=== PATIENT | female | born 1970 | race Caucasian/White ===

== ENCOUNTER 2021-02-13 12:30 | Emergency (ER) | payer OTHER, SELFPAY ==
[2021-02-13 13:05] VITALS: BP 142/97; PULSE 105; RESP 16; TEMP 36.7; O2SAT 99; BMI 29.9
[2021-02-13 13:51] LABS: Glucose Urine UA NEG (NEG); Leukocyte Esterase Urine NEG (NEG); Nitrite Urine NEG (NEG); Urine Blood NEG (NEG); Urine Ketones NEG (NEG); Urine Protein NEG (NEG-TRACE)
[2021-02-13 13:52] LABS: Appearance Urine CLEAR; Color Urine YELLOW
[2021-02-13 14:02] VITALS: BP 165/94; PULSE 97; RESP 17; O2SAT 98
[2021-02-13 14:16] LABS: RBC Urine 0-2 /HPF (0); Squamous Epithelial Cell Urine TRACE /LPF; WBC Urine 0-2 /HPF (0-4)
--- NOTE | 2021-02-13 14:41 | ED.FEMALEGU ---
HPI - Female Genitourinary General Chief complaint: Urogenital-Female <MISSY Ronquillo Last Filed: 02/13/21 15:50> Stated complaint: intense bladder pain <MISSY Ronquillo Last Filed: 02/13/21 15:50> Time Seen by Provider: 02/13/21 14:05 <MISSY Ronquillo Last Filed: 02/13/21 15:50> Source: patient <MISSY Ronquillo Last Filed: 02/13/21 15:50> Mode of arrival: ambulatory <MISSY Ronquillo Last Filed: 02/13/21 15:50> Limitations: no limitations <MISSY Ronquillo Last Filed: 02/13/21 15:50> History of Present Illness HPI Narrative: 50 y/o female with history of metastatic breast cancer, HTN, who presents to the ED wtih on/off dysuria and suprapubic pressure for the last 1 week. She was seen at an Urgent Care initially, had a negative UA but was started on macrobid 5 days ago when he culture came back positive. She was also prescribed pyridum but only took 1 dose because she did not like the color it made her urine. She reports the burning sensation when she urinates comes and goes, is usually worse in the mornings and improves as she hydrates throughout the day. She denies vaginal discharge or bleeding. Not sexually active. No N/V/D and abdominal pain. She is afraid this is related to her breast cancer. She is on hormonal therapy and reports vaginal dryness. <MISSY Ronquillo Last Filed: 02/13/21 15:50> MD elicited complaint: dysuria <MISSY Ronquillo Last Filed: 02/13/21 15:50> Onset (ago): week(s) (1) <MISSY Ronquillo Last Filed: 02/13/21 15:50> Location of symptoms: external genitalia and urethra <MISSY Ronquillo Last Filed: 02/13/21 15:50> Severity: moderate <MISSY Ronquillo Last Filed: 02/13/21 15:50> Female Urogenital Radiation: Non-Radiating <MISSY Ronquillo - Last Filed: 02/13/21 15:50> Severity scale (1-10): 5 <MISSY Ronquillo - Last Filed: 02/13/21 15:50> Quality of pain: burning <MISSY Ronquillo - Last Filed: 02/13/21 15:50> Consistency: intermittent <MISSY Ronquillo - Last Filed: 02/13/21 15:50> Vaginal discharge: none <MISSY Ronquillo - Last Filed: 02/13/21 15:50> Vaginal bleeding: none <MISSY Ronquillo - Last Filed: 02/13/21 15:50> Urinary symptoms: Dysuria, Urgency and Frequency <MISSY Ronquillo - Last Filed: 02/13/21 15:50> Exacerbating factors: urination <MISSY Ronquillo - Last Filed: 02/13/21 15:50> Relieving factors: other (improvement with hydration) <MISSY Ronquillo - Last Filed: 02/13/21 15:50> Associated symptoms: denies other symptoms <MISSY Ronquillo - Last Filed: 02/13/21 15:50> Treatment prior to arrival: none <MISSY Ronquillo - Last Filed: 02/13/21 15:50> Sexual activity: No <MISSY Ronquillo - Last Filed: 02/13/21 15:50> Patient : No <MISSY Ronquillo - Last Filed: 02/13/21 15:50> Related Data Allergies/Adverse reactions: Allergies Allergy/AdvReac Type Severity Reaction Status Date / Time benadryl Allergy Unknown chest pain Uncoded 09/30/12 00:00 E-mycin Allergy Unknown swelling Uncoded 09/30/12 00:00 PCN Allergy Unknown swelling Uncoded 09/30/12 00:00 <MISSY Ronquillo - Last Filed: 02/13/21 15:50> Review of Systems Review of Systems: Constitutional: No Fever, No Chills Cardiovascular: No Chest Pain, No SOB Respiratory: No Cough, No Sputum Gastrointestinal: No Nausea, No Vomiting, No Diarrhea, No abdominal Pain Genitourinary: + Dysuria, + Urinary Frequency, No Hematuria Musculoskeletal: No joint pain, No Myalgias Skin: No Skin Lesions, No rash Neuro: No Weakness, No Numbness, No Dizziness, No Headache Psych: + Anxiety/Panic, No Depression Heme/Lymph: No Bruising, No Lymphadenopathy Endocrine: No Polyuria, +Polydipsia <MISSY Ronquillo - Last Filed: 02/13/21 15:50> [facility]LY [facility] Past Medical History Attestation statement: The following information was validated with the patient. <MISSY Ronquillo - Last Filed: 02/13/21 15:50> Medical History: Medical History (Updated 02/14/21 @ 00:01 by Norberto Coffey) Metastatic breast cancer <MISSY Ronquillo - Last Filed: 02/13/21 15:50> Surgical History: Surgical History (Updated 02/13/21 @ 13:10 by Leida Medellin) H/O breast reconstruction Hx of removal of ovary <MISSY Ronquillo - Last Filed: 02/13/21 15:50> Social History Social History: Social History Alcohol intake: current Alcohol intake frequency: a few times a week Alcohol type: beer Patient Tobacco Use Status: Current everyday Tobacco user Use of substances other than those prescribed or required for medical reasons: Yes Substance Use Type: Marijuana Substance Use Frequency: Occasionally Advance Directives: No Advance Directives Information Provided: No Patient : No <MISSY Ronquillo - Last Filed: 02/13/21 15:50> Physical Exam Vital Signs: Vital Signs: Last Vital Signs Temp 98.1 F 02/13/21 13:05 Pulse 97 02/13/21 14:02 Resp 17 02/13/21 14:02 BP 165/94 H 02/13/21 14:02 Pulse Ox 98 02/13/21 14:02 Body Mass Index 29.9 Appearance: Alert. Oriented X3. No acute distress. Eyes: Pupils equal, round and reactive to light. ENT: Pharynx normal. Neck: Normal inspection. Neck supple. CVS: Normal heart rate and rhythm. Pulses normal. Respiratory: No respiratory distress. Breath sounds normal. Abdomen: Soft and nontender. +BS x4. well healed surgical scar along lower abdomen consistent with prior breast reconstruction surgery Pelvic: mild erythema of vaginal introitus at 9 o'clock, nontender, no ulcerations or lesions, vaginal mucosa is dry without bleeding or lesions. Skin: Skin warm and dry. Normal skin color. Normal skin turgor. No rashes. Extremities: No lower extremity edema. Neuro: Oriented X 3. No motor deficit. No sensory deficit. Anxious and tearful <MISSY Ronquillo - Last Filed: 02/13/21 15:50> Vital Signs: Last Vital Signs Temp 98.1 F 02/13/21 13:05 Pulse 97 02/13/21 14:02 Resp 17 02/13/21 14:02 BP 165/94 H 02/13/21 14:02 Pulse Ox 98 02/13/21 14:02 Body Mass Index 29.9 <Jonathan Barry MD - Last Filed: 03/23/21 13:21> Course Course Course Narrative: 50 y/o female presenting with dysuria and frequency. On antibiotics and pyridium already for +urine culture at an Urgent Care. Exam reveals dry mucosa with mild erythema which can be painful with urine irritating the area. Will refer to urology and have her continue treatment for UTI. She is afebrile and non-toxic with no abdominal tenderness. She is stable for discharge with outpatient followup. <MISSY Ronquillo - Last Filed: 02/13/21 15:50> I have reviewed the chart <Jonathan Barry MD - Last Filed: 03/23/21 13:21> MDM - Female Genitourinary Lab Data Labs: Lab Results 02/13/21 Range/Units 13:31 Urine Color YELLOW Urine Appearance CLEAR Urine pH 6.0 (5.0-8.0) Ur Specific [place] 1.010 (1.005-1.025) Urine Protein NEG (NEG-TRACE) MG/DL Urine Glucose (UA) NEG (NEG) MG/DL Urine Ketones NEG (NEG) MG/DL Urine Blood NEG (NEG) Urine Nitrite NEG (NEG) Ur Leukocyte Esterase NEG (NEG) Urine RBC 0-2 (0) /HPF Urine WBC 0-2 (0-4) /HPF Ur Squamous Epith Cells TRACE /LPF Urine Bacteria NONE /LPF <MISSY Ronquillo - Last Filed: 02/13/21 15:50> Lab Results 02/13/21 Range/Units 13:31 Urine Color YELLOW Urine Appearance CLEAR Urine pH 6.0 (5.0-8.0) Ur Specific [place] 1.010 (1.005-1.025) Urine Protein NEG (NEG-TRACE) MG/DL Urine Glucose (UA) NEG (NEG) MG/DL Urine Ketones NEG (NEG) MG/DL Urine Blood NEG (NEG) Urine Nitrite NEG (NEG) Ur Leukocyte Esterase NEG (NEG) Urine RBC 0-2 (0) /HPF Urine WBC 0-2 (0-4) /HPF Ur Squamous Epith Cells TRACE /LPF Urine Bacteria NONE /LPF <Jonathan Barry MD - Last Filed: 03/23/21 13:21> Discharge Plan Discharge Clinical Impression: Cystitis <MISSY Ronquillo - Last Filed: 02/13/21 15:50> Patient Disposition: Home, Self-Care <MISSY Ronquillo - Last Filed: 02/13/21 15:50> Instructions: Interstitial Cystitis (ED) <MISSY Ronquillo - Last Filed: 02/13/21 15:50> Additional Instructions: Your urine test today was normal. Continue taking your antibiotic and Pyridium to complete treatment Follow up with Urology Follow up with your cancer doctor. If you have worsening symptoms come back to the ER for further evalution. <MISSY Ronquillo - Last Filed: 02/13/21 15:50> Referrals: Marcel Ashby MD [Physician] - 2 days (urethral pain, bladder pain) <MISSY Ronquillo - Last Filed: 02/13/21 15:50> Discharge Date/Time: 02/13/21 16:06 <MISSY Ronquillo - Last Filed: 02/13/21 15:50>
--- NOTE | 2021-02-13 16:06 | PC.NURSE ---
discharge instructions given to pt who verbalized understanding and denies any questions. pt is ambulatory to exit in no distress
== END 2021-02-13 16:06 | disposition home or self-care (01) ==
PROVIDERS: Emergency Provider Emergency Medicine; PCP Internal Medicine
DX: N30.10 Interstitial cystitis (chronic) without hematuria (principal); I10 Essential (primary) hypertension
CPT/HCPCS: 81001; 99283; 99284

== ENCOUNTER 2023-01-01 08:59 | Emergency (ER) | payer OTHER, SELFPAY ==
--- NOTE | ~2023-01-01 | CT_ITS ---
EXAMINATION: CT ABDOMEN AND PELVIS WITH CONTRAST CLINICAL INFORMATION: Abdominal pain COMPARISON: None available. TECHNIQUE: Multidetector volumetric images were obtained from the superior aspect of the liver through the pubic symphysis following administration 100 mL of Omnipaque 350 intravenous contrast. Sagittal and coronal reformatted images were obtained on the technologist's workstation. Oral contrast: No This CT examination was performed using dose optimization techniques as appropriate, variously including the following: *Automated exposure control *Adjustment of mA and/or kV according to patient size (this includes techniques or standardized protocols for targeted exams where dose is matched to indication/reason for exam; i.e. extremities or head) *Use of iterative reconstruction technique DLP: 561 mGy-cm FINDINGS: LUNG BASES: Partial visualization is made of a moderate-sized hiatal hernia. Minimal right base posterior dependent atelectasis is identified. LIVER, GALLBLADDER, AND BILIARY TREE: The liver is normal in size, shape, and attenuation. No focal hepatic lesion or biliary ductal dilatation is present. The gallbladder is unremarkable with no evidence of radiopaque gallstones, gallbladder wall thickening, or obvious pericholecystic inflammatory changes. PANCREAS: Unremarkable. SPLEEN: Unremarkable. ADRENAL GLANDS: Unremarkable. KIDNEYS AND URETERS: The kidneys are normal in size, shape, and attenuation. No hydronephrosis, hydroureter, or calculi seen. No perinephric stranding. BLADDER: Unremarkable. GASTROINTESTINAL TRACT: Mild sigmoid diverticulosis is noted. The appendix is normal in appearance. No intestinal dilatation or mural thickening noted. A trace quantity of free intraperitoneal fluid is present dependently within the pelvis and is with an expected limits of normal physiologic variation. No free intraperitoneal gas identified. Normal appearance of the sigmoid mesentery and small bowel mesentery. As noted above, a moderate sized hiatal hernia is present. The duodenum is normal in appearance. ABDOMINAL WALL: No abdominal wall hernias are noted. Surgical clips are noted along the anterior abdominal wall superficial fascial margin within the left lower abdominal quadrant and atrophy of the left abdominis rectus muscle is visualized. LYMPH NODES: Normal. VASCULAR: Mild-moderate scattered calcific and noncalcific atherosclerotic plaques. PELVIC VISCERA: Uterus is diminutive in appearance in a configuration suspicious for a prior cervical sparing hysterectomy. No adnexal lesions identified. OSSEOUS STRUCTURES: Partially visualized prominent posterior broad-based disc bulge L5-S1 and partial visualization of at least moderate posterior broad-based disc bulges at L3-L4 and L4-L5. No vertebral body compression deformities. Multilevel thoracolumbar facet hypertrophic changes. CT/CT abdomen pelvis w IV con IMPRESSION: 1. No acute abnormalities identified. 2. Mild sigmoid diverticulosis. No evidence of acute diverticulitis. Normal appendix. 3. Partial visualization of a moderate-sized hiatal hernia. 4. Partially visualized prominent posterior broad-based disc bulge at L5-S1 and partial visualization of at least moderate posterior broad-based disc bulges at L3-L4 and L4-L5.
[2023-01-01 09:17] VITALS: BP 170/102; PULSE 81; RESP 19; TEMP 36.7; O2SAT 99; BMI 28.9
--- NOTE | 2023-01-01 09:36 | ED_ITS ---
HPI - General Adult General Chief complaint: Abdominal Pain <MISSY Pratt - Last Filed: 01/01/23 16:32> Stated complaint: Abd pain <MISSY Pratt - Last Filed: 01/01/23 16:32> Time Seen by Provider: 01/01/23 09:36 <MISSY Pratt - Last Filed: 01/01/23 16:32> Source: patient <MISSY Pratt Last Filed: 01/01/23 16:32> Mode of arrival: ambulatory <MISSY Pratt - Last Filed: 01/01/23 16:32> Limitations: no limitations <MISSY Pratt Last Filed: 01/01/23 16:32> History of Present Illness HPI narrative: Patient is a 52 year old assigned female at with a history of left sided breast cancer presenting to the emergency department today with central abdominal pain. Patient states that earlier today she began to have sharp central abdominal pain. Patient states that she has been having normal bowel movements and has never experienced pain like this before. Patient denies any dizziness, lightheadedness, nausea, vomiting, fever, chills, blurry vision, double vision, loss of vision, chest pain, difficulty breathing, shortness of breath, back pain, night sweats, pain with urination, increased urinary frequen cy, increased urinary urgency, blood in her urine or stool, syncope or a near syncopal episode, recent trauma or falls, bowel incontinence, bladder incontinence, bowel retention, bladder retention, or any other complaints at this time. <MISSY Pratt - Last Filed: 01/01/23 16:32> Onset (ago): hour(s) <MISSY Pratt - Last Filed: 01/01/23 16:32> Location: abdomen <MISSY Pratt - Last Filed: 01/01/23 16:32> Pain Consistency: constant <MISSY Pratt - Last Filed: 01/01/23 16:32> Relieving factors: none <MISSY Pratt - Last Filed: 01/01/23 16:32> Exacerbating factors: none <MISSY Pratt Last Filed: 01/01/23 16:32> Associated symptoms: denies other symptoms <MISSY Pratt Last Filed: 01/01/23 16:32> Treatments prior to arrival: none <MISSY Pratt Last Filed: 01/01/23 16:32> Related Data Home medications: Previous Rx's Medication Instructions Recorded docusate sodium 100 mg capsule 100 mg PO BID #20 caps 01/01/23 (Colace) polyethylene glycol 3350 17 17 g PO BID PRN constipation #238 01/01/23 gram/dose oral powder (Miralax) grams sennosides 8.6 mg tablet (senna) 8.6 mg PO BEDTIME #14 tabs 01/01/23 <MISSY Partt Last Filed: 01/01/23 16:32> Allergies/adverse reactions: Allergies Allergy/AdvReac Type Severity Reaction Status Date / Time benadryl Allergy Unknown chest pain Uncoded 09/30/12 00:00 E-mycin Allergy Unknown swelling Uncoded 09/30/12 00:00 PCN Allergy Unknown swelling Uncoded 09/30/12 00:00 <MISSY Pratt Last Filed: 01/01/23 16:32> Review of Systems Constitutional: Constitutional: Reports no additional constitutional complaints, Denies chills, Denies fever(s) and Denies night sweats <MISSY Pratt Last Filed: 01/01/23 16:32> Eyes: Eyes: Reports no additional eye complaints, Denies blurry vision, Denies change in vision, Denies diplopia, Denies eye discharge, Denies loss of vision and Denies eye pain <MISSY Pratt Last Filed: 01/01/23 16:32> ENT: Denies dizziness <MISSY Pratt Last Filed: 01/01/23 16:32> Cardiovascular: Cardiovascular: Reports no additional cardiovascular complaints, Denies chest pain, Denies lightheadedness, Denies Loss of Consciousness and Denies dyspnea <MISSY Pratt Last Filed: 01/01/23 16:32> Respiratory: Respiratory: Reports no additional respiratory complaints and Denies dyspnea <MISSY Pratt Last Filed: 01/01/23 16:32> Gastrointestinal: Gastrointestinal: Reports no additional gastrointestinal complaints, Reports abdominal pain, Denies melena, Denies hematochezia, Denies change in bowel habits and Denies change in stool character <MISSY Pratt - Last Filed: 01/01/23 16:32> Genitourinary: Genitourinary: Denies hematuria, Denies urinary frequency, Denies dysuria, Denies urinary incontinence, Denies urinary hesitancy and Denies urinary urgency <MISSY Pratt - Last Filed: 01/01/23 16:32> Musculoskeletal: Musculoskeletal: Reports no additional musculoskeletal complaints, Denies numbness and Denies tingling <MISSY Pratt - Last Filed: 01/01/23 16:32> Neurologic: Denies dizziness, Denies loss of vision, Denies numbness and Denies tingling <MISSY Pratt - Last Filed: 01/01/23 16:32> Psychiatric: Psychiatric: Reports no additional psychiatric complaints <MISSY Pratt - Last Filed: 01/01/23 16:32> Endocrine: Endocrine: Reports no additional endocrine complaints <MISSY Pratt - Last Filed: 01/01/23 16:32> Hematologic/Lymphatic: Hematologic/Lymphatic: Reports no additional hematologic/lymphatic complaints <MISSY Pratt - Last Filed: 01/01/23 16:32> Allergic/Immunologic: Allergic/Immunologic: Reports no additional allergic/immunologic complaints <MISSY Pratt - Last Filed: 01/01/23 16:32> PMFSH Past Medical History Attestation statement: The following information was validated with the patient. <MISSY Pratt - Last Filed: 01/01/23 16:32> Source: old records reviewed and nursing notes reviewed <MISSY Pratt - Last Filed: 01/01/23 16:32> Medical History: Medical History Metastatic breast cancer <MISSY Pratt - Last Filed: 01/01/23 16:32> Surgical History: Surgical History H/O breast reconstruction Hx of removal of ovary <MISSY Pratt Last Filed: 01/01/23 16:32> Social History Social History: Social History Alcohol intake: current Alcohol intake frequency: holidays/special occasions only Alcohol type: beer Patient Tobacco Use Status: Current everyday Tobacco user Smoked in Last 30 Days: Yes Use of substances other than those prescribed or required for medical reasons: No Substance Use Type: Marijuana Advance Directives: No Advance Directives Information Provided: No Patient : No <MISSY Pratt Last Filed: 01/01/23 16:32> Physical Exam ED Vital Signs: Vital Signs - 24 hr 01/01/23 12:21 01/01/23 14:00 01/01/23 16:04 Temperature 96.4 F L Pulse Rate 76 86 68 Respiratory Rate 16 20 16 Blood Pressure 128/81 160/86 H 138/78 Pulse Oximetry 98 96 97 Oxygen Delivery Method Room Air Room Air Room Air BMI result Body Mass Index 28.9 <MISSY Pratt Last Filed: 01/01/23 16:32> Vital Signs - 24 hr 01/01/23 12:21 01/01/23 14:00 01/01/23 16:04 Temperature 96.4 F L Pulse Rate 76 86 68 Respiratory Rate 16 20 16 Blood Pressure 128/81 160/86 H 138/78 Pulse Oximetry 98 96 97 Oxygen Delivery Method Room Air Room Air Room Air BMI result Body Mass Index 28.9 <MISSY Ariza - Last Filed: 01/02/23 11:27> Const General: cooperative, no acute distress, alert and awake <MISSY Pratt Last Filed: 01/01/23 16:32> Nutritional Appearance: well nourished <MISSY Pratt Last Filed: 01/01/23 16:32> Orientation/consciousness: patient oriented x3 <MISSY Pratt Last Filed: 01/01/23 16:32> Limitations: no limitations <MISSY Pratt Last Filed: 01/01/23 16:32> HENMT Head: Yes normal to inspection and Yes atraumatic <MISSY Pratt Last Filed: 01/01/23 16:32> Ears: hearing grossly normal bilaterally and external ears normal <MISSY Pratt Last Filed: 01/01/23 16:32> General nose exam: Normal external nose present, no nasal discharge noted and no epistaxis <Julia Vasquezjuliette [facility] Last Filed: 01/01/23 16:32> Face and sinus: Yes normal facial exam, No abrasion and No laceration <Julia Vasquezjuliette [facility] Last Filed: 01/01/23 16:32> Mouth: Normal oral and palatal mucosa present, no drooling and no muffled voice <Juliadutch VasquezMISSY [place] Last Filed: 01/01/23 16:32> Eyes General: appearance normal, both eyes and all related structures <Julia Vasquezjuliette [place] - Last Filed: 01/01/23 16:32> Periorbital: periorbital findings normal <Julia MISSY [place] Last Filed: 01/01/23 16:32> Eyelids: Yes eyelids normal <Julia Vasquezjuliette [facility] Last Filed: 01/01/23 16:32> Conjunctivae: conjunctivae normal <Julia MISSY [place] Last Filed: 01/01/23 16:32> Pupils: Equal, round and reactive pupils present <Juliadutch Vasquezjuliette [facility] Last F iled: 01/01/23 16:32> EOM: EOMs intact bilaterally <Julia VasquezMISSY [place] Last Filed: 01/01/23 16:32> Neck Neck: Yes normal visual inspection, Yes full ROM and Yes no lymphadenopathy <Julia Vasquezjuliette [facility] Last Filed: 01/01/23 16:32> Chest Chest palpation & inspection: normal inspection of the chest <MISSY Pratt Last Filed: 3 16:32> Resp Effort & Inspection: normal respiratory effort and able to speak in complete sentences <Madhu sarah [place], [place] - Last Filed: 01/01/23 16:32> Auscultation: clear to auscultation bilaterally <Julia MISSY [place] Last Filed: 16:32> Cardio Rate: regular rate <Julia Stanislav [facility] Last Filed: 01/01/23 16:32> Rhythm: regular rhythm <Julia Stanislav [facility] Last Filed: 01/01/23 16:32> GI Inspection: Yes normal to inspection <Julia Stanislav [place] - Last Filed: 01/01/23 16:32> Palpation (GI): Soft to palpation, not firm, nontender and no guarding <Julia Vasquezjuliette [place] - Last Filed: 01/01/23 16:32> Neuro General: patient oriented x3 and moves all extremities <Julia [place] - Last Filed: 01/01/23 16:32> Cranial nerves: Yes Equal, round and reactive pupils present <Julia Vasquezjuliette [place] - Last Filed: 01/01/23 16:32> Cognition (Neuro): normal cognition <Julia Vasquezjuliette [place] - Last Filed: 01/01/23 16:32> Motor exam (neuro): 5/5 motor strength present throughout <Julia Vasquezjuliette [place] - Last Filed: 01/01/23 16:32> Sensory Exam: Normal double simultaneous stimulation for sensation <Julia [place] - Last Filed: 01/01/23 16:32> Coordination: anxnav-ic-rhnd test normal <Juliadutch Vasquezjuliette [place] - Last Filed: 01/01/23 16:32> Extrem General: Yes normal to inspection, Yes full ROM and Yes capillary refill normal <Julia Vasquezjuliette [place] - Last Filed: 01/01/23 16:32> Psych Appearance: grossly normal <Julia Vasquezjuliette [place] - Last Filed: 01/01/23 16:32> Mental Status: mental status grossly normal <Julia Vasquezjuliette [place] - Last Filed: 01/01/23 16:32> Affect: normal affect <Julia Vasquezjuliette [facility] Last Filed: 01/01/23 16:32> Attitude: cooperative <Juliadutch Vasquezjuliette [place] - Last Filed: 01/01/23 16:32> Thought process: Normal thought process present <Julia MISSY [place] - Last Filed: 01/01/23 16:32> Thought content: Normal thought content present <Julia MISSY [place] - Last Filed: 01/01/23 16:32> Insight: Good insight present (Psych) <Juliadutch VasquezMISSY [place] - Last Filed: 01/01/23 16:32> Course Reevaluation(s) Reevaluation #1: patient felt better pain resolved she thinks shes just constipated sent home w/ stool softners. Benign CT, tollerating po. Comfortable w/ DC <MISSY Ariza - Last Filed: 01/02/23 11:27> Medications Administered Discontinued Medications Generic Name Dose Route Start Last Admin Trade Name Freq PRN Reason Stop Dose Admin Iohexol 100 ml 01/01/23 15:03 01/01/23 15:03 Iohexol 350 Mg/Ml 100 Ml Infus..Btl IV 01/01/23 15:04 85 ml ONCE ONE Administration Morphine Sulfate 4 mg 01/01/23 09:42 01/01/23 10:12 Morphine Sulfate 4 Mg/Ml Cartridge IVPUSH 01/01/23 09:43 4 mg ONCE ONE Administration Protocol Ondansetron HCl 4 mg 01/01/23 09:42 01/01/23 10:12 Ondansetron Hcl 4 Mg/2 Ml Vial IVPUSH 01/01/23 09:43 4 mg ONCE ONE Administration <MISSY Pratt - Last Filed: 01/01/23 16:32> Medications Administered Discontinued Medications Generic Name Dose Route Start Last Admin Trade Name Freq PRN Reason Stop Dose Admin Iohexol 100 ml 01/01/23 15:03 01/01/23 15:03 Iohexol 350 Mg/Ml 100 Ml Infus..Btl IV 01/01/23 15:04 85 ml ONCE ONE Administration Morphine Sulfate 4 mg 01/01/23 09:42 01/01/23 10:12 Morphine Sulfate 4 Mg/Ml Cartridge IVPUSH 01/01/23 09:43 4 mg ONCE ONE Administration Protocol Ondansetron HCl 4 mg 01/01/23 09:42 01/01/23 10:12 Ondansetron Hcl 4 Mg/2 Ml Vial IVPUSH 01/01/23 09:43 4 mg ONCE ONE Administration <MISSY Ariza - Last Filed: 01/02/23 11:27> Medical Decision Making Medical Decision Making MDM Narrative: Patient is a 52 year old assigned female at with a history of left sided breast cancer presenting to the emergency department today with abdominal pain. Patient's physical exam was unremarkable. Patient's blood work was unremarkable. Patient's urine showed no acute process. Patient's abdominal CT is pending. I explained my physical exam findings as well as all test results to the patient. I answered all questions asked by the patient. Patient received IV morphine which she stated helped her symptoms significantly. Patient disposition pending CT abdomen read. Patient signed out to Kiana CRISOSTOMO. <MISSY Pratt - Last Filed: 01/01/23 16:32> Differential Diagnosis Differential Diagnoses: The differential diagnosis associated with the presentation includes <MISSY Pratt - Last Filed: 01/01/23 16:32> abdominal pain <MISSY Pratt - Last Filed: 01/01/23 16:32> Lab Data MDM Lab Attestation statement: I reviewed the patient's lab results. <MISSY Pratt - Last Filed: 01/01/23 16:32> Result Diagrams: 01/01/23 09:58 01/01/23 09:58 <MISSY Pratt - Last Filed: 01/01/23 16:32> Labs: Lab Results 01/01/23 01/01/23 01/01/23 Range/Units 09:44 09:58 09:58 WBC 3.6 L (4.8-10.8) X10*3/uL RBC 3.50 L (4.20-5.50) X10*6/uL Hgb 12.9 (12.0-16.0) g/dl Hct 36.9 L (37.0-47.0) % MCV 105.4 H (80.0-98.0) fL MCH 36.9 H (27.0-33.0) pg MCHC 35.0 (31.0-35.0) g/dl RDW 14.4 (11.0-16.0) % Plt Count 275 (160-400) X10*3/uL MPV 8.9 L (9.4-12.3) fL Immature Gran % (Auto) 0.3 (0.0-0.4) % Neut % (Auto) 76.0 H (45-73) % Lymph % (Auto) 10.9 L (20-40) % [place] % (Auto) 10.9 (2-11) % Eos % (Auto) 0.8 (0-4) % Baso % (Auto) 1.1 (0-2) % Lymph # (Auto) 0.4 L (1.2-4.9) X10*3/uL [place] # (Auto) 0.4 (0.1-1.2) X10*3/uL Eos # (Auto) 0.0 (0.0-0.4) X10*3/uL Baso # (Auto) 0.0 (0.0-0.2) X10*3/uL Abs Immat Gran (auto) 0.01 (0.00-0.03) X10*3/uL Absolute Neuts (auto) 2.7 (2.0-8.3) x10*3/uL Absolute Nucleated RBC 0.000 (0.0-0.012) X10*3/uL Nucleated RBC % (auto) 0.0 (0.0-0.2) /100WBC Sodium 135 (135-145) mmol/L Potassium 4.8 (3.3-5.1) mmol/L Chloride 98 (96-108) mmol/L Carbon Dioxide 25 (22-29) mmol/L Anion Gap 17 (12-20) BUN 7 L (9-16) mg/dL Creatinine 0.82 (0.5-1.4) mg/dL Estim Creat Clear Calc 82.3 Estimated GFR > 60 Random Glucose 134 H (60-115) mg/dL Calcium 9.8 (8.4-10.2) mg/dL Total Bilirubin 0.5 (0.0-1.0) mg/dL Direct Bilirubin 0.1 (0.0-0.5) mg/dL AST 23 (5-31) U/L ALT 19 (0-31) U/L Alkaline Phosphatase 76 (39-117) U/L Total Protein 7.4 (6.5-8.0) g/dL Albumin 4.5 (3.5-5.0) g/dL Lipase 27 (8-78) U/L Urine Color Yellow Urine Appearance Clear Urine pH 6.0 (5.0-9.0) Ur Specific [place] 1.020 (1.005-1.025) Urine Protein Negative (Neg-Trace) mg/dL Urine Glucose (UA) Negative (Negative) mg/dL Urine Ketones Negative (Negative) mg/dL Urine Blood Negative (Negative) Urine Nitrite Negative (Negative) Ur Leukocyte Esterase Small (1+) H (Negative) Urine RBC 0-2 (0-2) /HPF Urine WBC 0-5 (0-5) /HPF Ur Squamous Epith Cells 0-2 (0-2) /HPF Urine Bacteria None Seen (None Seen) Hyaline Casts 0-2 (0-2) /LPF <MISSY Pratt - Last Filed: 01/01/23 16:32> Lab Results 01/01/23 01/01/23 01/01/23 Range/Units 09:44 09:58 09:58 WBC 3.6 L (4.8-10.8) X10*3/uL RBC 3.50 L (4.20-5.50) X10*6/uL Hgb 12.9 (12.0-16.0) g/dl Hct 36.9 L (37.0-47.0) % MCV 105.4 H (80.0-98.0) fL MCH 36.9 H (27.0-33.0) pg MCHC 35.0 (31.0-35.0) g/dl RDW 14.4 (11.0-16.0) % Plt Count 275 (160-400) X10*3/uL MPV 8.9 L (9.4-12.3) fL Immature Gran % (Auto) 0.3 (0.0-0.4) % Neut % (Auto) 76.0 H (45-73) % Lymph % (Auto) 10.9 L (20-40) % [place] % (Auto) 10.9 (2-11) % Eos % (Auto) 0.8 (0-4) % Baso % (Auto) 1.1 (0-2) % Lymph # (Auto) 0.4 L (1.2-4.9) X10*3/uL [place] # (Auto) 0.4 (0.1-1.2) X10*3/uL Eos # (Auto) 0.0 (0.0-0.4) X10*3/uL Baso # (Auto) 0.0 (0.0-0.2) X10*3/uL Abs Immat Gran (auto) 0.01 (0.00-0.03) X10*3/uL Absolute Neuts (auto) 2.7 (2.0-8.3) x10*3/uL Absolute Nucleated RBC 0.000 (0.0-0.012) X10*3/uL Nucleated RBC % (auto) 0.0 (0.0-0.2) /100WBC Sodium 135 (135-145) mmol/L Potassium 4.8 (3.3-5.1) mmol/L Chloride 98 (96-108) mmol/L Carbon Dioxide 25 (22-29) mmol/L Anion Gap 17 (12-20) BUN 7 L (9-16) mg/dL Creatinine 0.82 (0.5-1.4) mg/dL Estim Creat Clear Calc 82.3 Estimated GFR > 60 Random Glucose 134 H (60-115) mg/dL Calcium 9.8 (8.4-10.2) mg/dL Total Bilirubin 0.5 (0.0-1.0) mg/dL Direct Bilirubin 0.1 (0.0-0.5) mg/dL AST 23 (5-31) U/L ALT 19 (0-31) U/L Alkaline Phosphatase 76 (39-117) U/L Total Protein 7.4 (6.5-8.0) g/dL Albumin 4.5 (3.5-5.0) g/dL Lipase 27 (8-78) U/L Urine Color Yellow Urine Appearance Clear Urine pH 6.0 (5.0-9.0) Ur Specific [place] 1.020 (1.005-1.025) Urine Protein Negative (Neg-Trace) mg/dL Urine Glucose (UA) Negative (Negative) mg/dL Urine Ketones Negative (Negative) mg/dL Urine Blood Negative (Negative) Urine Nitrite Negative (Negative) Ur Leukocyte Esterase Small (1+) H (Negative) Urine RBC 0-2 (0-2) /HPF Urine WBC 0-5 (0-5) /HPF Ur Squamous Epith Cells 0-2 (0-2) /HPF Urine Bacteria None Seen (None Seen) Hyaline Casts 0-2 (0-2) /LPF <MISSY Ariza - Last Filed: 01/02/23 11:27> Independent Interpretation I performed an independent interpretation of an: CT Scan <MISSY Pratt - Last Filed: 01/01/23 16:32> Interpretation: My interpretation is in agreement with the radiologist's impression of this imaging study. <MISSY Pratt Filed: 01/01/23 16:32> Discharge Plan Discharge Clinical Impression: Abdominal pain <MISSY Pratt Last Filed: 01/01/23 16:32> Patient Disposition: Home, Self-Care <MISSY Pratt Last Filed: 01/01/23 16:32> Instructions: Abdominal Pain (ED) <MISSY Pratt Last Filed: 01/01/23 16:32> Additional Instructions: Take your medications as prescribed. If you were prescribed antibiotics today, it is important that you take your medication to their entirety, do not skip any doses, do not finish them early. Follow-up with your primary care provider this week. Return to the emergency department with new or worsening symptoms. Such as fevers, chills, chest pain, shortness of breath, nausea, vomiting, dizziness, headache, vision changes, lethargy In case of emergency call 911 CT/CT abdomen pelvis w IV con IMPRESSION: 1. No acute abnormalities identified. 2. Mild sigmoid diverticulosis. No evidence of acute diverticulitis. Normal appendix. 3. Partial visualization of a moderate-sized hiatal hernia. 4. Partially visualized prominent posterior broad-based disc bulge at L5-S1 and partial visualization of at least moderate posterior broad-based disc bulges at L3-L4 and L4-L5. <MISSY Pratt Filed: 01/01/23 16:32> Prescriptions: New sennosides [senna] 8.6 mg tablet 8.6 mg PO BEDTIME Qty: 14 0RF docusate sodium [Colace] 100 mg capsule 100 mg PO BID Qty: 20 0RF polyethylene glycol 3350 [Miralax] 17 gram/dose powder 17 g PO BID PRN (Reason: constipation) Qty: 238 0RF <MISSY Pratt - Last Filed: 01/01/23 16:32> Referrals: [facility] [place] [facility] [Provider Group] - 2 weeks <MISSY Pratt - Last Filed: 01/01/23 16:32> Interventions: ED Discharge Assessment Last Done: 01/01/23 17:22 <MISSY Pratt - Last Filed: 01/01/23 16:32> Discharge Date/Time: 01/01/23 17:23 <MISSY Pratt - Last Filed: 01/01/23 16:32>
[2023-01-01 09:50] LABS: Appearance Urine Clear; Color Urine Yellow; Glucose Urine UA Negative (Negative); Leukocyte Esterase Urine Small (1+) (Negative); Nitrite Urine Negative (Negative); UMIC TRIGGER UACC YES; Urine Blood Negative (Negative); Urine Ketones Negative (Negative); Urine Protein Negative (Neg-Trace)
[2023-01-01 10:02] LABS: MANUAL DIFF FLAG NO
[2023-01-01 10:04] LABS: Bacteria Urine None Seen (None Seen); Hyaline Casts Urine 0-2 /LPF (0-2); RBC Urine 0-2 /HPF (0-2); Squamous Epithelial Cell Urine 0-2 /HPF (0-2); UACC Culture Trigger YES; WBC Urine 0-5 /HPF (0-5)
[2023-01-01 10:06] LABS: Basophils Percent Auto 1.1 % (0-2); Eosinophils Percent Auto 0.8 % (0-4); Hematocrit 36.9 % (37.0-47.0); Hemoglobin 12.9 g/dl (12.0-16.0); Imm Gran Abs Auto 0.01 X10*3/uL (0.00-0.03); Imm Gran Pct Auto 0.3 % (0.0-0.4); Lymphocytes Absolute Auto 0.4 X10*3/uL (1.2-4.9); Lymphocytes Percent Auto 10.9 % (20-40); Mean Corpuscular Hemoglobin 36.9 pg (27.0-33.0); Mean Corpuscular Volume 105.4 fL (80.0-98.0); Mean Platelet Volume 8.9 fL (9.4-12.3); Monocytes Absolute Auto 0.4 X10*3/uL (0.1-1.2); Monocytes Percent Auto 10.9 % (2-11); Neutrophils Absolute Auto 2.7 x10*3/uL (2.0-8.3); Platelet Count 275 X10*3/uL (160-400); Red Cell Distribution Width 14.4 % (11.0-16.0); White Blood Count 3.6 X10*3/uL (4.8-10.8)
[2023-01-01] MEDS: Morphine Sulfate 4 MG/ML CARTRIDGE IVPUSH (10:12)
[2023-01-01] MEDS: ondansetron HCL 4 MG/2 ML VIAL IVPUSH (10:12)
[2023-01-01 10:13] VITALS: BP 192/115; PULSE 80; RESP 16; O2SAT 95
--- NOTE | 2023-01-01 10:23 | PC.NURSE ---
patient a&ox3, iv inserted, labs drawn, urine obtained, pt noted to be hypertensive, pt c/o mid to radiating left abd pain- painful upon palp, pt medicated for 9/10 pain per order, call howe within reach will continue to monitor.
--- NOTE | 2023-01-01 10:45 | PC.NURSE ---
report given to ritu who resumed care of this patient
[2023-01-01 12:21] VITALS: BP 128/81; PULSE 76; RESP 16; O2SAT 98
[2023-01-01 13:08] LABS: Alanine Aminotransferase 19 U/L (0-31); Albumin Level 4.5 g/dL (3.5-5.0); Alkaline Phosphatase 76 U/L (39-117); Anion Gap 17 (12-20); Aspartate Amino Transferase 23 U/L (5-31); Bilirubin Direct 0.1 mg/dL (0.0-0.5); Bilirubin Total 0.5 mg/dL (0.0-1.0); Blood Urea Nitrogen 7 mg/dL (9-16); Calcium 9.8 mg/dL (8.4-10.2); Carbon Dioxide 25 mmol/L (22-29); Chloride 98 mmol/L (96-108); Creatinine Clr Calc Pharmacy 82.3; Estimated Glomerular Filt Rate > 60; Glucose Random 134 mg/dL (60-115); Lipase 27 U/L (8-78); Potassium 4.8 mmol/L (3.3-5.1); Sodium 135 mmol/L (135-145); Total Protein 7.4 g/dL (6.5-8.0)
[2023-01-01 14:00] VITALS: BP 160/86; PULSE 86; RESP 20; O2SAT 96
[2023-01-01] MEDS: iohexoL 350 MG/ML 100 ML INFUS..BTL IV (15:03)
[2023-01-01 16:04] VITALS: BP 138/78; PULSE 68; RESP 16; TEMP 35.8; O2SAT 97
== END 2023-01-01 17:23 | disposition home or self-care (01) ==
PROVIDERS: Emergency Provider Student in an Organized Health Care Education/Training Program; PCP Internal Medicine
DX: K59.00 Constipation, unspecified (principal); R10.2 Pelvic and perineal pain; Z79.899 Other long term (current) drug therapy; F17.210 Nicotine dependence, cigarettes, uncomplicated; Z71.6 Tobacco abuse counseling
CPT/HCPCS: 36415; 74177; 80048; 80076; 81001; 83690; 85025; 87086; 96374; 96375; 99284; 99285; J2270; J2405; Q9967

== ENCOUNTER 2024-10-05 10:01 | Emergency (ER) | payer OTHER, SELFPAY ==
--- NOTE | ~2024-10-05 | CT_ITS ---
EXAMINATION: CT CHEST ANGIOGRAPHY WITH IV CONTRAST INDICATION: CP COMPARISON: Correlation is made with PA and lateral views of the chest performed earlier in the day. TECHNIQUE: Helical CT scan of the chest was performed following administration of intravenous contrast (65 mL Omnipaque 350). The contrast bolus was timed to optimally opacify the pulmonary arteries. Thin sections were obtained through the pulmonary arteries. Coronal and sagittal reformatted images were generated. 3D/MIP reconstructed images are also obtained and reviewed. This CT exam was performed with one or more of the following dose reduction techniques: automated exposure control, adjustment of the mA and/or kV according to patient size, use of iterative reconstruction technique. DLP: 287 mGy-cm CHEST: THYROID: The thyroid gland is unremarkable. PULMONARY ARTERIES: No intraluminal filling defects are identified within the pulmonary arteries to suggest pulmonary emboli. LUNGS: There are small groundglass opacities at both lung apices which may be inflammatory in nature. There is scarring in the left upper lobe. MEDIASTINUM: There is no mediastinal lymphadenopathy. ELIJAH: There is no hilar lymphadenopathy. CARDIOVASCULATURE: The heart is normal in size. There is no pericardial effusion. The thoracic aorta is normal in caliber. DEGREE OF CORONARY CALCIFICATION: mild PLEURA: There is mild left-sided pleural thickening. There is no pleural effusion. No pneumothorax. MAIN AIRWAYS: The mainstem bronchi and proximal branches are patent. AXILLA: There is no axillary lymphadenopathy. UPPER ABDOMEN: The visualized portions of the liver, spleen, and adrenals are unremarkable. There is a large ventral hernia. BONES AND SOFT TISSUES: There is a mixed lytic and sclerotic lesions involving the T7, T8, T9,, T10, T11 vertebral bodies consistent with metastatic disease. CT/CT angio chest PE protocol IMPRESSION: 1. No evidence of pulmonary emboli. 2. Patchy groundglass opacities at the lung apices which may be inflammatory in nature. 3. Left-sided pleural thickening and upper lobe scarring. 4. Osseous metastatic disease involving the lower thoracic spine. Electronically signed by: Pawel Gallegos MD 10/05/2024 02:40 PM [facility] [place]
--- NOTE | ~2024-10-05 | XR_ITS ---
EXAMINATION: XR CHEST 2 VIEWS HISTORY: cough/cp COMPARISON: There are no prior studies for comparison. FINDINGS: PA and lateral views of the chest are submitted. The lungs are expanded and clear. There is left-sided pleural thickening. There is no pleural effusion, pneumothorax, or pulmonary vascular congestion. The heart is normal in size. There is a small hiatal hernia. The bones are intact. There are surgical clips in the left axilla. XR/XR chest 2V IMPRESSION: Left-sided pleural thickening. Small hiatal hernia. Electronically signed by: Pawel Gallegos MD 10/05/2024 11:37 AM EST
--- NOTE | 2024-10-05 10:03 | ECG_ITS ---
Test Reason : cp Blood Pressure : */* mmHG Vent. Rate : 105 BPM Atrial Rate : 105 BPM P-R Int : 128 ms QRS Dur : 78 ms QT Int : 328 ms P-R-T Axes : 77 58 35 degrees QTcB Int : 433 ms Sinus tachycardia Otherwise normal ECG No previous ECGs available Referred By: Generic ED Physician Electronically Signed By: NAEL POP
[2024-10-05 10:30] VITALS: BP 199/100; PULSE 97; RESP 16; TEMP 36.7; O2SAT 98; BMI 28.3
[2024-10-05 11:17] LABS: MANUAL DIFF FLAG NO
[2024-10-05 11:22] LABS: Basophils Absolute Auto 0.1 X10*3/uL (0.0-0.2); Basophils Percent Auto 0.6 % (0-2); Eosinophils Percent Auto 0.1 % (0-4); Hematocrit 36.8 % (37.0-47.0); Hemoglobin 12.5 g/dl (12.0-16.0); Imm Gran Abs Auto 0.03 X10*3/uL (0.00-0.03); Imm Gran Pct Auto 0.3 % (0.0-0.4); Lymphocytes Percent Auto 9.9 % (20-40); Mean Corpuscular Hemoglobin 30.2 pg (27.0-33.0); Mean Corpuscular Volume 88.9 fL (80.0-98.0); Mean Platelet Volume 8.8 fL (9.4-12.3); Monocytes Absolute Auto 0.8 X10*3/uL (0.1-1.2); Monocytes Percent Auto 8.6 % (2-11); Neutrophils Absolute Auto 7.7 x10*3/uL (2.0-8.3); Neutrophils Percent Auto 80.5 % (45-73); Platelet Count 435 X10*3/uL (160-400); Red Blood Count 4.14 X10*6/uL (4.20-5.50); Red Cell Distribution Width 14.7 % (11.0-16.0); White Blood Count 9.6 X10*3/uL (4.8-10.8)
[2024-10-05 11:37] LABS: Alanine Aminotransferase 27 U/L (0-31); Albumin Level 4.5 g/dL (3.5-5.0); Alkaline Phosphatase 104 U/L (39-117); Anion Gap 15 (12-20); Aspartate Amino Transferase 36 U/L (5-31); Bilirubin Total 0.4 mg/dL (0.0-1.0); Blood Urea Nitrogen 5 mg/dL (9-16); Calcium 9.8 mg/dL (8.4-10.2); Carbon Dioxide 23 mmol/L (22-29); Chloride 98 mmol/L (96-108); Creatinine Clr Calc Pharmacy 95.6; Estimated Glomerular Filt Rate > 60; Glucose Random 112 mg/dL (60-115); Potassium 5.1 mmol/L (3.3-5.1); Sodium 131 mmol/L (135-145); Total Protein 8.3 g/dL (6.5-8.0)
[2024-10-05 11:47] LABS: Troponin-I High Sensitivity < 2.7 ng/L (<3.5-17.0)
--- NOTE | 2024-10-05 12:10 | ED.CHESTPAIN ---
HPI - Chest Pain General Chief Complaint: Chest Pain Stated Complaint: chest pressure Time Seen by Provider: 10/05/24 12:06 History of Present Illness ED Provider: Dr. Jacques HPI narrative: 53 y/o F patient; PMH hx breast malignancy with metastasis to bone s/p mastectomy and radiation with reconstruction followed by Oncology; presents from home with report of four days of chest pressure. She reports the pressure is throughout her entire chest but intermittent in nature. She denies associated worsening with movement or deep respirations. She endorses associated non-productive cough.. She otherwise denies: nausea/vomiting, abdominal pain, fever or chills, syncope. Related Data Previous Rx's ?Medication ?Instructions ?Recorded docusate sodium 100 mg capsule 100 mg PO BID #20 caps 01/01/23 (Colace) polyethylene glycol 3350 17 17 g PO BID PRN constipation #238 01/01/23 gram/dose oral powder (Miralax) grams sennosides 8.6 mg tablet (senna) 8.6 mg PO BEDTIME #14 tabs 01/01/23 Allergies Allergy/AdvReac Type Severity Reaction Status Date / Time benadryl Allergy Unknown chest pain Uncoded 10/05/24 10:32 E-mycin Allergy Unknown swelling Uncoded 10/05/24 10:32 PCN Allergy Unknown swelling Uncoded 10/05/24 10:32 Review of Systems Review of Systems: Yes all other systems are reviewed and are negative PMFSH Past Medical History Attestation statement: The following information was validated with the patient. Source: old records reviewed Medical History Metastatic breast cancer Surgical History Hx of removal of ovary H/O breast reconstruction Social History Social History Alcohol intake: current Alcohol intake frequency: holidays/special occasions only Alcohol type: beer Patient Tobacco Use Status: Current everyday Tobacco user Smoked in Last 30 Days: Yes Use of substances other than those prescribed or required for medical reasons: Yes Substance Use Type: Marijuana Advance Directives: No Advance Directives Information Provided: No Do you have a plan to hurt others: No Plan Patient : No Physical Exam Vital Signs: Vital Signs: Last Vital Signs Temp 98.7 F 10/05/24 12:53 Pulse 93 10/05/24 12:53 Resp 18 10/05/24 12:53 BP 159/93 H 10/05/24 12:53 Pulse Ox 98 10/05/24 12:53 O2 Del Method Room Air 10/05/24 12:53 BMI result Body Mass Index 28.3 Patient is afebrile, hemodynamically stable but markedly hypertensive. Const: General: cooperative HEENT: Head: Yes normal to inspection and Yes atraumatic Eyes: General: appearance normal, both eyes and all related structures Pupils: Equal, round and reactive pupils present EOM: EOMs intact bilaterally Neck: Neck: Yes normal visual inspection, Yes full ROM, Yes supple and No tender Chest: Chest palpation & inspection: normal inspection of the chest and normal palpation of entire chest wall Resp: Effort & Inspection: normal respiratory effort, able to speak in complete sentences, Actively coughing and no respiratory distress Auscultation: clear to auscultation bilaterally Cardio: Rate: regular rate Rhythm: regular rhythm Peripheral pulses: Peripheral pulses 2+ throughout GI: Inspection: Yes normal to inspection, No Abdominal wall edema and No distended Palpation (GI): Soft to palpation, not firm, nontender, no guarding and not rigid Auscultation: normal bowel sounds Back/Spine/Pelvis: Back: No back tenderness Neuro: Cranial nerves: Yes Equal, round and reactive pupils present Course Course Course Narrative: Patient is afebrile, hemodynamically stable, markedly hypertensive. Will obtain EKG, CXR, and laboratory studies. CXR reviewed. Left-sided pleural thickening with small hiatal hernia. Labs reviewed. No leukocytosis. Troponin negative. COVID/Flu/RSV negative. 2 hr 2nd trop negative. CTA Chest unremarkable for acute pulmonary emboli. With x2 negative troponin, unlikely ACS. Unlikely pneumonia, pneumothorax, aortic dissection, pulmonary emboli with reassuring CTA Chest. Patient has plan to follow up with oncology. Plan: Discharge to home with PCP follow up Return precautions given Medications Administered Discontinued Medications Generic Name Dose Route Start Last Admin Trade Name Freq PRN Reason Stop Dose Admin Iohexol 100 ml 10/05/24 13:22 10/05/24 13:22 Iohexol 350 Mg/Ml 100 Ml Infus..Btl IV 10/05/24 13:23 65 ml ONCE ONE Administration Medical Decision Making Lab Data 10/05/24 11:13 10/05/24 11:13 Labs: Lab Results 10/05/24 10/05/24 Range/Units 11:13 12:56 WBC 9.6 (4.8-10.8) X10*3/uL RBC 4.14 L (4.20-5.50) X10*6/uL Hgb 12.5 (12.0-16.0) g/dl Hct 36.8 L (37.0-47.0) % MCV 88.9 (80.0-98.0) fL MCH 30.2 (27.0-33.0) pg MCHC 34.0 (31.0-35.0) g/dl RDW 14.7 (11.0-16.0) % Plt Count 435 H D (160-400) X10*3/uL MPV 8.8 L (9.4-12.3) fL Immature Gran % (Auto) 0.3 (0.0-0.4) % Neut % (Auto) 80.5 H (45-73) % Lymph % (Auto) 9.9 L (20-40) % [place] % (Auto) 8.6 (2-11) % Eos % (Auto) 0.1 (0-4) % Baso % (Auto) 0.6 (0-2) % Lymph # (Auto) 1.0 L (1.2-4.9) X10*3/uL [place] # (Auto) 0.8 (0.1-1.2) X10*3/uL Eos # (Auto) 0.0 (0.0-0.4) X10*3/uL Baso # (Auto) 0.1 (0.0-0.2) X10*3/uL Abs Immat Gran (auto) 0.03 (0.00-0.03) X10*3/uL Absolute Neuts (auto) 7.7 (2.0-8.3) x10*3/uL Absolute Nucleated RBC 0.000 (0.0-0.012) X10*3/uL Nucleated RBC % (auto) 0.0 (0.0-0.2) /100WBC Sodium 131 L (135-145) mmol/L Potassium 5.1 (3.3-5.1) mmol/L Chloride 98 (96-108) mmol/L Carbon Dioxide 23 (22-29) mmol/L Anion Gap 15 (12-20) BUN 5 L (9-16) mg/dL Creatinine 0.69 (0.5-1.4) mg/dL Estim Creat Clear Calc 95.6 Estimated GFR > 60 Random Glucose 112 (60-115) mg/dL Calcium 9.8 (8.4-10.2) mg/dL Total Bilirubin 0.4 (0.0-1.0) mg/dL AST 36 H (5-31) U/L ALT 27 (0-31) U/L Alkaline Phosphatase 104 (39-117) U/L Troponin I High Sens < 2.7 < 2.7 (<3.5-17.0) ng/L Total Protein 8.3 H (6.5-8.0) g/dL Albumin 4.5 (3.5-5.0) g/dL Lipase 32 (8-78) U/L Beta HCG, Quant < 2 mIU/mL Influenza Type A (PCR) NEGATIVE (Negative) Influenza Type B (PCR) NEGATIVE (Negative) RSV RNA Qual (PCR) NEGATIVE (Negative) SARS-CoV-2 RNA (RT-PCR) NEGATIVE (Negative) Independent Interpretation I performed an independent interpretation of an: EKG Interpretation: ST 105BPM without ischemic changes, normal intervals Radiology Impression Discussion of test interpretation with radiology: I have reviewed the radiologist's reading. Radiologist Impression: Ordering Physician: Generic ED Physician Date of Service: 10/05/24 Procedure(s): XR chest 2V Accession Number(s): [id number] cc: Generic ED Physician; Loli Lees MD~ EXAMINATION: XR CHEST 2 VIEWS HISTORY: cough/cp COMPARISON: There are no prior studies for comparison. FINDINGS: PA and lateral views of the chest are submitted. The lungs are expanded and clear. There is left-sided pleural thickening. There is no pleural effusion, pneumothorax, or pulmonary vascular congestion. The heart is normal in size. There is a small hiatal hernia. The bones are intact. There are surgical clips in the left axilla. XR/XR chest 2V IMPRESSION: Left-sided pleural thickening. Small hiatal hernia. Electronically signed by: Pawel Gallegos MD 10/05/2024 11:37 AM [facility] Report Number: [id number]: Total DLP = 287.00 mGy-cm EXAMINATION: CT CHEST ANGIOGRAPHY WITH IV CONTRAST INDICATION: CP COMPARISON: Correlation is made with PA and lateral views of the chest performed earlier in the day. TECHNIQUE: Helical CT scan of the chest was performed following administration of intravenous contrast (65 mL Omnipaque 350). The contrast bolus was timed to optimally opacify the pulmonary arteries. Thin sections were obtained through the pulmonary arteries. Coronal and sagittal reformatted images were generated. 3D/MIP reconstructed images are also obtained and reviewed. This CT exam was performed with one or more of the following dose reduction techniques: automated exposure control, adjustment of the mA and/or kV according to patient size, use of iterative reconstruction technique. DLP: 287 mGy-cm CHEST: THYROID: The thyroid gland is unremarkable. PULMONARY ARTERIES: No intraluminal filling defects are identified within the pulmonary arteries to suggest pulmonary emboli. LUNGS: There are small groundglass opacities at both lung apices which may be inflammatory in nature. There is scarring in the left upper lobe. MEDIASTINUM: There is no mediastinal lymphadenopathy. ELIJAH: There is no hilar lymphadenopathy. CARDIOVASCULATURE: The heart is normal in size. There is no pericardial effusion. The thoracic aorta is normal in caliber. DEGREE OF CORONARY CALCIFICATION: mild PLEURA: There is mild left-sided pleural thickening. There is no pleural effusion. No pneumothorax. MAIN AIRWAYS: The mainstem bronchi and proximal branches are patent. AXILLA: There is no axillary lymphadenopathy. UPPER ABDOMEN: The visualized portions of the liver, spleen, and adrenals are unremarkable. There is a large ventral hernia. BONES AND SOFT TISSUES: There is a mixed lytic and sclerotic lesions involving the T7, T8, T9,, T10, T11 vertebral bodies consistent with metastatic disease. CT/CT angio chest PE protocol IMPRESSION: 1. No evidence of pulmonary emboli. 2. Patchy groundglass opacities at the lung apices which may be inflammatory in nature. 3. Left-sided pleural thickening and upper lobe scarring. 4. Osseous metastatic disease involving the lower thoracic spine. Discharge Plan Discharge Clinical Impression: Chest pain Patient Disposition: Home, Self-Care Instructions: Chest Pain (ED) Additional Instructions: As we discussed, you were seen today for chest pain/tightness. The enzymes from your heart which show damage were both negative. Your scans were reassuring without evidence of blood clots. Recommend you follow up closely with your oncologist and primary doctor to discuss your recent emergency department visit and for re-evaluation. Return to the emergency department with any concerns. Report Number: [id number]: Total DLP = 287.00 mGy-cm EXAMINATION: CT CHEST ANGIOGRAPHY WITH IV CONTRAST INDICATION: CP COMPARISON: Correlation is made with PA and lateral views of the chest performed earlier in the day. TECHNIQUE: Helical CT scan of the chest was performed following administration of intravenous contrast (65 mL Omnipaque 350). The contrast bolus was timed to optimally opacify the pulmonary arteries. Thin sections were obtained through the pulmonary arteries. Coronal and sagittal reformatted images were generated. 3D/MIP reconstructed images are also obtained and reviewed. This CT exam was performed with one or more of the following dose reduction techniques: automated exposure control, adjustment of the mA and/or kV according to patient size, use of iterative reconstruction technique. DLP: 287 mGy-cm CHEST: THYROID: The thyroid gland is unremarkable. PULMONARY ARTERIES: No intraluminal filling defects are identified within the pulmonary arteries to suggest pulmonary emboli. LUNGS: There are small groundglass opacities at both lung apices which may be inflammatory in nature. There is scarring in the left upper lobe. MEDIASTINUM: There is no mediastinal lymphadenopathy. ELIJAH: There is no hilar lymphadenopathy. CARDIOVASCULATURE: The heart is normal in size. There is no pericardial effusion. The thoracic aorta is normal in caliber. DEGREE OF CORONARY CALCIFICATION: mild PLEURA: There is mild left-sided pleural thickening. There is no pleural effusion. No pneumothorax. MAIN AIRWAYS: The mainstem bronchi and proximal branches are patent. AXILLA: There is no axillary lymphadenopathy. UPPER ABDOMEN: The visualized portions of the liver, spleen, and adrenals are unremarkable. There is a large ventral hernia. BONES AND SOFT TISSUES: There is a mixed lytic and sclerotic lesions involving the T7, T8, T9,, T10, T11 vertebral bodies consistent with metastatic disease. CT/CT angio chest PE protocol IMPRESSION: 1. No evidence of pulmonary emboli. 2. Patchy groundglass opacities at the lung apices which may be inflammatory in nature. 3. Left-sided pleural thickening and upper lobe scarring. 4. Osseous metastatic disease involving the lower thoracic spine. Prescriptions: No Action sennosides [senna] 8.6 mg tablet 8.6 mg PO BEDTIME Qty: 14 0RF docusate sodium [Colace] 100 mg capsule 100 mg PO BID Qty: 20 0RF polyethylene glycol 3350 [Miralax] 17 gram/dose powder 17 g PO BID PRN (Reason: constipation) Qty: 238 0RF Print Language: Romanian
[2024-10-05 12:32] LABS: Influenza A PCR NEGATIVE (Negative); Influenza B PCR NEGATIVE (Negative); Resp Syncy Virus RNA Qual PCR NEGATIVE (Negative); SARS COV2 PCR INHOUSE NEGATIVE (Negative)
[2024-10-05 12:38] LABS: HCG Quantitative < 2 mIU/mL; Lipase 32 U/L (8-78)
[2024-10-05 12:53] VITALS: BP 159/93; PULSE 93; RESP 18; TEMP 37.1; O2SAT 98
[2024-10-05] MEDS: iohexoL 350 MG/ML 100 ML INFUS..BTL IV (13:22)
[2024-10-05 13:24] LABS: Troponin-I High Sensitivity < 2.7 ng/L (<3.5-17.0)
[2024-10-05 15:09] VITALS: BP 159/93; PULSE 93; RESP 18; TEMP 37.1; O2SAT 98
== END 2024-10-05 15:24 | disposition home or self-care (01) ==
PROVIDERS: Emergency Provider Emergency Medicine; PCP Internal Medicine
DX: R07.9 Chest pain, unspecified (principal); R05.9 Cough, unspecified; Z03.818 Encounter for observation for suspected exposure to other biological agents ruled out; F17.200 Nicotine dependence, unspecified, uncomplicated; K44.9 Diaphragmatic hernia without obstruction or gangrene; C50.919 Malignant neoplasm of unspecified site of unspecified female breast; C79.51 Secondary malignant neoplasm of bone
CPT/HCPCS: 0241U; 36415; 71046; 71275; 80053; 83690; 84484; 84702; 85025; 93005; 99284; 99285; Q9967

== ENCOUNTER → 2024-10-05 10:03 | Outpatient (BNV) | payer OTHER, SELFPAY | PROVIDERS: Emergency Provider Emergency Medicine; PCP Internal Medicine; Visit Provider Internal Medicine | DX: R00.0 Tachycardia, unspecified (principal) | CPT/HCPCS: 93010 ==

== ENCOUNTER → 2024-10-05 10:55 | Outpatient (BNV) | payer OTHER, SELFPAY | PROVIDERS: PCP Internal Medicine; Visit Provider Radiology Diagnostic Radiology | DX: R07.9 Chest pain, unspecified (principal); R05.9 Cough, unspecified | CPT/HCPCS: 71046; 71275 ==

== ENCOUNTER 2025-01-18 09:29 | Outpatient (AMB) | payer OTHER, SELFPAY ==
--- NOTE | 2025-01-18 09:40 | A.OFFPC_ITS ---
Vital Signs 01/18/25 09:49 01/18/25 09:57 Height 5 ft 4.17 in Weight 176 lb BMI 30.0 BP 184/94 H 174/90 H Blood Pressure Location Rt brachial Rt brachial Position Sitting Sitting Respiration 12 Pulse 96 Pulse Source Pulse Oximeter Temp 98.4 F Temp Source Oral Pulse Oximetry (%) 98 Oxygen Delivery Method Room Air Intake Visit Reasons: EstablishCareNP Intake Note: New patient visit Manager Of Financial Planning Required: No Allergies benadryl Allergy (Unknown, Uncoded 01/18/25 09:40) chest pain E-mycin Allergy (Unknown, Uncoded 01/18/25 09:40) swelling PCN Allergy (Unknown, Uncoded 01/18/25 09:40) swelling Medication List - Last Reconciled 01/18/25 by Loli Lees MD amlodipine 10 mg PO DAILY atorvastatin 10 mg PO DAILY [calcium PO] cholecalciferol (vitamin D3) PO elacestrant (Orserdu) 345 mg PO DAILY lisinopril 40 mg PO DAILY omeprazole 20 mg PO DAILY Tobacco use date assessed: 01/18/25 Dental Screening Dental Screen Date: 01/18/25 Did you have a dental visit in the last 12 months?: No Did you have a dental problem in the last 6 months where you did not have access to dental care?: No Was dental information given to patient?: Patient declined HPI HPI Comments History of Present Illness Details 54 y/o F patient with a past medical his tory of hypertension, hyperlipidemia, metastatic breast cancer, presenting for follow up CV: Blood pressure has been running high. She is currently on amlodipine 5mg daily, lisinopril 20mg daily. 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 She has not seen her PCP in awhile. She will request records today Colon cancer screening is due. prefers to start with cologuard ROS CONSTITUTIONAL: Denies weight loss, fever and chills. HEENT: Denies changes in vision and hearing. RESPIRATORY: Denies SOB and cough. CV: Denies palpitations and CP GI: Denies abdominal pain, nausea, vomiting and diarrhea. : Denies dysuria and urinary frequency. MSK: Denies new myalgia and joint pain. SKIN: Denies rash and pruritus. NEUROLOGICAL: Denies headache PSYCHIATRIC: Denies recent changes in mood. PHYSICAL EXAM: GENERAL: Alert and oriented x 3. NAD EYES: EOMI. Anicteric. HENT: Moist mucous membranes. No scleral icterus. No cervical lymphadenopathy. LUNGS: Clear to auscultation bilaterally. CARDIOVASCULAR: Regular rate and rhythm. No murmur. No JVD. ABDOMEN: Soft, non-tender +bs EXTREMITIES: No edema. Non-tender. SKIN: No rashes or lesions. Warm. NEUROLOGIC: No focal neurological deficits. CN II-XII grossly intact PSYCHIATRIC: Cooperative. Appropriate mood and affect [facility] Medical History Metastatic breast cancer Surgical History (Updated 01/18/25 @ 09:56 by Liiga Huber CMA) H/O total mastectomy of left breast Hx of removal of ovary H/O breast reconstruction Family History (Updated 01/18/25 @ 09:56 by Ligia Huber CMA) Mother HTN (hypertension) High cholesterol Breast cancer Father High cholesterol Social History (Updated 01/18/25 @ 09:57 by Ligia Huber CMA) Housing: House Alcohol intake: current Alcohol intake frequency: holidays/special occasions only Alcohol type: beer Patient Tobacco Use Status: Current everyday Tobacco user e-Cigarette/Vaping Use: Never Used Second Hand Smoke Exposure: Yes Substance Use Type: Marijuana service: No Current occupational status: employed Current occupation: Finance Current occupational exposures/hazards: No Cognitive needs: No Hearing needs: No Vision needs: No Questionnaire PHQ-9 Over the last 2 weeks, how often have you been bothered by any of the following problems? 1. Little interest or pleasure in doing things: not at all 2. Feeling down, depressed, or hopeless: not at all 3. Trouble falling or staying asleep, or sleeping too much: not at all 4. Feeling tired or having little energy: not at all 5. Poor appetite or overeating: not at all 6. Feeling bad about yourself - or that you are a failure or have let yourself or your family down: not at all 7. Trouble concentrating on things, such as reading the newspaper or watching television: not at all 8. Moving or speaking so slowly that other people could have noticed. Or the opposite - being so fidgety or restless that you have been moving around a lot more than usual: not at all Depression Screening Interpretation: Negative Depression Screening Done: Yes 49367 - PHQ-9 Billing: Yes Source: Developed by Drs. Pawel Thomspon, Mehreen Shelton, Jude Aguilar and colleagues, with an educational gilson from [employer]. Thrive Questionnaire Date Thrive assessed: 01/15/25 I am a: Patient What is your living situation today?: I have a steady place to live Within the past 12 months, did the food you bought not last and you didn't have the money to get more?: Never true Within the past 12 months, did you worry whether your food would run out before you got money to buy more?: Never true Do you have trouble paying for medicines?: No Do you have trouble getting transportation to medical appointments?: No Do you have trouble paying your heating and electricity bill?: No Do you have trouble taking care of your child, family member or friend?: No Do you have trouble with day-to-day activities such as bathing, preparing meals, shopping, managing finances, etc.?: No Are you currently unemployed and looking for a job?: No Are you interested in more education?: No Please select the resources that you would like help with: None Currently or been in a relationship where the following occur: No concerns reported THRIVE Score: 0 AUDIT C Alcohol Use Questionnaire (AUDIT-C) 1. How often do you have a drink containing alcohol?: 2-4 times a month 2. How many drinks containing alcohol do you have on a typical day when you are drinking?: 3 or 4 3. How often do you have six or more drinks on one occasion?: Never Total Score: 3 NATASHA-7 AMB Questionnaire NATASHA-7 Date NATASHA - 7 assessed: 01/18/25 Feeling nervous, anxious, or on edge: 0 = Not at all Not being able to stop or control worryin = Not at all Worrying too much about different things: 0 = Not at all Trouble relaxin = Not at all Being so restless that it is hard to sit still: 0 = Not at all Becoming easily annoyed or irritable: 0 = Not at all Feeling afraid as if something awful might happen: 0 = Not at all Total NATASHA-7 score (0-4 normal; 5-9 mild; 10-14 moderate; 15-21 severe): 0 Source: Developed by Drs. Pawel Tohmpson, Mehreen Shelton, Jude Aguilar and colleagues, with an educational gilson from [employer]. NATASHA-7 Assessment Billing NATASHA-7 Assessment Tool: NATASHA-7 Assessment 71047 Physical exam (Primary Care) Vital Signs: Last Vital Signs Temp 98.4 F 01/18/25 09:49 Pulse 96 01/18/25 09:49 Resp 12 01/18/25 09:49 BP 174/90 H 01/18/25 09:57 Pulse Ox 98 01/18/25 09:49 Oxygen Delivery Method Room Air 01/18/25 09:49 BMI result Body Mass Index 30.0 Tobacco/Smoking Status: Tobacco use Status Tobacco use date assessed 01/18/25 01/18/25 09:42 Patient Tobacco Use Status Current everyday Tobacco 01/18/25 09:57 e-Cigarette/Vaping Use Never Used 01/18/25 09:57 Depression Screening Interpretation: Negative Thrive Assessment: Date of Thrive Assessment Date Thrive assessed 01/15/25 01/18/25 09:42 Currently or been in a relationship where the following occur: No concerns reported Coding Level of Care Code New Pt Level 4 (07518) Complex EM visit Add On G2211 Diagnoses Encounter to establish care Z76.89 Primary hypertension I10 Hypertension type: primary hypertension Hyperlipidemia, unspecified hyperlipidemia type E78.5 Hyperlipidemia type: unspecified Metastatic breast cancer C50.919 Additional Codes NATASHA-7 Assessment Billing - NATASHA-7 Assessment Tool: NATASHA-7 Assessment 57740 ([id number]) PHQ-9 - 13997 - PHQ-9 Billing: Yes ([id number]) Assessment & Plan Assessment & Plan (1) Encounter to establish care: Code(s): Z76.89 - Persons encountering health services in other specified circumstances Category: Medical (2) Hypertension: Code(s): I10 - Essential (primary) hypertension Category: Medical Qualifiers: Hypertension type: primary hypertension Qualified Code(s): I10 - Essential (primary) hypertension (3) Hyperlipidemia: Code(s): E78.5 - Hyperlipidemia, unspecified Category: Medical Qualifiers: Hyperlipidemia type: unspecified Qualified Code(s): E78.5 - Hyperlipidemia, unspecified (4) Metastatic breast cancer: Code(s): C50.919 - Malignant neoplasm of unspecified site of unspecified female breast Category: Medical Plan 54 year old female to establish care Past medical, surgical, social and family history reviewed. HTN-suboptimal control. increase lisinopril to 40mg. If still not controlled increase amlodipine to 10mg daily Follow up BP check one month. call sooner if needed Heme/onc-continue follow up David Orders: Orders Complete Blood Count Auto Diff Today C50.919 - Malignant neoplasm of unspecified site of unspecified female breast, E78.5 - Hyperlipidemia, unspecified, I10 - Essential (primary) hypertension, Z13.0 - Encounter for screening for diseases of the blood and blood-forming organs and certain disorders involving the immune mechanism Comprehensive Met. Panel Today C50.919 - Malignant neoplasm of unspecified site of unspecified female breast, E78.5 - Hyperlipidemia, unspecified, I10 - Essential (primary) hypertension, Z13.0 - Encounter for screening for diseases of the blood and blood-forming organs and certain disorders involving the immune mechanism Lipid Panel Today C50.919 - Malignant neoplasm of unspecified site of unsp ecified female breast, E78.5 - Hyperlipidemia, unspecified, I10 - Essential (primary) hypertension, Z13.0 - Encounter for screening for diseases of the blood and blood-forming organs and certain disorders involving the immune mechanism Hemoglobin A1c Today C50.919 - Malignant neoplasm of unspecified site of unspecified female breast, E78.5 - Hyperlipidemia, unspecified, I10 - Essential (primary) hypertension, Z13.0 - Encounter for screening for diseases of the blood and blood-forming organs and certain disorders involving the immune mechanism TSH reflex Free T4 Today C50.919 - Malignant neoplasm of unspecified site of unspecified female breast, E78.5 - Hyperlipidemia, unspecified, I10 - Essential (primary) hypertension, Z13.0 - Encounter for screening for diseases of the blood and blood-forming organs and certain disorders involving the immune mechanism Referrals Cologuard Test Z12.11 - Encounter for screening for malignant neoplasm of colon, Z12.12 - Encounter for screening for malignant neoplasm of rectum Medications: New lisinopril 40 mg PO DAILY 90 tabs 3RF lisinopril 40 mg PO DAILY 90 tabs 3RF amlodipine 10 mg PO DAILY 90 tabs 3RF
[2025-01-18 09:49] VITALS: BP 184/94; PULSE 96; RESP 12; TEMP 36.9; O2SAT 98
[2025-01-18 09:57] VITALS: BP 174/90
== END 2025-01-18 10:15 | disposition home or self-care (01) ==
LOC: HO.HMCFM 09:29
PROVIDERS: PCP Internal Medicine; Visit Provider Internal Medicine
DX: Z76.89 Persons encountering health services in other specified circumstances (principal); I10 Essential (primary) hypertension; E78.5 Hyperlipidemia, unspecified; C50.919 Malignant neoplasm of unspecified site of unspecified female breast

== ENCOUNTER → 2025-01-18 09:29 | Outpatient (BNVA) | payer OTHER, SELFPAY | PROVIDERS: PCP Internal Medicine; Visit Provider Internal Medicine | DX: Z76.89 Persons encountering health services in other specified circumstances (principal); I10 Essential (primary) hypertension; E78.5 Hyperlipidemia, unspecified; C50.919 Malignant neoplasm of unspecified site of unspecified female breast; Z79.899 Other long term (current) drug therapy; Z90.10 Acquired absence of unspecified breast and nipple; Z92.3 Personal history of irradiation | CPT/HCPCS: 96127 ==

== ENCOUNTER 2025-01-27 11:23 | Outpatient (AMB) | payer OTHER, SELFPAY ==
--- NOTE | 2025-01-27 11:28 | AM.OFFWIN_ITS ---
Intake Vital Signs 01/27/25 11:32 Weight 140 lb Pulse 131 H Pulse Source Pulse Oximeter Temp 98.2 F Temp Source Oral Pulse Oximetry (%) 97 Oxygen Delivery Method Room Air Intake Visit Reasons: EP ?sinus pressure Intake Note: Patient here for sinus pressure and headaches that started almost 2 weeks. Patient Tobacco Use Status: Current everyday Tobacco user Allergies benadryl Allergy (Unknown, Uncoded 01/27/25 11:34) chest pain E-mycin Allergy (Unknown, Uncoded 01/27/25 11:34) swelling PCN Allergy (Unknown, Uncoded 01/27/25 11:34) swelling Do you need a note to return to daycare/school/sports/work: No HPI EP ?sinus pressure HPI Details This is a 54 year old female patient who presents to the [place] clinic today with report of ongoing sinus pressure for the past 2 weeks. She went to an urgent care earlier this week and was started on Doxy 5days. She is nearly completed this course and reports no relief in symptoms. Reports constant congestion and pressure in her nose, face, and forehead. Has tried otc Coricidin and saline nasal spray without relief. Denies fever/chills or shortness of breath. COUNT INCLUDES THE [facility] Medical History Metastatic breast cancer Surgical History H/O total mastectomy of left breast Hx of removal of ovary H/O breast reconstruction Family History Mother HTN (hypertension) High cholesterol Breast cancer Father High cholesterol Social History Housing: House Alcohol intake: current Alcohol intake frequency: holidays/special occasions only Alcohol type: beer Patient Tobacco Use Status: Current everyday Tobacco user e-Cigarette/Vaping Use: Never Used Second Hand Smoke Exposure: Yes Substance Use Type: Marijuana service: No Current occupational status: employed Current occupation: Finance Current occupational exposures/hazards: No Cognitive needs: No Hearing needs: No Vision needs: No Review of Systems Const All systems reviewed & are unremarkable except as noted in HPI and below Physical Exam Vital Signs: Last Vital Signs Temp 98.2 F 01/27/25 11:32 Pulse 131 H 01/27/25 11:32 Pulse Ox 97 01/27/25 11:32 Oxygen Delivery Method Room Air 01/27/25 11:32 Const General: cooperative, healthy appearing and no acute distress Limitations: no limitations HEENT Head: Yes normal to inspection and Yes normocephalic Ears: hearing grossly normal bilaterally and TM's normal bilaterally General nose exam: Normal external nose present Face and sinus: Yes sinus tenderness (frontal) Mouth: Normal oral and palatal mucosa present Throat: Yes posterior oropharynx normal Neck Neck: Yes no lymphadenopathy Resp Effort & Inspection: normal respiratory effort Auscultation: clear to auscultation bilaterally Cardio Rate: regular rate Rhythm: regular rhythm Skin General skin exam: no rashes or lesions noted Extrem General: Yes capillary refill normal and Yes no clubbing, cyanosis or edema Psych Appearance: grossly normal Mental Status: mental status grossly normal Speech and movement: Normal speech and movement present Assessment & Plan Assessment & Plan (1) Acute sinusitis: Code(s): J01.90 - Acute sinusitis, unspecified Qualifiers: Sinusitis location: frontal Recurrence: non-recurrent Qualified Code(s): J01.10 - Acute frontal sinusitis, unspecified Plan: Multiple abx allergies. Tried Doxy without relief. Has had cephalosporins previously without any reactions. We will try cefdinir and also a short course of prednisone. We reviewed indications, use, possible side effects of medications. She can continue to utilize nasal spray as needed. Advised adequate rest, hydration, healthy food/vitamin intake. If she does not improve with treatment, she can return to the clinic for further evaluation. All questions were answered and patient verbalizes understanding and agrees to plan. Of note, patient declined having her blood pressure taken today x2. Medications: New cefdinir 300 mg PO BID 5 days 10 caps 0RF J01.10 - Acute frontal sinusitis, unspecified prednisone 40 mg (2 x 20 mg) PO DAILY 3 days 6 tabs 0RF J01.10 - Acute frontal sinusitis, unspecified Coding Level of Care Code Est Pt Level 4 (42266) Diagnoses Acute non-recurrent frontal sinusitis J01.10 Sinusitis location: frontal Recurrence: non-recurrent
[2025-01-27 11:32] VITALS: PULSE 131; TEMP 36.8; O2SAT 97
== END 2025-01-27 12:24 | disposition home or self-care (01) ==
PROVIDERS: PCP Internal Medicine; Visit Provider Nurse Practitioner Family
DX: J01.10 Acute frontal sinusitis, unspecified (principal)

== ENCOUNTER → 2025-01-27 11:23 | Outpatient (BNVA) | payer OTHER, SELFPAY | PROVIDERS: PCP Internal Medicine ==

== ENCOUNTER 2025-02-18 09:22 | Outpatient (REF) | payer OTHER, SELFPAY ==
[2025-02-18 10:06] LABS: MANUAL DIFF FLAG NO
[2025-02-18 10:12] LABS: Basophils Absolute Auto 0.1 X10*3/uL (0.0-0.2); Basophils Percent Auto 0.8 % (0-2); Eosinophils Absolute Auto 0.1 X10*3/uL (0.0-0.4); Eosinophils Percent Auto 0.8 % (0-4); Hematocrit 36.7 % (37.0-47.0); Hemoglobin 12.1 g/dl (12.0-16.0); Imm Gran Abs Auto 0.02 X10*3/uL (0.00-0.03); Imm Gran Pct Auto 0.3 % (0.0-0.4); Lymphocytes Absolute Auto 0.9 X10*3/uL (1.2-4.9); Lymphocytes Percent Auto 13.5 % (20-40); Mean Corpuscular Hemoglobin 28.8 pg (27.0-33.0); Mean Corpuscular Volume 87.4 fL (80.0-98.0); Mean Platelet Volume 8.8 fL (9.4-12.3); Monocytes Absolute Auto 0.6 X10*3/uL (0.1-1.2); Monocytes Percent Auto 8.9 % (2-11); Neutrophils Percent Auto 75.7 % (45-73); Platelet Count 458 X10*3/uL (160-400); Red Cell Distribution Width 15.8 % (11.0-16.0); White Blood Count 6.7 X10*3/uL (4.8-10.8)
[2025-02-18 10:25] LABS: Estimated Average Glucose 105 mg/dL; Hemoglobin A1c % 5.3 % (<6.0); Total Hemoglobin (HGBA1C) 3198.3516 umol/L
[2025-02-18 10:46] LABS: Alanine Aminotransferase 26 U/L (0-31); Albumin Level 4.7 g/dL (3.5-5.0); Alkaline Phosphatase 82 U/L (39-117); Anion Gap 16 (12-20); Aspartate Amino Transferase 31 U/L (5-31); Bilirubin Total 0.3 mg/dL (0.0-1.0); Blood Urea Nitrogen 6 mg/dL (9-16); Calcium 9.1 mg/dL (8.4-10.2); Carbon Dioxide 24 mmol/L (22-29); Chloride 96 mmol/L (96-108); Cholesterol 196 mg/dL (<200); Estimated Glomerular Filt Rate > 60; Glucose Random 97 mg/dL (60-115); HDL Cholesterol 92 mg/dL (>40); LDL Cholesterol Calculated 73 mg/dL (<100); Potassium 4.6 mmol/L (3.3-5.1); Sodium 131 mmol/L (135-145); Total Protein 7.5 g/dL (6.5-8.0); Triglycerides 158 mg/dL (<150)
[2025-02-18 11:03] LABS: TSH reflex Free T4 1.65 uIU/mL (0.32-4.0)
== END 2025-02-18 09:23 | disposition home or self-care (01) ==
LOC: HO.HMGCLDS 09:22
PROVIDERS: PCP Internal Medicine; Visit Provider Internal Medicine
DX: I10 Essential (primary) hypertension (principal); E78.5 Hyperlipidemia, unspecified; Z13.0 Encounter for screening for diseases of the blood and blood-forming organs and certain disorders involving the immune mechanism; C50.919 Malignant neoplasm of unspecified site of unspecified female breast; Z13.1 Encounter for screening for diabetes mellitus
CPT/HCPCS: 36415; 80053; 80061; 83036; 84443; 85025

== ENCOUNTER 2025-02-23 16:03 | Outpatient (AMB) | payer OTHER, SELFPAY ==
--- NOTE | 2025-02-23 16:08 | A.OFFPC_ITS ---
Vital Signs 02/23/25 16:13 02/23/25 16:21 Height 5 ft 4.17 in Weight 173 lb 4 oz BMI 29.6 BP 144/82 H 136/72 Blood Pressure Location Rt brachial Rt brachial Position Sitting Sitting Respiration 14 Pulse 91 Pulse Source Pulse Oximeter Pulse Oximetry (%) 98 Oxygen Delivery Method Room Air Intake Visit Reasons: BP follow up Intake Note: Blood pressure follow up [employer] Member Required: No Allergies benadryl Allergy (Unknown, Uncoded 02/23/25 16:09) chest pain E-mycin Allergy (Unknown, Uncoded 02/23/25 16:09) swelling PCN Allergy (Unknown, Uncoded 02/23/25 16:09) swelling Tobacco use date assessed: 01/18/25 Dental Screening Dental Screen Date: 01/18/25 HPI HPI Comments History of Present Illness Details 54 y/o F patient with a past medical his tory of hypertension, hyperlipidemia, metastatic breast cancer, presenting for follow up CV: Blood pressure was running high. One month ago was increase from amlodipine 5mg daily to 10mg and lisinopril from 20mg daily to 40mg daily. 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 She has not seen her PCP in [place] [facility]. Cologuard was completed about one week ago. No results as of yet ROS CONSTITUTIONAL: Denies weight loss, fever and chills. HEENT: Denies changes in vision and hearing. RESPIRATORY: Denies SOB and cough. CV: Denies palpitations and CP GI: Denies abdominal pain, nausea, vomiting and diarrhea. : Denies dysuria and urinary frequency. MSK: Denies new myalgia and joint pain. SKIN: Denies rash and pruritus. NEUROLOGICAL: Denies headache PSYCHIATRIC: Denies recent changes in mood. PHYSICAL EXAM: GENERAL: Alert and oriented x 3. NAD EYES: EOMI. Anicteric. HENT: Moist mucous membranes. No scleral icterus. No cervical lymphadenopathy. LUNGS: Clear to auscultation bilaterally. CARDIOVASCULAR: Regular rate and rhythm. No murmur. No JVD. ABDOMEN: Soft, non-tender +bs EXTREMITIES: No edema. Non-tender. SKIN: No rashes or lesions. Warm. NEUROLOGIC: No focal neurological deficits. CN II-XII grossly intact PSYCHIATRIC: Cooperative. Appropriate mood and affect [facility] Medical History Metastatic breast cancer Surgical History H/O total mastectomy of left breast Hx of removal of ovary H/O breast reconstruction Family History Mother HTN (hypertension) High cholesterol Breast cancer Father High cholesterol Social History Housing: House Alcohol intake: current Alcohol intake frequency: holidays/special occasions only Alcohol type: beer Patient Tobacco Use Status: Current everyday Tobacco user e-Cigarette/Vaping Use: Never Used Second Hand Smoke Exposure: Yes Substance Use Type: Marijuana service: No Current occupational status: employed Current occupation: Finance Current occupational exposures/hazards: No Cognitive needs: No Hearing needs: No Vision needs: No Questionnaire PHQ-9 Over the last 2 weeks, how often have you been bothered by any of the following problems? 1. Little interest or pleasure in doing things: not at all 2. Feeling down, depressed, or hopeless: not at all 3. Trouble falling or staying asleep, or sleeping too much: not at all 4. Feeling tired or having little energy: not at all 5. Poor appetite or overeating: not at all 6. Feeling bad about yourself - or that you are a failure or have let yourself or your family down: not at all 7. Trouble concentrating on things, such as reading the newspaper or watching television: not at all 8. Moving or speaking so slowly that other people could have noticed. Or the opposite - being so fidgety or restless that you have been moving around a lot more than usual: not at all 9. Thoughts that you would be better off or of hurting yourself in some way: not at all Total score: 0 Depression Screening Interpretation: Negative Depression Screening Done: Yes 07543 - PHQ-9 Billing: Yes Source: Developed by Drs. Pawel Thompson, Mehreen Shelton, Jude Aguilar and colleagues, with an educational gilson from [employer]. Thrive Questionnaire Date Thrive assessed: 01/15/25 I am a: Patient What is your living situation today?: I have a steady place to live Within the past 12 months, did the food you bought not last and you didn't have the money to get more?: Never true Within the past 12 months, did you worry whether your food would run out before you got money to buy more?: Never true Do you have trouble paying for medicines?: No Do you have trouble getting transportation to medical appointments?: No Do you have trouble paying your heating and electricity bill?: No Do you have trouble taking care of your child, family member or friend?: No Do you have trouble with day-to-day activities such as bathing, preparing meals, shopping, managing finances, etc.?: No Are you currently unemployed and looking for a job?: No Are you interested in more education?: No Please select the resources that you would like help with: None Currently or been in a relationship where the following occur: No concerns reported THRIVE Score: 0 AUDIT C Alcohol Use Questionnaire (AUDIT-C) 1. How often do you have a drink containing alcohol?: 2-4 times a month 2. How many drinks containing alcohol do you have on a typical day when you are drinking?: 3 or 4 3. How often do you have six or more drinks on one occasion?: Never Total Score: 3 NATASHA-7 AMB Questionnaire NATASHA-7 Date NATASHA - 7 assessed: 01/18/25 Source: Developed by Drs. Pawel Thompson, Mehreen Shelton, Jude Aguilar and colleagues, with an educational gilson from [employer]. Physical exam (Primary Care) Vital Signs: Last Vital Signs Pulse 91 02/23/25 16:13 Resp 14 02/23/25 16:13 BP 144/82 H 02/23/25 16:13 Pulse Ox 98 02/23/25 16:13 Oxygen Delivery Method Room Air 02/23/25 16:13 BMI result Body Mass Index 29.6 Tobacco/Smoking Status: Tobacco use Status Tobacco use date assessed 01/18/25 02/23/25 16:16 Patient Tobacco Use Status Current everyday Tobacco 02/23/25 16:16 e-Cigarette/Vaping Use Never Used 02/23/25 16:16 PHQ-9: PHQ-9 Score PHQ-9: Total score 0 02/23/25 16:16 Depression Screening Interpretation: Negative Thrive Assessment: Date of Thrive Assessment Date Thrive assessed 01/15/25 02/23/25 16:16 Currently or been in a relationship where the following occur: No concerns reported Coding Level of Care Code Est Pt Level 4 (29763) Diagnoses Primary hypertension I10 Hypertension type: primary hypertension Hyperlipidemia, unspecified hyperlipidemia type E78.5 Hyperlipidemia type: unspecified Metastatic breast cancer C50.919 Additional Codes PHQ-9 - 59205 - PHQ-9 Billing: Yes ([id number]) Assessment & Plan Assessment & Plan (1) Hypertension: Code(s): I10 - Essential (primary) hypertension Category: Medical Qualifiers: Hypertension type: primary hypertension Qualified Code(s): I10 - Essential (primary) hypertension (2) Hyperlipidemia: Code(s): E78.5 - Hyperlipidemia, unspecified Category: Medical Qualifiers: Hyperlipidemia type: unspecified Qualified Code(s): E78.5 - Hyperlipidemia, unspecified (3) Metastatic breast cancer: Code(s): C50.919 - Malignant neoplasm of unspecified site of unspecified female breast Category: Medical Plan 54 year old for follow up HTN-now well controlled on increased dosage of medication. Labs UTD HLD-improving lipid Breast cancer-continue specialist follow up. Return in six months or sooner as needed
[2025-02-23 16:13] VITALS: BP 144/82; PULSE 91; RESP 14; O2SAT 98; BMI 29.6
[2025-02-23 16:21] VITALS: BP 136/72
== END 2025-02-23 16:30 | disposition home or self-care (01) ==
LOC: HO.HMCFM 16:04
PROVIDERS: PCP Internal Medicine; Visit Provider Internal Medicine
DX: I10 Essential (primary) hypertension (principal); E78.5 Hyperlipidemia, unspecified; C50.919 Malignant neoplasm of unspecified site of unspecified female breast

== ENCOUNTER → 2025-02-23 16:03 | Outpatient (BNVA) | payer OTHER, SELFPAY | PROVIDERS: PCP Internal Medicine; Visit Provider Internal Medicine | DX: I10 Essential (primary) hypertension (principal); E78.5 Hyperlipidemia, unspecified; C50.919 Malignant neoplasm of unspecified site of unspecified female breast; Z79.899 Other long term (current) drug therapy; Z13.31 Encounter for screening for depression | CPT/HCPCS: 96127 ==

== ENCOUNTER 2025-09-06 11:35 | Emergency (ER) | payer OTHER, SELFPAY ==
--- NOTE | ~2025-09-06 | CT_ITS ---
CLINICAL HISTORY: abd pain, hx of cancer CT abdomen and pelvis with contrast Comparison: CT/SR - CT ABDOMEN PELVIS WITH IV CONTRAST - 01/01/23 14:58 EDT Findings: Small thin-walled bleb left lower lobe medial basilar segment. No change. Moderate hiatal hernia. No change. There are at least 6 small liver hypodensities which are slightly poorly bordered, and no larger 9 mm diameter (image 29:3). These are new since the prior exam. Gallbladder and solid organs otherwise unremarkable. No urolithiasis. No bowel obstruction, pneumoperitoneum, or pneumatosis. Probable uterine fibroids. Slightly larger than the prior exam. Ovaries are not clearly defined. Mild distal colonic diverticulosis without diverticulitis. Normal appendix. Urinary bladder is partially distended and wall thickening is mildly irregular. Appearance is similar to the prior exam. New axial skeletal sclerotic bone lesions, T10, L5, right sacrum, right posterior ilium, left intertrochanteric femur. No acute fractures. IMPRESSION: 1. Findings suggesting metastatic disease within the liver and axial skeletal system. 2. Probable uterine fibroids. Nonemergent ultrasound can further clarify if not previously performed. 3. Mildly irregular urinary bladder wall thickening. Similar to prior exam. This may represent nondistention. Follow up as needed. This document has been electronically signed by: Marcelo Qiu MD on 09/06/2025 21:15:34
--- NOTE | 2025-09-06 12:11 | ED_ITS ---
HPI - General Adult General Chief complaint: General Medical Stated complaint: Cancer- Bloating/ Discomfort In ABD Area Time Seen by Provider: 09/06/25 19:45 History of Present Illness ED Provider: Britney SAN narrative: The patient is a 54-year-old female with a history of metastatic breast cancer that was 1st treated in 2012. Treatment included a mastectomy, chemo, and radiation. She was apparently stable on treatment for many years until about a year ago. Some bony metastases were found about a year ago and she had her maintenance medication changed. Last month there was a new change to her medication because of some possible new metastases. Over the last week she has felt a sense of abdominal bloating and mild abdominal discomfort that has made her very worried that her cancer is progressing into comes to the emergency room because of this. She has had no fever, sweats, chills. No nausea, vomiting, diarrhea. She is currently on a medication called Trugap which she started last month. Related Data Home Medications ?Medication ?Instructions ?Recorded ?Confirmed atorvastatin 10 mg tablet 10 mg PO DAILY 01/18/25 calcium PO 01/18/25 cholecalciferol (vitamin D3) PO 01/18/25 elacestrant 345 mg tablet (Orserdu) 345 mg PO DAILY omeprazole 20 mg tablet,delayed 20 mg PO DAILY 5 release Previous Rx's ?Medication ?Instructions ?Recorded amlodipine 10 mg tablet 10 mg PO DAILY #90 tabs 01/07 11/03 lisinopril 40 mg tablet 40 mg PO DAILY #90 tabs 01/07 11/03 nitrofurantoin 100 mg PO BID #14 caps 07/08 monohydrate/macrocrystals 100 mg capsule (Macrobid) Allergies Allergy/AdvReac Type Severity Reaction Status Date / Time benadryl Allergy Unknown chest pain Uncoded 09/06/25 12:13 E-mycin Allergy Unknown swelling Uncoded 09/06/25 12:13 PCN Allergy Unknown swelling Uncoded 09/06/25 12:13 Review of Systems 2 Review of Systems: Yes all other systems are reviewed and are negative [facility] Past Medical History Medical History Metastatic breast cancer Surgical History H/O total mastectomy of left breast Hx of removal of ovary H/O breast reconstruction Family History Family History Mother HTN (hypertension) High cholesterol Breast cancer Father High cholesterol Social History Social History Housing: House Alcohol intake: current Alcohol intake frequency: holidays/special occasions only Alcohol type: beer Patient Tobacco Use Status: Current everyday Tobacco user e-Cigarette/Vaping Use: Never Used Second Hand Smoke Exposure: Yes Substance Use Type: Marijuana Advance Directives: No Advance Directives Information Provided: No Do you have a plan to hurt others: No Plan service: No Current occupational status: employed Current occupation: Finance Current occupational exposures/hazards: No Cognitive needs: No Hearing needs: No Vision needs: No Physical Exam ED Vital Signs: Vital Signs - 24 hr 09/06/25 21:59 09/06/25 22:00 Temperature 98.1 F 98.1 F Pulse Rate 80 80 Respiratory Rate 18 18 Blood Pressure 128/81 128/81 Pulse Oximetry 97 97 Oxygen Delivery Method Room Air Room Air BMI result Body Mass Index 28.2 Const Other: The patient is awake and alert, pleasant and cooperative. She looks quite anxious. She does not seem in distress. Orientation/consciousness: patient oriented x3 HENMT Other: The face is symmetrical. ?Mucous membranes moist. Eyes Other: Pupils are round equal, conjunctivae are clear, extraocular movements intact Neck Neck: Yes normal visual inspection and Yes full ROM Resp Effort & Inspection: normal respiratory effort Auscultation: clear to auscultation bilaterally Cardio Rate: regular rate Rhythm: regular rhythm Heart sounds: S1 normal heart sound present and S2 normal heart sound present GI Other: The abdomen is not grossly distended. There is some mild diffuse tenderness without focal rebound or guarding. Skin Other: The skin is dry and unremarkable Neuro General: patient oriented x3, tone normal, moves all extremities, no focal motor deficits and CN's II-XI intact bilaterally Extrem Other: No peripheral edema Course Course Course Narrative: Rapid medical examination performed in triage by Julia Colorado PA-C: Patient is a 54 year old female presenting to the emergency department with abdominal pain and bloating. Patient states that she recently started a new chemo medication for breast cancer and she has been having abdominal bloating / pain since. Detailed physical exam and review of systems are deferred to the ice house supervisor. Labs ordered. Patient placed back in the waiting room pending room availability and results. Medications Administered Discontinued Medications Generic Name Dose Route Start Last Admin Trade Name Herberthq PRN Reason Stop Dose Admin Iohexol 100 ml 09/06/25 20:00 09/06/25 20:00 Iohexol 350 Mg/Ml 100 Ml Infus..Btl IV 09/06/25 20:01 85 ml ONCE ONE Administration Medical Decision Making Medical Decision Making [facility] Narrative: The patient is a 54-year-old woman with a history of metastatic breast cancer who has recently been found to have some advancement of her disease. She has been on a new cancer drug for the last month. She has had some mild abdominal symptoms over the last week. This has made her very anxious that these symptoms might represent an advancement of her cancer despite her new medication. A CT scan of the abdomen and pelvis shows some liver lesions and some axial skeletal lesions but we have no previous imaging at this hospital to compare so I do not know if these lesions are new. There are no acute findings on the CT scan today. This was explained to the patient. She was given a copy of the radiology report of her CT scan. She should contact her regular oncology team at the [facility] to discuss next steps. Lab Data 09/06/25 13:42 09/06/25 13:42 Labs: Lab Results 09/06/25 Range/Units 13:42 WBC 6.5 (4.8-10.8) X10*3/uL RBC 4.08 L (4.20-5.50) X10*6/uL Hgb 12.6 (12.0-16.0) g/dl Hct 36.7 L (37.0-47.0) % MCV 90.0 (80.0-98.0) fL MCH 30.9 (27.0-33.0) pg MCHC 34.3 (31.0-35.0) g/dl RDW 15.1 (11.0-16.0) % Plt Count 443 H (160-400) X10*3/uL MPV 8.4 L (9.4-12.3) fL Immature Gran % (Auto) 0.6 H (0.0-0.4) % Neut % (Auto) 68.5 (45-73) % Lymph % (Auto) 19.7 L (20-40) % [place] % (Auto) 9.7 (2-11) % Eos % (Auto) 0.6 (0-4) % Baso % (Auto) 0.9 (0-2) % Lymph # (Auto) 1.3 (1.2-4.9) X10*3/uL [place] # (Auto) 0.6 (0.1-1.2) X10*3/uL Eos # (Auto) 0.0 (0.0-0.4) X10*3/uL Baso # (Auto) 0.1 (0.0-0.2) X10*3/uL Abs Immat Gran (auto) 0.04 H (0.00-0.03) X10*3/uL Absolute Neuts (auto) 4.5 (2.0-8.3) x10*3/uL Absolute Nucleated RBC 0.000 (0.0-0.012) X10*3/uL Nucleated RBC % (auto) 0.0 (0.0-0.2) /100WBC Sodium 133 L (135-145) mmol/L Potassium 5.1 (3.3-5.1) mmol/L Chloride 99 (96-108) mmol/L Carbon Dioxide 24 (22-29) mmol/L Anion Gap 15 (12-20) BUN 6 L (9-16) mg/dL Creatinine 0.81 (0.5-1.4) mg/dL Estim Creat Clear Calc 83.4 Estimated GFR > 60 Random Glucose 117 H (60-115) mg/dL Calcium 9.7 D (8.4-10.2) mg/dL Magnesium 2.1 (1.6-2.6) mg/dL Total Bilirubin 0.3 (0.0-1.0) mg/dL AST 37 H (5-31) U/L ALT 39 H (0-31) U/L Alkaline Phosphatase 85 (39-117) U/L Total Protein 7.5 (6.5-8.0) g/dL Albumin 4.6 (3.5-5.0) g/dL Discharge Plan Discharge Clinical Impression: Abdominal pain, Breast cancer Patient Disposition: Home, Self-Care Additional Instructions: Shows findings of metastatic disease in your liver and in some of your bones. I do not know if these are new findings compared to what has been discovered recently at your other facility. Please contact your oncology team tomorrow to discuss these findings. Return to the emergency room if significantly worse. Prescriptions: No Action nitrofurantoin monohyd/m-cryst [Macrobid] 100 mg capsule 100 mg PO BID Qty: 14 0RF Rx Instructions: must administer with a meal/food Orserdu 345 mg tablet 345 mg PO DAILY Rx Instructions: Swallow tablet(s) whole. Do not chew, crush, or split prior to swallowing. Do not take any tablets that are broken, cracked, or that look damaged. atorvastatin 10 mg tablet 10 mg PO DAILY omeprazole 20 mg tablet,delayed release (DR/EC) 20 mg PO DAILY calcium PO cholecalciferol (vitamin D3) PO lisinopril 40 mg tablet 40 mg PO DAILY Qty: 90 3RF amlodipine 10 mg tablet 10 mg PO DAILY Qty: 90 3RF Interventions: ED Discharge Assessment Last Done: 09/06/25 22:00 Discharge Date/Time: 09/06/25 22:00 Print Language: Liberian
[2025-09-06 12:12] VITALS: BP 182/87; PULSE 90; RESP 16; TEMP 36.4; O2SAT 99; BMI 28.2
[2025-09-06 13:46] LABS: MANUAL DIFF FLAG NO
[2025-09-06 13:47] LABS: Hematocrit 36.7 % (37.0-47.0); Hemoglobin 12.6 g/dl (12.0-16.0); Imm Gran Abs Auto 0.04 X10*3/uL (0.00-0.03); Imm Gran Pct Auto 0.6 % (0.0-0.4); Lymphocytes Absolute Auto 1.3 X10*3/uL (1.2-4.9); Mean Corpuscular HGB Conc 34.3 g/dl (31.0-35.0); Mean Corpuscular Hemoglobin 30.9 pg (27.0-33.0); Mean Corpuscular Volume 90.0 fL (80.0-98.0); NRBC Abs Auto 0.000 X10*3/uL (0.0-0.012); NRBC Pct Auto 0.0 /100WBC (0.0-0.2); Platelet Count 443 X10*3/uL (160-400); Red Blood Count 4.08 X10*6/uL (4.20-5.50); White Blood Count 6.5 X10*3/uL (4.8-10.8)
[2025-09-06 14:02] LABS: Alanine Aminotransferase 39 U/L (0-31); Albumin Level 4.6 g/dL (3.5-5.0); Alkaline Phosphatase 85 U/L (39-117); Anion Gap 15 (12-20); Aspartate Amino Transferase 37 U/L (5-31); Blood Urea Nitrogen 6 mg/dL (9-16); Calcium 9.7 mg/dL (8.4-10.2); Carbon Dioxide 24 mmol/L (22-29); Chloride 99 mmol/L (96-108); Creatinine Clr Calc Pharmacy 83.4; Estimated Glomerular Filt Rate > 60; Magnesium 2.1 mg/dL (1.6-2.6); Potassium 5.1 mmol/L (3.3-5.1); Sodium 133 mmol/L (135-145); Total Protein 7.5 g/dL (6.5-8.0)
[2025-09-06 19:32] VITALS: BP 148/84; PULSE 76; RESP 18; O2SAT 99
--- OUTSIDE RECORDS SUMMARY | 2025-09-06 19:33 | XMS_ITS | Encounter Summary ---
Author Organization Damaris Hernandez [facility] Address [address] [place] [address] Care Team Providers Care Drying Can Worker Name Role Phone Robert August Primary Care Provider [phone] Jackelyn Lake MD Unavailable [phone] Anabel Goldsmith CRUDE OIL TREATER Unavailable [phone] Shayna Lennon CRUDE OIL TREATER Unavailable [phone] Sharon Lewis CRUDE OIL TREATER Unavailable [phone] Robert August Unavailable Jacqueline Dinero CRUDE OIL TREATER Unavailable [phone] Loli Lees MD Primary Care Provider [phone] Loli Lees MD Unavailable [phone] Nishi Tomlinson CRUDE OIL TREATER Unavailable [phone] Encounter Details Date Type Department Care Team (Late st Contact Info) Description 10/23/2014 Orders Only [facility] General Surgery [facility] General Surgery [address] [address] Sravan Mcnulty MD Visit for screening mammogram; Hx of breast cancer Social History Tobacco Use Types Packs/Day Years Used Date Smoking Tobacco: Every Day Comments Unknown Sex and Gender Information Value Date Recorded Sex Assigned at Female 01/05/2020 1:28 PM EDT Legal Sex Female 11:24 AM EST Gender Identity Female 01/05/2020 1:28 PM EDT Sexual Orientation Not on file documented as of this encounter Plan of Treatment Upcoming Encounters Date Type Department Care Team (Late st Contact Info) Description 09/20/2025 10:20 AM EST Lab Department of Hematology and Oncology [facility] Hematology Oncology [address] [place] [phone] Sharon Lewis CRUDE OIL TREATER [address] [place] [address] In Person with Resource 09/20/2025 11:30 AM EST Office Visit Department of Hematology and Oncology [facility] Hematology Oncology [address] [place] [address] Jackelyn Lake MD [address] [place] [address] In Person with Physician 09/20/2025 12:30 PM EST Infusion [facility] Infusion Services [facility] Infusion Services [address] [place] [address] [address] [place] [address] Sharon Lewis CRUDE OIL TREATER [address] [place] [address] In Person with Resource documented as of this encounter Results * Mammo Screening Tomosynthesis Right (02/25/2015 10:35 AM EDT) Anatomical Region Laterality Modality Breast Right Mammography 02/25/2015 11:2 8 AM EDT Narrative 02/25/2015 11:24 AM EDT EXAM DESCRIPTION: Screening Mammogram right breast. TECHNIQUE: This exam was acquired on a Full Field Digital Mammography unit. Both full field digital mammographic and tomosynthesis images were obtained and reviewed as part of the examination. The R2 CAD mammography reader was employed for this case. COMPARISON: Prior mammograms dating back to May 01, 2011 INDICATION: Screening. FINDINGS: Breast tissue density: There are scattered areas of fibroglandular density. Right Breast Findings: Patient is status post mastopexy. No significant masses, calcifications or other abnormalities are seen. Patient is status post left mastectomy. IMPRESSION: Right breast, BI-RADS category 2: Benign, no evidence of malignancy. Normal interval follow-up is recommended in 12 months. Overall assessment: Benign. RECOMMENDATION: BIRADS CATEGORY: 2 - Benign Recommendation: Routine follow-up mammogram in 1 year Recall Interval: 12 months I have reviewed all films of this examination and edited the above dictation. us Sravan Mcnulty MD IMG MAMMOGRAPHY ORDERABLES Final Result documented in this encounter Visit Diagnoses Diagnosis Visit for screening mammogram Hx of breast cancer Personal history of malignant neoplasm of breast Visit for screening mammogram Hx of breast cancer Personal history of malignant neoplasm of breast documented in this encounter Care Teams Drying Can Worker Relationship Specialty Start Date End Date Robert August [address] [place] [address] PCP - General 07/19/14 01/06/25 Robert August [address] [place] [address] PCP - Insurance Assigned PCP 02/27/22 01/06/25 Loli Lees MD [address] [place] [address] PCP - General Internal Medicine 01/07/25 Loli Lees MD [address] [place] [address] PCP - Insurance Assigned PCP 03/15/25 Jackelyn Lake MD [address] [place] [address] Consulting Provider Hematology/Oncology 04/23/16 Anabel Goldsmith NP [address] [place] [address] Nurse Practitioner Nurse Practitioner 07/16/16 Shayna Lennon NP [address] [place] [address] Nurse Practitioner Nurse Practitioner 01/14/20 Sharon Lewis NP [address] [place] [address] Nurse Practitioner Nurse Practitioner 08/09/20 Jacqueline Dinero NP [facility] Raquel Florence [address] [address] Nurse Practitioner Nurse Practitioner 07/02/24 Nishi Tomlinson NP [address] [place] [address] Nurse Practitioner Hematology/Oncology 07/19/25 documented as of this encounter
--- OUTSIDE RECORDS SUMMARY | 2025-09-06 19:33 | XMS_ITS | Encounter Summary ---
Author Organization Damaris Hernandez [facility] Address [address] [place] [address] Care Team Providers Care Biology Intern Name Role Phone Robert August Primary Care Provider Jackelyn Lake MD Unavailable [phone] Anabel Goldsmith COSTUME SEAMSTRESS Unavailable Shayna Lennon COSTUME SEAMSTRESS Unavailable Sharon Lewis COSTUME SEAMSTRESS Unavailable [phone] Robert August Unavailable Jacqueline Dinero COSTUME SEAMSTRESS Unavailable [phone] Loli Lees MD Primary Care Provider [phone] Loli Lees MD Unavailable [phone] Nishi Tomlinson COSTUME SEAMSTRESS Unavailable [phone] Encounter Details Date Type Department Care Team (Late st Contact Info) Description 09/01/2014 Clinical Conversion Encounter [facility] division of plastic and reconstructive surgery [facility] Plastic Surgery [address] [address] Raman Montalvo MD PhD [address] [place] [address] Social History Tobacco Use Types Packs/Day Years Used Date Smoking Tobacco: Every Day Comments Unknown Sex and Gender Information Value Date Recorded Sex Assigned at Female 01/05/2020 1:28 PM EDT Legal Sex Female 11:24 AM EST Gender Identity Female 01/05/2020 1:28 PM EDT Sexual Orientation Not on file documented as of this encounter Progress Notes * Raman Montalvo MD PhD - 11/05/2014 12:41 PM EST [id number]. History of Present Illness Patient came in for her post-op. She is doing well. Current Meds Cefadroxil 500 MG Oral Capsule; TAKE 1 CAPSULE TWICE DAILY; Therapy: 25Oos1782 to (Evaluate:87Fmx2769); Last Rx:[id number] Lisinopril 20 MG Oral Tablet; TAKE 1 TABLET DAILY; Therapy: 01Oct2012 to (Evaluate:09Sep2014) Requested for: 11Jun2014; Last Rx:11Jun2014 OxyCODONE HCl 5 MG Oral Capsule; TAKE 1 CAPSULE EVERY 4 TO 6 HOURS NEEDED; Therapy: 15Lcb4318 to (Evaluate:02Kvh8040); Last Rx:[id number] Tamoxifen Citrate 20 MG Oral Tablet; Take 1 tab orally once a day; Therapy: 84Lgf3404 to (Last Rx:30Nov2013) Requested for: 30Nov2013 Vitamin D 1000 UNIT Oral Tablet; TAKE 1 TABLET DAILY; Therapy: 81Mkl1879 to (Evaluate:09Jul2013) Allergies Erythromycin Derivatives Penicillins Benadryl CAPS Vitals [facility] Vitals Data Includes: Current Encounter 01Sep2014 11:11AM Pain Score 2 Pain Site ABDOMEIN Notified of Pain Score Greater Than 3 Yes Allergy Status Reviewed Yes Safe at Home Yes Chaperoned During Appointment Yes Chaperoned By Devika Smith LPN Physical Exam All her incisions are healing well, except for the umbilicus, which seems to have at least superficial necrosis. Flap is well perfused and the early bruising is subsiding. Assessment 1. Current Smoker 305.1 2. Encounter For Breast Reconstruction Following Mastectomy V51.0 Plan I removed all her drains and gave her an binder to start wearing starting 2014. I will see her in two weeks to check on the umbo. Signatures Electronically signed by : RAMAN MONTALVO MD; Sep 01 2014 3:42PM documented in this encounter Plan of Treatment Upcoming Encounters Date Type Department Care Team (Late st Contact Info) Description 09/20/2025 10:20 AM EST Lab Department of Hematology and Oncology [facility] Hematology Oncology [address] [place] [address] Sharon Lewis, COSTUME SEAMSTRESS [address] [place] [address] In Person with Resource 09/20/2025 11:30 AM EST Office Visit Department of Hematology and Oncology [facility] Hematology Oncology [address] [place] [address] Jackelyn Lake MD [address] [place] [address] In Person with Physician 09/20/2025 12:30 PM EST Infusion [facility] [address] [place] [address] [address] [place] [address] Sharon Lewis, COSTUME SEAMSTRESS [address] [place] [address] In Person with Resource documented as of this encounter Visit Diagnoses Not on filedocumented in this encounter Care Teams Biology Intern Relationship Specialty Start Date End Date Robert August [address] [place] [address] PCP - General 07/19/14 01/06/25 Robert August [address] [place] [id number] PCP - Insurance Assigned PCP 02/27/22 01/06/25 Loli Lees MD [address] [place] [address] PCP - General Internal Medicine 01/07/25 Loli Lees MD [address] [place] [address] PCP - Insurance Assigned PCP 03/15/25 Jackelyn Lake MD [address] [place] [address] Consulting Provider Hematology/Oncology 04/23/16 Anabel Goldsmith, COSTUME SEAMSTRESS [address] [place] [address] Nurse Practitioner Nurse Practitioner 07/16/16 Shayna Lennon NP [address] [place] [address] Nurse Practitioner Nurse Practitioner 01/14/20 Sharon Lewis NP [address] [place] [address] Nurse Practitioner Nurse Practitioner 08/09/20 Jacqueline Dinero NP [address] [place] [address] Nurse Practitioner Nurse Practitioner 07/02/24 Nishi Tomlinson NP [address] [place] [address] Nurse Practitioner Hematology/Oncology 07/19/25 documented as of this encounter
--- OUTSIDE RECORDS SUMMARY | 2025-09-06 19:33 | XMS_ITS | Encounter Summary ---
Author Organization Damaris saul Address [address] [place] [address] Care Team Providers Care Contracts Manager Name Role Phone Robert August Primary Care Provider [phone] Jackelyn Lake MD Unavailable [phone] Anabel Goldsmith ADULT REMEDIAL EDUCATION INSTRUCTOR Unavailable [phone] Shayna Lennon ADULT REMEDIAL EDUCATION INSTRUCTOR Unavailable [phone] Sharon Lewis ADULT REMEDIAL EDUCATION INSTRUCTOR Unavailable [phone] Robert August Unavailable Jacqueline Dinero ADULT REMEDIAL EDUCATION INSTRUCTOR Unavailable [phone] Loli Lees MD Primary Care Provider [phone] Loli Lees MD Unavailable [phone] Nishi Tomlinson ADULT REMEDIAL EDUCATION INSTRUCTOR Unavailable [phone] Reason for Referral * ADVANCED IMAGING (Routine) - Closed Specialty Diagnoses / Procedures Referred By Contchino t Referred To Contact Diagnoses bone scan Procedures NM Bone Scan Whole Body Jackelyn Lake MD [address] [place] [address] Phone: tel: fax: Referral ID Status Reason Start Date Expiration Date Visits Re quested Visits Authorized [id number] Closed 12/15/2014 06/13/2015 1 2 Encounter Details Date Type Department Care Team (Late st Contact Info) Description 10/22/2014 Orders Only Department of Hematology and Oncology [facility] Hematology Oncology [address] [place] [address] Jackelyn Lake MD [address] [place] [address] Social History Tobacco Use Types Packs/Day Years [...] EST Lab Department of Hematology and Oncology [facility] Hematology Oncology [address] [place] [address] Sharon Lewis ADULT REMEDIAL EDUCATION INSTRUCTOR [address] [place] [address] In Person with Resource 09/20/2025 11:30 AM EST Office Visit Department of Hematology and Oncology [facility] Hematology Oncology [address] [place] [address] Jackelyn Lake MD [address] [place] [address] In Person with Physician 09/20/2025 12:30 PM EST Infusion [facility] Infusion Services [facility] Infusion Services [address] [place] [address] [address] [place] [address] Sharon Lewis NP [address] [place] [address] In Person with Resource documented as of this encounter Results * NM Bone Scan Whole Body (05/05/2015 2:24 PM EDT) Anatomical Region Laterality Modality Nuclear Medicine 05/05/2015 3:00 PM EDT Narrative 05/05/2015 2:56 PM EDT Dictated by vice president compliance, Pavel Starkey MD. EXAM DESCRIPTION: Planar whole body bone scintigraphy. TECHNIQUE: Radiopharmaceutical: 18.56 MCi of technetium 99m MDP. Delayed whole-body planar images were obtained. Study was performed on 05/05/2015 2:25 PM COMPARISON: Multiple previous bone scan, most recent dated October 22, 2014. CT abdomen pelvis, dated May 05, 2015. INDICATION: 44-year-old female with metastatic breast cancer. FINDINGS: Multiple sclerotic lesions seen previous CT examination, could be too small to characterize with planar bone scintigraphy versus treated/healed bone metastasis. Increased activity in the sacrum, seen posterior images, indeterminate, suspicious, metastatic disease, sub radiographic trauma in the differential. Likely degenerative changes in the shoulders, sternoclavicular joints, knees, low lumbar spine. Recommend followup contrast-enhanced FDG PET-CT to exclude metastatic disease. IMPRESSION: New increased activity sacrum, metastatic disease, sub radiographic trauma in the differential, recommend followup contrast-enhanced FDG PET-CT to differentiate. I have reviewed all films of this examination and edited the above dictation. Procedure Note Sae Sow MD - 05/05/2015 Dictated by vice president compliance, Pavel Starkey MD. EXAM DESCRIPTION: Planar whole body bone scintigraphy. TECHNIQUE: Radiopharmaceutical: 18.56 MCi of technetium 99m MDP. Delayed whole-bodyplanar images were obtained. Study was performed on 05/05/2015 2:25 PM COMPARISON: Multiple previous bone scan, most recent dated October 22, 2014. CT abdomen pelvis, dated May 05, 2015. INDICATION: 44-year-old female with metastatic breast cancer. FINDINGS: Multiple sclerotic lesions seen previous CT examination, could be toosmall to characterize with planar bone scintigraphy versus treated/healedbone metastasis. Increased activity in the sacrum, seen posterior images,indeterminate, suspicious, metastatic disease, sub radiographic trauma in the differential. Likelydegenerative changes in the shoulders, sternoclavicular joints, knees, lowlumbar spine. Recommend followup contrast-enhanced FDG PET-CT to excludemetastatic disease. IMPRESSION: New increased activity sacrum, metastatic disease, sub radiographic traumain the differential, recommend followup contrast-enhanced FDG PET-CT todifferentiate. I have reviewed all films of this examination and edited the abovedictation. us Jackelyn Lake MD [facility] [place] Final Result documented in this encounter Visit Diagnoses Not on filedocumented in this encounter Care Teams Contracts Manager Relationship Specialty Start Date End Date Robert August [address] [place] [address] PCP - General 07/19/14 01/06/25 Robert August [address] [place] [address] PCP - Insurance Assigned PCP 02/27/22 01/06/25 Loli Lees MD [address] [place] [address] PCP - General Internal Medicine 01/07/25 Loli Lees MD [address] [place] [address] PCP - Insurance Assigned PCP 03/15/25 Jackelyn Lake MD [address] [place] [address] Consulting Provider Hematology/Oncology 04/23/16 Anabel Goldsmith NP [address] [place] [address] Nurse Practitioner Nurse Practitioner 07/16/16 Shayna Lennon NP [address] [place] [address] Nurse Practitioner Nurse Practitioner 01/14/20 Sharon Lewis NP [address] [place] [address] Nurse Practitioner Nurse Practitioner 08/09/20 Jacqueline Dinero NP [address] [address] Nurse Practitioner Nurse Practitioner 07/02/24 Nishi Tomlinson NP [address] [place] [address] Nurse Practitioner Hematology/Oncology 07/19/25 documented as of this encounter
--- OUTSIDE RECORDS SUMMARY | 2025-09-06 19:33 | XMS_ITS | Encounter Summary ---
Author Organization [facility] Address [address] [place] [address] Care Team Providers Care Farm Management Supervisor Name Role Phone Robert August Primary Care Provider [phone] Jackelyn Fermin MD Unavailable [phone] Anabel Goldsmith CHOPPING MACHINE OPERATOR Unavailable [phone] Shayna Lennon CHOPPING MACHINE OPERATOR Unavailable Sharon Lewis CHOPPING MACHINE OPERATOR Unavailable [phone] Robert August Unavailable Jacqueline Dinero CHOPPING MACHINE OPERATOR Unavailable Loli Lees MD Primary Care Provider [phone] Loli Lees MD Unavailable [phone] Nishi Tomlinson CHOPPING MACHINE OPERATOR Unavailable [phone] Encounter Details Date Type Department Care Team (Late st Contact Info) Description 10/25/2014 Clinical Conversion Encounter Department of Hematology and Oncology [facility] Hematology Oncology [address] [address] Jackelyn Fermin MD [address] [place] [address] Social History Tobacco Use Types Packs/Day Years Used Date Smoking Tobacco: Every Day Comments Unknown Sex and Gender Information Value Date Recorded Sex Assigned at Female 01/05/2020 1:28 PM EDT Legal Sex Female 11:24 AM EST Gender Identity Female 01/05/2020 1:28 PM EDT Sexual Orientation Not on file documented as of this encounter Progress Notes * Jackelyn Fermin MD - 11/16/2014 10:35 AM EDT [id number],[place]. Chief Complaint Followup of metastatic breast cancer with mediastinal lymph node metastases . History of Present Illness ONCOLOGIC HISTORY: This is a 43-year-old premenopausal woman who noted changes in her left breast. She was scheduled for routine mammogram at [facility] on September 11, 2011. There is a diffuse abnormality in the left breast with nipple retraction. This was confirmed on additional imaging. On September 26, 2012 she underwent a left breast ultrasound-guided biopsy. This returned as moderately differentiated invasive ductal carcinoma. ER was positive at 51- 100% and progesterone receptor was also positive at 51- 100%. HER-2/genesis was not performed due to prolonged fixation. At that time on clinical breast exam she was confirmed to have a 6 cm mass on the left with a retracted nipple. PET/CT scan showed her known left breast tumor as well as some prominent axillary lymph nodes that were FDG avid. There were suspicious internal mammary and prevascular mediastinal lymph nodes with increased activity. There were indeterminate suspicious borderline enlarged precarinal nodes with increased activity. There was also a subcentimeter nodule in the left adrenal gland. There was what appeared to be a luteal cyst in the ovary and lesions in the uterus suspicious for fibroids. There was a borderline inguinal node on the left measuring 2 cm, likely reactive. She underwent bronchoscopy with biopsies. She was found to have metastatic disease to the mediastinum. A followup breast biopsy revealed that her tumor was HER-2/genesis negative. She received Lupron with tamoxifen from October through June 2013. She underwent a left modified radical mastectomy with axillary lymph node dissection along with a bilateral salpingo-oophorectomy on July 16, 2013. She was found to have a 5 x 3.3 x 2.5 cm invasive ductal carcinoma that was grade 2 with lvi. 11 of 17 lymph nodes examined contained metastatic carcinoma. There was no extranodal invasion. Tumor was present in smooth muscle of the nipple but not in the dermis or nipple epithelium. Grade 2 DCIS was also seen. The margins were clear. Pathology from the ovaries and fallopian tubes was benign. From September 28 through November 16, 2013 she received postoperative postmastectomy radiation. She received a total dose of 5040 cGy to the left chest wall including the internal mammary nodes. She received 4680cGy to the left supraclavicular area and axillary apex. CURRENT TREATMENT: Tamoxifen 20 mg daily beginning in October 2012 INTERVAL HISTORY: The patient presents today for scheduled followup visit. In August she underwent a delayed left rest TRAM flap reconstruction. She is recovering well. Since I saw the patient last she has been taking tamoxifen daily. She does not notice any side effects. She has had ongoing daily hot flashes. These waxed and waned over time. She has no new issues or concerns today. Current Meds Cefadroxil 500 MG Oral Capsule; TAKE 1 CAPSULE TWICE DAILY; Therapy: 38Ttm5068 to (Evaluate:44Zlx3709); Last Rx:[id number] Lisinopril 20 MG Oral Tablet; TAKE 1 TABLET DAILY; Therapy: 01Oct2012 to (Evaluate:00Lpt1567) Requested for: 23Sep2014; Last Rx:23Sep2014 OxyCODONE HCl 5 MG Oral Capsule; TAKE 1 CAPSULE EVERY 4 TO 6 HOURS NEEDED; Therapy: 32Jkc3794 to (Evaluate:81Tvo8258); Last Rx:[id number] Tamoxifen Citrate 20 MG Oral Tablet; Take 1 tab orally once a day; Therapy: 23Ltf3491 to (Last Rx:[id number]) Requested for: 30Nov2013 Vitamin D 1000 UNIT Oral Tablet; TAKE 1 TABLET DAILY; Therapy: 38Ryi4265 to (Evaluate:23Fhj7250) Allergies Erythromycin Derivatives Penicillins Benadryl CAPS Family History BRCA testing was negative Review of Systems She denies headaches, dizziness, focal weakness or other neurolgic complaints. She denies visual changes. No mouth sores, taste alterations or swallowing difficulty. No shortness of breath, cough or chest pain. No abdominal pain, nausea, vomiting. No diarrhea, constipation, melena or bright red blood per rectum. No lower extremity edema. No skin rash. Appetite and energy level are normal. Review of systems is otherwise negative in detail. Performance Status ECoG zero Vitals David Vitals Data Includes: Last 1 Instance [id number] 10:48AM Systolic: 152 Diastolic: 104 Heart Rate: 101 BMI Calculated: 29.66 BSA Calculated: 1.88 Height: 5 ft 5 in Weight: 178 lb Respiration: 18 O2 Saturation: 100 Temperature: 97.4 F Pain Score: 0 Allergy Status Reviewed: Yes Safe at Home: Yes Pain Site: ABDOMEIN MD Notified of Pain Score Greater Than 3: Yes Chaperoned During Appointment: Yes Chaperoned By: Devika Smith LPN Height Source: Actual Height Weight Source: Actual Weight LMP: BSO Physical Exam In general, well appearing and in no apparent distress. HEENT: Pupils equal, round, reactive to light. Extraocular movements intact. Sclerae anicteric. Mucous membranes moist, no oral lesions, no mucositis, no thrush. Lungs: Clear to auscultation and percussion bilaterally. No wheezes rales or rhonchi. Cardiovascular: Regular rate and rhythm, no murmurs, rubs or gallops. Abdomen: Soft, nontender, nondistended, positive bowel sounds in 4 quadrants. No hepatosplenomegaly, masses or ascites appreciated. Extremities: No clubbing, cyanosis, or edema. Lymph nodes: No cervical supraclavicular, infraclavicular, axillary, or inguinal lymphadenopathy bilaterally. Breasts: Left breast reconstruction with a well-healed surgical site. No evidence of infection. The right breast is without masses, nipple discharge or skin changes. Results/Data She had a normal contralateral mammogram in February Assessment 1. Breast Cancer 174.9 2. Malignant Neoplasm Metastasis To Lymph Nodes 196.9 3. Hypertension 401.9 Stage IV breast cancer that is ER/NM positive with lymph node metastases. Status post neoadjuvant endocrine therapy followed by mastectomy with axillary lymph node dissection with significant residual disease. She has now received postoperative radiation therapy. She is status post bilateral salpingo-oophorectomy and is postmenopausal. Plan 1. Lisinopril 20 MG Oral Tablet; TAKE 1 TABLET DAILY; Therapy: 01Oct2012 to (Evaluate:20Oct2015) Requested for: 71Jhc8414; Last Rx:[id number] 2. Tamoxifen Citrate 20 MG Oral Tablet; Take 1 tab orally once a day; Therapy: 30Oct2012 to (Last Rx:[id number]) Requested for: 38Hws5265; Edited We discussed her CT scan and bone scan today. There is again no evidence of active malignancy at this point. There is note of a stable sclerotic bone lesions which are unchanged. There are no lesions noted on bone scan. Prior PET CT scan did not reveal bone metastases. There is no significant risk at this time for skeletal related complications given the tiny size of the sclerotic foci. She will continue her tamoxifen. We discussed switching to an aromatase inhibitor, however we do know that tamoxifen was effective at treating her cancer prior to surgery. I would favor continuing this until the time of progression. I will see her back in approximately 6 months with a repeat CT scan and a bone scan. We did discuss transitioning to annual scans with every 6 month followup after her next visit. In the meantime she will call if any questions or concerns. Signatures Electronically signed by : JACKELYN FERMIN MD; Oct 25 2014 11:08AM documented in this encounter Plan of Treatment Upcoming Encounters Date Type Department Care Team (Late st Contact Info) Description 09/20/2025 10:20 AM EST Lab Department of Hematology and Oncology [facility] Hematology Oncology [address] [place] [address] Sharon Lewis NP [address] [place] [address] In Person with Resource 09/20/2025 11:30 AM EST Office Visit Department of Hematology and Oncology [facility] Hematology Oncology [address] [place] [address] Jackelyn Fermin MD [address] [place] [address] In Person with Physician 09/20/2025 12:30 PM EST Infusion [facility] Infusion Services [facility] Infusion Services [address] [place] [address] Sharon Lewis NP [address] [place] [address] In Person with Resource documented as of this encounter Procedures Procedure Name Priority Date/Time Associated Diagnosis Comments CREATININE WITH GFRE STAT 10/25/2014 11:27 AM EST ONCOLOGY METABOLIC PROFILE, PLASMA STAT 10/25/2014 11:27 AM EST CBC AND ABSOLUTE NEUTROPHIL COUNT(ANC) STAT 10/25/2014 11:27 AM EST CANCER ANTIGEN 15-3 Routine 10/25/2014 1 1:26 AM EST documented in this encounter Results * (ABNORMAL) CBC and Granulocyte Count (10/25/2014 11:27 AM EST) WBC 6.39 4.4 - 11.3 K/uL SUNQUEST RBC 4.19 4.10 - 5.10 M/uL SUNQUEST Hemoglobin 13.9 12.0 - 15.3 G/DL SUNQUEST Hematocrit 41.1 36.0 - 45.0 % SUNQUEST MCV 98(H) 80 - 96 FL SUNQUEST Platelet Count 360 150 - 450 K/uL SUNQUEST RDW 13.4 11.6 - 14.6 % SUNQUEST WBC 6.39 4.4 - 11.3 K/uL SUNQUEST Neutrophil 75 % SUNQUEST Absolute Neutrophil Count 4.79 1.4 - 6.6 K/uL SUNQUEST 10/25/2014 11:2 7 AM EST 10/25/2014 11:37 AM EST Jackelyn Fermin MD LAB BLOOD ORDERABLES Final Res ult SUNQUEST * Creatinine with GFRE (10/25/2014 11:27 AM EST) Creatinine 0.6 0.5 - 1.1 MG/DL SUNQUEST GFR -Amer >60 >60 ML/MIN SUNQUEST GFR Non -Amer >60 >60 ML/MIN SUNQUEST 10/25/2014 11:2 7 AM EST 10/25/2014 11:37 AM EST us Jackelyn Fermin MD LAB BLOOD ORDERABLES Final Res ult SUNQUEST * (ABNORMAL) Oncology Metabolic Profile, Plasma (10/25/2014 11:27 AM EST) Sodium 137 135 - 146 MMOL/L SUNQUEST Potassium, Plasma 4.0 3.4 - 5.2 MMOL/L SUNQUEST Chloride 103 98 - 110 MMOL/L SUNQUEST Total CO2 25 24 - 32 MMOL/L SUNQUEST Anion Gap 9 2 - 15 MMOL/L SUNQUEST BUN 9 6 - 20 MG/DL SUNQUEST Creatinine 0.7 0.5 - 1.1 MG/DL SUNQUEST Glucose, Blood 110(H) 70 - 100 MG/DL SUNQUEST Calcium 9.7 8.4 - 10.4 MG/DL SUNQUEST GFR -Amer >60 >60 ML/MIN SUNQUEST GFR Non -Amer >60 >60 ML/MIN SUNQUEST Total Protein 7.9 6.2 - 8.2 G/DL SUNQUEST Albumin, Blood 4.6 3.5 - 5.0 G/DL SUNQUEST Globulin Result 3.3 2.0 - 4.0 G/DL SUNQUEST AST (SGOT) 32 11 - 40 IU/L SUNQUEST ALT (SGPT) 34 4 - 35 IU/L SUNQUEST Alkaline Phosphatase 64 30 - 115 IU/L SUNQUEST Total Bilirubin 0.7 0.2 - 1.1 MG/DL SUNQUEST Uric Acid,Blood 5.3 2.3 - 6.5 MG/DL SUNQUEST Phosphorus 3.9 2.4 - 4.4 MG/DL SUNQUEST Magnesium, Blood 1.9 1.6 - 2.6 MG/DL SUNQUEST 10/25/2014 11:2 7 AM EST 10/25/2014 11:37 AM EST Jackelyn Fermin MD LAB BLOOD ORDERABLES Final Res ult SUNQUEST * Cancer Antigen 15-3 (10/25/2014 11:26 AM EST) CA 15-3 10 <36 U/ML SUNQUEST Comment:Method: [place] Archi tect 10/25/2014 11:2 6 AM EST 10/25/2014 11:37 AM EST Jackelyn Fermin MD LAB BLOOD ORDERABLES Final Res ult SUNQUEST documented in this encounter Visit Diagnoses Not on filedocumented in this encounter Care Teams Farm Management Supervisor Relationship Specialty Start Date End Date Robert August [address] [place] [address] PCP - General 07/19/14 01/06/25 Robert August [address] [place] [address] PCP - Insurance Assigned PCP 02/27/22 01/06/25 Loli Lees MD [address] [place] [address] PCP - General Internal Medicine 01/07/25 Loli Lees MD [address] [place] [address] PCP - Insurance Assigned PCP 03/15/25 Jackelyn Fermin MD [address] [place] [address] Consulting Provider Hematology/Oncology 04/23/16 Anabel Goldsmith NP [address] [place] [address] Nurse Practitioner Nurse Practitioner 07/16/16 Shayna Lennon NP [address] [place] [address] Nurse Practitioner Nurse Practitioner 01/14/20 Sharon Lewis, CHOPPING MACHINE OPERATOR [address] [place] [address] Nurse Practitioner Nurse Practitioner 08/09/20 Jacqueline Dinero NP [address] [address] Nurse Practitioner Nurse Practitioner 07/02/24 Nishi Tomlinson NP [address] [place] [address] Nurse Practitioner Hematology/Oncology 07/19/25 documented as of this encounter
--- OUTSIDE RECORDS SUMMARY | 2025-09-06 19:33 | XMS_ITS | Encounter Summary ---
Author Organization Damaris saul Address [address] [place] [address] Care Team Providers Care Hedis Specialist Name Role Phone Robert August Primary Care Provider [phone] Jackelyn Lake MD Unavailable [phone] Anabel Goldsmith CANE WEIGHER Unavailable [phone] Shayna Lennon CANE WEIGHER Unavailable Sharon Lewis CANE WEIGHER Unavailable [phone] Robert August Unavailable Jacqueline Dinero NP Unavailable [phone] Loli Lees MD Primary Care Provider [phone] Loli Lees MD Unavailable [phone] Nishi Tomlinson CANE WEIGHER Unavailable [phone] Encounter Details Date Type Department Care Team (Late st Contact Info) Description 05/03/[address] SCAN [facility] CT Scan [address] [address] Robert August [address] [place] [address] [address] [place] [address] Social History Tobacco Use Types Packs/Day Years Used Date Smoking Tobacco: Every Day Cigarettes 0.5 20 Alcohol Use Standard Drinks/Week Comments Yes 2 (1 standard drink = 0.6 oz pur e alcohol) Comments No Sex and Gender Information Value Date Recorded Sex Assigned at Female 01/05/2020 1:28 PM EDT Legal Sex Female 11:24 AM EST Gender Identity Female 01/05/2020 1:28 PM EDT Sexual Orientation Not on file documented as of this encounter Plan of Treatment Upcoming Encounters Date Type Department Care Team (Late st Contact Info) Description 09/20/2025 10:20 AM EST Lab Department of Hematology and Oncology [facility] Hematology Oncology [address] [place] [address] Sharon Lewis, CANE WEIGHER [address] [place] [address] In Person with Resource 09/20/2025 11:30 AM EST Office Visit Department of Hematology and Oncology [facility] Hematology Oncology [address] [place] [address] Jackelyn Lake MD [address] [place] [address] In Person with Physician 09/20/2025 12:30 PM EST Infusion [facility] Infusion Services [facility] Infusion Services [address] [place] [address] [address] [place] [address] Sharon Lewis, CANE WEIGHER [address] [place] [address] In Person with Resource documented as of this encounter Visit Diagnoses Not on filedocumented in this encounter Care Teams Hedis Specialist Relationship Specialty Start Date End Date Robert August [address] [place] [address] PCP - General 07/19/14 01/06/25 Robert August [address] [place] [address] PCP - Insurance Assigned PCP 02/27/22 01/06/25 Loli Lees MD [address] [place] [address] PCP - General Internal Medicine 01/07/25 Loli Lees MD [address] [place] [address] PCP - Insurance Assigned PCP 03/15/25 Jackelyn Lake MD [address] [place] [address] Consulting Provider Hematology/Oncology 04/23/16 Anabel Goldsmith NP [address] [place] [address] Nurse Practitioner Nurse Practitioner 07/16/16 Shayna Lennon NP [address] [place] [address] Nurse Practitioner Nurse Practitioner 01/14/20 Sharon Lewis NP [address] [place] [address] Nurse Practitioner Nurse Practitioner 08/09/20 Jacqueline Dinero NP [address] [address] Nurse Practitioner Nurse Practitioner 07/02/24 Nishi Tomlinson CANE WEIGHER [address] [place] [address] Nurse Practitioner Hematology/Oncology 07/19/25 documented as of this encounter
--- OUTSIDE RECORDS SUMMARY | 2025-09-06 19:33 | XMS_ITS | Encounter Summary ---
Author Organization [facility] Address [address] [place] [address] Care Team Providers Care Die Mechanic Name Role Phone Robert August Primary Care Provider [phone] Jackelyn Lake MD Unavailable [phone] Anabel Goldsmith VACUUM CASTER Unavailable [phone] Shayna Lennon VACUUM CASTER Unavailable Sharon Lewis VACUUM CASTER Unavailable [phone] Robert August Unavailable Jacqueline Dinero VACUUM CASTER Unavailable [phone] Loli Lees MD Primary Care Provider [phone] Loli Lees MD Unavailable [phone] Nishi Tomlinson VACUUM CASTER Unavailable [phone] Encounter Details Date Type Department Care Team (Late st Contact Info) Description 10/13/2012 Clinical Conversion Encounter [facility] General Surgery [facility] General Surgery [address] [address] Sravan Mcnulty MD Social History Tobacco Use Types Packs/Day Years Used Date Smoking Tobacco: Never Assessed Comments Unknown Sex and Gender Information Value Date Recorded Sex Assigned at Female 01/05/2020 1:28 PM EDT Legal Sex Female 11:24 AM EST Gender Identity Female 01/05/2020 1:28 PM EDT Sexual Orientation Not on file documented as of this encounter Progress Notes * Sravan Mcnulty MD - 10/25/2014 8:28 AM EST [id number] MICHELLE [facility] - [place], [place]. GENERAL SURGERY 10/13/2012 Name: HENRY MICHELLE #: [id number] : 1970 Visit ID: [id number] Second Visit ID: [id number] This is a breast cancer treatment center note for Ms. Michelle who presents today with further management discussion of her new left breast cancer. She had a 6 or 7 cm mass. Biopsy outside revealed intermediate grade ductal carcinoma, ER positive, FL positive, HER2 was not performed. She has undergone a metastatic evaluation with a PET scan, which unfortunately reveals the large mass and axillary adenopathy. PET scan has revealed as well a positive intramammary lymph node and is suspicious for a paratracheal lymph node. If this was positive, which it is indeed suspicious for, this would represent metastatic disease. She will require fine-needle aspirate of this lymph node. She also requires a core biopsy of the breast cancer for HER2 testing. All of this was discussed with her in detail. I spent 45 minutes with the patient and her family discussing this and her prognosis. Greater than 50% of this 45-minute visit was spent in counseling and coordination of care. Sravan Mcnulty MD [phone] SEK:nts J: [id number] / [id number] CC: Sravan Mcnulty MD, <Referring> Robert August MD, <Primary Care Physician> THIS DOCUMENT WAS ELECTRONICALLY AUTHENTICATED BY Sravan Mcnulty MD ON 10/15/2012 12:24:58 documented in this encounter Plan of Treatment Upcoming Encounters Date Type Department Care Team (Late st Contact Info) Description 09/20/2025 10:20 AM EST Lab Department of Hematology and Oncology [facility] Hematology Oncology [address] [place] [address] Sharon Lewis, VACUUM CASTER [address] [place] [address] In Person with Resource 09/20/2025 11:30 AM EST Office Visit Department of Hematology and Oncology [facility] [address] [address] Jackelyn Lake MD [address] [place] [address] In Person with Physician 09/20/2025 12:30 PM EST Infusion [facility]fusion Services [facility]fusion [facility] 41 [facility] [address] [place] [address] Sharon Lewis, STU [address] [place] [address] In Person with Resource documented as of this encounter Visit Diagnoses Not on filedocumented in this encounter Care Teams Die Mechanic Relationship Specialty Start Date End Date Robert August [address] [place] [address] [address] [place] [address] PCP - General 07/19/14 01/06/25 Robert August [address] [place] [address] PCP - Insurance Assigned PCP 02/27/22 01/06/25 Loli Lees MD [address] [place] [address] PCP - General Internal Medicine 01/07/25 Loli Lees MD [address] [place] [address] PCP - Insurance Assigned PCP 03/15/25 Jackelyn Lake MD [address] [place] [address] Consulting Provider Hematology/Oncology 04/23/16 Anabel Goldsmith, VACUUM CASTER [address] [place] [address] Nurse Practitioner Nurse Practitioner 07/16/16 Shayna Lennon NP [address] [place] [address] Nurse Practitioner Nurse Practitioner 01/14/20 Sharon Lewis, VACUUM CASTER [address] [place] [address] Nurse Practitioner Nurse Practitioner 08/09/20 Jacqueline Dinero NP [address] [address] Nurse Practitioner Nurse Practitioner 07/02/24 Nishi Tomlinson VACUUM CASTER [address] [place] [address] Nurse Practitioner Hematology/Oncology 07/19/25 documented as of this encounter
--- OUTSIDE RECORDS SUMMARY | 2025-09-06 19:33 | XMS_ITS | Encounter Summary ---
Author Organization Damaris saul Address [address] [place] [address] Care Team Providers Care Crossbar Frame Wirer Name Role Phone Robert August Primary Care Provider [phone] Jackelyn Lake MD Unavailable Anabel Goldsmith TUBE LANCER Unavailable [phone] Shayna Lennon TUBE LANCER Unavailable Sharon Lewis TUBE LANCER Unavailable [phone] Robert Auugst Unavailable Jacqueline Dinero TUBE LANCER Unavailable [phone] Loli Lees MD Primary Care Provider Loli Lees MD Unavailable [phone] Nishi Tomlinson TUBE LANCER Unavailable [phone] Encounter Details Date Type Department Care Team (Late st Contact Info) Description 08/19/2014 Clinical Conversion Encounter GENERAL CONVERSION Tiago Perry MD Social History Tobacco Use Types Packs/Day Years Used Date Smoking Tobacco: Never Assessed Comments Unknown Sex and Gender Information Value Date Recorded Sex Assigned at Female 01/05/2020 1:28 PM EDT Legal Sex Female 11:24 AM EST Gender Identity Female 01/05/2020 1:28 PM EDT Sexual Orientation Not on file documented as of this encounter Discharge Summaries * Tiago Perry MD - 11/05/2014 12:41 PM EST [id number] MICHELLE [place]. DISCHARGE SUMMARY Name: HENRY MICHELLE #: [id number] : 1970 Admit Date: 08/19/2014 Discharge Date: 08/23/2014 Visit ID: [id number] ATTENDING PHYSICIAN: Cary Ng MD ADMISSION DIAGNOSES: 1. Left breast cancer. 2. Absent breast. DISCHARGE DIAGNOSES: 1. Left breast cancer. 2. Absent breast. PROCEDURE: Left transverse rectus abdominis myocutaneous flap for breast reconstruction. HISTORY OF PRESENT ILLNESS: The patient is a 43-year-old female who had previously undergone a left modified radical mastectomy in July 2013 for an ER/WV positive breast tumor with metastatic to lymph nodes. She has since undergone chest radiation and neoadjuvant tamoxifen therapy. She has now completed her course of radiation. She now wishes to have delayed breast reconstruction. Due to the nature of her radiation, it was deemed best to proceed with an autologous breast reconstruction. She was extensively counseled regarding her options. She decided to go with a transverse rectus abdominis myocutaneous pedicle flap. She presents on the day of admission to undergo this procedure after having signed a consent and being advised extensively regarding the nature and outcomes of the procedure. HOSPITAL COURSE: The patient was admitted on August 19 to undergo the above listed procedure. The operation went without any complications. She recovered well in the postanesthesia unit and was then transferred to the floor. Her postoperative course was significant for the normal expected postoperative pain, which was initially managed with IV medications and then switched to oral pain meds, which she tolerated well. She did have some postoperative nausea. That was ameliorated as her bowel function returned on postoperative day 3 as well as some Zofran. The patient was ambulating and her wounds were healing well. The patient has 3 Robson-Bates drains, one in the breast and 2 in the abdomen, which on the day of discharge were putting out 80 mL, 150 and 260 respectively. She is to be discharged with [facility] for care of the Robson-Bates drains. The patient was then discharged in good condition on August 23. DISCHARGE INSTRUCTIONS: 1. The patient is to sponge bathe only. Do not get drain sites wet. 2. Keep abdominal binder on at all times. 3. Maintain a flexed position as much as possible and sleep on 2 to 3 pillows. 4. The patient is to ambulate 3 to 4 times daily. 5. The patient is to refrain from any excessive strenuous exercise for the next 2 to 4 weeks. She is restricted to lifting weights heavier than 10 to 15 pounds for the next 3 to 4 weeks. 6. The patient may change dressings to her drain sites and incisions with abdominal pads and drain sponges as needed on a daily or every other day basis. 7. The patient is to bring recording of her drain outputs to her next clinic visit. FOLLOWUP APPOINTMENT: The patient is to follow up with Dr. Ng in 1 week. We will contact her with information regarding this followup appointment. DISCHARGE MEDICATIONS: 1. Oxycodone 5 mg p.o. q.4 to 6 hours as needed for pain. 2. Duricef 500 mg p.o. twice daily for 14 days. DISCHARGE DIET: Regular. DISCHARGE ACTIVITY: As above. iTago Perry MD [phone] RAR:argenis J: [id number] / [id number] CC: Jackelyn Laek MD, <Referring> Robert August MD, <Primary Care Physician> THIS DOCUMENT WAS DICTATED AND AUTHENTICATED BY Tiago Perry MD, ON 08/30/2014 08:23:49, AND FORWARDED TO THE ATTENDING PHYSICIAN FOR FINAL AUTHENTICATION. THIS DOCUMENT WAS ELECTRONICALLY AUTHENTICATED BY Cary Ng MD, PhD, FACS ON 09/23/2014 09:54:53 HENRY MICHELLE 08/23/2014 # [id number] documented in this encounter Plan of Treatment Upcoming Encounters Date Type Department Care Team (Late st Contact Info) Description 09/20/2025 10:20 AM EST Lab Department of Hematology and Oncology [facility] [address] [place] [address] Sharon Lewis, TUBE LANCER [address] [place] [address] In Person with Resource 09/20/2025 11:30 AM EST Office Visit Department of Hematology and Oncology [facility] [address] [address] Jackelyn Lake MD 41 [place] [address] In Person with Physician 09/20/2025 12:30 PM EST Infusion [facility] Infusion Services [facility] Infusion Services 41 [facility] 3rd [place] [address] Sharon Lewis, TUBE LANCER [address] [place] [address] In Person with Resource documented as of this encounter Visit Diagnoses Not on filedocumented in this encounter Care Teams Crossbar Frame Wirer Relationship Specialty Start Date End Date Robert August [address] [place] [address] PCP - General 07/19/14 01/06/25 Robert August [address] [place] [address] PCP - Insurance Assigned PCP 02/27/22 01/06/25 Loli Lees MD [address] [place] [address] PCP - General Internal Medicine 01/07/25 Loli Lees MD [address] [place] [address] PCP - Insurance Assigned PCP 03/15/25 Jackelyn Lake MD [address] [place] [address] Consulting Provider Hematology/Oncology 04/23/16 Anabel Goldsmith TUBE LANCER [address] [place] [address] Nurse Practitioner Nurse Practitioner 07/16/16 Shayna Lennon NP [address] [place] [address] Nurse Practitioner Nurse Practitioner 01/14/20 Sharon Lewis, TUBE LANCER [address] [place] [address] Nurse Practitioner Nurse Practitioner 08/09/20 Jacqueline Dinero NP [address] [place] [address] Nurse Practitioner Nurse Practitioner 07/02/24 Nishi Tomlinson TUBE LANCER [address] [place] [address] Nurse Practitioner Hematology/Oncology 07/19/25 documented as of this encounter
--- OUTSIDE RECORDS SUMMARY | 2025-09-06 19:33 | XMS_ITS | Encounter Summary ---
Author Organization [facility] Address [address] [place] [address] Care Team Providers Care Director Of Strategic Programs Name Role Phone Robert August Primary Care Provider [phone] Jackelyn Lake MD Unavailable [phone] Anabel Goldsmith RUBBISH COLLECTION SUPERVISOR Unavailable [phone] Shayna Lennon RUBBISH COLLECTION SUPERVISOR Unavailable [phone] Sharon Lewis RUBBISH COLLECTION SUPERVISOR Unavailable [phone] Robert August Unavailable Jacqueline Dinero RUBBISH COLLECTION SUPERVISOR Unavailable [phone] Loli Lees MD Primary Care Provider [phone] Loli Lees MD Unavailable [phone] Nishi Tomlinson RUBBISH COLLECTION SUPERVISOR Unavailable [phone] Encounter Details Date Type Department Care Team (Late st Contact Info) Description 10/24/2012 Clinical Conversion Encounter [facility] General Surgery [facility] General Surgery [address] [address] Sravan Mcnulty MD Social History Tobacco Use Types Packs/Day Years Used Date Smoking Tobacco: Never Assessed Comments Unknown Sex and Gender Information Value Date Recorded Sex Assigned at Female 01/05/2020 1:28 PM EDT Legal Sex Female 11:24 AM EST Gender Identity Female 01/05/2020 1:28 PM EDT Sexual Orientation Not on file documented as of this encounter Miscellaneous Notes * Op Note - Sravan Mcnulty MD - 10/25/2014 8:28 AM EST [id number],JENNIFER [place], [place]. AMBULATORY OPERATIVE NOTE Name: HENRY MICHELLE Date: 10/24/2012 #: [id number] : 1970 Visit ID: [id number] Second Visit ID: [id number] SURGEON: Sravan cMnulty M.D. HOT STRIP MILL INSPECTOR: None. PREOPERATIVE DIAGNOSIS: Left breast cancer. POSTOPERATIVE DIAGNOSIS: Left breast cancer. PROCEDURE: Left core biopsy, left breast. ANESTHESIA: Local. INDICATIONS: Locally advanced metastatic left breast cancer. OPERATIVE FINDINGS: Three unremarkable cores clinically very hard. OPERATIVE PROCEDURE: Preoperative universal protocol, left breast prepped and draped in standard fashion. Anesthesia 1% lidocaine with epinephrine. A small incision with a 15-blade core biopsy was placed into the large tumor mass. Three cores were taken. Incision closed with a single stitch. Dressing applied. The patient is discharged. Sravan Mcnulty MD [phone] SEK:nts J: [id number] / [id number] CC: Robert August MD, <Second referring Dr Name> THIS DOCUMENT WAS ELECTRONICALLY AUTHENTICATED BY Sravan Mcnulty MD ON 11/04/2012 15:49:22 documented in this encounter Plan of Treatment Upcoming Encounters Date Type Department Care Team (Late st Contact Info) Description 09/20/2025 10:20 AM EST Lab Department of Hematology and Oncology [facility] Hematology Oncology [address] [place] [address] Sharon Lewis NP [address] [place] [address] In Person with Resource 09/20/2025 11:30 AM EST Office Visit Department of Hematology and Oncology [facility] Hematology Oncology [address] [place] [address] Jackelyn Lake MD [address] [place] [address] In Person with Physician 09/20/2025 12:30 PM EST Infusion [facility] Infusion Services [facility] Infusion Services 41 [facility] 3rd [place] [address] Sharon Lewis, RUBBISH COLLECTION SUPERVISOR [address] [place] [address] In Person with Resource documented as of this encounter Visit Diagnoses Not on filedocumented in this encounter Care Teams Director Of Strategic Programs Relationship Specialty Start Date End Date Robert August [address] [place] [address] [address] [place] [address] PCP - General 07/19/14 01/06/25 Robert August [address] [place] [address] [address] [place] [address] PCP - Insurance Assigned PCP 02/27/22 01/06/25 Loli Lees MD [address] [place] [address] PCP - General Internal Medicine 01/07/25 Loli Lees MD [address] [place] [address] PCP - Insurance Assigned PCP 03/15/25 Jackelyn Lake MD [address] [place] [address] Consulting Provider Hematology/Oncology 04/23/16 Anabel Goldsmith NP [address] [place] [address] Nurse Practitioner Nurse Practitioner 07/16/16 Shayna Lennon NP [address] [place] [address] Nurse Practitioner Nurse Practitioner 01/14/20 Sharon Lewis NP [address] [place] [address] Nurse Practitioner Nurse Practitioner 08/09/20 Jacqueline Dinero, STU [address] [place] [address] [address] [place] [address] Nurse Practitioner Nurse Practitioner 07/02/24 Nishi Tomlinson RUBBISH COLLECTION SUPERVISOR [address] [place] [address] Nurse Practitioner Hematology/Oncology 07/19/25 documented as of this encounter
--- OUTSIDE RECORDS SUMMARY | 2025-09-06 19:33 | XMS_ITS | Encounter Summary ---
Author Organization Damaris saul Address [address] [place] [address] Care Team Providers Care Education Instructor Name Role Phone Robert August Primary Care Provider Jackelyn Lake MD Unavailable [phone] Anabel Goldsmith SIGNAL PERSON Unavailable [phone] Shayna Lennon SIGNAL PERSON Unavailable [phone] Sharon Lewis SIGNAL PERSON Unavailable [phone] Robert August Unavailable Jacqueline Dinero SIGNAL PERSON Unavailable Loli Lees MD Primary Care Provider Loli Lees MD Unavailable [phone] Nishi Tomlinson SIGNAL PERSON Unavailable [phone] Encounter Details Date Type Department Care Team (Late st Contact Info) Description 10/13/2012 Clinical Conversion Encounter [facility] RADIATION ONCOLOGY [facility] Radiation Oncology [address] [address] Smita Lambert MD Social History Tobacco Use Types Packs/Day Years Used Date Smoking Tobacco: Never Assessed Comments Unknown Sex and Gender Information Value Date Recorded Sex Assigned at Female 01/05/2020 1:28 PM EDT Legal Sex Female 11:24 AM EST Gender Identity Female 01/05/2020 1:28 PM EDT Sexual Orientation Not on file documented as of this encounter Progress Notes * Smita Lambert MD - 10/25/2014 8:28 AM EST [id number],JENNIFER [facility] [place], [place]. RADIATION ONCOLOGY 10/13/2012 Name: VALENTINA MICHELLE #: [id number] : 1970 Visit ID: [id number] Second Visit ID: [id number] Ms. Valentina [facility] Dr. Shraddha Lake, Sravan Mcnulty, myself and Tamar Valentin from Operations Lead. As you know, she is a 41-year-old white perimenopausal female, 1, para 0 with clinical stage III left-sided breast cancer status post biopsy. ER/VA positive, HER-2/genesis(?). A PET CT scan question metastatic disease in the mediastinum. HISTORY OF PRESENT ILLNESS: In the middle of August, the patient noticed left nipple retraction. She was due to have her mammogram on 09/11/2012 in [facility], which was performed, and it revealed diffuse abnormality, which was new compared to the mammogram before her left nipple was retracted. She came back for additional views the next day, which confirmed diffuse abnormal density in the left breast with spiculation and ultrasound revealed an irregular parenchymal mass with acoustic shadowing. The area of involvement measured 2.3 cm in size. On 09/26/2012, the patient underwent left breast ultrasound-guided biopsy. The 2-view digital mammography revealed satisfactory positioning of the biopsy clips after procedure. The final pathology returned as moderately differentiated invasive ductal carcinoma. It was ER positive 51% to 100% and VA positive 51% to 100%. HER-2/genesis was not performed due to prolonged tissue fixation. The patient came to see Dr. Mcnulty here at [facility], and on physical examination, she has a 6 cm mass on her left breast. She was also examined by Dr. Shraddha Lake, who confirmed the finding of large breast mass and a PET CT scan was performed, which revealed multiple prominent axillary lymph nodes and subcentimeter nodular left adrenal gland and mediastinal adenopathy. Biopsy has not been performed as yet. PAST MEDICAL HISTORY: Significant for hyperlipidemia. PAST SURGICAL HISTORY: Negative. MEDICATIONS: Lisinopril. ALLERGIES: ERYTHROMYCIN, PENICILLIN AND BENADRYL. REPRODUCTIVE HISTORY: The patient is 1, para 0, 1. Onset of menarche was 11, last menstrual period September 2012. SOCIAL HISTORY: The patient is perimenopausal. control: Yes. Duration is for 10 years. No fertility or hormonal therapy. The patient has been from her for many years. She lives with her sister. She has no children. She does clerical work. She is smoking about half-a-pack a day for 22 years. Ethanol socially. The patient is German and [place]. Her mother had breast cancer at 63. PHYSICAL EXAMINATION: On recent physical examination, the patient is a very pleasant white female looking her stated age. Her skin is pale and anicteric. Her trachea is midline and thyroid gland is not palpable. She has no palpable lymphadenopathy in the neck, supraclavicular, axillary or inguinofemoral region. Lungs: Clear to auscultation and percussion. Cor: Normal, no murmurs. Abdomen: Soft. No organomegaly. No ascites. Right breast nipple is everted, and there is no mass palpable in the breast. The left breast is replaced by a large, about 6 to 8 cm mass with nipple retraction and skin thickening. ASSESSMENT AND PLAN: The patient is with a question of metastatic disease to the mediastinum. Bronchoscopy with biopsy will be arranged of the mediastinum. Also a breast biopsy to obtain the HER-2/genesis status and the patient will be treated depending on the stage of the disease. We discussed about postmastectomy radiation therapy considering the patient's large tumor size. Smita Lambert MD [phone] LG:argenis J: [id number] / [id number] CC: Sravan Mcnulty MD, <Referring> Robert August MD, <Primary Care Physician> THIS DOCUMENT WAS ELECTRONICALLY AUTHENTICATED BY Smita Lambert MD ON 10/15/2012 10:49:55 documented in this encounter Plan of Treatment Upcoming Encounters Date Type Department Care Team (Late st Contact Info) Description 09/20/2025 10:20 AM EST Lab Department of Hematology and Oncology [facility] Hematology Oncology [address] [place] [address] Sharon Lewis, SIGNAL PERSON [address] [place] [address] In Person with Resource 09/20/2025 11:30 AM EST Office Visit Department of Hematology and Oncology [facility] Hematology Oncology [address] [place] [address] Jackelyn Lake MD [address] [place] [address] In Person with Physician 09/20/2025 12:30 PM EST Infusion [facility] Infusion Services [facility] Infusion Services [address] [place] [address] Sharon Lewis, SIGNAL PERSON [address] [place] [address] In Person with Resource documented as of this encounter Visit Diagnoses Not on filedocumented in this encounter Care Teams Education Instructor Relationship Specialty Start Date End Date Robert August [address] [place] [address] [address] [place] [address] PCP - General 07/19/14 01/06/25 Robert August [address] [place] [address] PCP - Insurance Assigned PCP 02/27/22 01/06/25 Loli Lees MD [address] [place] [address] PCP - General Internal Medicine 01/07/25 Loli Lees MD [address] [place] [address] PCP - Insurance Assigned PCP 03/15/25 Jackelyn Lake MD [address] [place] [address] Consulting Provider Hematology/Oncology 04/23/16 Anabel Goldsmith, SIGNAL PERSON [address] [place] [address] Nurse Practitioner Nurse Practitioner 07/16/16 Shayna Lennon, STU [address] [place] [address] Nurse Practitioner Nurse Practitioner 01/14/20 Sharon Lewis, SIGNAL PERSON [address] [place] [address] Nurse Practitioner Nurse Practitioner 08/09/20 Jacqueline Dinero, STU [address] [address] Nurse Practitioner Nurse Practitioner 07/02/24 Nishi Tomlinson, SIGNAL PERSON [address] [place] [address] Nurse Practitioner Hematology/Oncology 07/19/25 documented as of this encounter
--- OUTSIDE RECORDS SUMMARY | 2025-09-06 19:33 | XMS_ITS ---
Author Organization [facility] Address [address] [place] [address] Care Team Providers Care Clam Dredger Name Role Phone Jackelyn Lake MD Unavailable [phone] Shayna Lennon ANTHROPOLOGIST PHYSICAL Unavailable [phone] Sharon Lewis ANTHROPOLOGIST PHYSICAL Unavailable [phone] Jacqueline Dinero ANTHROPOLOGIST PHYSICAL Unavailable [phone] Loli Lees MD Primary Care Provider [phone] Loli Lees MD Unavailable [phone] Nishi Tomlinson ANTHROPOLOGIST PHYSICAL Unavailable Oncology Solid Tumor Status:Enrolled (Active) Start date:07/15/2025 Enrollment date:07/15/2025 Current support & services provided:Clinical Management, Refill Management, Benefits and PA Management Linked medications:capivasertib (Active), fulvestrant (Active) Linked problems:Malignant neoplasm of left female breast (CMS-HCC) (Active), Metastasis to bone (CMS-HCC) (Active) Continued Care and Services Coordination
--- OUTSIDE RECORDS SUMMARY | 2025-09-06 19:33 | XMS_ITS | Encounter Summary ---
Author Organization [facility] Address [address] [place] [address] Care Team Providers Care Ase Certified Technician Name Role Phone Robert August Primary Care Provider Jackelyn Lake MD Unavailable [phone] Anabel Goldsmith CFO CONTROLLER Unavailable [phone] Shayna Lennon CFO CONTROLLER Unavailable [phone] Sharon Lewis CFO CONTROLLER Unavailable [phone] Robert August Unavailable Jacqueline Dinero CFO CONTROLLER Unavailable [phone] Loli Lees MD Primary Care Provider [phone] Loli Lees MD Unavailable [phone] Nishi Tomlinson CFO CONTROLLER Unavailable [phone] Encounter Details Date Type Department Care Team (Late st Contact Info) Description 08/19/2014 Clinical Conversion Encounter [facility] division of plastic and reconstructive surgery [facility] [address] [address] Cary Ng MD PhD [address] [place] [address] Social History Tobacco Use Types Packs/Day Years Used Date Smoking Tobacco: Never Assessed Comments Unknown Sex and Gender Information Value Date Recorded Sex Assigned at Female 01/05/2020 1:28 PM EDT Legal Sex Female 11:24 AM EST Gender Identity Female 01/05/2020 1:28 PM EDT Sexual Orientation Not on file documented as of this encounter Miscellaneous Notes * Op Note - Cary Ng MD PhD - 11/05/2014 12:41 PM EST [id number] MICHELLE [place]. OPERATIVE REPORT Name: VALENTINA MICHELLE Date: 08/19/2014 LC#: [id number] : 1970 Admit Date: 08/19/2014 Visit ID: [id number] Floor: [place] [id number] PREOPERATIVE DIAGNOSIS: Left breast cancer with radiation. POSTOPERATIVE DIAGNOSIS: Left breast cancer with radiation. PROCEDURE: 1. Surgical preparation of left breast reconstruction site, total of a 150 sq. cm. 2. Delayed left breast reconstruction with pedicled TRAM flap. 3. Prolene mesh repair of left TRAM flap harvest site. SURGEON: Cary Ng MD, PhD, FACS IT SYSTEMS ADMINISTRATOR: Chaz Foster MD and Alex Wilson MD. ANESTHESIA: General. INDICATION FOR PROCEDURE: This is a 43-year-old breast cancer patient who came to me from [facility] for a delayed breast reconstruction. She had a left total mastectomy with postoperative radiation. She is a good candidate for a TRAM flap reconstruction. She understands the risks and benefits of the procedure and consented to proceed. DESCRIPTION OF PROCEDURE: The patient was marked in the preoperative holding area before she was brought into the operating room, placed supine on the operating table with arms abducted on 2 arm boards bilaterally. After general anesthesia was induced, she was prepped and draped in a standard fashion. Her flap elevation started superiorly and it was carried down to the abdominal fascia. The abdominal skin flap was then elevated off the abdominal fascia in the cephalic direction reaching the subcostal area and xiphoid in the middle. The inferior incision was then committed to once we felt that the skin flap can reach that low. The umbilicus was isolated and the keli-flap on the left side was then elevated towards the rectus muscle border of the rectus fascia. Once that was done, the fascia was circumcised almost circumferentially only leaving 1 small strip of fascia superiorly leading up to the transposition tunnel. At the same time, surgical excision of the radiated skin and scar with capsulectomy was performed to prepare the flap recipient site. A tunnel was also then generated. The flap was then elevated after the inferior epigastric vessels were ligated individually with Hemoclips. This was done so that all the intercostals can be ligated along the way as the flap was elevated in a cephalic direction. Superiorly, the fascia was then reflected as an open book away from the rectus muscle. The flap was then transposed through the tunnel into the left chest position with zone 3 pointing in a cephalic direction. Prolene mesh repair of the abdominal fascia was done for total of 12 x 4 sq. cm. This was done with a series of interrupted and running 0 Prolene sutures. The flap was then further insetted with 0 Vicryl sutures and the skin inset was done after a drain was placed and brought out laterally through a separate stab incision and it was secured with 2-0 nylon sutures. Skin inset was accomplished with interrupted and running 3-0 Monocryl sutures. The abdominal closure over two #19 Param drains brought out through separate stab incisions in the suprapubic area was done with 0 Vicryl in the Idris layer followed by a V-Loc suture in the deep dermal layer in running fashion and a Prineo System at skin level. Umbilicus was insetted in a reverse V umbilicoplasty with an interrupted 3-0 Monocryl in the subdermal layer followed by 5-0 chromic sutures on the skin level in running fashion. The Histoacryl was applied to the rest of the incisions and the patient was then extubated from general anesthesia and brought to the recovery room in good condition. As the attending surgeon, I was present and scrubbed through the entire length of the surgical procedure. Cary Ng MD, PhD, FACS LG:argenis J: [id number] / [id number] CC: Jackelyn Lake MD, <Referring> Robert August MD, <Primary Care Physician> THIS DOCUMENT WAS ELECTRONICALLY AUTHENTICATED BY Cary Ng MD, PhD, FACS ON 08/27/2014 07:48:19 VALENTINA MICHELLE # [id number] documented in this encounter Plan of Treatment Upcoming Encounters Date Type Department Care Team (Late st Contact Info) Description 09/20/2025 10:20 AM EST Lab Department of Hematology and Oncology [facility] Hematology Oncology [address] [place] [phone] Sharon Lewis, CFO CONTROLLER [address] [place] [address] In Person with Resource 09/20/2025 11:30 AM EST Office Visit Department of Hematology and Oncology [facility] Hematology Oncology [address] [place] [phone] Jackelyn Lake MD [address] [place] [phone] In Person with Physician 09/20/2025 12:30 PM EST Infusion [facility] Infusion Services [facility]fusion [facility] [address] [place] [address] [address] [place] [address] Sharon Lewis, CFO CONTROLLER [address] [place] [address] In Person with Resource documented as of this encounter Visit Diagnoses Not on filedocumented in this encounter Care Teams Ase Certified Technician Relationship Specialty Start Date End Date Robert August [address] [place] [id number] PCP - General 07/19/14 01/06/25 Robert August [address] [place] [phone] PCP - Insurance Assigned PCP 02/27/22 01/06/25 Loli Lees MD [address] [place] [phone] PCP - General Internal Medicine 01/07/25 Loli Lees MD [address] [place] [address] PCP - Insurance Assigned PCP 03/15/25 Jackelyn Lake MD [address] [place] [address] Consulting Provider Hematology/Oncology 04/23/16 Anabel Goldsmith CFO CONTROLLER [address] [place] [phone] Nurse Practitioner Nurse Practitioner 07/16/16 Shayna Lennon NP [address] [place] [phone] Nurse Practitioner Nurse Practitioner 01/14/20 Sharon Lewis NP [address] [place] [phone] Nurse Practitioner Nurse Practitioner 08/09/20 Jacqueline Dinero NP [address] [place] [phone] Nurse Practitioner Nurse Practitioner 07/02/24 Nishi Tomlinson NP [address] [place] [phone] Nurse Practitioner Hematology/Oncology 07/19/25 documented as of this encounter
--- OUTSIDE RECORDS SUMMARY | 2025-09-06 19:33 | XMS_ITS | Encounter Summary ---
Author Organization Damaris Elvin [facility] Address [address] [place] [address] Care Team Providers Care Broke Beater Operator Name Role Phone Robert August Primary Care Provider Kae Fermin MD Unavailable [phone] Anabel Goldsmith ADMINISTRATIVE ASSOCIATE Unavailable [phone] Shayna Lennon ADMINISTRATIVE ASSOCIATE Unavailable Sharon Lewis ADMINISTRATIVE ASSOCIATE Unavailable [phone] Robert August Unavailable Jacqueline Dinero ADMINISTRATIVE ASSOCIATE Unavailable Loli Lees MD Primary Care Provider Loli Lees MD Unavailable [phone] Nishi Tomlinson ADMINISTRATIVE ASSOCIATE Unavailable [phone] Encounter Details Date Type Department Care Team (Late st Contact Info) Description 10/02/2012 Clinical Conversion Encounter Department of Hematology and Oncology [facility] Hematology Oncology [address] [id number] Kae Fermin MD [address] [place] [address] Social History Tobacco Use Types Packs/Day Years Used Date Smoking Tobacco: Never Assessed Comments Unknown Sex and Gender Information Value Date Recorded Sex Assigned at Female 01/05/2020 1:28 PM EDT Legal Sex Female 11:24 AM EST Gender Identity Female 01/05/2020 1:28 PM EDT Sexual Orientation Not on file documented as of this encounter Progress Notes * Kae Fermin MD - 10/25/2014 8:28 AM EST [id number],JENNIFER [place]. Chief Complaint Followup of a new diagnosis of left-sided breast cancer History of Present Illness ONCOLOGIC HISTORY: This is a 41-year-old premenopausal woman who noted changes in her left breast. She was scheduled for routine mammogram at [facility] on September 11, 2011. There is a [...] on the left measuring 2 cm, likely reactive INTERVAL HISTORY: Since I saw the patient last she had a bronchoscopy with biopsies. 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 She also had a breast biopsy. This was also positive for carcinoma that is ER and AZ positive. HER-2/genesis is still pending. She has some bruising at the biopsy site on her breast. Otherwise she has no new symptoms or problems. She is here today to discuss treatment options. Current Meds Lisinopril 5 MG Oral Tablet; Take 1 tablet daily; Therapy: 01Oct2012 to Vicodin 5-300 MG Oral Tablet; TAKE 1 TO 2 TABLETS EVERY 4 TO 6 HOURS NEEDED FOR PAIN; Therapy: [id number] to (Evaluate:16Oct2012); Last Rx:15Oct2012 Allergies Erythromycin Derivatives Penicillins Benadryl CAPS Review of Systems She denies headaches, dizziness, focal weakness or other neurolgic complaints. She denies visual changes. No mouth sores, taste alterations or swallowing difficulty. No shortness of breath, cough or chest pain. No abdominal pain, nausea, vomiting. No diarrhea, constipation, melena or bright red blood per rectum. No lower extremity edema or calf pain. No skin rash. Appetite and energy level are normal. Review of systems is otherwise negative in detail. Performance Status ECoG zero Vitals David Vitals Data Includes: Last 1 Instance 30Oct2012 09:17AM Systolic: 169 Diastolic: 92 Heart Rate: 91 BMI Calculated: 28.17 BSA Calculated: 1.89 Weight: 175 lb 4.8 oz Respiration: 18 O2 Saturation: 100 Temperature: 98.5 F Pain Score: 0 Allergy Status Reviewed: Yes Safe at Home: Yes Chaperoned During Appointment: Yes Height: 5 ft 6 in Physical Exam In general, well appearing and [...] infraclavicular, axillary, or inguinal lymphadenopathy bilaterally. Breasts: The left breast has bruising in the inferior half. There is a large mass measuring up to 6 cm in diameter in the midportion of the breast. Assessment 1. Malignant Neoplasm Metastasis To Lymph Nodes 196.9 Stage IV breast cancer that is ER/AZ positive with lymph node metastases. Plan 1. Tamoxifen Citrate 20 MG Oral Tablet; Take 1 tab orally once a day; Therapy: [id number] to (Last Rx:30Oct2012) Requested for: [id number]; Edited 2. Vicodin 5-300 MG Oral Tablet; TAKE 1 TO 2 TABLETS EVERY 4 TO 6 HOURS NEEDED FOR PAIN; Therapy: [id number] to [id number]; Last Rx:[id number]; Status: DISCONTINUED I explained the significance of the finding of the lymph node biopsy. We discussed that this makes her breast cancer stage IV. This does worsen her prognosis. She will require more long-term, chronic management of this breast cancer. I will review her case at our upcoming tumor conference. I am awaiting her HER-2/genesis testing. We will initiate anti-estrogen therapy today. She was given her first dose of Lupron 7.5 mg. She also will be started on tamoxifen. We will monitor her breast exam every 4 weeks. If she has a good response then we could consider a palliative mastectomy and even local regional radiation. I would reserve chemotherapy for her lack of response to anti-estrogens. The patient and her are in agreement with the plan. We discussed diet exercise and side effects and risks of treatment. All her questions were answered to her apparent satisfaction. This is a 45 minute visit and the majority of time was diverted to counseling inclination of care. Signatures Electronically signed by : KAE FERMIN MD; Oct 31 2012 3:23PM * Kae Fermin MD - 10/25/2014 8:28 AM EST [id number],JENNIFER [facility], [place]. Chief Complaint Followup of a new diagnosis of left-sided breast cancer History of Present Illness ONCOLOGIC HISTORY: This is a 41-year-old premenopausal woman who noted changes in her left breast. She was scheduled for routine mammogram at [facility] on September 11, 2011. There is a [...] on the left with a retracted nipple. INTERVAL HISTORY: Since I saw the patient last she had an attempt at breast MRI. The study was not completed due to anxiety. We received her tissue block in pathology from her breast biopsy. There was not sufficient tissue for HER-2/genesis testing. The patient was scheduled for an ultrasound-guided breast biopsy on October 10. She was unable to tolerate the procedure due to pain. She also had a PET/CT scan which showed her known left breast tumor as [...] the left measuring 2 cm, likely reactive. Current Meds Lisinopril 5 MG Oral Tablet; Take 1 tablet daily; Therapy: 01Oct2012 to Allergies Erythromycin Derivatives Penicillins Benadryl CAPS Review of Systems She denies headaches, dizziness, weakness. She denies visual changes. No mouth sores, taste alterations or swallowing difficulty. No shortness of breath, cough or chest pain. No abdominal pain, nausea, vomiting. No diarrhea, constipation, melena or bright red blood per rectum. No lower extremity edema or calf pain. No skin rash. Appetite and energy level are normal. Review of systems is otherwise negative in detail. Performance Status ECoG zero Vitals [facility] Vitals Data Includes: Last 1 Instance 13Oct2012 01:07PM BMI Calculated: 27.87 BSA Calculated: 1.89 Height: 5 ft 6 in Weight: 173 lb 6.4 oz Pain Score: 0 Allergy Status Reviewed: Yes Safe at Home: Yes Physical Exam Physical exam was deferred today. The entire 30 minute visit was devoted to counseling and coordinating care. Results/Data Selected Results 10Oct2012 01:25PM PET CT Skull Base to Mid-Thigh PET CT Tumor-Skull Thigh Scan: ATTENDING/SUPERVISING PROVIDER: SHAZIA RAMOS CONTRIBUTING PROVIDER: ISABEL HOFFMANDictated by PGY5 sr vice president Isabel Hoffman MD, MS. F-18 FDG PETCT Imaging. Indication: Left breast cancer initial staging Radiopharmaceutical: 16.4 mCi of F-18 FDG. Technique: Delayed PET and post oral and intravenous contrastCT images from skull base to mid thighs were performed. F-18FDG PETCT has limited sensitivity for low grade malignancies,treated neoplasm, small tumor deposits, mucin producingneoplasms. Findings: Lobulated, spiculated, infiltrating soft tissue massleft breast, largest focal component is approximately 3.0 x 2.0CM with increased activity, Max SUV 11.7, likely primary breastcancer. Multiple prominent left axillary, high left internalmammary, prevascular mediastinal lymph nodes with increasedactivity, likely metastasis. Indeterminate, suspicious,borderline enlarged precarinal nodes with increased activity,metastatic disease, less likely reactive changes in thedifferential. Thyroid intact. Heart size normal, no pericardialeffusion. Lungs clear, no effusions.No significant vascular calcifications. No splenomegaly. Focalsubcentimeter nodule left adrenal gland, indeterminate,consider MRI. No suspicious mesenteric, retroperitoneal, oringuinal lymph nodes. Rim-enhancing cystic lesion right ovary 2cm with increased activity compatible with luteal cyst.Multiple hypoattenuating lesions in the uterus, largest 3 cmsuspicious for fibroids. No suspicious bone lesions. Borderlineinguinal nodes, largest on the left 2.0 x 1.0 CM with mildincreased activity, probably reactive. Impression: Left breast cancer with metastasis to ipsilateralaxillary, internal mammary, prevascular nodes. Indeterminate,suspicious precarinal nodes. Left adrenal nodule,indeterminate, consider MRI. Likely fibroid uterus with lutealcyst right ovary may be further evaluated by pelvic ultrasound.Other findings see discussion above. I have reviewed all films of this examination and [facility] Res[facility] dictation This document was electronically signed by SHAZIA RAMOS MD on 10/10/2012 14:37:00 [id number] 02:43PM US Breast Guided Biopsy-Left US Breast Guided Biopsy-Lt: ATTENDING/SUPERVISING PROVIDER: DARÍO PHILLIPSCONTRIBUTING PROVIDER: DUSTIN MONTEIRO ultrasound guided core biopsy: Comparison: [facility]amm[facility], 09/12/2012 and 09/26/2012. Indication: [facility] Additional tissue sample needed forHer2/genesis and ER/AZ staining. The procedure was explained to the patient including thebenefits and alternatives. The risks, including but notlimited to infection and bleeding, were reviewed and thepatient agreed to undergo the procedure, signing the consentform. Site and side verification and marking were performed beforethe start of the procedure. The patient's left breast was positioned and ultrasound imagesof the mass in the 1:00 position were obtained. The breast wasprepped for the procedure and the area was anesthetized with alocal anesthetic. However, the patient was unable to toleratethe administration of local anesthetic. After discussion, thepatient declined to continue with the procedure and theprocedure was subsequently aborted. A total of 2 cc of 2% lidocaine with sodium bicarbonate in a10:1 ratio were used. Remainder of the vials discarded after use. IMPRESSION:Aborted ultrasound core biopsy of left breast mass secondary topatient's extreme pain. The patient declined furtherintervention. This was relayed to Dr. Sravan Mcnulty via email. This document was electronically signed by DARÍO PHILLIPS MD on 10/10/2012 15:28:00 Assessment 1. Breast Cancer 174.9 Clinical stage III left-sided breast cancer that is ER/AZ positive. Based on the PET/CT scan findings this may be stage IV disease. Plan I personally reviewed her recent radiologic imaging and I reviewed the PET/CT scan findings with the patient and her family. I also reviewed the situation with Dr. Mcnulty and the pulmonary medicine consult service. There is particular concern over the mediastinal lymph node which does appear to be very suspicious. If this is an area of involvement she would have stage IV disease. This would make curative treatment less feasible. Given the importance for staging and treatment planning, it has been recommended that she undergo an attempt at biopsy of the suspicious mediastinal lymph node. This will be done by bronchoscopy. Given that we are uncertain that we will obtain sufficient tissue for HER-2/genesis testing, it has been recommended that she undergo simultaneous repeat left breast biopsy when she is sedated for the bronchoscopy. The patient and her family were in agreement with this plan. This is tentatively scheduled to be performed later in the week. For now we will hold off on the plan for a Port-A-Cath placement and the breast MRI for now. Signatures Electronically signed by : KAE FERMIN MD; Oct 13 2012 4:41PM * Kae Fermin MD - 10/25/2014 5:30 AM EST [id number] MICHELLE [place], [place]. OUTPATIENT CONSULTATION HEMATOLOGY AND ONCOLOGY 10/02/2012 Name: VALENTINA MICHELLE #: [id number] : 1970 Visit ID: [id number] Second Visit ID: [id number] REASON FOR CONSULTATION: This is a 41-year-old woman with a new diagnosis of left-sided breast cancer. She is being seen today at the request of Dr. Sravan Mcnulty to discuss further workup and treatment. HISTORY OF PRESENT ILLNESS: The patient presented to an outside hospital for a routine mammogram. Two weeks prior to this, she had noticed nipple retraction. Her mammogram at [facility] on 09/11/2012 reviewed the diffuse abnormality, which was new since the prior exam and the left nipple was confirmed to be retracted. She returned the next day for additional views, which confirmed a diffuse abnormal density in the left breast with spiculation. Ultrasound showed an irregular parenchyma with strong posterior acoustic shadowing. The area of involvement was felt to measure 2 x 3 cm in size. On 09/26/2012, she underwent a left breast ultrasound-guided biopsy. Two-view digital mammography revealed satisfactory positioning of the biopsy clip after the procedure. The pathology returned as moderately differentiated invasive ductal carcinoma. On immunohistochemistry, ER was positive at 51 to 100% and progesterone receptor was also positive at 51 to 100%. HER-2/genesis was not performed due to issues with prolonged fixation. The patient was seen by Dr. Mcnulty today who performed a breast exam confirming a 6 cm mass on the left. The patient reports that other than the issue related to the changes in her breast, she has no new symptoms or problems. PAST MEDICAL HISTORY: Hypertension. CURRENT MEDICATIONS: Lisinopril 5 mg p.o. daily. ALLERGIES: ERYTHROMYCIN, PENICILLIN AND BENADRYL. BREAST CANCER RISK FACTORS: She is premenopausal. She is P1, G0. Menarche at age 11. She had her last menstrual period last week. FAMILY HISTORY: Mother had breast cancer at age 63 and had a lumpectomy and is doing well. No other family history of breast or ovarian cancer. SOCIAL HISTORY: She is a current smoker. She smokes half a pack to a pack per day. She occasionally drinks alcohol. She is currently from her . She has no children. She is living with her sister. REVIEW OF SYSTEMS: She denies headache, focal weakness, dizziness, or other neurologic complaints. No recent unintentional changes in weight. No shortness of breath, cough, or chest pain. No abdominal pain, nausea, vomiting, or change in bowel or bladder habits. No urinary or vaginal symptoms. No new musculoskeletal pain. She reports expected anxiety related to the recent diagnosis. Her ECOG performance status is 0. PHYSICAL EXAMINATION: General: She is well appearing and in no apparent distress. HEENT: Pupils equal, round, reactive to light. Extraocular movements intact. Sclerae anicteric. Mucous membranes moist. No oral lesions. No mucositis. No thrush. Lungs: Clear to auscultation and percussion bilaterally. No wheezes, rales, or rhonchi. Cardiovascular: Regular rate and rhythm. No murmurs, rubs or gallops. Abdomen is soft, nontender, nondistended, positive bowel sounds. No hepatosplenomegaly, masses or ascites. Extremities: No clubbing, cyanosis, or edema. Breasts: Left breast has a large mass centrally with obvious nipple retraction and thickening of the skin. There is extensive bruising from her biopsy. The right breast is without masses, nipple discharge or skin changes. Lymph Nodes: No cervical, supraclavicular, infraclavicular, or axillary adenopathy appreciated. ASSESSMENT AND PLAN: This is a 41-year-old woman with a new diagnosis of clinical stage III left-sided breast cancer. She has a large mass on biopsy; it is an infiltrating ductal carcinoma that is ER/AZ positive. We will need to have HER-2/genesis testing performed on her biopsy specimen, which is being requested. The patient will have a PET/CT scan for pretreatment staging. I also recommended an echocardiogram in anticipation of receiving cardiotoxic medications. I agree with Dr. Mcnulty's assessment that she would likely benefit from neoadjuvant chemotherapy. She will require a mastectomy following this regardless of her benefit due to the skin findings and size of the mass. She will also require postmastectomy radiation therapy. She will be seen by plastic surgery for discussion of reconstruction options and have a breast MRI to evaluate the contralateral breast to rule out any obvious synchronous malignancy. The patient will also be referred for genetic counseling and consideration of BRCA1 and 2 gene mutation testing. We did spend a considerable amount of time discussing neoadjuvant chemotherapy. We will need to have HER-2/genesis testing performed prior to making any firm recommendations regarding the regimen; however, I do expect that she will receive Adriamycin and Cytoxan followed by Taxol with or without trastuzumab. If she is HER-2/genesis positive, we could also discuss Taxotere, carboplatin and Herceptin alternatively. We will also need to review her PET/CT scan before recommending aggressive chemotherapy. We discussed that she will experience alopecia. Nausea is generally well controlled with antiemetics that will be prescribed to her. We discussed the possible schedule of administration. The patient wishes to have her care at [facility] and we will try to coordinate her upcoming appointments. We discussed the possibility of having a Port-A-Cath placed prior to chemotherapy administration. I offered her lorazepam for her anxiety, however, she declined. She will call if she reconsiders. We will see her back in 1 to 2 weeks to review the additional testing from her biopsy. In the meantime, she will have an echocardiogram and a PET/CT scan. A breast MRI will be performed. She will have referrals for genetic counseling and later a referral for plastic surgery. When she returns, she will also be seen by Radiation Oncology for discussions about postmastectomy radiation. Kae Fermin MD [phone] CZ:nts J: [id number] / [id number] CC: Sravan Mcnulty MD, <Referring> Robert August MD, <Second referring Dr Name> THIS DOCUMENT WAS ELECTRONICALLY AUTHENTICATED BY Kae Fermin MD ON 10/03/2012 13:42:49 VALENTINA MICHELLE 10/02/2012 # [id number] OUTPATIENT CONSULT [facility] * [address] [place] [phone] * [phone] Page 2 of [address] [place] [id number] OUTPATIENT CONSULT documented in this encounter Plan of Treatment Upcoming Encounters Date Type Department Care Team (Late st Contact Info) Description 09/20/2025 10:20 AM EST Lab Department of Hematology and Oncology [facility] Hematology Oncology [address] [place] [phone] Sharon Lewis, ADMINISTRATIVE ASSOCIATE [address] [place] [address] In Person with Resource 09/20/2025 11:30 AM EST Office Visit Department of Hematology and Oncology [facility] Hematology Oncology [address] [place] [address] Kae Fermin MD [address] [place] [address] In Person with Physician 09/20/2025 12:30 PM EST Infusion [facility] Infusion Services [facility] Infusion Services [address] [place] [address] Sharon Lewis, ADMINISTRATIVE ASSOCIATE [address] [place] [address] In Person with Resource documented as of this encounter Visit Diagnoses Not on filedocumented in this encounter Care Teams Broke Beater Operator Relationship Specialty Start Date End Date Robert August [address] [place] [address] [address] [place] [id number] PCP - General 07/19/14 01/06/25 Robert August [address] [place] [address] [address] [place] [id number] PCP - Insurance Assigned PCP 02/27/22 01/06/25 Loli Lees MD [address] [place] [address] PCP - General Internal Medicine 01/07/25 Loli Lees MD [address] [place] [address] PCP - Insurance Assigned PCP 03/15/25 Kae Fermin MD [address] [place] [address] Consulting Provider Hematology/Oncology 04/23/16 Anabel Goldsmith, ADMINISTRATIVE ASSOCIATE [address] [place] [address] Nurse Practitioner Nurse Practitioner 07/16/16 Shayna Lennon NP [address] [place] [address] Nurse Practitioner Nurse Practitioner 01/14/20 Sharon Lewis ADMINISTRATIVE ASSOCIATE [address] [place] [address] Nurse Practitioner Nurse Practitioner 08/09/20 Jacqueline Dinero NP [address] [address] Nurse Practitioner Nurse Practitioner 07/02/24 Nishi Tomlinson NP [address] [place] [address] Nurse Practitioner Hematology/Oncology 07/19/25 documented as of this encounter
--- OUTSIDE RECORDS SUMMARY | 2025-09-06 19:33 | XMS_ITS | Encounter Summary ---
Author Organization Dam[facility] Address [address] [place] [address] Care Team Providers Care Superintendent Production Name Role Phone Robert August Primary Care Provider Jackelyn Lake MD Unavailable [phone] Anabel Goldsmith ORACLE ADF CONSULTANT Unavailable Shayna Lennon ORACLE ADF CONSULTANT Unavailable Sharon Lewis ORACLE ADF CONSULTANT Unavailable [phone] Robert August Unavailable Jacqueline Dinero ORACLE ADF CONSULTANT Unavailable [phone] Loli Lees MD Primary Care Provider [phone] Loli Lees MD Unavailable [phone] Nishi Tomlinson ORACLE ADF CONSULTANT Unavailable [phone] Encounter Details Date Type Department Care Team (Late st Contact Info) Description 08/24/2014 Clinical Conversion Encounter [facility] division of plastic and reconstructive surgery [facility] Plastic Surgery [address] [address] Cary Ng MD PhD [address] [place] [address] Social History Tobacco Use Types Packs/Day Years Used Date Smoking Tobacco: Never Assessed Comments Unknown Sex and Gender Information Value Date Recorded Sex Assigned at Female 01/05/2020 1:28 PM EDT Legal Sex Female 11:24 AM EST Gender Identity Female 01/05/2020 1:28 PM EDT Sexual Orientation Not on file documented as of this encounter Miscellaneous Notes * Telephone Encounter - Cary Ng MD PhD - 11/05/2014 12:41 PM EST [id number] MICHELLE [place]. Message Date: 24 Aug 2014 3:19 PM EST, Recorded By: Lara Saucedo Calling For: YAS DIANE Caller: Bong Mcnulty [facility] Re: Henry stanley# [id number] Both incisions look great: no infection, no temp (98.9) All drains are draining between 10-30 cc's with the left pubic draining the most with 30cc's She is having difficulty with constipation. She is using oxycodone 2-4 times/day. Do you have any suggestions? Miralax?? Also, she would like to get her post-op appt. Thank you. Lara Ng: Or she can stop the narcotics and use Aleve instead. I spoke with Henry and relayed Dr. Ng's message. Also, booked post-op appt for 09/01 at 10am. asanborn Signatures Electronically signed by : Lara Saucedo, ; Aug 24 2014 3:21PM documented in this encounter Plan of Treatment Upcoming Encounters Date Type Department Care Team (Late st Contact Info) Description 09/20/2025 10:20 AM EST Lab Department of Hematology and Oncology [facility] Hematology Oncology [address] [place] [address] Sharon Lewis, STU [address] [place] [address] In Person with Resource 09/20/2025 11:30 AM EST Office Visit Department of Hematology and Oncology [facility] Hematology Oncology [address] [place] [address] Jackelyn Lake MD [address] [place] [address] In Person with Physician 09/20/2025 12:30 PM EST Infusion [facility] Infusion Services [facility] Infusion Services 41 [facility] 3rd [place] [address] Sharon Lewis, ORACLE ADF CONSULTANT [address] [place] [address] In Person with Resource documented as of this encounter Visit Diagnoses Not on filedocumented in this encounter Care Teams Superintendent Production Relationship Specialty Start Date End Date Robert August [address] [place] [address] [address] [place] [address] PCP - General 07/19/14 01/06/25 Robert August [address] [place] [address] [address] [place] [address] PCP - Insurance Assigned PCP 02/27/22 01/06/25 Loli Lees MD [address] [place] [address] PCP - General Internal Medicine 01/07/25 Loli Lees MD [address] [place] [address] PCP - Insurance Assigned PCP 03/15/25 Jackelyn Lake MD [address] [place] [address] Consulting Provider Hematology/Oncology 04/23/16 Anabel Goldsmith, STU [address] [place] [address] Nurse Practitioner Nurse Practitioner 07/16/16 Shayna Lennon NP [address] [place] [address] Nurse Practitioner Nurse Practitioner 01/14/20 Sharon Lewis ORACLE ADF CONSULTANT [address] [place] [address] Nurse Practitioner Nurse Practitioner 08/09/20 Jacqueline Dinero, STU [address] [place] [address] [address] [place] [address] Nurse Practitioner Nurse Practitioner 07/02/24 Nishi Tomlinson ORACLE ADF CONSULTANT [address] [place] [address] Nurse Practitioner Hematology/Oncology 07/19/25 documented as of this encounter
--- OUTSIDE RECORDS SUMMARY | 2025-09-06 19:33 | XMS_ITS | Encounter Summary ---
Author Organization Damaris saul Address [address] [place] [address] Care Team Providers Care Senior Art Director Name Role Phone Robert August Primary Care Provider [phone] Jackelyn Lake MD Unavailable [phone] Anabel Goldsmith NUCLEAR MEDICINE PET CT TECHNOLOGIST Unavailable [phone] Shayna Lennon NUCLEAR MEDICINE PET CT TECHNOLOGIST Unavailable [phone] Sharon Lewis NUCLEAR MEDICINE PET CT TECHNOLOGIST Unavailable [phone] Robert August Unavailable Jacqueline Dinero NUCLEAR MEDICINE PET CT TECHNOLOGIST Unavailable [phone] Loli Lees MD Primary Care Provider [phone] Loli Lees MD Unavailable [phone] Nishi Tomlinson NUCLEAR MEDICINE PET CT TECHNOLOGIST Unavailable [phone] Reason for Referral * ADVANCED IMAGING (Routine) - Closed Specialty Diagnoses / Procedures Referred By Contac t Referred To Contact Radiology Diagnoses Malignant neoplasm of breast (female), unspecified site Procedures CT Abdomen And Pelvis W Contrast Jackelyn Lake MD [address] [place] [address] Phone: tel: fax: Referral ID Status Reason Start Date Expiration Date Visits Re quested Visits Authorized [id number] Closed 04/27/2015 06/26/2015 1 1 Encounter Details Date Type Department Care Team (Late st Contact Info) Description 10/22/2014 Orders Only Department of Hematology and Oncology [facility] Hematology Oncology [address] [place] [address] Jackelyn Lake MD [address] [place] [address] Social History Tobacco Use Types Packs/Day Years [...] EST Lab Department of Hematology and Oncology [facility] Hematology Oncology [address] [place] [address] Sharon Lewis NP [address] [place] [address] In Person with Resource 09/20/2025 11:30 AM EST Office Visit Department of Hematology and Oncology [facility] Hematology Oncology [address] [place] [address] Jackelyn Lake MD [address] [place] [address] In Person with Physician 09/20/2025 12:30 PM EST Infusion [facility] Infusion Services [facility] Infusion Services [address] [place] [address] 3[address] [place] [address] Sharon Lewis NP [address] [place] [address] In Person with Resource documented as of this encounter Results * CT Abdomen And Pelvis W Contrast (05/05/2015 12:25 PM EDT) Anatomical Region Laterality Modality Abdomen, Pelvis Computed Tomogra phy 05/05/2015 1:23 PM EDT Narrative 05/05/2015 1:19 PM EDT EXAM DESCRIPTION: CT thorax with enhancement CT abdomen pelvis with enhancement. TECHNIQUE: Noninonic contrast was injected intravenously and axial CT images from the thoracic inlet through diaphragm were obtained. Multiplanar reformats were performed at the console and made available for review.; Oral and intravenous contrast administered. Nonionic contrast was injected intravenously, and axial helical CT images were obtained from above the diaphragm through the pelvis. Multiplanar reformats were performed at the console and made available for review.100 cc of intravenous contrast Omnipaque 300were administered. Examination was performed on 05/05/2015 12:25 PM; 05/05/2015 12:26 PM. COMPARISON: CT Chest W Contrast dated 2014-10-22 10:32:01 INDICATION: Metastatic breast cancer. Follow-up. FINDINGS: Visualized part of thyroid normal. Normal caliber thoracic aorta. The heart is normal in size. Tiny stable pretracheal lymph nodes are present. Metallic clips left axilla. Postoperative changes of the left breast. Stable scarring left apex. Probable post radiation changes anterior aspect of the left upper lobe. No appreciable change. Few scattered cysts are present previously seen micro nodule in left lower lobe is not evident. Normal liver, gallbladder, spleen, adrenal glands and pancreas. Kidneys are normal. Normal caliber abdominal aorta with calcification in its wall. Slight degenerative change of lumbar vertebral bodies. Small hiatal hernia. No normal small intestine. Colon is normal. Edematous changes seen in the anterior abdominal wall on prior study have cleared. Stable sclerotic change in the right iliac wing in the body of L5. Normal uterus and urinary bladder. IMPRESSION: 1. No evidence for recurrent or metastatic disease to chest, abdomen or pelvis. 2. Postoperative changes of the left breast. 3. Stable sclerotic changes of bone as described. Procedure Note Viraj [place] MD - 05/05/2015 EXAM DESCRIPTION: CT thorax with enhancement CT abdomen pelvis with enhancement. TECHNIQUE: Noninonic contrast was injected intravenously and axial CT images from thethoracic inlet through diaphragm were obtained. Multiplanar reformats wereperformed at the console and made available for review.; Oral andintravenous contrast administered. Nonionic contrast was injected intravenously, and axial helical CT imageswere obtained from above the diaphragm through the pelvis. Multiplanarreformats were performed at the console and made available forreview.100 cc of intravenous contrast Omnipaque 300were administered. Examinationwas performed on 05/05/2015 12:25 PM; 05/05/2015 12:26 PM. COMPARISON: CT Chest W Contrast dated 2014-10-22 10:32:01 INDICATION: Metastatic breast cancer. Follow-up. FINDINGS: Visualized part of thyroid normal. Normal caliber thoracic aorta. Theheart is normal in size. Tiny stable pretracheal lymph nodes are present.Metallic clips left axilla. Postoperative changes of the left breast. Stable scarring left apex.Probable post radiation changes anterior aspect of the left upper lobe. Noappreciable change. Few scattered cysts are present previously seen micronodule in left lower lobe is not evident. Normal liver, gallbladder, spleen, adrenal glands and pancreas. Kidneysare normal. Normal caliber abdominal aorta with calcification in its wall. Slightdegenerative change of lumbar vertebral bodies. Small hiatal hernia. No normal small intestine. Colon is normal. Edematous changes seen in the anterior abdominal wall on prior study havecleared. Stable sclerotic change in the right iliac wing in the body of L5. Normaluterus and urinary bladder. IMPRESSION: 1. No evidence for recurrent or metastatic disease to chest, abdomen orpelvis. 2. Postoperative changes of the left breast. 3. Stable sclerotic changes of bone as described. Jackelyn Lake MD IMG CT ORDERABLES Final Result documented in this encounter Visit Diagnoses Not on filedocumented in this encounter Care Teams Senior Art Director Relationship Specialty Start Date End Date Robert August [address] [place] [address] PCP - General 07/19/14 01/06/25 Robert August [address] [place] [address] PCP - Insurance Assigned PCP 02/27/22 01/06/25 Loli Lees MD [address] [place] [address] PCP - General Internal Medicine 01/07/25 Loli Lees MD [address] [place] [address] PCP - Insurance Assigned PCP 03/15/25 Jackelyn Lake MD [address] [place] [address] Consulting Provider Hematology/Oncology 04/23/16 Anabel Goldsmith NP [address] [place] [address] Nurse Practitioner Nurse Practitioner 07/16/16 Shayna Lennon NP [address] [place] [address] Nurse Practitioner Nurse Practitioner 01/14/20 Sharon Lewis NP [address] [place] [address] Nurse Practitioner Nurse Practitioner 08/09/20 Jacqueline Dinero NP [address] Raquel [place] [address] [address] Nurse Practitioner Nurse Practitioner 07/02/24 Nishi Tomlinson NP [address] [place] [address] Nurse Practitioner Hematology/Oncology 07/19/25 documented as of this encounter
--- OUTSIDE RECORDS SUMMARY | 2025-09-06 19:33 | XMS_ITS | Encounter Summary ---
Author Organization Damaris Hernandez [facility] Address [address] [place] [address] Care Team Providers Care Aircraft Riveter Name Role Phone Robert August Primary Care Provider [phone] Jackelyn Lake MD Unavailable [phone] Anabel Goldsmith HIGH SCHOOL MUSIC DIRECTOR Unavailable [phone] Shayna Lennon HIGH SCHOOL MUSIC DIRECTOR Unavailable [phone] Sharon Lewis HIGH SCHOOL MUSIC DIRECTOR Unavailable [phone] Robert August Unavailable Jacqueline Dinero HIGH SCHOOL MUSIC DIRECTOR Unavailable [phone] Loli Lees MD Primary Care Provider [phone] Loli Lees MD Unavailable [phone] Nishi Tomlinson HIGH SCHOOL MUSIC DIRECTOR Unavailable [phone] Encounter Details Date Type Department Care Team (Late st Contact Info) Description 09/20/2014 Clinical Conversion Encounter [facility] division of plastic and reconstructive surgery [facility] Plastic Surgery [address] [address] Raman Montalvo MD PhD [address] [place] [address] Social History Tobacco Use Types Packs/Day Years Used Date Smoking Tobacco: Every Day Comments Unknown Sex and Gender Information Value Date Recorded Sex Assigned at Female 01/05/2020 1:28 PM EDT Legal Sex Female 11:24 AM EST Gender Identity Female 01/05/2020 1:28 PM EDT Sexual Orientation Not on file documented as of this encounter Progress Notes * Raman Montalvo MD PhD - 11/05/2014 5:27 PM EST [id number],[place]ENN[place]ER [place], [place]. History of Present Illness Patient came in for another postop. She is doing well. Current Meds Cefadroxil 500 MG Oral Capsule; TAKE 1 CAPSULE TWICE DAILY; Therapy: 23Bds4357 to (Evaluate:38Iox3977); Last Rx:[id number] Lisinopril 20 MG Oral Tablet; TAKE 1 TABLET DAILY; Therapy: 01Oct2012 to (Evaluate:09Sep2014) Requested for: 11Jun2014; Last Rx:11Jun2014 OxyCODONE HCl 5 MG Oral Capsule; TAKE 1 CAPSULE EVERY 4 TO 6 HOURS NEEDED; Therapy: 18Rwt7954 to (Evaluate:07Uyk7408); Last Rx:[id number] Tamoxifen Citrate 20 MG Oral Tablet; Take 1 tab orally once a day; Therapy: 80Mbp2895 to (Last Rx:30Nov2013) Requested for: 30Nov2013 Vitamin D 1000 UNIT Oral Tablet; TAKE 1 TABLET DAILY; Therapy: 87Ecq4213 to (Evaluate:01Eks3327) Allergies Erythromycin Derivatives Penicillins Benadryl CAPS Vitals [facility] Vitals Data Includes: Current Encounter 20Sep2014 01:43PM Pain Score 0 Allergy Status Reviewed Yes Safe at Home Yes Physical Exam Most of her incisions are healing well. I removed her umbo scab and it is viable with some minor edge breakdown. Her flap is entirely viable and soft except for the most superiomedial aspect. Assessment 1. Encounter For Breast Reconstruction Following Mastectomy V51.0 2. Breast Cancer 174.9 Plan I asked her to continue with the [facility] and we talked about her next phase of surgery since she [place]. We will schedule her surgery for the spring. Signatures Electronically signed by : RAMAN MONTALVO MD; Sep 20 2014 3:54PM documented in this encounter Plan of Treatment Upcoming Encounters Date Type Department Care Team (Late st Contact Info) Description 09/20/2025 10:20 AM EST Lab Department of Hematology and Oncology [facility] Hematology Oncology [address] [place] [address] Sharon Lewis, HIGH SCHOOL MUSIC DIRECTOR [address] [place] [address] In Person with Resource 09/20/2025 11:30 AM EST Office Visit Department of Hematology and Oncology [facility] Hematology Oncology [address] [place] [address] Jackelyn Lake MD [address] [place] [address] In Person with Physician 09/20/2025 12:30 PM EST Infusion [facility] Infusion Services [facility] Infusion Services [address] [place] [address] [address] [place] [address] Shraon Lewis, HIGH SCHOOL MUSIC DIRECTOR [address] [place] [address] In Person with Resource documented as of this encounter Visit Diagnoses Not on filedocumented in this encounter Care Teams Aircraft Riveter Relationship Specialty Start Date End Date Robert August [address] [place] [address] [address] [place] [address] PCP - General 07/19/14 01/06/25 Robert August [address] [place] [address] [address] [place] [address] PCP - Insurance Assigned PCP 02/27/22 01/06/25 Loli Lees MD [address] [place] [address] PCP - General Internal Medicine 01/07/25 Loli Lees MD [address] [place] [address] PCP - Insurance Assigned PCP 03/15/25 Jackelyn Lake MD [address] [place] [address] Consulting Provider Hematology/Oncology 04/23/16 Anabel Goldsmith, HIGH SCHOOL MUSIC DIRECTOR [address] [place] [address] Nurse Practitioner Nurse Practitioner 07/16/16 Shayna Lennon, STU [address] [place] [address] Nurse Practitioner Nurse Practitioner 01/14/20 Sharon Lewis HIGH SCHOOL MUSIC DIRECTOR [address] [place] [address] Nurse Practitioner Nurse Practitioner 08/09/20 Jacqueline Dinero NP [address] [address] Nurse Practitioner Nurse Practitioner 07/02/24 Nishi Tomlinson HIGH SCHOOL MUSIC DIRECTOR [address] [place] [address] Nurse Practitioner Hematology/Oncology 07/19/25 documented as of this encounter
--- OUTSIDE RECORDS SUMMARY | 2025-09-06 19:34 | XMS_ITS | Encounter Summary ---
Author Organization [facility] Address [address] [place] [address] Care Team Providers Care Corporate Development Associate Name Role Phone Robert August Primary Care Provider Jackelyn Fermin MD Unavailable [phone] Anabel Goldsmith COMMUNITY SUPPORT SPECIALIST Unavailable [phone] Shayna Lennon COMMUNITY SUPPORT SPECIALIST Unavailable [phone] Sharon Lewis COMMUNITY SUPPORT SPECIALIST Unavailable [phone] Robert August Unavailable Jacqueline Dinero COMMUNITY SUPPORT SPECIALIST Unavailable [phone] Loli Lees MD Primary Care Provider Loli Lees MD Unavailable [phone] Nishi Tomlinson COMMUNITY SUPPORT SPECIALIST Unavailable Encounter Details Date Type Department Care Team (Late st Contact Info) Description 11/09/2013 Clinical Conversion Encounter Department of Hematology and Oncology [facility] Hematology Oncology [address] [id number] Jackelyn Fermin MD [address] [place] [address] Social History Tobacco Use Types Packs/Day Years Used Date Smoking Tobacco: Never Assessed Comments Unknown Sex and Gender Information Value Date Recorded Sex Assigned at Female 01/05/2020 1:28 PM EDT Legal Sex Female 11:24 AM EST Gender Identity Female 01/05/2020 1:28 PM EDT Sexual Orientation Not on file documented as of this encounter Miscellaneous Notes * Telephone Encounter - Jackelyn Fermin MD - 11/03/2014 10:16 PM EST [id number] MICHELLE [facility] [place], [place]. Recorded as Task Date: 11/09/2013 10:16 AM, Created By: Gabriela Rose Task Name: Staff Initiated Assigned To: Gabriela Rose Regarding Patient: HENRY MICHELLE, Status: Active Comment: Gabriela Rose - 09 Nov 2013 10:16 AM TASK CREATED Caller: Self; Patient is scheduled to see you November 13 but her radiation treatment won't be complete until 11/23. Do you want to keept the November 13 appointment or reschedule after 11/23. If you want to reschedule, she needs to come on a Saturday - can you work her in on 11/27? JACKELYN FERMIN - 09 Nov 2013 11:41 AM TASK REPLIED TO: Previously Assigned To JACKELYN FERMIN 11/27 at 2:30 Gabriela Rose - 09 Nov 2013 12:13 PM TASK EDITED Patient scheduled on 11/27 at 2:30 PM and notified by phone. Electronically signed by:Gabriela Rose Nov 09 2013 12:13PM EST Administrative documented in this encounter Plan of Treatment Upcoming Encounters Date Type Department Care Team (Late st Contact Info) Description 09/20/2025 10:20 AM EST Lab Department of Hematology and Oncology [facility] Hematology Oncology [address] [place] [address] Sharon Lewis, COMMUNITY SUPPORT SPECIALIST [address] [place] [address] In Person with Resource 09/20/2025 11:30 AM EST Office Visit Department of Hematology and Oncology [facility] Hematology Oncology [address] [place] [address] [place] [address] Jackelyn Fermin MD [address] [place] [address] In Person with Physician 09/20/2025 12:30 PM EST Infusion [facility] Infusion Services [facility] Infusion Services 41 [facility] 3rd [place] [address] Sharon Lewis, COMMUNITY SUPPORT SPECIALIST [address] [place] [address] In Person with Resource documented as of this encounter Visit Diagnoses Not on filedocumented in this encounter Care Teams Corporate Development Associate Relationship Specialty Start Date End Date Robert August [address] [place] [address] [address] [place] [address] PCP - General 07/19/14 01/06/25 Robert August [address] [place] [address] [address] [place] [address] PCP - Insurance Assigned PCP 02/27/22 01/06/25 Loli Lees MD [address] [place] [address] PCP - General Internal Medicine 01/07/25 Loli Lees MD [address] [place] [address] PCP - Insurance Assigned PCP 03/15/25 Jackelyn Fermin MD [address] [place] [address] Consulting Provider Hematology/Oncology 04/23/16 Anabel Goldsmith, COMMUNITY SUPPORT SPECIALIST [address] [place] [address] Nurse Practitioner Nurse Practitioner 07/16/16 Shayna Lennon NP [address] [place] [address] Nurse Practitioner Nurse Practitioner 01/14/20 Sharon Lewis COMMUNITY SUPPORT SPECIALIST [address] [place] [address] Nurse Practitioner Nurse Practitioner 08/09/20 Jacqueline Dinero NP 330 [facility] [address] [place] [address] Nurse Practitioner Nurse Practitioner 07/02/24 Nishi Tomlinson COMMUNITY SUPPORT SPECIALIST [address] [place] [address] Nurse Practitioner Hematology/Oncology 07/19/25 documented as of this encounter
--- OUTSIDE RECORDS SUMMARY | 2025-09-06 19:34 | XMS_ITS | Encounter Summary ---
Author Organization [facility] Address [address] [place] [address] Care Team Providers Care Care Transitions Manager Name Role Phone Robert August Primary Care Provider [phone] Jackelyn Lake MD Unavailable [phone] Anabel Goldsmith RAMP SUPERVISOR Unavailable [phone] Shayna Lennon RAMP SUPERVISOR Unavailable [phone] Sharon Lewis RAMP SUPERVISOR Unavailable [phone] Robert August Unavailable Jacqueline Dinero RAMP SUPERVISOR Unavailable [phone] Loli Lees MD Primary Care Provider [phone] Loli Lees MD Unavailable [phone] Nishi Tomlinson RAMP SUPERVISOR Unavailable [phone] Encounter Details Date Type Department Care Team (Late st Contact Info) Description 02/27/2013 Clinical Conversion Encounter [facility] General Surgery [facility] General Surgery [address] [address] Sravan Mcnulty MD Social History Tobacco Use [...] Notes * Sravan Mcnulty MD - 10/25/2014 9:34 PM EST [id number] MICHELLE [facility] [place]. This is a 42-year-old woman seen today getting her metastatic breast cancer. She presented 3 months ago and was found to have a large mass in the left breast with axillary lymph node involvement. Also on PET scan found to have an, and biopsy-proven involvement of the mediastinal lymph node. She's been on tamoxifen since that time. She's had an excellent response to tamoxifen. Followup PET scan shows that lymph node has completely cleared. As tolerated tamoxifen well with some modest hot flushes. I discussed her today but Dr Lake who feels that she should undergo mastectomy for the primary cancer Physical examination today still shows a large residual mass in the total left breast. There is no palpable adenopathy. Review of her PET scan shows diminution in both size and intensity of the lymph nodes in the left axilla. However, does not show disappearance of disease in the axilla. Based on this I am recommending a left modified radical mastectomy. I had a 45 minute conversation with her and her regarding this. The risks of surgery including numbness and lymphedema were discussed. She would like to defer surgery to after the summer. This seems entirely logical to me. She is also undergoing genetic counseling and testing and will based on this make a decision about the contralateral side. I will see her back in May. Electronically signed by : SRAVAN MCNULTY MD; Feb 27 2013 3:48PM documented in this encounter Plan of Treatment Upcoming Encounters Date Type Department Care Team (Late st Contact Info) Description 09/20/2025 10:20 AM EST Lab Department of Hematology and Oncology [facility] Hematology Oncology [address] [place] [address] Sharon Lewis, STU [address] [place] [address] In Person with Resource 09/20/2025 11:30 AM EST Office Visit Department of Hematology and Oncology [facility] Hematology Oncology [address] [facility] [address] [place] [address] Jackelyn Lake MD [address] [place] [address] In Person with Physician 09/20/2025 12:30 PM EST Infusion [facility] Infusion Services [facility] Infusion Services 41 [facility] 3rd [place] [address] Sharon Lewis, STU [address] [place] [address] In Person with Resource documented as of this encounter Visit Diagnoses Not on filedocumented in this encounter Care Teams Care Transitions Manager Relationship Specialty Start Date End Date Robert August [address] [place] [address] PCP - General 07/19/14 01/06/25 Robert August [address] [place] [address] [address] [place] [address] PCP - Insurance Assigned PCP 02/27/22 01/06/25 Loli Lees MD [address] [place] [address] PCP - General Internal Medicine 01/07/25 Loli Lees MD [address] [place] [address] PCP - Insurance Assigned PCP 03/15/25 Jackelyn Lake MD [address] [place] [address] Consulting Provider Hematology/Oncology 04/23/16 Anabel Goldsmith, STU [address] [place] [address] Nurse Practitioner Nurse Practitioner 07/16/16 Shayna Lennon NP [address] [place] [address] Nurse Practitioner Nurse Practitioner 01/14/20 Sharon Lewis RAMP SUPERVISOR [address] [place] [address] Nurse Practitioner Nurse Practitioner 08/09/20 Jacqueline Dinero NP 330 [facility] 7 [place] [address] Nurse Practitioner Nurse Practitioner 07/02/24 Nishi Tomlinson NP [address] [place] [address] Nurse Practitioner Hematology/Oncology 07/19/25 documented as of this encounter
--- OUTSIDE RECORDS SUMMARY | 2025-09-06 19:34 | XMS_ITS | Encounter Summary ---
Author Organization [facility] Address [address] [place] [address] Care Team Providers Care Chairman & Co Founder Name Role Phone Robert August Primary Care Provider Jackelyn Lake MD Unavailable [phone] Anabel Goldsmith ADMINISTRATIVE OFFICE MANAGER Unavailable [phone] Shayna Lennon ADMINISTRATIVE OFFICE MANAGER Unavailable Sharon Lewis ADMINISTRATIVE OFFICE MANAGER Unavailable [phone] Robert August Unavailable Jacqueline Dinero NP Unavailable [phone] Loli Lees MD Primary Care Provider Loli Lees MD Unavailable [phone] Nishi Tomlinson ADMINISTRATIVE OFFICE MANAGER Unavailable [phone] Encounter Details Date Type Department Care Team (Late st Contact Info) Description 07/29/2014 Clinical Conversion Encounter [facility] Gynecology Outpatient Clinic [address] 3rd [place] [address] Brenda Quiles, STU [address] [facility] [address] [place] [address] Social History Tobacco Use Types Packs/Day Years Used Date Smoking Tobacco: Never Assessed Comments Unknown Sex and Gender Information Value Date Recorded Sex Assigned at Female 01/05/2020 1:28 PM EDT Legal Sex Female 11:24 AM EST Gender Identity Female 01/05/2020 1:28 PM EDT Sexual Orientation Not on file documented as of this encounter Miscellaneous Notes * Letter - Brenda Quiles NP - 11/05/2014 9:07 AM EST [id number] MICHELLE [place], [place]. July 29, 2014 HENRY MICHELLE [address] [place] [id number] #[id number] : [id number] VISIT ID : [id number] Dear Ms. Michelle, This letter is in regards to your recent visit with Dr. Eyal Arboleda at which time a pap smear was obtained. I am pleased to report the results are negative. If you have any questions or concerns, please feel free to contact me. Sincerely, Brenda Quiles NP Department of Gynecology [phone] DMM:brenden J: 0 CC: THIS DOCUMENT WAS ELECTRONICALLY AUTHENTICATED BY Brenda Quiles NP ON 07/30/2014 08:49:03 HENRY MICHELLE # [id number] documented in this encounter Plan of Treatment Upcoming Encounters Date Type Department Care Team (Late st Contact Info) Description 09/20/2025 10:20 AM EST Lab Department of Hematology and Oncology [facility] Hematology Oncology [address] [place] [address] Sharon Lewis NP [address] [place] [address] In Person with Resource 09/20/2025 11:30 AM EST Office Visit Department of Hematology and Oncology [facility] Hematology Oncology [address] [place] [address] Jackelyn Lake MD [address] [place] [address] In Person with Physician 09/20/2025 12:30 PM EST Infusion [facility] Infusion Services [facility] Infusion Services 41 [facility] 3rd [place] [address] Sharon Lewis, ADMINISTRATIVE OFFICE MANAGER [address] [place] [address] In Person with Resource documented as of this encounter Visit Diagnoses Not on filedocumented in this encounter Care Teams Chairman & Co Founder Relationship Specialty Start Date End Date Robert August [address] [address] [place] [address] PCP - General 07/19/14 01/06/25 Robert August [address] [facility] [place] [address] PCP - Insurance Assigned PCP 02/27/22 01/06/25 Loli Lees MD [address] [place] [address] PCP - General Internal Medicine 01/07/25 Loli Lees MD [address] [place] [address] PCP - Insurance Assigned PCP 03/15/25 Jackelyn Lake MD [address] [place] [address] Consulting Provider Hematology/Oncology 04/23/16 Anabel Goldsmith NP [address] [place] [address] Nurse Practitioner Nurse Practitioner 07/16/16 Shayna Lennon NP [address] [place] [address] Nurse Practitioner Nurse Practitioner 01/14/20 Sharon Lewis NP [address] [place] [address] Nurse Practitioner Nurse Practitioner 08/09/20 Jacqueline Dinero NP [address] [place], [place] [address]hern[address] [address] [address] Nurse Practitioner Nurse Practitioner 07/02/24 Nishi Tomlinson NP [address] [place] [address] Nurse Practitioner Hematology/Oncology 07/19/25 documented as of this encounter
--- OUTSIDE RECORDS SUMMARY | 2025-09-06 19:34 | XMS_ITS | Encounter Summary ---
Author Organization [facility] Address [address] [place] [address] Care Team Providers Care Pershing Missile Crewmember Name Role Phone Robert August Primary Care Provider [phone] Jackelyn Lake MD Unavailable [phone] Anabel Goldsmith DESK EDITOR Unavailable [phone] Shayna Lennon DESK EDITOR Unavailable Sharon Lewis DESK EDITOR Unavailable [phone] Robert August Unavailable Jacqueline Dinero DESK EDITOR Unavailable Loli Lees MD Primary Care Provider Loli Lees MD Unavailable [phone] Nishi Tomlinson DESK EDITOR Unavailable [phone] Encounter Details Date Type Department Care Team (Late st Contact Info) Description 08/17/2013 Clinical Conversion Encounter [facility] Radiation Oncology [address] [address] Smita Lambert MD Social History [...] Progress Notes * Smita Lambert MD - 10/27/2014 9:42 AM EST [id number] MICHELLE [facility] [place], [place]. RADIATION ONCOLOGY 08/17/2013 Name: VALENTINA MICHELLE #: [id number] : 1970 Visit ID: [id number] Second Visit ID: [id number] I was asked to see this patient by Dr. Sravan Mcnulty in consideration of further management of the patient's locally advanced metastatic left breast cancer. PATIENT PROFILE: This is a 42 years old white perimenopausal female, 1, para 0 with locally advanced left breast cancer and metastatic disease to the mediastinal lymph nodes, status post left breast core biopsy on 10/24/2012, status post bronchoscopy and biopsy of the mediastinum on 10/21/2012 with positive lymph nodes seen 4R, consistent with metastatic poorly differentiated carcinoma, status post chemotherapy, status post modified radical mastectomy on 07/16/2013. HISTORY OF PRESENT ILLNESS: The patient originally noticed changes in her left breast in September 2011. She underwent a routine mammogram at [facility] on 09/11/2011, and it revealed diffuse abnormality in her left breast with no nipple retraction. She came back for additional views, which confirmed diffuse abnormal density in the left breast with spiculation and ultrasound revealed an irregular parenchymal mass with acoustic shadowing. The area of involvement measured 2.3 cm in size. On 09/26/2012, the patient underwent left breast ultrasound-guided biopsy; 2-view digital mammography revealed satisfactory positioning of the biopsy clips of the procedure. The final pathology returned as moderately differentiated invasive ductal carcinoma. It was ER positive 51% to 100% and CA positive 51% to 100%. HER-2/genesis was not performed due to prolonged tissue fixation. The patient came to see Dr. Mcnulty at [facility], and on physical examination, Dr. Mcnulty described 6 cm mass in the patient's left breast. The patient underwent PET CT scan, which revealed multiple prominent axillary lymph nodes and subcentimeter nodule in the left adrenal gland and mediastinal adenopathy. The patient underwent bronchoscopy with biopsy of level 4R lymph nodes, which was positive for malignant cells consistent with poorly differentiated carcinoma. The patient also underwent biopsy of level 7 during the bronchoscopy, and it showed no malignant cells, reactive and degenerated bronchial cells, scant lymphocytes and blasts present. The bronchoscopy and biopsy was performed on 10/21/2012. On 10/24/2012, the patient underwent biopsy of her breast, which confirmed the presence of invasive ductal carcinoma, grade 2/3. It was ER positive 100%, CA positive 100%, and HER-2/genesis was not amplified. Her PET CT scan revealed a left breast tumor, as well as prominent axillary lymph nodes, which were FDG avid. There were also suspicious internal mammary and perivascular mediastinal lymph nodes with increased activity. There were also undetermined suspicious borderline and large precarinal nodes with increased activity. There was also a subcentimeter nodule in the left adrenal gland. There was also a luteal cyst in the ovary and lesion in the uterus suspicious for fibroids, so bronchoscopy and biopsy was obtained of the mediastinal lymph nodes and 4R lymph nodes became positive for metastatic breast cancer. Her breast biopsy revealed that her tumor was HER-2/genesis negative. The patient then was evaluated by Dr. Jackelyn Lake, and she was treated with Lupron every 4 weeks and tamoxifen 20 mg daily. It was a feeling that the patient will be responding to endocrine therapy and she then underwent PET CT scan on 05/09/2013, which revealed interval marked improvement of abnormal uptake since the original exam from 10/10/2012, which revealed a left breast cancer with metastasis to the ipsilateral axilla, internal mammary nodes, prevascular nodes, indeterminate suspicious precarinal nodes, left adrenal nodule, some fibroid uterus with luteal cyst right ovary. The patient continues her hormonal therapy and her last PET CT scan was performed on 06/30/2013 and compared to the PET scan from 02/06/2013, there was no significant change. There was stable mild uptake in the left breast and left axilla and there was no evidence of new metastatic disease and on 07/16/2013, the patient underwent left modified radical mastectomy and bilateral salpingo-oophorectomy by Dr. Sravan Mcnulty. The oophorectomy was done by Dr. Arboleda. The final pathology of the patient's mastectomy revealed invasive ductal carcinoma, grade 2-3. The tumor size measured 5 x 3.5 x 2.5 cm. Direct extension into the dermis was not seen, dermal satellite not seen. Axillary dissection, number involved nodes 11, examined lymph nodes 17. Extranodal invasion was not present. Lymphatic small vessel invasion was present. The tumor was present in smooth muscle, but not dermis or nipple epithelium. 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 Lobular carcinoma in situ was not present. Distance of ductal carcinoma in situ from the margin at least 5 mm the remaining margin, distance of invasive carcinoma from the margin at least 5 mm the remaining margin, left axillary contents metastatic carcinoma present in the 11 lymph nodes out of 17, no extranodal extension, right and left fallopian tubes and bilateral ovaries with follicular cyst. MEDICATIONS: The patient's current medications are lisinopril, oxycodone, tamoxifen, vitamin D, clindamycin. The patient drains have been removed on 08/12/2013, because there was still a rather substantial drainage. However, the patient was evaluated today by Dr. Mcnulty who felt that patient has developed infection. The area has been marked out and the antibiotic has been changed from Levaquin to clindamycin and Dr. Mcnulty will see the patient back in 2 weeks for further surveillance. The patient was seen today by me for consideration of post-mastectomy radiation therapy. ALLERGIES: ERYTHROMYCIN, PENICILLIN AND BENADRYL. REVIEW OF SYSTEMS: The patient denies headaches, no dizziness, no focal weakness, no neurological symptoms, no visual changes, no mouth sores, taste distillation or swallowing difficulties. No shortness of breath, cough or chest pain. No abdominal pain, nausea or vomiting, no diarrhea, constipation, melena or bright red blood per rectum. No lower extremity edema, no skin rash, and review of the remaining systems is negative. RECENT PHYSICAL EXAMINATION: The patient is a very pleasant white female looking her stated age. HEENT: Her pupils are equal, round and reactive to light and accommodation. Her extraocular muscles are intact. Her sclerae is anicteric. The mucous membranes are moist. She has no mucositis. No thrush or oral lesions. Her lungs are clear to auscultation and percussion. Cor: Normal, no murmurs. Abdomen: Soft, no organomegaly, no ascites. She has no palpable lymphadenopathy in the neck, supraclavicular, axillary or inguinal-femoral region. Her lungs are clear to auscultation and percussion. This patient has erythema at the mastectomy site. The area has been marked by Dr. Mcnulty. Dr. Mcnulty has changed antibiotic to clindamycin. RECOMMENDATIONS: The patient needs radiation therapy to the chest wall and regional lymph nodes. We will try to contour PET-positive regional lymph nodes in the mediastinum. She has positive 4R mediastinal lymph nodes after bronchoscopy and biopsy, that all has been explained to the patient, but she needs to recover from the following infection first. She lives close to [facility]. Her mother was treated by Dr. Fernandez, and the patient wants to be referred to [facility] for consideration of postoperative radiation therapy. I discussed with doctor Jim. One houre was spend with patient and more than half in counseling. Smita Lambert MD [phone] LG:BREA J: [id number] / [id number] CC: MD Emmanuel Anna MD Stephen E Karp, MD, <Referring> Robert August MD, <Primary Care Physician> THIS DOCUMENT WAS ELECTRONICALLY AUTHENTICATED BY Smita Lambert MD ON 08/20/2013 08:43:46 documented in this encounter Plan of Treatment Upcoming Encounters Date Type Department Care Team (Late st Contact Info) Description 09/20/2025 10:20 AM EST Lab Department of Hematology and Oncology [facility] Hematology Oncology [address] [place] [address] Sharon Lewis, DESK EDITOR [address] [place] [address] In Person with Resource 09/20/2025 11:30 AM EST Office Visit Department of Hematology and Oncology [facility] Hematology Oncology [address] [place] [address] Jackelyn Lake MD [address] [place] [address] In Person with Physician 09/20/2025 12:30 PM EST Infusion [facility] Infusion Services [facility] Infusion Services 41 [facility] 3rd [place] [address] Sharon Lewis, DESK EDITOR [address] [place] [address] In Person with Resource documented as of this encounter Visit Diagnoses Not on filedocumented in this encounter Care Teams Pershing Missile Crewmember Relationship Specialty Start Date End Date Robert August [address] [facility] [address] [place] [address] PCP - General 07/19/14 01/06/25 Robert August [address] [address] PCP - Insurance Assigned PCP 02/27/22 01/06/25 Loli Lees MD [address] [place] [address] PCP - General Internal Medicine 01/07/25 Loli Lees MD [address] [place] [address] PCP - Insurance Assigned PCP 03/15/25 Jackelyn Lake MD [address] [place] [address] Consulting Provider Hematology/Oncology 04/23/16 Anabel Goldsmith NP [address] [place] [address] Nurse Practitioner Nurse Practitioner 07/16/16 Shayna Lennon NP [address] [place] [address] Nurse Practitioner Nurse Practitioner 01/14/20 Sharon Lewis, DESK EDITOR [address] [place] [address] Nurse Practitioner Nurse Practitioner 08/09/20 Jacqueline Dinero NP 330 [facility] 7 [place] [address] Nurse Practitioner Nurse Practitioner 07/02/24 Nishi Tomlinson NP [address] [place] [address] Nurse Practitioner Hematology/Oncology 07/19/25 documented as of this encounter
--- OUTSIDE RECORDS SUMMARY | 2025-09-06 19:34 | XMS_ITS | Encounter Summary ---
Author Organization [facility] Address [address] [place] [address] Care Team Providers Care Senior Quality Analyst Name Role Phone Robert August Primary Care Provider [phone] Jackelyn Fermin MD Unavailable [phone] Anabel Goldsmith CAVALRY OFFICER Unavailable [phone] Shayna Lennon CAVALRY OFFICER Unavailable Sharon Lewis CAVALRY OFFICER Unavailable [phone] Robert August Unavailable Jacqueline Dinero CAVALRY OFFICER Unavailable Loli Lees MD Primary Care Provider Loli Lees MD Unavailable [phone] Nishi Tomlinson CAVALRY OFFICER Unavailable Encounter Details Date Type Department Care Team (Late st Contact Info) Description 01/22/2013 Clinical Conversion Encounter Department of Hematology and Oncology [facility] Hematology Oncology [address] [id number] Jackelyn Fermin MD [address] [place] [phone] Social History Tobacco Use Types Packs/Day Years Used Date Smoking Tobacco: Never Assessed Comments Unknown Sex and Gender Information Value Date Recorded Sex Assigned at Female 01/05/2020 1:28 PM EDT Legal Sex Female 11:24 AM EST Gender Identity Female 01/05/2020 1:28 PM EDT Sexual Orientation Not on file documented as of this encounter Miscellaneous Notes * Telephone Encounter - Jackelyn Fermin MD - 10/25/2014 6:27 PM EST [id number],JENNIFER WOODMAN, [place]. Message Recorded as Task Date: 01/22/2013 10:42 AM, Created By: Edmund Moss Task Name: Patient-Call Back Assigned To: JACKELYN FERMIN Regarding Patient: HENRY MICHELLE, Status: Active Comment: Edmund Moss - 22 Jan 2013 10:42 AM TASK CREATED Caller: Self; I called patient, and seitched time of appts on 01/28. . She also said she couldn't make the appt for her PET scan on 01/26. I connected her to reschedle PET and asked her to call me with new date and time. Her PET scan is now scheduled for 02/06. She said she plans on keeping the appt with you on 01/28, and will figure out a wwat to get PET result, either with visit, or a call. You don't need to call her, this is just an FYI, that the PET scan will not be done before your visit, and patient is aware as well. Signatures Electronically signed by : JACKELYN FERMIN MD; Jan 22 2013 1:29PM documented in this encounter Plan of Treatment Upcoming Encounters Date Type Department Care Team (Late st Contact Info) Description 09/20/2025 10:20 AM EST Lab Department of Hematology and Oncology [facility] Hematology Oncology [address] [place] [phone] Sharon Lewis, CAVALRY OFFICER [address] [place] [phone] In Person with Resource 09/20/2025 11:30 AM EST Office Visit Department of Hematology and Oncology [facility] Hematology Oncology [address] [facility] [address] [place] [address] Jackelyn Fermin MD [address] [place] [address] In Person with Physician 09/20/2025 12:30 PM EST Infusion [facility] Infusion Services [facility] Infusion Services [address] [facility] 3rd [place] [address] Sharon Lewis, CAVALRY OFFICER [address] [place] [address] In Person with Resource documented as of this encounter Visit Diagnoses Not on filedocumented in this encounter Care Teams Senior Quality Analyst Relationship Specialty Start Date End Date Robert August [address] [place] [address] [address] [place] [id number] PCP - General 07/19/14 01/06/25 Robert August [address] [place] [address] [address] [place] [id number] PCP - Insurance Assigned PCP 02/27/22 01/06/25 Loli Lees MD [address] [place] [address] PCP - General Internal Medicine 01/07/25 Loli Lees MD [address] [place] [address] PCP - Insurance Assigned PCP 03/15/25 Jackelyn Fermin MD [address] [place] [address] Consulting Provider Hematology/Oncology 04/23/16 Anabel Goldsmith NP [address] [place] [phone] Nurse Practitioner Nurse Practitioner 07/16/16 Shayna Lennon NP [address] [place] [address] Nurse Practitioner Nurse Practitioner 01/14/20 Sharon Lewis NP [address] [place] [address] Nurse Practitioner Nurse Practitioner 08/09/20 Jacqueline Dinero NP [address] [facility] [address] [place] [address] Nurse Practitioner Nurse Practitioner 07/02/24 Nishi Tomlinson NP [address] [place] [address] Nurse Practitioner Hematology/Oncology 07/19/25 documented as of this encounter
--- OUTSIDE RECORDS SUMMARY | 2025-09-06 19:34 | XMS_ITS | Encounter Summary ---
Author Organization [facility] Address [address] [place] [address] Care Team Providers Care Panel Coverer Name Role Phone Robert August Primary Care Provider [phone] Jackelyn Lake MD Unavailable [phone] Anabel Goldsmith FELT MACHINE MECHANIC Unavailable [phone] Shayna Lennon FELT MACHINE MECHANIC Unavailable [phone] Sharon Lewis FELT MACHINE MECHANIC Unavailable [phone] Robert August Unavailable Jacqueline Dinero FELT MACHINE MECHANIC Unavailable [phone] Loli Lees MD Primary Care Provider [phone] Loli Lees MD Unavailable [phone] Nishi Tomlinson FELT MACHINE MECHANIC Unavailable [phone] Encounter Details Date Type Department Care Team (Late st Contact Info) Description 04/27/2013 Clinical Conversion Encounter [facility] General Surgery [facility] General Surgery [address] [address] Kylie Altamirano CGC Social History Tobacco Use Types Packs/Day Years Used Date Smoking Tobacco: Never Assessed Comments Unknown Sex and Gender Information Value Date Recorded Sex Assigned at Female 01/05/2020 1:28 PM EDT Legal Sex Female 11:24 AM EST Gender Identity Female 01/05/2020 1:28 PM EDT Sexual Orientation Not on file documented as of this encounter Miscellaneous Notes * Letter - Kylie Altamirano, [facility] [place] 10/26/2014 1:31 PM EST [id number],JENNIFER [place], [place]. Dear Ms. Michelle, This letter is to summarize our telephone conversation on May 15, 2013. The purpose of the conversation was to discuss your BRCA1 and BRCA2 test results. We had provided you with information on testing for alterations in the BRCA1 and BRCA2 genes at your first visit on April 27, 2013, and we arranged for a blood draw after you decided to pursue testing. The results of the Integrated BRAC Analysis and BRACAnalysis Rearrangement Test (THUAN) revealed that you do not have an alteration in the BRCA1 or BRCA2 genes. The analysis was performed at a commercial laboratory called [facility]. A copy of the test report has been enclosed for your records. There are several possible explanations for a negative test result: 1. You and your family have a mutation in the BRCA1 or BRCA2 gene, but the current testing technology is not sensitive enough to detect it. 2. There is a BRCA mutation in your family, but you did not inherit it. 3. There may be a different gene alteration in you and your family. This test only looked at the BRCA1 and BRCA2 genes. Researchers are still looking for other genes linked to breast and ovarian cancer. 4. The cancer in you and your family may not be due to an inherited factor. The cancer may have been caused by other risk factors. Based on your personal history of breast cancer and the absence of a family history for early onset breast and ovarian cancer, options 4 seems to be the most likely explanation, although we cannot conclusively say this. In the future, we may be able to offer you additional testing. If the sensitivity of the BRCA test increases, you may want to consider undergoing additional genetic testing. We once again discussed the availability of another genetic test which screened for 14 additional hereditary breast cancer genes called BreastNext. You were not interested in pursuing this additional testing at the time of our conversation. If your decision changes in the future, please do not hesitate to contact us. During our discussions, we talked about the likelihood that your history of breast cancer could be due to a BRCA1 or BRCA2 alteration. Whenever there is a personal or family history of breast cancer or ovarian cancer, it is important to consider whether there could be an inherited factor (gene) responsible for the cancer in the family. Members of a family can develop cancer due to chance events, shared environmental exposures, or similar lifestyles. Hereditary factors (altered genes) account for only a small number of cancer cases. It is important to realize that the test did not determine the underlying cause of cancer in you and your family. Although this result does not completely rule out the possibility of inherited cancer susceptibility, it does significantly reduce the likelihood of an altered breast/ovarian cancer susceptibility gene. You should continue to be monitored carefully because of your history of cancer. We suggest that you discuss the specifics of this screening with your physicians. Breast cancer treatment should continue as recommended by your breast surgeon, Dr. Sravan Ahn, and your oncologist, Dr. Jackelyn Lake. Gynecological screening should continue as recommended by your ground nuclear weapons assembly officer, Dr. Roebrto Montemayor. Colorectal cancer screening should begin at the age of 50 with a colonoscopy every 5-10 years. Please note that the results of any future genetic testing that is performed may alter these recommendations. The information we discussed and reviewed in this letter is what is known of this date. With the rapid pace of medical research, new discoveries may modify our assessment and approach to you and your family in the future. Therefore, we encourage you to re-contact us periodically for information on advances in the field. You may also contact us with additional questions or updates regarding your family history. Again, it was a pleasure meeting you. I hope that our meeting and this letter are helpful to you. If you have any questions or concerns, please do not hesitate to contact me at [phone]. Sincerely, Kylie Altamirano MS, [facility] [place] Certified Genetic Counselor [phone] Enclosures: Test Result, Updated Family History Electronically signed by : KYLIE ALTAMIRANO CGC; May 15 2013 11:43AM Electronically signed by : SRAVAN AHN MD; May 18 2013 3:34PM Electronically signed by Kylie Altamirano [facility] at 11/10/2014 4:45 PM EST * Letter - Kylie Altamirano CGC - 10/26/2014 10:05 AM EST [id number] MICHELLE [place], [place]. Dear Ms. Michelle, It was a pleasure meeting with you and your sister, Jacqueline, at [facility] April 27, 2013. The reason for your consultation was your personal and family history of breast cancer. This letter is intended to summarize the information we discussed during your visit. Personal and Family History We began by reviewing your personal history and you indicated that you are 42 years old and of [place] descent on your father's side of the family, and [place]har[place] descent on your mother's side. 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 You have been receiving tamoxifen therapy as well as Lupron since October of 2012 and surgery is planned for the Fall. A left mastectomy has been recommended as well as radiation therapy. Your uterus and both ovaries are intact. You denied fertility medication and hormone replacement use. You used oral contraceptive pills in the past for approximately 10 years. You do not have any children. Your last pelvic exam and Pap smear were performed in March by our ground nuclear weapons assembly officer, Dr. Roberto Montemayor. A baseline transvaginal ultrasound was also recommended at this time. You shared that you are proceeding with risk reducing bilateral salpingo-oophorectomy based on your diagnosis of breast cancer. You shared that you do have a history of uterine fibroids. You have never had a colonoscopy for any reason. Your a smoker but stated you have cutdown and are hoping to quit soon. We reviewed your family history and you indicated that you have two full sisters, ages 33 and 42 (Jacqueline and Anabel), and they are both cancer free. Both of these sisters have a uterus and ovaries intact. Jacqueline has not started annual mammograms but Anabel has. Jacqueline has a 2-year-old son who is healthy. Anabel does not have any children. You also have 2 paternal half siblings, a 20-year-old sister (Cata) as well as a 24-year-old brother (Sam) and they are both cancer free. Neither Cata or Sam have children. Your 66-year-old mother was diagnosed with postmenopausal breast cancer at 64 and had a lumpectomy followed by radiation therapy and tamoxifen therapy. She is a nonsmoker. Her uterus and both ovaries are intact. She is a 72-year-old brother, Naun, the information about him was unknown to you. He has children but once again information was unknown. Your maternal grandparents in their 90s, and they were cancer free. Your grandmother had her uterus and both ovaries intact. Your 72-year-old father reportedly had a basal cell carcinoma removed from his scalp. He is a former smoker. He has 6 sisters, and one at 65 due to heart disease. She was cancer free. His remaining 5 sisters are living and cancer free at 58, 62, 65, 67, and 71. Two of these paternal aunts (the 62 and [id number]) had hysterectomies with surgical removal of both ovaries due to uterine fibroids in their late 50s. There is no known history of cancer in your paternal first cousins who range in age from 20s to 50s. Your paternal grandmother at 73, and she was cancer free. Her uterus and both ovaries were intact. Your paternal grandfather at 63 due to lung cancer. He was a smoker. You indicated that there is no other family history of cancer. It is important to realize that our recommendations are based on your recollection of your family history. Please contact us if your family history of cancer changes, if you gather additional information, or if this information is recorded incorrectly as this may alter our impression or recommendations for your family. Background Information As you may know, cancer is relatively common; 1 in 3 Americans (30%) will develop cancer at some point during their lifetime. Women have a 1 in 9 (11%) chance of developing breast cancer and a 1 in 57 (1 to 2%) chance of developing ovarian cancer over the course of a lifetime. Only about 5-10% of cancer cases are caused by a hereditary predisposition that is passed on within a family. The majority of cancer is due to other factors, such as chance events, the aging process, or environmental exposures. To briefly review, genes are units of inheritance that code for traits and conditions, such as eye color or hair texture. Genes are located on structures called chromosomes. Individuals typically have 46 chromosomes that come in 23 pairs. One copy of each chromosome pair (and therefore each gene) comes from our mother and the other from our father. Similarly, we pass on one copy of each chromosome pair to our children. Genes make proteins that are necessary for the proper growth and development of the body. Each gene is made up of an informational code called DNA. If you think of a gene as a very large book, DNA is the alphabet that makes up the words and sentences in the book. When a gene is altered, it simply means there is a typographical error (typo) in the book. This alteration (or mutation ) makes the gene unable to function properly. Alterations can be as large as an entire chapter missing from the book, or as small as a single letter change within a word. Genetics of Cancer Alterations in certain genes (called cancer predisposition genes) may increase an individual's chance to develop specific types of cancer. BRCA1 and BRCA2 are two cancer predisposition genes that are associated with the majority of cases of inherited breast and ovarian cancer. BRCA1 and BRCA2 code for a protein that helps prevent cells from growing into tumors. There are other genes (some known, others unknown) that can predispose an individual to breast and ovarian cancer. People who inherit an alteration in one of these genes are born with only one working copy of that gene in each of the cells of their body. Usually, one copy is sufficient to prevent tumor formation. However, environmental factors and random copying errors continually cause small changes in our genes. If the single working copy of BRCA1 or BRCA2 in a particular cell also gets altered so that it no longer functions, that cell is vulnerable to starting the process toward cancer. Cancer Susceptibility Alterations in the BRCA1 gene are associated with a 50-80% chance of developing breast cancer and a 20-40% chance of developing ovarian cancer over the course of a woman's lifetime. Alterations in the BRCA2 gene are associated with a 40-70% chance of developing breast cancer and a 10-20% chance of developing ovarian cancer over the course of a woman's lifetime. There is an increased chance of developing a second breast or ovarian cancer in an individual with a BRCA1 or BRCA2 alteration. Men with a BRCA1/2 gene alteration have an up to 6% lifetime chance to develop breast cancer and an up to 20% lifetime chance to develop prostate cancer. There is also a slight increased risk for melanoma, esophageal, stomach, and pancreatic cancers in both men and women. While the chances for developing cancer may be greatly increased when compared to an individual in the general population, it is important to realize that there are some individuals with a BRCA1 or BRCA2 alteration who never go on to develop cancer. If an individual is found to have an alteration in the BRCA1 or BRCA2 gene, there is a 1 in 2 (or 50%) chance that each child would inherit the altered gene. Both men and women can have alterations in these genes and have a chance to pass on the alteration to a child. Risk Assessment Signs of an inherited susceptibility to cancer include: - Multiple family members affected with the same cancer (such as breast cancer) or related cancers (such as breast and ovarian) - Earlier than average ages of diagnosis - Multiple primary cancers in the same individual (such as cancer in both breasts) - Cancer occurring in multiple generations Based on your personal history of early onset breast cancer as well as your family history, including your mother with breast cancer, it is possible that the cancer in you and your family is due to an inherited cancer predisposition gene. Using current statistical models, we can estimate the chance for you to have an alteration in the BRCA1 or BRCA2 genes is slightly higher than the average woman. Genetic testing is recommended for you at this time. We also spent time discussing the availability of another genetic test which screens for 14 additional hereditary breast cancer genes (MINA, BARD1, BRIP1, CDH1, CHEK2, MRE11A, MUTYH, NBN, PALB2, PTEN, RAD50, RAD51C, STK11, and TP53) called BreastNext Gene Analysis. This test is offered by [facility] in [place] with a test cost of approximately $4,120. Results are typically available in 3-4 months. The genes included on BreastNext may be associated with several different types of cancer (i.e. breast, ovarian, uterine, colorectal, gastric) and are also associated with different levels of cancer risk. Cancer screening and risk management recommendations will depend on the gene(s) in which a mutation is found. Cancer risks and medical management recommendations may not be well-defined for some of the genes on this panel. In addition, identification of a mutation does not imply that cancer screening and risk management options are available or will be covered by health insurance. If mutations are identified in more than one gene on this panel, there may not be sufficient information available to determine your exact cancer risk. However, identification of a mutation(s) may also help to explain your personal and family history of breast cancer and guide future cancer surveillance for you and your family. In addition to increasing cancer risk, some genes on BreastNext (i.e. MINA, PALB2) have also been implicated in other genetic conditions which are inherited in a recessive manner. This means that if an individual is identified to carry a mutation in one of these genes and their partner also carries a mutation in the same gene, there is a 25% chance that each of their children is affected by one of these recessive conditions. The overall risk of having a child affected with one of these conditions is low. However, further genetic counseling would be recommended in these instances. You are provided with additional information regarding BreastNext at the time of your appointment. [facility] can perform a pre-verification of your insurance benefits prior to ordering the test to help determine whether or not your insurance company will provide coverage for this testing. We discussed that if your BRCA1/2 testing is normal, then BreastNext will be available to you if desired. Genetic Testing We discussed the possibility of testing you for alterations in the BRCA1 and BRCA2 genes that are commonly associated with hereditary breast and ovarian cancer. Genetic testing involves taking a blood sample and checking the DNA pattern of a gene for an alteration. The testing is done by [facility] and involves a laboratory-testing fee of approximately $4040. Insurance may cover the cost of this testing. Results of genetic testing are most informative if an individual who has been diagnosed with cancer is tested first. There are three possible test results: 1. An alteration is found. This is a positive test result and confirms that your personal and family history of breast cancer is due, in part, to inherited cancer susceptibility. This confers an increased chance of developing cancer during your lifetime. There is a 1 in 2 (50%) chance that each of your siblings also inherited the altered gene. 2. No alteration is found in you and an altered gene has NOT previously been found in another family member. This is a negative test result, but the result has provided little new information about your cancer risk. You may still have an inherited cancer susceptibility because of another alteration that was not detected in the BRCA1 or BRCA2 genes, or in another gene that was not analyzed in this test. It is possible that you do not have an inherited susceptibility at all. It is not possible to distinguish between these possibilities at this time. 3. An alteration was found, but the meaning is unknown (called a variant of uncertain significance ). An alteration was found in BRCA1/2, but it is unknown if the alteration causes the gene to stop functioning properly (also called a mutation ) or if it is just a normal variant (also called a polymorphism ) that is not associated with an increased risk of cancer. The lab will continue to evaluate the alteration to try to clarify this result. The pros, cons, and limitations of genetic testing were discussed at length, including potential implications of test results on clinical management. We discussed the possible psychological implications of genetic testing, issues of family dynamics, and concerns regarding confidentiality and insurance coverage. Recommendations At the time of your appointment, you elected to proceed with genetic testing and had a blood sample drawn. We also submitted the paperwork to determine insurance coverage for this genetic testing. If the genetic testing is not covered in full and the cost to you is more than $375, then you will be contacted by [facility] and given the option to pay out of pocket for the test or to cancel it. Once the test results are available, usually in about 3 weeks, we will schedule another appointment to disclose the results. A results appointment will be scheduled regardless of whether or not the results are positive, negative, or inconclusive. In the absence of genetic testing, it is important that you are screened appropriately for cancer. You should continue surveillance for breast, gynecological, and colorectal cancer as recommended by your physicians. Breast cancer treatment should continue as recommended by your breast surgeon, Dr. Sravan Ahn, and your oncologist, Dr. Jackelyn Lake. As stated above, your expecting to proceed with left mastectomy in the Fall. You do plan to use your BRCA1/2 genetic test results to help determine whether or not risk reducing right mastectomy is also warranted. Gynecological screening should continue as recommended by your ground nuclear weapons assembly officer, Dr. Montemayor. You shared that you are planning to proceed with risk reducing bilateral salpingo-oophorectomy based on your breast cancer history and the possibility of prolonged Lupron use. Colorectal cancer screening should begin at the age of 50 with a colonoscopy every 5-10 years. Please note that the results of any genetic testing that is performed may alter these recommendations. The information we discussed and reviewed in this letter is what is known of this date. With the rapid pace of medical research, new discoveries may modify our assessment and approach to you and your family in the future. Therefore, we encourage you to re-contact us periodically for information on advances in the field. You may also contact us with additional questions or updates regarding your family history. Again, it was a pleasure meeting you. I hope that our meeting and this letter are helpful to you. If you have any questions or concerns, please do not hesitate to contact me at [phone]. Sincerely, Kylie Altamirano, MS, [facility] Certified Genetic Counselor [phone] Enclosure: Family History Electronically signed by : KYLIE ALTAMIRANO CGC; Apr 27 2013 2:57PM Electronically signed by : SRAVAN AHN MD; Apr 29 2013 1:53PM Electronically signed by Kylie Altamirano [facility] at 11/09/2014 8:50 PM EST documented in this encounter Plan of Treatment Upcoming Encounters Date Type Department Care Team (Late st Contact Info) Description 09/20/2025 10:20 AM EST Lab Department of Hematology and Oncology [facility] Hematology Oncology [address] [place] [id number] Sharon Lewis NP [address] [place] [address] In Person with Resource 09/20/2025 11:30 AM EST Office Visit Department of Hematology and Oncology [facility] Hematology Oncology [address] [place] [address] Jackelyn Lake MD [address] [place] [address] In Person with Physician 09/20/2025 12:30 PM EST Infusion [facility] Infusion Services [facility] Infusion Services [address] [place] [address] Sharon Lewis NP [address] [place] [address] In Person with Resource documented as of this encounter Visit Diagnoses Not on filedocumented in this encounter Care Teams Panel Coverer Relationship Specialty Start Date End Date Robert August [address] [place] [id number] PCP - General 07/19/14 01/06/25 Robert August [address] [place] [address] PCP - Insurance Assigned PCP 02/27/22 01/06/25 Loli Lees MD [address] [place] [address] PCP - General Internal Medicine 01/07/25 Loli Lees MD [address] [place] [address] PCP - Insurance Assigned PCP 03/15/25 Jackelyn Lake MD [address] [place] [address] Consulting Provider Hematology/Oncology 04/23/16 Anabel Goldsmith, FELT MACHINE MECHANIC [address] [place] [phone] Nurse Practitioner Nurse Practitioner 07/16/16 Shayna Lennon NP [address] [place] [address] Nurse Practitioner Nurse Practitioner 01/14/20 Sharon Lewis, FELT MACHINE MECHANIC [address] [place] [address] Nurse Practitioner Nurse Practitioner 08/09/20 [facility] [address] [facility] [address] [address] Nurse Practitioner Nurse Practitioner 07/02/24 Nishi Tomlinson FELT MACHINE MECHANIC [address] [place] [address] Nurse Practitioner Hematology/Oncology 07/19/25 documented as of this encounter
--- OUTSIDE RECORDS SUMMARY | 2025-09-06 19:34 | XMS_ITS | Encounter Summary ---
Author Organization Damaris Elvin David [facility] Address [address] [place] [address] Care Team Providers Care Billet Worker Name Role Phone Robert August Primary Care Provider Jackelyn Fermin MD Unavailable [phone] Anabel Goldsmith CREATIVE PROJECT MANAGER Unavailable [phone] Shayna Lennon CREATIVE PROJECT MANAGER Unavailable [phone] Sharon Lewis CREATIVE PROJECT MANAGER Unavailable [phone] Robert August Unavailable Jacqueline Dinero CREATIVE PROJECT MANAGER Unavailable [phone] Loli Lees MD Primary Care Provider Loli Lees MD Unavailable [phone] Nishi Tomlinson CREATIVE PROJECT MANAGER Unavailable Encounter Details Date Type Department Care Team (Late st Contact Info) Description 11/07/2012 Clinical Conversion Encounter Department of Hematology and Oncology [facility] Hematology Oncology [address] [id number] Jackelyn Fermin MD [address] [place] [address] Social History Tobacco Use Types Packs/Day Years [...] Encounter - Jackelyn Fermin MD - 10/25/2014 11:24 AM EST [id number] MICHELLE [place]. Message Recorded as Task Date: 10/30/2012 10:18 AM, Created By: JACKELYN FERMIN Task Name: Provider Initiated Assigned To: JACKELYN FERMIN Regarding Patient: HENRY MICHELLE, Status: In Progress Comment: JACKELYN FERMIN - 30 Oct 2012 10:18 AM TASK CREATED check Her-2 JACKELYN FERMIN - 31 Oct 2012 11:59 AM TASK EDITED JACKELYN FERMIN - 07 Nov 2012 3:07 PM TASK IN PROGRESS JACKELYN FERMIN - 07 Nov 2012 3:21 PM TASK EDITED I contacted the patient with the results of her vitamin D level which was low. I recommended a course of high-dose, weekly vitamin D. I also explained to her that her HER-2/genesis testing is being repeated. They have had difficulty with adequacy of the specimen. Apparently she has a very difficult tumor to biopsy with a needle. It is also quite painful for her. I am afraid that the current specimen will also be determined to be inadequate. This was reviewed at this morning's tumor conference. Dr. Mcnulty is aware and is likely going to schedule the patient for an excisional biopsy in the OR. The patient expressed understanding of the situation. In the meantime she'll continue with tamoxifen and Lupron. She will call with any questions or concerns. Signatures Electronically signed by : JACKELYN FERMIN MD; Nov 07 2012 3:22PM documented in this encounter Plan of Treatment Upcoming Encounters Date Type Department Care Team (Late st Contact Info) Description 09/20/2025 10:20 AM EST Lab Department of Hematology and Oncology [facility] Hematology Oncology [address] [place] [address] Sharon Lewis, CREATIVE PROJECT MANAGER [address] [place] [address] In Person with Resource 09/20/2025 11:30 AM EST Office Visit Department of Hematology and Oncology [facility] On[facility] [address] [address] Jackelyn Fermin MD [address] [place] [address] In Person with Physician 09/20/2025 12:30 PM EST Infusion [facility] Infusion Services [facility] Infusion Services 41 [facility] 3rd [place] [address] Sharon Lewis, CREATIVE PROJECT MANAGER [address] [place] [address] In Person with Resource documented as of this encounter Visit Diagnoses Not on filedocumented in this encounter Care Teams Billet Worker Relationship Specialty Start Date End Date Robert August [address] [place] [address] PCP - General 07/19/14 01/06/25 Robert August [address] [place] [address] PCP - Insurance Assigned PCP 02/27/22 01/06/25 Loli Lees MD [address] [place] [address] PCP - General Internal Medicine 01/07/25 Loli Lees MD [address] [place] [address] PCP - Insurance Assigned PCP 03/15/25 Jackelyn Fermin MD [address] [place] [address] Consulting Provider Hematology/Oncology 04/23/16 Anabel Goldsmith CREATIVE PROJECT MANAGER [address] [place] [address] Nurse Practitioner Nurse Practitioner 07/16/16 Shayna Lennon NP [address] [place] [address] Nurse Practitioner Nurse Practitioner 01/14/20 Sharon Lewis NP [address] [place] [address] Nurse Practitioner Nurse Practitioner 08/09/20 Jacqueline Dinero NP [address] [place] [address] [address] Nurse Practitioner Nurse Practitioner 07/02/24 Nishi Tomlinson NP [address] [place] [address] Nurse Practitioner Hematology/Oncology 07/19/25 documented as of this encounter
--- OUTSIDE RECORDS SUMMARY | 2025-09-06 19:34 | XMS_ITS | Encounter Summary ---
Author Organization Damaris saul Address [address] [place] [address] Care Team Providers Care Hangersmith Name Role Phone Robert August Primary Care Provider [phone] Jackelyn Lake MD Unavailable [phone] Anabel Goldsmith ADVERTISING COPY WRITER Unavailable [phone] Shayna Lennon ADVERTISING COPY WRITER Unavailable [phone] Sharon Lewis ADVERTISING COPY WRITER Unavailable [phone] Robert August Unavailable Jacqueline Dinero ADVERTISING COPY WRITER Unavailable [phone] Loli Lees MD Primary Care Provider [phone] Loli Lees MD Unavailable [phone] Nishi Tomlinson ADVERTISING COPY WRITER Unavailable [phone] Encounter Details Date Type Department Care Team (Late st Contact Info) Description 05/22/2013 Clinical Conversion Encounter GENERAL CONVERSION [place] Nelson, RN [address] [place] [address] [id number] Social History Tobacco Use Types Packs/Day Years Used Date Smoking Tobacco: Never Assessed Comments Unknown Sex and Gender Information Value Date Recorded Sex Assigned at Female 01/05/2020 1:28 PM EDT Legal Sex Female 11:24 AM EST Gender Identity Female 01/05/2020 1:28 PM EDT Sexual Orientation Not on file documented as of this encounter Progress Notes * [place] Nelson RN - 10/26/2014 1:31 PM EST [id number] MICHELLE [place], [place]. HEMATOLOGY and ONCOLOGY HENRY MICHELLE 05/22/2013 # [id number] : 1970 Second Visit ID: [id number] Visit ID: [id number] Subcutaneous/ Intramuscular Injection Type of Injection: Lupron 7.5 mg. (x ) Intramuscular ( ) Subcutaneous Injection site ( ) Left arm ( ) Right arm ( ) Bilateral arms ( x) Right hip ( ) Left hip ( ) Right Deltoid ( ) Left Deltoid ( ) Right thigh ( ) Left thigh ( ) LUQ of abdomen ( ) LLQ of abdomen ( ) RUQ of abdomen ( ) RLQ of abdomen (x ) comments:Pt. assessed by Dr. Lake today and orders to proceed with above injection. Labs reviewed at time of ADVERTISING COPY WRITER appt. Pt tolerated injection well, site benign. Pt ambulatory upon d/c, unaccompanied. RV 1 month. [place] Nelson RN, ASN [phone] ALH: J: [id number] CC: THIS DOCUMENT WAS ELECTRONICALLY AUTHENTICATED BY [place] Nelson RN, ASN ON 05/22/2013 15:46:33 documented in this encounter Plan of Treatment Upcoming Encounters Date Type Department Care Team (Late st Contact Info) Description 09/20/2025 10:20 AM EST Lab Department of Hematology and Oncology [facility] Hematology Oncology [address] [place] [address] Sharon Lewis, ADVERTISING COPY WRITER [address] [place] [address] In Person with Resource 09/20/2025 11:30 AM EST Office Visit Department of Hematology and Oncology [facility] Hematology Oncology [address] [place] [address] Jackelyn Lake MD [address] [place] [address] In Person with Physician 09/20/2025 12:30 PM EST Infusion [facility] Infusion Services [facility] Infusion Services 41 [facility] 3rd [place] [address] Sharon Lewis, STU [address] [place] [address] In Person with Resource documented as of this encounter Visit Diagnoses Not on filedocumented in this encounter Care Teams Hangersmith Relationship Specialty Start Date End Date Robert August [address] [place] [address] PCP - General 07/19/14 01/06/25 Robert August [address] [place] [address] [address] [place] [address] PCP - Insurance Assigned PCP 02/27/22 01/06/25 Loli Lees MD [address] [place] [address] PCP - General Internal Medicine 01/07/25 Loli Lees MD [address] [place] [address] PCP - Insurance Assigned PCP 03/15/25 Jackelyn Lake MD [address] [place] [address] Consulting Provider Hematology/Oncology 04/23/16 Anabel Goldsmith NP [address] [place] [address] Nurse Practitioner Nurse Practitioner 07/16/16 Shayna Lennon NP [address] [place] [address] Nurse Practitioner Nurse Practitioner 01/14/20 Sharon Lewis NP [address] [place] [address] Nurse Practitioner Nurse Practitioner 08/09/20 Jacqueline Dinero NP [address] [place] [address] 7 [place] [address] Nurse Practitioner Nurse Practitioner 07/02/24 Nishi Tomlinson NP [address] [place] [address] Nurse Practitioner Hematology/Oncology 07/19/25 documented as of this encounter
--- OUTSIDE RECORDS SUMMARY | 2025-09-06 19:34 | XMS_ITS | Encounter Summary ---
Author Organization Damaris Elvin David [facility] Address [address] [place] [address] Care Team Providers Care Paint Mixer Hand Name Role Phone Robert August Primary Care Provider [phone] Jackelyn Lake MD Unavailable [phone] Anabel Goldsmith MANAGER ADOBE Unavailable [phone] Shayna Lennon MANAGER ADOBE Unavailable Sharon Lewis MANAGER ADOBE Unavailable [phone] Robert August Unavailable Jacqueline Dinero MANAGER ADOBE Unavailable [phone] Loli Lees MD Primary Care Provider [phone] Loli Lees MD Unavailable [phone] Nishi Tomlinson MANAGER ADOBE Unavailable [phone] Encounter Details Date Type Department Care Team (Late st Contact Info) Description 09/03/2013 Clinical Conversion Encounter [facility] General Surgery [facility] General Surgery [address] [address] Sravan Mcnulty MD Social History Tobacco Use Types Packs/Day Years Used Date Smoking Tobacco: Never Assessed Comments Unknown Sex and Gender Information Value Date Recorded Sex Assigned at Female 01/05/2020 1:28 PM EDT Legal Sex Female 11:24 AM EST Gender Identity Female 01/05/2020 1:28 PM EDT Sexual Orientation Not on file documented as of this encounter Progress Notes * Sravan Mcnulty MD - 10/27/2014 9:42 AM EST [id number],[facility] [place], [place]. Her incision is now healed. There is no evidence of residual seroma or infection. She may now commence radiation therapy. I will see her in January Assessment 1. Breast Cancer 174.9 Signatures Electronically signed by : SRAVAN MCNULTY MD; Sep 03 2013 11:24AM documented in this encounter Plan of Treatment Upcoming Encounters Date Type Department Care Team (Late st Contact Info) Description 09/20/2025 10:20 AM EST Lab Department of Hematology and Oncology [facility] Hematology Oncology [address] [place] [address] Sharon Lewis NP [address] [place] [address] In Person with Resource 09/20/2025 11:30 AM EST Office Visit Department of Hematology and Oncology [facility] Hematology Oncology [address] [place] [address] Jackelyn Lake MD [address] [place] [address] In Person with Physician 09/20/2025 12:30 PM EST Infusion [facility] Infusion Services [facility] Infusion Services [address] [place] [address] 3[address] [place] [address] Sharon [place] NP [address] [place] [address] In Person with Resource documented as of this encounter Visit Diagnoses Not on filedocumented in this encounter Care Teams Paint Mixer Hand Relationship Specialty Start Date End Date Robert August [address] [place] [address] PCP - General 07/19/14 01/06/25 Robert August [address] [place] [address] PCP - Insurance Assigned PCP 02/27/22 01/06/25 Loli Lees MD [address] [place] [address] PCP - General Internal Medicine 01/07/25 Loli Lees MD [address] [place] [address] PCP - Insurance Assigned PCP 03/15/25 Jackelyn Lake MD [address] [place] [address] Consulting Provider Hematology/Oncology 04/23/16 Anabel Goldsmith, MANAGER ADOBE [address] [place] [address] Nurse Practitioner Nurse Practitioner 07/16/16 Shayna Lennon NP [address] [place] [address] Nurse Practitioner Nurse Practitioner 01/14/20 Sharon Lewis MANAGER ADOBE [address] [place] [address] Nurse Practitioner Nurse Practitioner 08/09/20 Jacqueline Dinero NP [address] [place] [address] Nurse Practitioner Nurse Practitioner 07/02/24 Nishi Tomlinson MANAGER ADOBE [address] [place] [address] Nurse Practitioner Hematology/Oncology 07/19/25 documented as of this encounter
--- OUTSIDE RECORDS SUMMARY | 2025-09-06 19:34 | XMS_ITS | Encounter Summary ---
Author Organization Damaris Elvin David [facility] Address [address] [place] [address] Care Team Providers Care Service Line Bus Cleaner Name Role Phone Robert August Primary Care Provider [phone] Jackelyn Lake MD Unavailable [phone] Anabel Goldsmith RN GYN Unavailable [phone] Shayna Lennon RN GYN Unavailable [phone] Sharon Lewis RN GYN Unavailable [phone] Robert August Unavailable Jacqueline Dinero RN GYN Unavailable [phone] Loli Lees MD Primary Care Provider [phone] Loli Lees MD Unavailable [phone] Nishi Tomlinson RN GYN Unavailable [phone] Encounter Details Date Type Department Care Team (Late st Contact Info) Description 01/28/2014 Clinical Conversion Encounter [facility] General Surgery [facility] General Surgery [address] [address] Sravan Mcnulty MD Social History Tobacco Use Types Packs/Day Years Used Date Smoking Tobacco: Never Assessed Comments Unknown Sex and Gender Information Value Date Recorded Sex Assigned at Female 01/05/2020 1:28 PM EDT Legal Sex Female 11:24 AM EST Gender Identity Female 01/05/2020 1:28 PM EDT Sexual Orientation Not on file documented as of this encounter Progress Notes * Sravan Mcnulty MD - 11/04/2014 9:25 AM EST [id number] MICHELLE REVISED [facility] [place]. History of Present Illness ONCOLOGIC HISTORY: This is a 42-year-old premenopausal woman who on September 26, 2012 underwent a left breast ultrasound-guided biopsy. This [...] the left supraclavicular area and axillary apex. She returns today in followup now 6 months postop. She is no chest wall complaints and denies any evidence of chest wall recurrence. 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 Tobacco Use 305.1 Visit For: Postsurgical Exam V67.00 Vitamin D Deficiency 268.9 Past Medical History History of Imaging Studies Nonspecific Abnormal Findings Lung Field 793.19 Surgical History Bx Breast Percutan Needle Core Use Imag Guide (Stereotactic) BX BREAST; PERQ W/O GUID -SEP PROC - 30583 CYTOPATHOLOGY,IMMED, TO DETERM ADEQ 4 DX,EA SEP ADDL EVAL EPISODE,SAME SITE - 21022 Flexible Bronchography With Endobrachial Ultrasound Rigid Bronchoscopy With Transbronch Needle Aspiration Biopsy History of Salpingo-oophorectomy Current Meds Lisinopril 20 MG Oral Tablet; TAKE 1 TABLET DAILY; Therapy: 01Oct2012 to (Evaluate:28Feb2014) Requested for: 30Nov2013; Last Rx:30Nov2013 Tamoxifen Citrate 20 MG Oral Tablet; Take 1 tab orally once a day; Therapy: [id number] to (Last Rx:30Nov2013) Requested for: 30Nov2013 Vitamin D 1000 UNIT Oral Tablet; TAKE 1 TABLET DAILY; Therapy: 31Dec2012 to (Evaluate:09Jul2013) Allergies Erythromycin Derivatives Penicillins Benadryl CAPS Review of Systems Gen.: No fevers, chills, No weight loss. No nausea or vomiting. TRANSITION COACH: No headache, weakness, numbness or vertigo. Respiratory: No shortness of breath, no wheezing, no cough Cardiac: No chest pain, palpitations, no orthopnea Heme: no night sweats no c/o lymphadenopathy GI: No abdominal pain no GI bleeding. : No polyuria no frequency no dysuria MSK: No bony pain. Skin: No rashes, focal lesions, no hair loss. ENT: no recent change in hearing, tinnitus Vitals [facility] Vitals Data Includes: Current Encounter 28Jan2014 11:12AM Pain Score 0 Allergy Status Reviewed Yes Safe at Home Yes Chaperoned During Appointment Yes Chaperoned By [place] Mason Physical Exam Physical examination reveals a pleasant female in no acute distress. Alert, oriented x3,. There is no scleral icterus. The trachea is midline. There is no thyromegaly. The lungs are clear to IPP A. The heart sounds are normal. Bowel sounds are normal. There is no hepatosplenomegaly, inguinal adenopathy, or other abdominal pathology noted. There is no cervical, supraclavicular, nor axillary adenopathy noted. The right breast is normal and no masses are palpable. Breast is surgically absent and shows evidence of radiation change but there is no evidence of recurrence. Results/Data All Results Data Includes: Last 6 Weeks 20Jan2014 02:49PM CT Thorax with Contrast CT Thorax with Cont: ATTENDING/SUPERVISING PROVIDER: CHE COVINGTON DESCRIPTION:CT chest, abdomen, pelvis with enhancement TECHNIQUE:Initial non contrast images obtained through the abdomen. 100 cc of Omnipaque 300 intravenous contrast were administered. Initial arterial phase images obtained through the abdomen with venous phase images obtained from the thoracic inlet through the pelvis and delayed phase images through the upper abdomen. Examination was performed on 01/20/2014 2:49 PM. COMPARISON:PET-CT June 30, 2013. PET-CT October 10, 2012. INDICATION:Metastatic breast cancer. FINDINGS:THORAX: Ill-defined ground-glass opacity axillary segment left upper lobe new suspect evolving post radiation change. Lungs otherwise clear. Interval postsurgical change left breast and axilla. New no mediastinal, hilar, or axillary adenopathy. No pleural or pericardial effusion. ABDOMEN: Liver, gallbladder, spleen, adrenals, pancreas, kidneys unremarkable. Normal caliber abdominal aorta with no para-aortic adenopathy and mild calcific atherosclerotic change. Stomach, duodenum, small bowel, appendix normal. Moderate colonic stool. 3 no obstruction or pneumoperitoneum. No ascites. No suspicious mesenteric adenopathy or nodularity. PELVIS: Stable concentric bladder wall thickening nonspecific via volume. Anteverted uterus. Heterogeneous nodule in the ventral fundus suspect fibroid measuring 1.7 cm. No adnexal mass. No pelvic adenopathy. OSSEOUS: Multiple sclerotic lesions pelvis, ribs, right shoulder and vertebral bodies largest measuring 8 mm L5 vertebral body new from PET-CT October 10, 2012 concerning for sclerotic metastatic disease not significantly changed in size from PET-CT of June 30, 2013. IMPRESSION:1. Multiple chronic osseous lesions concerning for skeletal metastatic disease stable from June 30, 2013. 2. Presumed postradiation evolving consolidation and ground-glass opacity axillary segment left upper lobe. Suggest followup CT thorax in 3 months re-evaluate. 3. Postsurgical/radiation changes left breast and axilla. 4. Fibroid uterus. 5. Unchanged nonspecific concentric bladder wall thickening. This document was electronically signed by CHE COVINGTON MD on 01/20/2014 15:12:00 I concurred with her with the interpretation of her CTs which shows that she has had all along small bony metastatic disease. This was not previously appreciated. His unchanged since her original evaluation to Assessment 1. Breast Cancer 174.9 I discussed the implications of this with the patient. We also discussed her planned reconstruction. I discussed with her in detail the option of deep flap vs. TRAM flap and the risk and benefits of these 2 strategies. I think she will ultimately choose TRAM flap. I will see her in 6 months Signatures Electronically signed by : SRAVAN MCNULTY MD; Jan 28 2014 1:48PM Electronically signed by : SRAVAN MCNULTY MD; Jan 28 2014 1:49PM documented in this encounter Plan of Treatment Upcoming Encounters Date Type Department Care Team (Late st Contact Info) Description 09/20/2025 10:20 AM EST Lab Department of Hematology and Oncology [facility] Hematology Oncology [address] [place] [address] Sharon Lewis NP [address] [place] [address] In Person with Resource 09/20/2025 11:30 AM EST Office Visit Department of Hematology and Oncology [facility] Hematology Oncology [address] [place] [address] Jackelyn Lake MD [address] [place] [address] In Person with Physician 09/20/2025 12:30 PM EST Infusion [facility] [address] [place] [address] [address] [place] [address] Sharon Lewis NP [address] [place] [address] In Person with Resource documented as of this encounter Visit Diagnoses Not on filedocumented in this encounter Care Teams Service Line Bus Cleaner Relationship Specialty Start Date End Date Robert August [address] [facility] [address] [place] [address] PCP - General 07/19/14 01/06/25 Robert August [address] [facility] [address] [place] [address] PCP - Insurance Assigned PCP 02/27/22 01/06/25 Loli Lees MD [address] [place] [address] PCP - General Internal Medicine 01/07/25 Loli Lees MD [address] [place] [address] PCP - Insurance Assigned PCP 03/15/25 Jackelyn Lake MD [address] [place] [address] Consulting Provider Hematology/Oncology 04/23/16 Anabel Goldsmith NP [address] [place] [address] Nurse Practitioner Nurse Practitioner 07/16/16 Shayna Lennon NP [address] [place] [address] Nurse Practitioner Nurse Practitioner 01/14/20 Sharon Lewis, STU [address] [place] [address] Nurse Practitioner Nurse Practitioner 08/09/20 Jacqueline Dinero, STU [address] [place] [address] Nurse Practitioner Nurse Practitioner 07/02/24 Nishi Tomlinson NP [address] [place] [address] Nurse Practitioner Hematology/Oncology 07/19/25 documented as of this encounter
--- OUTSIDE RECORDS SUMMARY | 2025-09-06 19:34 | XMS_ITS | Encounter Summary ---
Author Organization Dam[facility] Address [address] [place] [address] Care Team Providers Care Tube Builder Airplane Name Role Phone Robert August Primary Care Provider Kae Fermin MD Unavailable [phone] Anabel Goldsmith DIRECTOR CARDIAC Unavailable [phone] Shayna Lennon DIRECTOR CARDIAC Unavailable Sharon Lewis DIRECTOR CARDIAC Unavailable [phone] Robert August Unavailable Jacqueline Dinero DIRECTOR CARDIAC Unavailable Loli Lees MD Primary Care Provider Loli Lees MD Unavailable [phone] Nishi Tomlinson DIRECTOR CARDIAC Unavailable [phone] Encounter Details Date Type Department Care Team (Late st Contact Info) Description 11/27/2013 Clinical Conversion Encounter Department of Hematology and Oncology [facility] Oncology [address] [address] Kae Fermin MD [address] [place] [address] Social History Tobacco Use Types Packs/Day Years Used Date Smoking Tobacco: Never Assessed Comments Unknown Sex and Gender Information Value Date Recorded Sex Assigned at Female 01/05/2020 1:28 PM EDT Legal Sex Female 11:24 AM EST Gender Identity Female 01/05/2020 1:28 PM EDT Sexual Orientation Not on file documented as of this encounter Progress Notes * Kae Fermin MD - 11/03/2014 10:16 PM EST [id number],[place]ENNIFER [place], [place]. Chief Complaint Followup of metastatic breast cancer with mediastinal lymph node metastases and in situ breast mass. History of Present Illness ONCOLOGIC HISTORY: This is a 42-year-old premenopausal woman who noted changes in her left breast. She was scheduled for routine mammogram at [facility] on September 11, 2011. There is a [...] with tamoxifen from October through June 2013. CURRENT TREATMENT: Tamoxifen 20 mg daily INTERVAL HISTORY: Since I saw the patient last she underwent a left modified radical mastectomy with [...] left supraclavicular area and axillary apex. She reports a treatment was held for a week due to significant skin toxicity. She currently has no skin breakdown. She has residual hyperpigmentation along the chest. She has been taking tamoxifen daily. She does not notice any side effects. She has had ongoing daily hot flashes. She has no new issues or concerns today. Current Meds Lisinopril 20 MG Oral Tablet; TAKE 1 TABLET DAILY; Therapy: 01Oct2012 to (Evaluate:06Oct2013) Requested for: 08Jul2013; Last Rx:08Jul2013 Tamoxifen Citrate 20 MG Oral Tablet; Take 1 tab orally once a day; Therapy: 75Rtw2102 to (Last Rx:[id number]) Requested for: 30Jul2013 Vitamin D 1000 UNIT Oral Tablet; TAKE 1 TABLET DAILY; Therapy: 31Dec2012 to (Evaluate:09Jul2013) Allergies Erythromycin Derivatives Penicillins Benadryl CAPS Family [...] David Vitals Data Includes: Last 1 Instance 27Nov2013 02:47PM Systolic: 141 Diastolic: 87 Heart Rate: 96 BMI Calculated: 28.99 BSA Calculated: 1.86 Weight: 174 lb Respiration: 16 O2 Saturation: 100 Temperature: 98.2 F Pain Score: 0 Allergy Status Reviewed: Yes Safe at Home: Yes Chaperoned During Appointment: Yes Chaperoned By: Abigail Fernandes Pain Site: lt br pain Height: 5 ft 5 in LMP: BSO MD Notified of Pain Score Greater Than 3: No Height Source: Actual Height Weight Source: Actual Weight Physical Exam In general, well appearing and [...] axillary, or inguinal lymphadenopathy bilaterally. Breasts: Left chest wall has a well-healed surgical site with diffuse hyperpigmentation and erythema from prior radiation.. Results/Data Selected Results 16Jul2013 12:00AM ASSISTANT LOAN PROCESSOR Uterus and Ovaries for Cancer ASSISTANT LOAN PROCESSOR Uterus and Ovaries for Cancer: Case #: [id number] of SpecimenA. LT BREAST SHORT STITCH=SUPERIOR LONG STITCH=LATERAL-B. LEFT AXILLARY CONTENTS-C. RIGHT LEFT FALLOPIAN TUBE OVARY-FINAL DIAGNOSIS:A. LT BREAST SHORT STITCH=SUPERIOR LONG STITCH=LATERAL-INVASIVE DUCTAL CARCINOMA.HISTOLOGIC GRADE (YOSVANY SCORE SYSTEM): GRADE 2/3 (grade 1: 3-5 points; grade 2: 6-7 points; grade 3: 8-9points) TUBULE FORMATION (score 1: > 75%; score 3: < 10%): SCORE =3 NUCLEAR PLEOMORPHISM: SCORE = 2 MITOTIC RATE (score 1:<=3; score 3: >=8 /mm2): SCORE = 1TUMOR SITE: LEFT BREAST.TUMOR FOCALITY: FOCAL.SIZE OF TUMOR (LARGEST FOCUS, IF MULTIFOCAL): 5 X 3.3 X 2.5 CM.DIRECT EXTENSION INTO DERMIS: NOT SEEN.DERMAL SATELLITE: NOT SEEN.SKELETAL MUSCLE: N/A.AXILLARY DISSECTION: PRESENT (PART B).LYMPH NODE(S) INCLUDED IN ALL PARTS: NUMBER INVOLVED : 11 NUMBER EXAMINED: 17EXTRANODAL INVASION: NOT PRESENT.TNM STAGE: ypT2, ypN3a, pM1*.*Based on [id number] FNA of 4R lymph node.LYMPHATIC (SMALL VESSEL) INVASION: PRESENT.NIPPLE: TUMOR PRESENT IN SMOOTH MUSCLE BUT NOT IN DERMIS ORNIPPLE EPITHELIUM.ER/WY/HER2-GENESIS: SEE [id number].SIZE OF THE SPECIMEN: 18 X 16 X 5.3 CM.TYPE OF PROCEDURE: MASTECTOMY.DUCTAL CARCINOMA IN SITU: PRESENT, NUCLEAR GRADE 2/3,CRIBRIFORM PATTERN(S).LOBULAR CARCINOMA IN SITU: NOT PRESENT.DISTANCE OF DUCTAL CARCINOMA IN SITU FROM MARGINS: AT LEAST 5 MM: THE REMAINING MARGINS.DISTANCE OF INVASIVE CARCINOMA FROM MARGINS: AT LEAST 5 MM: THE REMAINING MARGINS.B. LEFT AXILLARY CONTENTS-METASTATIC CARCINOMA PRESENT IN ELEVEN LYMPH NODES (07/26).NO EXTRANODAL EXTENSION SEEN.C. RIGHT LEFT FALLOPIAN TUBE OVARY-BILATERAL OVARIES WITH FOLLICULAR CYSTS.BILATERAL FALLOPIAN TUBES.(ejb)CommentBy report, the patient is being treated with Tamoxifen andLupron with a reduction of the tumor size from 6 to 5 cm. Ontherapy, the tumor shows marked fibrosis but still showsextensive carcinoma growth.Debo BARRON M.D.(Case signed 07 21 2013)Case Clinical InformationBREAST CANCERGross DescriptionA. Received in formalin labeled with the patient's name and left breast consisting of a mastectomy specimen weighing 640grams and has been oriented by the surgeon as twoshort=superior; two long=lateral. The specimen measures 18 x 16x 5.3 cm thick. The attached skin ellipse measures 15.0 cm inlength by 4.9 cm in width with a thickness of 0.2 cm. The nipplehas a maximal external diameter of 1.6 cm. No inversion ordischarge is identified. The remainder of the skin surface isunremarkable. The anterior margin is inked blue. The deep marginis inked black. The specimen is serially sectioned and deep tothe nipple a 5 x 3.3 x 2.5 cm somewhat stellate firm area isidentified. This measures to the deep margin 2.4 cm. The massmeasures to the anterior margin of the specimen 2.1 cm. Theremainder of the quadrants are largely fatty and grosslyunremarkable. [employer] Telephone Clerk sections submitted as follows:A1=nipple full thickness cross section; A2-A4=representativesections of deep margin to the mass; A5-E05=bkbe thickness crosssections of the body of the mass with A10 containing slightlyhemorrhagic tissue which may represent possible previous biopsysite; F97-U41=vjpdokoa margin to the mass; M71=xubge-eclkhmgjchole; F72=avmzi-avcru quadrant; B18=ywyvg-pzwib quadrant;N00=paueq-tuzjv quadrant.B. Received in formalin labeled with the patient's name and left axillary contents consisting of an irregular fragment oftan-yellow adipose tissue measuring 10 x 8.5 cm by 2.8 cmmaximal thickness. Fourteen lymph node-like structures aredissected from the fatty aggregate consistent with lymphoidtissue. These nodules range in size from 2.5 cm down to 0.9 cm.All nodes submitted as follows: B1=one lymph node bisected;B2=one lymph node bisected; B3=one lymph node bisected; B4=onelymph node bisected; B5=three lymph nodes; B6-B8=two lymphnodes; B9=one lymph node trisected.C. Received in formalin labeled with the patient's name and right and left fallopian tubes and ovaries consisting of twoundesignated ovaries with attached fallopian tubes. Ovarynumber one weighs 9 grams and is focally cystic. Ovary numberone measures 2.9 x 2 x 1.5 cm. Fallopian tube number onemeasures 3.0 cm, has a fimbriated edge with a escobedo glisteningserosa. The cut surface of ovary number one has a focallyhemorrhagic appearance. Telegraph Office Telephone Clerk sections of ovary numberone submitted in C1-C2 with C2 containing tube and fimbria.Ovary number two weighs 8 gram and measures 2.5 x 2 x 1.0 cm andis somewhat disrupted. Fallopian tube number two measures 2.5 cmin length with a fimbriated edge and an unremarkable serosa. Thecut surface of ovary number two has a escobedo glistening somewhatvariegated appearance. Telegraph Office Telephone Clerk sections of ovary numbertwo submitted in C3. Fallopian tube number two and fimbrianumber two submitted in C4.//INGRIS Elena/#/[id number]. AA OUTINE H&E X1 BLOCK.1H&E X1A. AA ROUTINE H&E X1 BLOCK.2H&E X1A. AA OUTINE H&E X1 BLOCK.3H&E X1A. AA ROUTINE H&E X1 BLOCK.4H&E X1A. AA OUTINE H&E X1 BLOCK.5H&E X1A. AA ROUTINE H&E X1 BLOCK.6H&E X1A. AA OUTINE H&E X1 BLOCK.7H&E X1A. AA ROUTINE H&E X1 BLOCK.8H&E X1A. AA OUTINE H&E X1 BLOCK.9H&E X1A. AA ROUTINE H&E X1 BLOCK.10H&E X1A. AA OUTINE H&E X1 BLOCK.11H&E X1A. AA ROUTINE H&E X1 BLOCK.12H&E X1A. AA OUTINE H&E X1 BLOCK.13H&E X1A. AA ROUTINE H&E X1 BLOCK.14H&E X1A. AA OUTINE H&E X1 BLOCK.15H&E X1A. AA ROUTINE H&E X1 BLOCK.16H&E X1A. AA OUTINE H&E X1 BLOCK.17H&E X1B. AA ROUTINE H&E X1 BLOCK.1H&E X1B. AA OUTINE H&E X1 BLOCK.2H&E X1B. AA ROUTINE H&E X1 BLOCK.3H&E X1B. AA OUTINE H&E X1 BLOCK.4H&E X1B. AA ROUTINE H&E X1 BLOCK.5H&E X1B. AA OUTINE H&E X1 BLOCK.6H&E X1B. AA ROUTINE H&E X1 BLOCK.7H&E X1B. AA OUTINE H&E X1 BLOCK.8H&E X1B. AA ROUTINE H&E X1 BLOCK.9H&E X1C. AA OUTINE H&E X1 BLOCK.1H&E X1C. AA ROUTINE H&E X1 BLOCK.2H&E X1C. AA OUTINE H&E X1 BLOCK.3H&E X1C. AA ROUTINE H&E X1 BLOCK.4H&E X1 Assessment 1. Breast Cancer 174.9 2. Malignant Neoplasm Metastasis To Lymph Nodes 196.9 Stage IV breast cancer that is ER/WY positive with lymph node metastases. Status post neoadjuvant endocrine therapy followed by mastectomy with axillary lymph node dissection with significant residual disease. She has now received postoperative radiation therapy. She is status post bilateral salpingo-oophorectomy and is postmenopausal. Plan She will continue her tamoxifen. We discussed repeating a PET/CT scan sometime in the next few months. I also recommended a baseline bone density test. At the time of her next visit we will discuss switching her to an aromatase inhibitor. These agents typically have superior efficacy. I will see her back in approximately 2 months with a PET/CT and a bone density test. In the meantime she will call if any questions or concerns. Signatures Electronically signed by : KAE FERMIN MD; Nov 27 2013 3:25PM documented in this encounter Miscellaneous Notes * Telephone Encounter - Kae Fermin MD - 11/04/2014 5:47 AM EST [id number] MICHELLE [facility] [place]. Message Recorded as Task Date: 12/18/2013 03:59 PM, Created By: KAE FERMIN Task Name: Appt Request-Call Back Assigned To: KAE FERMIN Regarding Patient: VALENTINA MICHELLE, Status: Active Comment: KAE FERMIN - 18 Dec 2013 3:59 PM TASK CREATED Her PET CT was denied by insurance. [facility]. Can you schedule it in January on the same day that the PET was done and call her with the appt info? Thanks Sonia Walter - 22 Dec 2013 10:07 AM TASK EDITED Pt booked and notified with date and time of Ct scan also mailed appt. Signatures Electronically signed by : KAE FERMIN MD; Dec 22 2013 11:48AM documented in this encounter Plan of Treatment Upcoming Encounters Date Type Department Care Team (Late st Contact Info) Description 09/20/2025 10:20 AM EST Lab Department of Hematology and Oncology [facility] Hematology Oncology [address] [address] Sharon Lewis, DIRECTOR CARDIAC [address] [place] [address] In Person with Resource 09/20/2025 11:30 AM EST Office Visit Department of Hematology and Oncology [facility] [address] [address] Kae Fermin MD [address] [place] [address] In Person with Physician 09/20/2025 12:30 PM EST Infusion [facility] Infusion Services [facility]fusion Services 41 [facility] 3rd [place] [address] Sharon Lewis, STU [address] [place] [address] In Person with Resource documented as of this encounter Visit Diagnoses Not on filedocumented in this encounter Care Teams Tube Builder Airplane Relationship Specialty Start Date End Date Robert August [address] [place] [address] PCP - General 07/19/14 01/06/25 Robert August [address] [place] [address] PCP - Insurance Assigned PCP 02/27/22 01/06/25 Loli Lees MD [address] [place] [address] PCP - General Internal Medicine 01/07/25 Loli Lees MD [address] [place] [address] PCP - Insurance Assigned PCP 03/15/25 Kae Fermin MD [address] [place] [address] Consulting Provider Hematology/Oncology 04/23/16 Anabel Goldsmith, DIRECTOR CARDIAC [address] [place] [address] Nurse Practitioner Nurse Practitioner 07/16/16 Shayna Lennon NP [address] [place] [address] Nurse Practitioner Nurse Practitioner 01/14/20 Sharon Lewis NP [address] [place] [address] Nurse Practitioner Nurse Practitioner 08/09/20 Jacqueline Dinero NP [address] [place] [address] Nurse Practitioner Nurse Practitioner 07/02/24 Nishi Tomlinson NP [address] [place] [address] Nurse Practitioner Hematology/Oncology 07/19/25 documented as of this encounter
--- OUTSIDE RECORDS SUMMARY | 2025-09-06 19:34 | XMS_ITS | Encounter Summary ---
Author Organization Damaris [facility] Address [address] [place] [address] Care Team Providers Care Chief Communications Officer Name Role Phone Robert August Primary Care Provider Jackelyn Lake MD Unavailable [phone] Anabel Goldsmith MANAGER MARITIME Unavailable Shayna Lennon MANAGER MARITIME Unavailable Sharon Lewis MANAGER MARITIME Unavailable [phone] Robert August Unavailable Jacqueline Dinero MANAGER MARITIME Unavailable [phone] Loli Lees MD Primary Care Provider [phone] Loli Lees MD Unavailable [phone] Nishi Tomlinson MANAGER MARITIME Unavailable [phone] Encounter Details Date Type Department Care Team (Late st Contact Info) Description 05/24/2014 Clinical Conversion Encounter [facility] division of plastic and reconstructive surgery [facility] Plastic Surgery [address] [address] Raman Montalvo MD PhD [address] [place] [address] Social History Tobacco Use Types Packs/Day Years Used Date Smoking Tobacco: Never Assessed Comments Unknown Sex and Gender Information Value Date Recorded Sex Assigned at Female 01/05/2020 1:28 PM EDT Legal Sex Female 11:24 AM EST Gender Identity Female 01/05/2020 1:28 PM EDT Sexual Orientation Not on file documented as of this encounter Progress Notes * Raman Montalvo MD PhD - 11/04/2014 11:36 PM EST [id number],JENNIFER [place], [place]. History of Present Illness Patient came in today for another follow up for her breast reconstruction. She has decided to go with TRAM flap. Current Meds Lisinopril 20 MG Oral Tablet; TAKE 1 TABLET DAILY; Therapy: 01Oct2012 to (Evaluate:48Gko5628) Requested for: 22Ija9878; Last Rx:[id number] Tamoxifen Citrate 20 MG Oral Tablet; Take 1 tab orally once a day; Therapy: 92Iau6087 to (Last Rx:30Nov2013) Requested for: 30Nov2013 Vitamin D 1000 UNIT Oral Tablet; TAKE 1 TABLET DAILY; Therapy: 43Usb2857 to (Evaluate:28Ued2644) Allergies Erythromycin Derivatives Penicillins Benadryl CAPS Vitals [facility] Vitals Data Includes: Current Encounter 76Lxa3561 02:35PM Pain Score 0 Allergy Status Reviewed Yes Safe at Home Yes Physical Exam Unchanged. Assessment 1. Breast Cancer 174.9 2. Encounter For Breast Reconstruction Following Mastectomy V51.0 Plan We spent about 20 minutes discussing the the procedure including postoperative care and recovery. I answered all her questions and we will schedule this for the fall. Signatures Electronically signed by : RAMAN MONTALVO MD; May 25 2014 7:45AM documented in this encounter Plan of Treatment Upcoming Encounters Date Type Department Care Team (Late st Contact Info) Description 09/20/2025 10:20 AM EST Lab Department of Hematology and Oncology [facility] Hematology Oncology [address] [place] [address] Sharon Lewis, MANAGER MARITIME [address] [place] [address] In Person with Resource 09/20/2025 11:30 AM EST Office Visit Department of Hematology and Oncology [facility] 41 [facility] [address] [place] [address] Jackelyn Lake MD [address] [place] [address] In Person with Physician 09/20/2025 12:30 PM EST Infusion [facility] Infusion Services [facility] Infusion Services 41 [facility] 3rd [place] [address] Sharon Lewis, MANAGER MARITIME [address] [place] [address] In Person with Resource documented as of this encounter Visit Diagnoses Not on filedocumented in this encounter Care Teams Chief Communications Officer Relationship Specialty Start Date End Date Robert August [address] [place] [address] PCP - General 07/19/14 01/06/[address] [place] [address] PCP - Insurance Assigned PCP 02/27/22 01/06/25 Loli Lees MD [address] [place] [address] PCP - General Internal Medicine 01/07/25 Loli Lees MD [address] [place] [address] PCP - Insurance Assigned PCP 03/15/25 Jackelyn Lake MD [address] [place] [address] Consulting Provider Hematology/Oncology 04/23/16 Anabel Goldsmith, MANAGER MARITIME [address] [place] [address] Nurse Practitioner Nurse Practitioner 07/16/16 Shayna Lennon NP [address] [place] [address] Nurse Practitioner Nurse Practitioner 01/14/20 Sharon Lewis MANAGER MARITIME [address] [place] [address] Nurse Practitioner Nurse Practitioner 08/09/20 Jacqueline Dinero NP [address] [facility] [address] [place] [address] Nurse Practitioner Nurse Practitioner 07/02/24 Nishi Tomlinson NP [address] [place] [address] Nurse Practitioner Hematology/Oncology 07/19/25 documented as of this encounter
--- OUTSIDE RECORDS SUMMARY | 2025-09-06 19:34 | XMS_ITS | Encounter Summary ---
Author Organization Damaris [facility]vin [facility] Address [address] [place] [address] Care Team Providers Care Wheel Worker Name Role Phone Robert August Primary Care Provider [phone] Jackelyn Lake MD Unavailable [phone] Anabel Goldsmith COSMETIC SALES CONSULTANT Unavailable [phone] Shayna Lennon COSMETIC SALES CONSULTANT Unavailable Sharon Lewis COSMETIC SALES CONSULTANT Unavailable [phone] Robert August Unavailable Jacqueline Dinero COSMETIC SALES CONSULTANT Unavailable [phone] Loli Lees MD Primary Care Provider [phone] Loli Lees MD Unavailable [phone] Nishi Tomlinson COSMETIC SALES CONSULTANT Unavailable [phone] Encounter Details Date Type Department Care Team (Late st Contact Info) Description 07/30/2014 Clinical Conversion Encounter [facility] General Surgery [facility] General Surgery [address] [address] Sravan Mcnulty MD Social History Tobacco Use Types Packs/Day Years Used Date Smoking Tobacco: Never Assessed Comments Unknown Sex and Gender Information Value Date Recorded Sex Assigned at Female 01/05/2020 1:28 PM EDT Legal Sex Female 11:24 AM EST Gender Identity Female 01/05/2020 1:28 PM EDT Sexual Orientation Not on file documented as of this encounter Progress Notes * Sravan Mcnulty MD - 11/05/2014 9:07 AM EST [id number] MICHELLE [facility]. History of Present Illness ONCOLOGIC HISTORY: This is a 43-year-old premenopausal woman who on September 26, 2012 [...] apex. She returns today in followup now 12 months postop. She is no chest wall complaints and denies any evidence of chest wall recurrence. She states she had a normal right mammogram in [place] in February. She is scheduled for a left TRAM flap reconstruction in 2 weeks 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 Routine Gynecological Exam V72.31 Tobacco Use 305.1 Visit For: Postsurgical Exam V67.00 Vitamin D Deficiency 268.9 Allergies Erythromycin Derivatives Penicillins Benadryl CAPS Family History Maternal history of Breast Cancer V16.3 Social History Current Every Day Smoker 305.1 Current Smoker 305.1 Tobacco Use 305.1 Review of Systems Gen.: No fevers, chills, No weight loss. No nausea or vomiting. RADIOLOGIST CHIEF OF BREAST IMAGING: No headache, weakness, numbness or vertigo. Respiratory: No shortness of breath, no wheezing, no cough Cardiac: No chest pain, palpitations, no orthopnea Heme: no night sweats no c/o lymphadenopathy GI: No abdominal pain no GI bleeding. : No polyuria no frequency no dysuria MSK: No bony pain. Skin: No rashes, focal lesions, no hair loss. ENT: no recent change in hearing, tinnitus Vitals [facility] Vitals Data Includes: Current Encounter 30Jul2014 01:03PM Pain Score 0 Allergy Status Reviewed Yes Safe at Home Yes Chaperoned During Appointment Yes Chaperoned By Abena Leal and Patients Physical Exam Physical examination reveals a pleasant [...] but there is no evidence of recurrence. Assessment 1. Breast Cancer 174.9 No evidence of recurrence. She will followup with me in February with her annual right mammogram Signatures Electronically signed by : SRAVAN MCNULTY MD; Jul 30 2014 1:18PM documented in this encounter Plan of Treatment Upcoming Encounters Date Type Department Care Team (Late st Contact Info) Description 09/20/2025 10:20 AM EST Lab Department of Hematology and Oncology [facility] Hematology Oncology [address] [place] [address] Sharon Lewis, COSMETIC SALES CONSULTANT [address] [place] [address] In Person with Resource 09/20/2025 11:30 AM EST Office Visit Department of Hematology and Oncology [facility] Hematology Oncology [address] [place] [address] Jackelyn Lake MD [address] [place] [address] In Person with Physician 09/20/2025 12:30 PM EST Infusion [facility] Infusion Services [facility] Infusion Services [address] [place] [address] [address] [place] [address] Sharon Lewis, COSMETIC SALES CONSULTANT [address] [place] [address] In Person with Resource documented as of this encounter Visit Diagnoses Not on filedocumented in this encounter Care Teams Wheel Worker Relationship Specialty Start Date End Date Robert August [address] [place] [address] PCP - General 07/19/14 01/06/25 Robert August [address] [place] [address] PCP - Insurance Assigned PCP 02/27/22 01/06/25 Loli Lees MD [address] [place] [address] PCP - General Internal Medicine 01/07/25 Loli Lees MD [address] [place] [address] PCP - Insurance Assigned PCP 03/15/25 Jackelyn Lake MD [address] [place] [address] Consulting Provider Hematology/Oncology 04/23/16 Anabel Goldsmith, COSMETIC SALES CONSULTANT [address] [place] [address] Nurse Practitioner Nurse Practitioner 07/16/16 Shayna Lennon NP [address] [place] [address] Nurse Practitioner Nurse Practitioner 01/14/20 Sharon Lewis NP [address] [place] [address] Nurse Practitioner Nurse Practitioner 08/09/20 Jacqueline Dinero NP [address] [address] Nurse Practitioner Nurse Practitioner 07/02/24 Nishi Tomlinson NP [address] [place] [address] Nurse Practitioner Hematology/Oncology 07/19/25 documented as of this encounter
--- OUTSIDE RECORDS SUMMARY | 2025-09-06 19:34 | XMS_ITS | Encounter Summary ---
Author Organization Damaris [facility] Address [address] [place] [address] Care Team Providers Care Poke In Name Role Phone Robert August Primary Care Provider [phone] Jackelyn Lake MD Unavailable [phone] Anabel Goldsmith INTEGRITY SPECIALIST Unavailable [phone] Shayna Lennon INTEGRITY SPECIALIST Unavailable Sharon Lewis INTEGRITY SPECIALIST Unavailable [phone] Robert August Unavailable Jacqueline Dinero INTEGRITY SPECIALIST Unavailable [phone] Loli Lees MD Primary Care Provider [phone] Loli Lees MD Unavailable [phone] Nishi Tomlinson INTEGRITY SPECIALIST Unavailable [phone] Encounter Details Date Type Department Care Team (Late st Contact Info) Description 08/24/2013 Clinical Conversion Encounter [facility] General Surgery [facility] General Surgery [address] [address] Sravan Mcnulty MD Social History Tobacco Use [...] Mcnulty MD - 10/27/2014 9:42 AM EST [id number],JENNIFER [place], [place]. Henry returns today in continued management of her left mastectomy wound. Since our last visit and change of her antibiotics the erythema of her skin flap is both much smaller and less red. She appears to be responding to antibiotics. She has noticed a small drop of drainage her wound. She has in the incision a small area that is weeping. I explored this with a Q-tip and drained about 100 mL of yellowish fluid. A dressing was applied. She appears to be responding to antibiotic therapy and drainage. I will see her back in 10 days Electronically signed by : SRAVAN MCNULTY MD; Aug 24 2013 1:25PM documented in this encounter Plan of Treatment Upcoming Encounters Date Type Department Care Team (Late st Contact Info) Description 09/20/2025 10:20 AM EST Lab Department of Hematology and Oncology [facility] Hematology Oncology [address] [place] [address] Sharon Lewis NP [address] [place] [address] In Person with Resource 09/20/2025 11:30 AM EST Office Visit Department of Hematology and Oncology [facility] Hematology Oncology [address] [place] [address] Jackelyn Lake MD [address] [place] [address] In Person with Physician 09/20/2025 12:30 PM EST Infusion [facility] Infusion Services [facility] Infusion Services [address] [place] [address] [address] [place] [address] Sharon Lewis NP [address] [place] [address] In Person with Resource documented as of this encounter Visit Diagnoses Not on filedocumented in this encounter Care Teams Poke In Relationship Specialty Start Date End Date Robert August [address] [place] [address] PCP - General 07/19/14 01/06/25 Robert August [address] [place] [address] PCP - Insurance Assigned PCP 02/27/22 01/06/25 Loli Lees MD [address] [place] [address] PCP - General Internal Medicine 01/07/25 Loli Lees MD [address] [place] [address] PCP - Insurance Assigned PCP 03/15/25 Jackelyn Lake MD [address] [place] [address] Consulting Provider Hematology/Oncology 04/23/16 Anabel Goldsmith NP [address] [place] [address] Nurse Practitioner Nurse Practitioner 07/16/16 Shayna Lennon NP [address] [place] [address] Nurse Practitioner Nurse Practitioner 01/14/20 Sharon Lewis, STU [address] [place] [address] Nurse Practitioner Nurse Practitioner 08/09/20 Jacqueline Dinero NP [address] [place] [address] Nurse Practitioner Nurse Practitioner 07/02/24 Nishi Tomlinson NP [address] [place] [address] [place] [address] Nurse Practitioner Hematology/Oncology 07/19/25 documented as of this encounter
--- OUTSIDE RECORDS SUMMARY | 2025-09-06 19:34 | XMS_ITS | Encounter Summary ---
Author Organization Damaris saul Address [address] [place] [address] Care Team Providers Care Silver Steward Name Role Phone Robert August Primary Care Provider [phone] Jackelyn Lake MD Unavailable [phone] Anabel Goldsmith MANAGER COMMUNITY OUTREACH Unavailable [phone] Shayna Lennon MANAGER COMMUNITY OUTREACH Unavailable Sharon Lewis MANAGER COMMUNITY OUTREACH Unavailable [phone] Robert August Unavailable Jacqueline Dinero MANAGER COMMUNITY OUTREACH Unavailable [phone] Loli Lees MD Primary Care Provider [phone] Loli Lees MD Unavailable [phone] Nishi Tomlinson MANAGER COMMUNITY OUTREACH Unavailable [phone] Encounter Details Date Type Department Care Team (Late st Contact Info) Description 07/08/2013 Clinical Conversion Encounter [facility] Gyne[facility] Outpatient Clinic [address] [place] [address] Eyal Arboleda MD Social History Tobacco Use Types Packs/Day Years Used Date Smoking Tobacco: Never Assessed Comments Unknown Sex and Gender Information Value Date Recorded Sex Assigned at Female 01/05/2020 1:28 PM EDT Legal Sex Female 11:24 AM EST Gender Identity Female 01/05/2020 1:28 PM EDT Sexual Orientation Not on file documented as of this encounter Progress Notes * Eyal Arboleda MD - 10/26/2014 6:16 PM EST [id number],HENRY [facility] [place], [place]. GYNECOLOGY 07/08/2013 Name: HENRY MICHELLE #: [id number] : 1970 Visit ID: [id number] Second Visit ID: [id number] HISTORY OF PRESENT ILLNESS: The patient is a 42-year-old para 0 female who presents as a consult from Dr. Montemayor for consideration of laparoscopic bilateral salpingo-oophorectomy for risk reduction for breast CA. 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 The patient's tumor is estrogen sensitive. She is on Lupron. Option was given for bilateral salpingo-oophorectomy and the patient wants to proceed in that direction and stop her Lupron also to reduce any risk of ovarian neoplasia from forming. The patient is also scheduled with Dr. Mcnulty to have a left mastectomy at the same time as laparoscopic BSO. The patient has no complaints. No abdominal or pelvic pain, no vaginitis and no abnormal bleeding. Does have significant urogenital atrophy, also hot flashes, night sweats with the Lupron. No problems urinating or moving the bowels. No fevers or chills. PAST OBSTETRICAL HISTORY: No deliveries. PAST GYNECOLOGICAL HISTORY: Normal Paps, as above regarding breast disease. PAST MEDICAL HISTORY: Primary doctor, Dr. August. The patient with metastatic left intraductal breast CA, hypertension and vitamin D deficiency. MEDICATIONS: Currently, on lisinopril 20 mg a day, Lupron Depot 3.75 mg intramuscularly q.30 days, tamoxifen citrate 20 mg once a day and vitamin D 1000 units a day. ALLERGIES: PENICILLIN, SHE GETS SWELLING; ERYTHROMYCIN - SWELLING AND ALSO REPORTS SOMETHING WITH BENADRYL BUT IS UNASSIGNED. PAST SURGICAL HISTORY: The breast biopsies, had bronchoscopies. PSYCHOSOCIAL HISTORY: Current everyday smoker, encouraged to stop. Denies alcohol abuse. FAMILY HISTORY: Maternal history of breast CA. No HYDRO EXCAVATION OPERATOR or colonic issues to report. REVIEW OF SYSTEMS: All that is pertinent in history of present illness. Negative constitutional, HEENT, neck, endocrine, cardiac, pulmonary, hepatic, renal, hematologic and GI. Remainder of systems not pertinent or negative. PHYSICAL EXAMINATION: Well-developed female in no apparent distress. Height 5 feet 5 inches, weight 170 and blood pressure 142/80. Mood appropriate. Skin: No rash. Musculoskeletal: Intact. Lymphatics: No lymphedema or enlarged lymph nodes. Neck: Supple. No masses, nodes or increased thyroid. Normal respiratory efforts and rhythm observed. Abdomen: Soft and nontender. No masses, no groin nodes, no CVA tenderness. No enlarged liver or spleen. Lower extremities: Nontender, no edema. Vulva: Normal. Vagina: Atrophic. Cervix: Long and closed. Uterus: Small and atrophic. Adnexa: Nonpalpable. No perianal lesions or masses noted. ASSESSMENT AND PLAN: The patient is 42 years of age, para 0, unfortunately with metastatic left breast carcinoma, is on Lupron Depot treatment, wants to proceed with laparoscopic BSO. Discontinue the Lupron and also reduce any risk with the ovary from developing a neoplastic process. We went over the benefits and risks of the procedure including, but not limited to bleeding, transfusion, infection, injuries to surrounding organs such as bowel, bladder, ureter, blood vessel, muscles, nerves and urethra requiring surgical intervention via laparotomy. The patient understood, accepted those risks and wanted to proceed. We will set her up accordingly. Eyal Arboleda MD [phone] RB:argenis J: [id number] / [id number] CC: MD Jackelyn Huerta MD Mohamed A. Hamid, MD, <Referring> Robert August MD, <Primary Care Physician> THIS DOCUMENT WAS ELECTRONICALLY AUTHENTICATED BY Eyal Arboleda MD ON 07/23/2013 06:32:18 documented in this encounter Plan of Treatment Upcoming Encounters Date Type Department Care Team (Late st Contact Info) Description 09/20/2025 10:20 AM EST Lab Department of Hematology and Oncology [facility] Hematology Oncology [address] [place] [address] Sharon Lewis MANAGER COMMUNITY OUTREACH [address] [place] [address] In Person with Resource 09/20/2025 11:30 AM EST Office Visit Department of Hematology and Oncology [facility] [address] [address] Jackelyn Lake MD [address] [place] [address] In Person with Physician 09/20/2025 12:30 PM EST Infusion [facility]fusion [facility] 41 [facility] [address] [place] [address] Sharon Lewis NP [address] [place] [address] In Person with Resource documented as of this encounter Visit Diagnoses Not on filedocumented in this encounter Care Teams Silver Steward Relationship Specialty Start Date End Date Robert August [address] [place] [address] PCP - General 07/19/14 01/06/25 Robert August [address] [place] [address] [address] [place] [address] PCP - Insurance Assigned PCP 02/27/22 01/06/25 Loli Lees MD [address] [place] [address] PCP - General Internal Medicine 01/07/25 Loli Lees MD [address] [place] [address] PCP - Insurance Assigned PCP 03/15/25 Jackelyn Lake MD [address] [place] [address] Consulting Provider Hematology/Oncology 04/23/16 Anabel Goldsmith MANAGER COMMUNITY OUTREACH [address] [place] [address] Nurse Practitioner Nurse Practitioner 07/16/16 Shayna Lennon NP [address] [place] [address] Nurse Practitioner Nurse Practitioner 01/14/20 Sharon Lewis NP [address] [place] [address] Nurse Practitioner Nurse Practitioner 08/09/20 Jacqueline Dinero NP [address] [address] Nurse Practitioner Nurse Practitioner 07/02/24 Nishi Tomlinson MANAGER COMMUNITY OUTREACH [address] [place] [address] Nurse Practitioner Hematology/Oncology 07/19/25 documented as of this encounter
--- OUTSIDE RECORDS SUMMARY | 2025-09-06 19:34 | XMS_ITS | Encounter Summary ---
Author Organization Damaris saul Address [address] [place] [address] Care Team Providers Care Plate Maker Name Role Phone Robert August Primary Care Provider [phone] Jackelyn Lake MD Unavailable [phone] Anabel Goldsmith CLOUD SERVICES ARCHITECT Unavailable [phone] Shayna Lennon CLOUD SERVICES ARCHITECT Unavailable Sharon Lewis CLOUD SERVICES ARCHITECT Unavailable [phone] Robert August Unavailable Jacqueline Dinero CLOUD SERVICES ARCHITECT Unavailable [phone] Loli Lees MD Primary Care Provider Loli Lees MD Unavailable [phone] Nishi Tomlinson CLOUD SERVICES ARCHITECT Unavailable [phone] Encounter Details Date Type Department Care Team (Late st Contact Info) Description 07/30/2013 Clinical Conversion Encounter [facility] Gynecology Outpatient Clinic [address] [place] [address] Ron Mason PA Social History Tobacco Use Types Packs/Day Years Used Date Smoking Tobacco: Never Assessed Comments Unknown Sex and Gender Information Value Date Recorded Sex Assigned at Female 01/05/2020 1:28 PM EDT Legal Sex Female 11:24 AM EST Gender Identity Female 01/05/2020 1:28 PM EDT Sexual Orientation Not on file documented as of this encounter Progress Notes * MISSY Chinchilla - 10/26/2014 9:28 PM EST [id number],JENNIFER [employer], [place]. Reason For Visit This is a 42-year-old female patient of Dr. Artur Arboleda'rabia presenting today for postoperative check from bilateral salpingo-oophorectomy performed on July 16, 2013. Indication was risk reduction surgery due to left breast cancer sensitive to estrogen. Pathology of ovaries and fallopian tubes were benign. The patient denies any fever, nausea, vomiting, abdominal pain. Past Medical History . The patient's last Pap smear was June 19, 2013 which was negative for malignancy, as well as HPV typing negative for high risk. Current Meds Lisinopril 20 MG Oral Tablet; TAKE 1 TABLET DAILY; Therapy: 01Oct2012 to (Evaluate:06Oct2013) Requested for: 08Jul2013; Last Rx:08Jul2013 Vitamin D 1000 UNIT Oral Tablet; TAKE 1 TABLET DAILY; Therapy: 31Dec2012 to (Evaluate:09Jul2013) Allergies Erythromycin Derivatives Penicillins Benadryl CAPS Physical Exam Abdomen reveals well-healed laparoscopic incisions. No masses noted. Plan 1. Colace 100 MG Oral Capsule; TAKE 1 CAPSULE TWICE DAILY; Therapy: 16Jul2013-; Last Rx:16Jul2013; Status: TEMPORARY DEFERRAL 2. OxyCODONE HCl 5 MG Oral Tablet; TAKE 1 TO 2 TABLETS EVERY 4 HOURS NEEDED FOR PAIN; Therapy: 16Jul2013-; Last Rx:16Jul2013; Status: TEMPORARY DEFERRAL 3. Tamoxifen Citrate 10 MG Oral Tablet; Status: DISCONTINUED 4. Tamoxifen Citrate 20 MG Oral Tablet; Take 1 tab orally once a day; Therapy: 52Hky8232 to (Last Rx:[id number]) Requested for: 30Jul2013; Edited I have reassured the patient regarding her exam today, and the results of her HRIS DEVELOPER pathology. I discussed eating an annual HRIS DEVELOPER exam due to her cervix and uterus in place. She will need a Pap smear every 3 years, per guidelines. Signatures Electronically signed by : MISSY STERN; Jul 30 2013 11:58AM documented in this encounter Plan of Treatment Upcoming Encounters Date Type Department Care Team (Late st Contact Info) Description 09/20/2025 10:20 AM EST Lab Department of Hematology and Oncology [facility] Hematology Oncology [address] [place] [address] Sharon Lewis, CLOUD SERVICES ARCHITECT [address] [place] [address] In Person with Resource 09/20/2025 11:30 AM EST Office Visit Department of Hematology and Oncology [facility] Hematology Oncology [address] [place] [address] Jackelyn Lake MD [address] [place] [address] In Person with Physician 09/20/2025 12:30 PM EST Infusion [facility] Infusion Services [facility] Infusion Services [address] [place] [address] [address] [place] [address] Sharon Lewis, CLOUD SERVICES ARCHITECT [address] [place] [address] In Person with Resource documented as of this encounter Visit Diagnoses Not on filedocumented in this encounter Care Teams Plate Maker Relationship Specialty Start Date End Date Robert August [address] [place] [address] PCP - General 07/19/14 01/06/25 Robert August [address] [place] [address] PCP - Insurance Assigned PCP 02/27/22 01/06/25 Loli Lees MD [address] [place] [address] PCP - General Internal Medicine 01/07/25 Loli Lees MD [address] [place] [address] PCP - Insurance Assigned PCP 03/15/25 Jackelyn Lake MD [address] [place] [address] Consulting Provider Hematology/Oncology 04/23/16 Anabel Goldsmith, CLOUD SERVICES ARCHITECT [address] [place] [address] Nurse Practitioner Nurse Practitioner 07/16/16 Shayna Lennon NP [address] [place] [address] Nurse Practitioner Nurse Practitioner 01/14/20 Sharon Lewis NP [address] [place] [address] Nurse Practitioner Nurse Practitioner 08/09/20 Jacqueline Dinero, STU [address] [facility] [address] [address] Nurse Practitioner Nurse Practitioner 07/02/24 Nishi Tomlinson NP [address] [place] [address] Nurse Practitioner Hematology/Oncology 07/19/25 documented as of this encounter
--- OUTSIDE RECORDS SUMMARY | 2025-09-06 19:34 | XMS_ITS | Encounter Summary ---
Author Organization Damaris saul Address [address] [place] [address] Care Team Providers Care Molding And Trim Installer Name Role Phone Robert August Primary Care Provider Jackelyn Lake MD Unavailable [phone] Anabel Goldsmith HTML WEB DEVELOPER Unavailable [phone] Shayna Lennon HTML WEB DEVELOPER Unavailable [phone] Sharon Lewis HTML WEB DEVELOPER Unavailable [phone] Robert August Unavailable Jacqueline Dinero HTML WEB DEVELOPER Unavailable [phone] Loli Lees MD Primary Care Provider Loli Lees MD Unavailable [phone] Nishi Tomlinson HTML WEB DEVELOPER Unavailable [phone] Encounter Details Date Type Department Care Team (Late st Contact Info) Description 12/31/2012 Clinical Conversion Encounter GENERAL CONVERSION Josee Schaffer RN Social History Tobacco Use Types Packs/Day Years Used Date Smoking Tobacco: Never Assessed Comments Unknown Sex and Gender Information Value Date Recorded Sex Assigned at Female 01/05/2020 1:28 PM EDT Legal Sex Female 11:24 AM EST Gender Identity Female 01/05/2020 1:28 PM EDT Sexual Orientation Not on file documented as of this encounter Progress Notes * Josee Schaffer RN - 10/25/2014 6:27 PM EST [id number],[place], [place]. HEMATOLOGY and ONCOLOGY HENRY MICHELLE 01/28/2013 LC# [id number] : 1970 Second Visit ID: [id number] Visit ID: [id number] Subcutaneous/ Intramuscular Injection Type of Injection- Lupron 7.5 mg every 4 weeks and tamoxifen 20 mg daily (x ) Intramuscular- Lupron ( ) Subcutaneous Injection site ( ) Left arm ( ) Right arm ( ) Bilateral arms (x ) Right hip- pt request ( ) Left hip ( ) Right Deltoid ( ) Left Deltoid ( ) Right thigh ( ) Left thigh Medication dispensed from [facility] YES ( x ) NO ( ) Medication was brought from home YES ( ) NO (x ) (x ) Comments: Patient presents to infusion room after appointment with Dr. Lake for injection. Reports feeling well. Occasional hot flashes. Tolerated injection well. RV in 4 weeks with . Ambulatory upon d/c. Aware to call with any questions or concerns in the interim. Josee Schaffer RN [phone] SET: J: [id number] CC: THIS DOCUMENT WAS ELECTRONICALLY AUTHENTICATED BY Josee Schaffer RN ON 01/28/2013 14:04:06 * Josee Schaffer RN - 10/25/2014 3:17 PM EST [id number] MICHELLE [place], [place]. HEMATOLOGY and ONCOLOGY HENRY MICHELLE Jose A 12/31/2012 LC# [id number] : 1970 Second Visit ID: [id number] Visit ID: [id number] Subcutaneous/ Intramuscular Injection Type of Injection- Lupron 7.5 mg every 4 weeks and tamoxifen 20 mg daily (x ) Intramuscular ( ) Subcutaneous Injection site ( ) Left arm ( ) Right arm ( ) Bilateral arms ( ) Right hip (x ) Left hip- pt request ( ) Right Deltoid ( ) Left Deltoid ( ) Right thigh ( ) Left thigh Medication dispensed from [facility] YES ( x ) NO ( ) Medication was brought from home YES ( ) NO (x ) if yes see the following below (x ) Comments: Patient presents to infusion room after appointment with Dr. Lake for injection. Reports feeling well. Occasional hot flashes. Tolerated injection well. RV in 4 weeks with MD and PET/CT scan to assess treatment response. Ambulatory upon d/c. Aware to call with any questions or concerns in the interim. Josee Schaffer RN [phone] SET: J: [id number] CC: THIS DOCUMENT WAS ELECTRONICALLY AUTHENTICATED BY Josee Schaffer RN ON 12/31/2012 16:13:01 documented in this encounter Plan of Treatment Upcoming Encounters Date Type Department Care Team (Late st Contact Info) Description 09/20/2025 10:20 AM EST Lab Department of Hematology and Oncology [facility] Hematology Oncology [address] [place] [address] Sharon Lewis NP [address] [place] [address] In Person with Resource 09/20/2025 11:30 AM EST Office Visit Department of Hematology and Oncology [facility] Hematology Oncology [address] [place] [address] Jackelyn Lake MD [address] [place] [address] In Person with Physician 09/20/2025 12:30 PM EST Infusion [facility] Infusion Services [facility] Infusion Services [address] [place] [address] [address] [place] [address] Sharon Lewis NP [address] [place] [address] In Person with Resource documented as of this encounter Visit Diagnoses Not on filedocumented in this encounter Care Teams Molding And Trim Installer Relationship Specialty Start Date End Date Robert August [address] [address] PCP - General 07/19/14 01/06/25 Robert August 10 [facility] [address] [place] [address] PCP - Insurance Assigned PCP 02/27/22 01/06/25 Loli Lees MD [address] [place] [address] PCP - General Internal Medicine 01/07/25 Loli Lees MD [address] [place] [address] PCP - Insurance Assigned PCP 03/15/25 Jackelyn Lake MD [address] [place] [address] Consulting Provider Hematology/Oncology 04/23/16 Anabel Goldsmith HTML WEB DEVELOPER [address] [place] [address] Nurse Practitioner Nurse Practitioner 07/16/16 Shayna Lennon NP [address] [place] [address] Nurse Practitioner Nurse Practitioner 01/14/20 Sharon Lewis HTML WEB DEVELOPER [address] [place] [address] Nurse Practitioner Nurse Practitioner 08/09/20 Jacqueline Dinero, STU [address] [facility] [address] [place] [address] Nurse Practitioner Nurse Practitioner 07/02/24 Nihsi Tomlinson NP [address] [place] [address] Nurse Practitioner Hematology/Oncology 07/19/25 documented as of this encounter
--- OUTSIDE RECORDS SUMMARY | 2025-09-06 19:34 | XMS_ITS | Encounter Summary ---
Author Organization [facility] Address [address] [place] [address] Care Team Providers Care Horticultural Specialty Grower Inside Name Role Phone Robert August Primary Care Provider Jackelyn Fermin MD Unavailable [phone] Anabel Goldsmith DUCT INSTALLER Unavailable Shayna Lennon DUCT INSTALLER Unavailable Sharon Lewis DUCT INSTALLER Unavailable [phone] Robert August Unavailable Jacqueline Dinero DUCT INSTALLER Unavailable Loli Lees MD Primary Care Provider Loli Lees MD Unavailable [phone] Nishi Tomlinson DUCT INSTALLER Unavailable Encounter Details Date Type Department Care Team (Late st Contact Info) Description 04/14/2014 Clinical Conversion Encounter Department of Hematology and Oncology [facility] Hematology Oncology [address] [address] Jackelyn Fermin MD [address] [place] [address] Social History Tobacco Use Types Packs/Day Years Used Date Smoking Tobacco: Never Assessed Comments Unknown Sex and Gender Information Value Date Recorded Sex Assigned at Female 01/05/2020 1:28 PM EDT Legal Sex Female 11:24 AM EST Gender Identity Female 01/05/2020 1:28 PM EDT Sexual Orientation Not on file documented as of this encounter Miscellaneous Notes * Telephone Encounter - Jackelyn Fermin MD - 11/04/2014 8:41 PM EST [id number],JENNIFER REVISED [facility] - [place], [place]. Recorded as Task Date: 04/13/2014 03:13 PM, Created By: JACKELYN FERMIN Task Name: Appt Request-Call Back Assigned To: Edmund Moss Regarding Patient: HENRY MICHELLE, Status: Active Comment: JACKELYN FERMIN - 13 Apr 2014 3:13 PM TASK CREATED Her upcoming CT scan was denied by insurance. They won't cover the part of the scan WITHOUT contrast so I had to rewrite the order so it read CT scan WITH IV contrast (rather than with an dwithout). I put a new order in aria. Can you send it to radiology to cancel out the old order? thanks Edmund Moss - 14 Apr 2014 9:58 AM TASK EDITED Called to CT scan. [facility] Electronically signed by:Edmund Moss Apr 14 2014 9:58AM EST documented in this encounter Plan of Treatment Upcoming Encounters Date Type Department Care Team (Late st Contact Info) Description 09/20/2025 10:20 AM EST Lab Department of Hematology and Oncology [facility] Hematology Oncology [address] [place] [address] Sharon Lewis NP [address] [place] [address] In Person with Resource 09/20/2025 11:30 AM EST Office Visit Department of Hematology and Oncology [facility] Hematology Oncology [address] [place] [address] Jackelyn Fermin MD [address] [place] [address] In Person with Physician 09/20/2025 12:30 PM EST Infusion [facility] Infusion Services [facility] Infusion Services 41 [facility] 3rd [place] [address] Sharon Lewis, DUCT INSTALLER [address] [place] [address] In Person with Resource documented as of this encounter Visit Diagnoses Not on filedocumented in this encounter Care Teams Horticultural Specialty Grower Inside Relationship Specialty Start Date End Date Robert August [address] [place] [address] PCP - General 07/19/14 01/06/25 Robert August [address] [place] [address] [address] [place] [address] PCP - Insurance Assigned PCP 02/27/22 01/06/25 Loli Lees MD [address] [place] [address] PCP - General Internal Medicine 01/07/25 Loli Lees MD [address] [place] [address] PCP - Insurance Assigned PCP 03/15/25 Jackelyn Fermin MD [address] [place] [address] Consulting Provider Hematology/Oncology 04/23/16 Anabel Goldsmith NP [address] [place] [address] Nurse Practitioner Nurse Practitioner 07/16/16 Shayna Lennon NP [address] [place] [address] Nurse Practitioner Nurse Practitioner 01/14/20 Sharon Lewis NP [address] [place] [address] Nurse Practitioner Nurse Practitioner 08/09/20 Jacqueline Dinero NP [address] [address] Nurse Practitioner Nurse Practitioner 07/02/24 Nishi Tomlinson NP [address] [place] [address] Nurse Practitioner Hematology/Oncology 07/19/25 documented as of this encounter
--- OUTSIDE RECORDS SUMMARY | 2025-09-06 19:34 | XMS_ITS | Encounter Summary ---
Author Organization [facility] Address [address] [place] [address] Care Team Providers Care Control Officer Manager Name Role Phone Robert August Primary Care Provider [phone] Jackelyn Lake MD Unavailable [phone] Anabel Goldsmith REWORK MACHINE OPERATOR Unavailable [phone] Shayna Lennon REWORK MACHINE OPERATOR Unavailable [phone] Sharon Lewis REWORK MACHINE OPERATOR Unavailable [phone] Robert August Unavailable Jacqueline Dinero REWORK MACHINE OPERATOR Unavailable [phone] Loli Lees MD Primary Care Provider Loli Lees MD Unavailable [phone] Nishi Tomlinson REWORK MACHINE OPERATOR Unavailable [phone] Encounter Details Date Type Department Care Team (Late st Contact Info) Description 07/16/2013 Clinical Conversion Encounter [place] [facility] Gynecology Outpatient Clinic [address] [place] [address] Eyal Arboleda MD Social History Tobacco Use Types Packs/Day Years Used Date Smoking Tobacco: Never Assessed Comments Unknown Sex and Gender Information Value Date Recorded Sex Assigned at Female 01/05/2020 1:28 PM EDT Legal Sex Female 11:24 AM EST Gender Identity Female 01/05/2020 1:28 PM EDT Sexual Orientation Not on file documented as of this encounter Miscellaneous Notes * Op Note - Eyal Arboleda MD - 10/26/2014 9:28 PM EST [id number] MICHELLE [place]. OPERATIVE REPORT Name: HENRY MICHELLE Date: 07/16/2013 LC#: [id number] : 1970 Admit Date: 07/16/2013 Visit ID: [id number] Floor: [id number] / [id number] PREOPERATIVE DIAGNOSIS: Left breast cancer sensitive to estrogen, risk reduction bilateral salpingo-oophorectomy. POSTOPERATIVE DIAGNOSIS: Left breast cancer sensitive to estrogen, risk reduction bilateral salpingo-oophorectomy. PROCEDURE: Laparoscopic bilateral salpingo-oophorectomy. SURGEON: Eyal Arboleda M.D. MANAGER DISCOVERY: Dr. Siddiqi. ANESTHESIA: General. ESTIMATED BLOOD LOSS: Negligible. SPECIMENS: Bilateral ovaries and tubes. FINDINGS: Exam under anesthesia revealed normal external female genitalia. Vagina normal. Cervix long, closed. Uterus normal size. Adnexa: Right and left ovaries and tubes unremarkable. Gallbladder unremarkable as was the liver edge. Remainder of bowel was unremarkable as well. There were some adhesions in the right lower quadrant secondary to prior procedure. We did discuss potential risks of procedure including but not limited to bleeding, transfusion, infection, injury to intraabdominal organs requiring further surgery via laparotomy. The patient understood and accepted these risks. Also, of note at termination of procedure, there was no evidence of any harm or injury to any vital structure. After Dr. Mcnulty had completed his left modified radical mastectomy, we proceeded with our surgery. We placed the patient in dorsal lithotomy position, prepped and draped in sterile fashion. We placed the Solorzano to drain the bladder. We placed a tenaculum on the anterior lip of cervix and we placed a uterine manipulator that was attached to the tenaculum. We injected 1/8% Marcaine with 1:400,000 of epinephrine in the umbilical skin. We made a radial incision in the umbilical skin with a #15 blade. While tenting the anterior abdominal wall, we entered the abdominal cavity with the trocar under direct visualization with the scope. We then removed the center obturator and filled the abdomen with CO2 gas at a maximal pressure of 12 mmHg. At this point, we placed the patient in Trendelenburg. We injected Marcaine in the right and left lower quadrant skin, fascia and peritoneum. We nicked the skin with a scalpel and introduced a 5-mm trocar in the right lower quadrant, 10 mm in left lower quadrant. We visualized the peritoneal cavity as stated above. The left ovary and tube were grasped with Raptors and placed under medial tension. We were able to identify the ureter, which was out of harm's way. Using the 5-mm blunt tip LigaSure sealing device, we sealed the right IP ligaments 2 cm lateral to the ovary and tube. Upon sealing, we did incise the IP, we then sealed the mesenteric attachment of the ovary and tube on the right side, sealed and cut using the LigaSure #5. Upon reaching the junction of the uterus, we sealed the proximal end of the tube and incised it. We then placed the tube and ovary in the cul-de-sac. We did the same on the left side. Upon removal of the left side, we noted excellent hemostasis at operative sites. We placed a 10 mm pouch through the left lower trocar. We placed both the ovaries and tubes into the pouch. We removed the pouch with the ovaries and tubes. We again reinserted the trocar and placed probe. Again, excellent hemostasis under pneumoperitoneum. At this point, we removed the trocars, allowed the pneumoperitoneum to be re-released. The left lower quadrant was closed with interrupted 0 Vicryl suture. This was the fascia. We used 4-0 Monocryl to close the skin incisions. Steri-Strips applied. The manipulator and tenaculum was removed from the cervix and uterus. Solorzano removed. Excellent hemostasis noted. The patient awakened in the OR, brought to recovery in excellent condition. Sponge and instrument counts correct x2. Eyal Arboleda MD [phone] RB:BREA J: [id number] / [id number] CC: Robert August MD, <Primary Care Physician> THIS DOCUMENT WAS ELECTRONICALLY AUTHENTICATED BY Eyal Arboleda MD ON 07/26/2013 08:38:08 HENRY MICHELLE # [id number] documented in this encounter Plan of Treatment Upcoming Encounters Date Type Department Care Team (Late st Contact Info) Description 09/20/2025 10:20 AM EST Lab Department of Hematology and Oncology [facility] Hematology Oncology [address] [place] [address] Sharon Lewis, REWORK MACHINE OPERATOR [address] [place] [address] In Person with Resource 09/20/2025 11:30 AM EST Office Visit Department of Hematology and Oncology [facility] Hematology Oncology [address] [place] [address] Jackelyn Lake MD [address] [place] [address] In Person with Physician 09/20/2025 12:30 PM EST Infusion [facility] Infusion Services [facility] Infusion Services [address] [place] [address] 3[address] [place] [address] Sharon Lewis, REWORK MACHINE OPERATOR [address] [place] [address] In Person with Resource documented as of this encounter Visit Diagnoses Not on filedocumented in this encounter Care Teams Control Officer Manager Relationship Specialty Start Date End Date Robert August [address] [place] [address] PCP - General 07/19/14 01/06/25 Robert August [address] [place] [address] PCP - Insurance Assigned PCP 02/27/22 01/06/25 Loli Lees MD [address] [place] [address] PCP - General Internal Medicine 01/07/25 Loli Lees MD [address] [place] [address] PCP - Insurance Assigned PCP 03/15/25 Jackelyn Lake MD [address] [place] [address] Consulting Provider Hematology/Oncology 04/23/16 Anabel Goldsmith, REWORK MACHINE OPERATOR [address] [place] [address] Nurse Practitioner Nurse Practitioner 07/16/16 Shayna Lennon NP [address] [place] [address] Nurse Practitioner Nurse Practitioner 01/14/20 Sharon Lewis NP [address] [place] [address] Nurse Practitioner Nurse Practitioner 08/09/20 Jacqueline Dinero NP [address] [place] [address] Nurse Practitioner Nurse Practitioner 07/02/24 Nishi Tomlinson NP [address] [place] [address] Nurse Practitioner Hematology/Oncology 07/19/25 documented as of this encounter
--- OUTSIDE RECORDS SUMMARY | 2025-09-06 19:34 | XMS_ITS | Encounter Summary ---
Author Organization [facility] Address [address] [place] [address] Care Team Providers Care Manager Electrical Name Role Phone Robert August Primary Care Provider Jackelyn Lake MD Unavailable [phone] Anabel Goldsmith SECURITY GUARD SUPERVISOR Unavailable [phone] Shayna Lennon SECURITY GUARD SUPERVISOR Unavailable Sharon Lewis SECURITY GUARD SUPERVISOR Unavailable [phone] Robert August Unavailable Jacqueline Dinero SECURITY GUARD SUPERVISOR Unavailable [phone] Loli Lees MD Primary Care Provider [phone] Loli Lees MD Unavailable [phone] Nishi Tomlinson SECURITY GUARD SUPERVISOR Unavailable [phone] Encounter Details Date Type Department Care Team (Late st Contact Info) Description 02/27/2013 Clinical Conversion Encounter GENERAL CONVERSION Josee Schaffer [...] Progress Notes * Josee Schaffer RN - 10/26/2014 6:39 AM EST [id number]. HEMATOLOGY and ONCOLOGY VALENTINA MICHELLE Jose A 03/27/2013 # [id number] : 1970 Second Visit ID: [id number] Visit ID: [id number] Subcutaneous/ Intramuscular Injection Type of Injection- Lupron [...] ( ) Left thigh Medication dispensed from [facility] YES ( x ) NO ( ) Medication was brought from home YES ( ) NO (x ) (x ) Comments: Patient presents to infusion room after appointment with Dr. Lake for injection. Reports feeling well. Tolerated injection well and band aid applied to benign site. Plan is for left-sided mastectomy and radiation soon. Patient also met with Dr. Montemayor in [facility] today and plan is to have an ultrasound and then evaluate plan for possible surgery. Patient requesting this be done in the fall if this is the case. RV in [address] Lake. Ambulatory upon d/c, unaccompanied. Aware to call in the interim with any questions or concerns. Josee Schaffer RN [phone] SET: J: [id number] CC: THIS DOCUMENT WAS ELECTRONICALLY AUTHENTICATED BY Josee Schaffer RN ON 03/27/2013 13:01:23 * Josee Schaffer RN - 10/25/2014 9:34 PM EST [id number] MICHELLE [place]. HEMATOLOGY and ONCOLOGY DAVIDJACQUESVALENTINA JIMENEZ Jose A 02/27/2013 # [id number] : 1970 Second Visit ID: [id number] Visit ID: [id number] Subcutaneous/ Intramuscular Injection Type of Injection- Lupron [...] ( ) Left thigh Medication dispensed from [facility] YES ( x ) NO ( ) Medication was brought from home YES ( ) NO (x ) (x ) Comments: Patient presents to infusion room after appointment with Dr. Lake for injection. Reports feeling well. Tolerated injection well. Per pt, good results via PET scan, and possible surgery in near future. RV in 4 weeks with . Ambulatory upon d/c. Aware to call with any questions or concerns in the interim. Josee Schaffer RN [phone] SET: J: [id number] CC: THIS DOCUMENT WAS ELECTRONICALLY AUTHENTICATED BY Josee Schaffer RN ON 02/27/2013 13:56:25 documented in this encounter Plan of Treatment Upcoming Encounters Date Type Department Care Team (Late st Contact Info) Description 09/20/2025 10:20 AM EST Lab Department of Hematology and Oncology [facility] Hematology Oncology [address] [place] [address] Sharon Lewis NP [address] [place] [address] In Person with Resource 09/20/2025 11:30 AM EST Office Visit Department of Hematology and Oncology [facility] Hematology Oncology [address] [place] [address] Jackelyn Lake MD [address] [place] [address] In Person with Physician 09/20/2025 12:30 PM EST Infusion [facility] Infusion Services [facility] Infusion Services [address] 3rd [place] [address] Sharon Lewis, SECURITY GUARD SUPERVISOR [address] [place] [address] In Person with Resource documented as of this encounter Procedures Procedure Name Priority Date/Time Associated Diagnosis Comments CBC AND ABSOLUTE NEUTROPHIL COUNT(ANC) STAT 02/27/2013 11:34 AM EDT documented in this encounter Results * (ABNORMAL) CBC and Granulocyte Count (02/27/2013 11:34 AM EDT) WBC 6.51 4.4 - 11.3 K/uL [facility] RBC 4.11(L) 4.10 - 5.10 M/uL [facility] Hemoglobin 13.9 12.0 - 15.3 G/DL [facility] Hematocrit 41.0 36.0 - 45.0 % [facility] MCV 100(H) 80 - 96 FL [facility] Platelet Count 314 150 - 450 K/uL [facility] RDW 12.5 11.6 - 14.6 % [facility] WBC 6.51 4.4 - 11.3 K/uL [facility] Neutrophil 66 % [facility] Absolute Neutrophil Count 4.30 1.4 - 6.6 K/uL [facility] 02/27/2013 11:3 4 AM EDT 02/27/2013 11:45 AM EDT us Jackelyn Lake MD LAB BLOOD ORDERABLES Final Res ult [facility] documented in this encounter Visit Diagnoses Not on filedocumented in this encounter Care Teams Manager Electrical Relationship Specialty Start Date End Date Robert August [address] [place] [address] PCP - General 07/19/14 01/06/25 Robert August [address] [place] [address] PCP - Insurance Assigned PCP 02/27/22 01/06/25 Loli Lees MD [address] [place] [address] PCP - General Internal Medicine 01/07/25 Loli Lees MD [address] [place] [address] PCP - Insurance Assigned PCP 03/15/25 Jackelyn Lake MD [address] [place] [address] Consulting Provider Hematology/Oncology 04/23/16 Anabel Goldsmith SECURITY GUARD SUPERVISOR [address] [place] [address] Nurse Practitioner Nurse Practitioner 07/16/16 Shayna Lennon NP [address] [place] [address] Nurse Practitioner Nurse Practitioner 01/14/20 Sharon Lewis NP [address] [place] [address] Nurse Practitioner Nurse Practitioner 08/09/20 Jacqueline Dinero, STU [address] [place] [address] Nurse Practitioner Nurse Practitioner 07/02/24 Nishi Tolminson SECURITY GUARD SUPERVISOR [address] [place] [address] Nurse Practitioner Hematology/Oncology 07/19/25 documented as of this encounter
--- OUTSIDE RECORDS SUMMARY | 2025-09-06 19:34 | XMS_ITS | Encounter Summary ---
Author Organization [facility] Address [address] [place] [address] Care Team Providers Care Senior Stereo Compiler Team Lead Name Role Phone Robert August Primary Care Provider [phone] Jackelyn Lake MD Unavailable [phone] Anabel Goldsmith FOOD PRODUCTS SALES REPRESENTATIVE Unavailable [phone] Shayna Lennon FOOD PRODUCTS SALES REPRESENTATIVE Unavailable Sharon Lewis FOOD PRODUCTS SALES REPRESENTATIVE Unavailable [phone] Robert August Unavailable Jacqueline Dinero NP Unavailable [phone] Loli Lees MD Primary Care Provider Loli Lees MD Unavailable [phone] Nishi Tomlinson FOOD PRODUCTS SALES REPRESENTATIVE Unavailable [phone] Encounter Details Date Type Department Care Team (Late st Contact Info) Description 07/20/2014 Clinical Conversion Encounter [facility] [facility] Gynecology Outpatient Clinic [address] 3rd [place] [address] Brenda Quiles, STU [facility] [address] [place] [address] Social History Tobacco Use Types Packs/Day Years [...] Quiles NP - 11/05/2014 9:07 AM EST [id number] MICHELLE [place], [place]. July 20, 2014 VALENTINA MICHELLE [address] [place] [id number] #[id number] : 1970 VISIT ID : [id number] Dear Parmjitcaro: This letter is in regard to your recent visit with Dr. Eyal Arboleda, at which time an HPV screening test was obtained. I am pleased to report the result is negative. Please do not hesitate to contact our office should you have any further questions. Sincerely, Brenda Quiles NP Department of Gynecology [phone] DMM:channing J: 0 CC: THIS DOCUMENT WAS ELECTRONICALLY AUTHENTICATED BY Brenda Quiles NP ON 07/21/2014 19:32:31 VALENTINA MICHELLE # [id number] documented in this encounter Plan of Treatment Upcoming Encounters Date Type Department Care Team (Late st Contact Info) Description 09/20/2025 10:20 AM EST Lab Department of Hematology and Oncology [facility] Hematology Oncology [address] [place] [address] Sharon Lewis NP [address] [place] [address] In Person with Resource 09/20/2025 11:30 AM EST Office Visit Department of Hematology and Oncology [facility] Hematology Oncology [address] [place] [address] Jackelyn Lake MD [address] [place] [address] In Person with Physician 09/20/2025 12:30 PM EST Infusion [facility] Infusion Services [facility] Infusion Services [address] [facility] 3rd [place] [address] Sharon Lewis, FOOD PRODUCTS SALES REPRESENTATIVE [address] [place] [address] In Person with Resource documented as of this encounter Visit Diagnoses Not on filedocumented in this encounter Care Teams Senior Stereo Compiler Team Lead Relationship Specialty Start Date End Date Robert August [address] [place] [address] PCP - General 07/19/14 01/06/25 Robert August [address] [place] [address] PCP - Insurance Assigned PCP 02/27/22 01/06/25 Loli Lees MD [address] [place] [address] PCP - General Internal Medicine 01/07/25 Loli Lees MD [address] [place] [address] PCP - Insurance Assigned PCP 03/15/25 Jackelyn Lake MD [address] [place] [address] Consulting Provider Hematology/Oncology 04/23/16 Anabel Goldsmith NP [address] [place] [address] Nurse Practitioner Nurse Practitioner 07/16/16 Shayna Lennon NP [address] [place] [address] Nurse Practitioner Nurse Practitioner 01/14/20 Sharon Lewis FOOD PRODUCTS SALES REPRESENTATIVE [address] [place] [address] Nurse Practitioner Nurse Practitioner 08/09/20 Jacqueline Dinero NP [address] [place] [address] Nurse Practitioner Nurse Practitioner 07/02/24 Nishi Tomlinson NP [address] [place] [address] Nurse Practitioner Hematology/Oncology 07/19/25 documented as of this encounter
--- OUTSIDE RECORDS SUMMARY | 2025-09-06 19:34 | XMS_ITS | Encounter Summary ---
Author Organization [facility] Address [address] [place] [address] Care Team Providers Care Funeral Greeter Name Role Phone Robert August Primary Care Provider Kae Fermin MD Unavailable [phone] Anabel Goldsmith BILINGUAL TRAINER Unavailable [phone] Shayna Lennon BILINGUAL TRAINER Unavailable [phone] Sharon Lewis BILINGUAL TRAINER Unavailable [phone] Robert August Unavailable Jacqueline Dinero BILINGUAL TRAINER Unavailable [phone] Loli Lees MD Primary Care Provider [phone] Loli Lees MD Unavailable [phone] Nishi Tomlinson BILINGUAL TRAINER Unavailable [phone] Encounter Details Date Type Department Care Team (Late st Contact Info) Description 12/01/2012 Clinical Conversion Encounter Department of Hematology and Oncology [facility] Hematology Oncology [address] [id number] Kae Fermin MD [address] [place] [address] Social History Tobacco Use Types Packs/Day Years Used Date Smoking Tobacco: Never Assessed Comments Unknown Sex and Gender Information Value Date Recorded Sex Assigned at Female 01/05/2020 1:28 PM EDT Legal Sex Female 11:24 AM EST Gender Identity Female 01/05/2020 1:28 PM EDT Sexual Orientation Not on file documented as of this encounter Progress Notes * Kae Fermin MD - 10/25/2014 11:24 AM EST [id number],[place]ENNIFER [place]. Chief Complaint Followup of a new diagnosis of left-sided breast cancer History of Present Illness ONCOLOGIC HISTORY: This is a 41-year-old premenopausal woman who noted changes in her left breast. She was scheduled for routine mammogram at [facility] on September 11, 2011. There is a [...] revealed that her tumor was HER-2/genesis negative. Current treatment: Lupron 7.5 mg every 4 weeks and tamoxifen 20 mg daily INTERVAL HISTORY: Since I saw the patient last she has been taking tamoxifen daily. She did not notice any side effects. She had one night of calf cramping. No hot flashes. Her last menstrual period was November 16. She is not having any significant pain in her left breast since her recent biopsy. Otherwise she has no new issues or concerns today. Current Meds Lisinopril 5 MG Oral Tablet; Take 1 tablet daily; Therapy: 01Oct2012 to Tamoxifen Citrate 20 MG Oral Tablet; Take 1 tab orally once a day; Therapy: 30Oct2012 to (Last Rx:30Oct2012) Requested for: 30Oct2012 TraMADol HCl 50 MG Oral Tablet; TAKE 1 TABLET 4 TIMES DAILY NEEDED FOR PAIN; Therapy: 13Nov2012 to (Evaluate:20Nov2012); Last Rx:13Nov2012 Vitamin D (Ergocalciferol) 83355 UNIT Oral Capsule; TAKE 1 CAPSULE WEEKLY; Therapy: 07Nov2012 to (Last Rx:07Nov2012) Requested for: 07Nov2012 Allergies Erythromycin Derivatives Penicillins Benadryl CAPS Review [...] in detail. Performance Status ECoG zero Vitals [facility] Vitals Data Includes: Last 1 Instance 01Dec2012 02:16PM Systolic: 161 Diastolic: 99 Heart Rate: 93 BMI Calculated: 27.32 BSA Calculated: 1.87 Weight: 170 lb Respiration: 16 O2 Saturation: 99 Temperature: 98.5 F Pain Score: 0 Allergy Status Reviewed: Yes Safe at Home: Yes Height Source: Actual Height Weight Source: Actual Weight Chaperoned During Appointment: Yes Height: 5 ft [...] diameter in the midportion of the breast. Steri-Strips are in place from her recent surgery. Results/Data All Results Data Includes: Last 6 Weeks 13Nov2012 12:00AM Frozen Section First Frozen Section First: Case #: [id number] of SpecimenA. LEFT BREAST BIOPSY NFS-B. LEFT BREAST BIOPSY FS-FINAL DIAGNOSIS:A. 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 LEFT BREAST BIOPSY FS-SEE PART A FOR DIAGNOSIS[facility])SignatureK. ROMI PEREZ M.D.(Case signed 11 14 2012)Signed OthersFrozen SectionA. LEFT BREAST BIOPSY: TWO SMALL FRAGMENTS OF SOFT TISSUE.SAMPLES FROM BOTH TISSUES TAKEN FOR FS.FS LEFT BREAST BIOPSY: INVASIVE DUCTAL CA.FS performed by Dr. Deisy Maynard. ROMI PEREZ M.D.(Frozen Section Signed 11 14 2012)Case Clinical InformationBREAST CANCERGross DescriptionA. Received in formalin labeled with the patient's name and left breast biopsy NFS consists of several fragments oftan-pink, rubbery, fatty tissue with the fragments ranging insize from 1.5 down to 1 cm, with some of the fragments havingbeen previously inked. The excess fat is trimmed from thefragments, and just firm, fibrous tissue is submitted in A1-A3.B. Received in formalin labeled with the patient's name and left breast biopsy FS consists of two frozen section tissueremnants of escobedo-pink, fatty tissue measuring from 1.5 down to0.8 cm. The specimen is entirely submitted in B1. This casewas reviewed with Dr. Perez.//INGRIS Kelly/#/[id number] SupplementalA. FLUORESCENCE in situ HYBRIDIZATION (FISH) FOR HER-2GENE AMPLIFICATION HAS BEEN PERFORMED USING TWO PROBES (HER-2,CEP-17). THE RESULTS ARE FOLLOWS:HER-2 GENE AMPLIFICATION: NOT AMPLIFIED.SCORE (HER-2 TO CEP-17 RATIO): 0.97AVERAGE OF HER-2 COPIES PER TARGET: 2.90AVERAGE OF CEP-17 COPIES PER TARGET: 2.97This test was performed using the [employer]Crow[employer]) HER-2 DNA probe kit using a modified protocoldeveloped and validated by the [facility].Appropriate positive internal controls were examined along theside of the tumor. The control tissue was judged to betechnically acceptable. This test has not been cleared or approved by the U.S. Foodand Drug Administration (FDA). The FDA has determined that suchclearance or approval is not necessary. This test is used forclinical purposes. It should not be regarded as investigationalor for research. This laboratory is certified under theClinical Laboratory Improvement Amendments of 1988 (CLIA-88) asqualified to perform high complexity clinical laboratorytesting.JOSE FRANCISCO GALLAGHER M.D.(Supplemental Report Signed 11 19 2012)ProcedureA. A SMALL X3 BLOCK.1H&E X3A. A SMALL X3 BLOCK.2H&E 3 HER2-FISHA. A SMALL X3 BLOCK.3H&E X3B. AA ROUTINE H&E X1 BLOCKH&E X1 Assessment 1. Breast Cancer 174.9 2. Malignant Neoplasm Metastasis To Lymph Nodes 196.9 Stage IV breast cancer that is ER/[place] positive with lymph node metastases. Plan Her breast exam is largely unchanged, however she recently had an excisional biopsy. Some of the changes are postoperative. She will continue her current treatment. She will receive Lupron today. I will see her back in 4 weeks. At that point we will reexamine her breast and talk about a restaging scan at some point. She was given information to schedule an appointment for genetic counseling and consideration of testing. Signatures Electronically signed by : KAE FERMIN MD; Dec 01 2012 2:38PM documented in this encounter Plan of Treatment Upcoming Encounters Date Type Department Care Team (Late st Contact Info) Description 09/20/2025 10:20 AM EST Lab Department of Hematology [facility] [address] [place] [address] Sharon Lewis, BILINGUAL TRAINER [address] [place] [address] In Person with Resource 09/20/2025 11:30 AM EST Office Visit Department of Hematology and Oncology [facility] 41 [facility] [address] [place] [address] Kae Fermin MD [address] [place] [address] In Person with Physician 09/20/2025 12:30 PM EST Infusion [facility] Infusion Services [facility] Infusion Services 41 [facility] 3rd [place] [address] Sharon Lewis NP [address] [place] [address] In Person with Resource documented as of this encounter Procedures Procedure Name Priority Date/Time Associated Diagnosis Comments ONCOLOGY METABOLIC PROFILE, PLASMA STAT 12/01/2012 2:11 PM EDT CBC AND ABSOLUTE NEUTROPHIL COUNT(ANC) STAT 12/01/2012 2:11 PM EDT documented in this encounter Results * (ABNORMAL) CBC and Granulocyte Count (12/01/2012 2:11 PM EDT) WBC 6.83 4.4 - 11.3 K/uL [facility] RBC 4.04(L) 4.10 - 5.10 M/uL [facility] Hemoglobin 13.7 12.0 - 15.3 G/DL [facility] Hematocrit 41.2 36.0 - 45.0 % [facility] MCV 102(H) 80 - 96 FL [facility] Platelet Count 320 150 - 450 K/uL [facility] RDW 12.2 11.6 - 14.6 % [facility] WBC 6.83 4.4 - 11.3 K/uL [facility] Neutrophil 66 % [facility] Absolute Neutrophil Count 4.51 1.4 - 6.6 K/uL [facility] 12/01/2012 2:11 PM EDT 12/01/2012 2:21 PM EDT us Kae Fermin MD LAB BLOOD ORDERABLES Final Res ult [facility] * (ABNORMAL) Oncology Metabolic Profile, Plasma (12/01/2012 2:11 PM EDT) Sodium 139 135 - 146 MMOL/L [facility] Potassium, Plasma 3.9 3.4 - 5.2 MMOL/L [facility] Chloride 104 98 - 110 MMOL/L [facility] Total CO2 24 24 - 32 MMOL/L [facility] Anion Gap 12 2 - 15 MMOL/L [facility] BUN 9 6 - 20 MG/DL [facility] Creatinine 0.7 0.5 - 1.1 MG/DL [facility] Glucose, Blood 98 70 - 100 MG/DL [facility] Calcium 9.6 8.4 - 10.4 MG/DL [facility] GFR -Amer >60 >60 ML/MIN [facility] GFR Non -Amer >60 >60 ML/MIN [facility] Total Protein 7.5 6.2 - 8.2 G/DL [facility] Albumin, Blood 4.4 3.5 - 5.0 G/DL [facility] Globulin Result 3.1 2.0 - 4.0 G/DL [facility] AST (SGOT) 24 11 - 40 IU/L [facility] ALT (SGPT) 24 4 - 35 IU/L [facility] Alkaline Phosphatase 64 30 - 115 IU/L [facility] Total Bilirubin 1.2(H) 0.2 - 1.1 MG/DL [facility] Uric Acid,Blood 5.4 2.3 - 6.5 MG/DL [facility] Phosphorus 3.4 2.4 - 4.4 MG/DL [facility] Magnesium, Blood 2.0 1.6 - 2.6 MG/DL [facility] 12/01/2012 2:11 PM EDT 12/01/2012 2:21 PM EDT Kae Fermin MD LAB BLOOD ORDERABLES Final Res ult [facility] documented in this encounter Visit Diagnoses Not on filedocumented in this encounter Care Teams Funeral Greeter Relationship Specialty Start Date End Date Robert August [address] [place] [address] DR[address] [place] [address] PCP - General 07/19/14 01/06/25 Robert August [address] [place] [address] PCP - Insurance Assigned PCP 02/27/22 01/06/25 Loli Lees MD [address] [place] [address] PCP - General Internal Medicine 01/07/25 Loli Lees MD [address] [place] [address] PCP - Insurance Assigned PCP 03/15/25 Kae Fermin MD [address] [place] [address] Consulting Provider Hematology/Oncology 04/23/16 Anabel Goldsmith NP [address] [place] [address] Nurse Practitioner Nurse Practitioner 07/16/16 Shayna Lennon NP [address] [place] [address] Nurse Practitioner Nurse Practitioner 01/14/20 Sharon Lewis, BILINGUAL TRAINER [address] [place] [address] Nurse Practitioner Nurse Practitioner 08/09/20 Jacqueline Dinero NP [address] [place] [address] Nurse Practitioner Nurse Practitioner 07/02/24 Nishi Tomlinson BILINGUAL TRAINER [address] [place] [address] [place] [address] Nurse Practitioner Hematology/Oncology 07/19/25 documented as of this encounter
--- OUTSIDE RECORDS SUMMARY | 2025-09-06 19:34 | XMS_ITS | Encounter Summary ---
Author Organization [facility] Address [address] [place] [address] Care Team Providers Care De Alcoholizer Name Role Phone Robert August Primary Care Provider Jackelyn Lake MD Unavailable [phone] Anabel Goldsmith PRODUCTION LABORER Unavailable [phone] Shayna Lennon PRODUCTION LABORER Unavailable [phone] Sharon Lewis PRODUCTION LABORER Unavailable [phone] Robert August Unavailable Jacqueline Dinero PRODUCTION LABORER Unavailable [phone] Loli Lees MD Primary Care Provider [phone] Loli Lees MD Unavailable [phone] Nishi Tomlinson PRODUCTION LABORER Unavailable [phone] Encounter Details Date Type Department Care Team (Late st Contact Info) Description 06/19/2013 Clinical Conversion Encounter Department of Hematology and Oncology [facility] Hematology Oncology [address] [address] Conrad Harris NP Social History Tobacco Use Types Packs/Day Years Used Date Smoking Tobacco: Never Assessed Comments Unknown Sex and Gender Information Value Date Recorded Sex Assigned at Female 01/05/2020 1:28 PM EDT Legal Sex Female 11:24 AM EST Gender Identity Female 01/05/2020 1:28 PM EDT Sexual Orientation Not on file documented as of this encounter Progress Notes * Conrad Harris, STU - 10/26/2014 6:16 PM EST [id number] MICHELLE REVISED [facility] [place], [place]. Chief Complaint Followup of a metastatic breast cancer with mediastinal lymph node metastases and in situ breast mass. History of Present Illness ONCOLOGIC HISTORY: This is a 42-year-old premenopausal woman who noted changes in her left breast. She was scheduled for routine mammogram at [facility] on September 11, 2011. There is [...] revealed that her tumor was HER-2/genesis negative. CURRENT TREATMENT: Lupron 7.5 mg every 4 weeks and tamoxifen 20 mg daily. INTERVAL HISTORY: Patient returns to clinic one month from her last visit. In the interim, her overall health is largely unchanged. She denies any new breast changes. No new areas of pain or discomfort. She is scheduled for a PET/CT scan later this month prior to her followup with Dr. Mcnulty in anticipation of mastectomy. She is struggling a little bit emotionally with this upcoming surgery but appropriate and is not interfering with her function. No new complaints. Tolerating tamoxifen with very few side effects. She has chronic pain in her left knee but this is not new. Current Meds Blood Pressure Monitor KIT; USE DIRECTED; Therapy: 27Feb2013 to (Last Rx:27Feb2013) Lisinopril 20 MG Oral Tablet; TAKE 1 TABLET DAILY; Therapy: 01Oct2012 to (Evaluate:25Jun2013) Requested for: [id number]; Last Rx:[id number] Lupron Depot 3.75 MG Intramuscular Kit; Therapy: (Recorded:[id number]) to Multi-Day Vitamins TABS; Therapy: (Recorded:19Jun2013) to Tamoxifen Citrate 20 MG Oral Tablet; Take 1 tab orally once a day; Therapy: 30Oct2012 to (Last Rx:30Oct2012) Requested for: [id number] Allergies Erythromycin Derivatives Penicillins Benadryl CAPS Review of Systems As above. Patient specifically denies any fevers, chills, sore throat, shortness of breath or cough, chest pain, abdominal pain, nausea, vomiting, constipation, diarrhea, dysuria or urinary frequency, new areas of pain or discomfort. Performance Status ECoG zero Vitals [facility] Vitals Data Includes: Last 1 Instance 19Jun2013 10:14AM Systolic: 140 Diastolic: 80 BMI Calculated: 28.82 BSA Calculated: 1.86 Height: 5 ft 5 in Weight: 173 lb LMP: unk Pain Site: 0 MD Notified of Pain Score Greater Than 3: No Allergy Status Reviewed: No Safe at Home: Yes Chaperoned During Appointment: Yes Pain Score: 0 Heart Rate: 96 Respiration: 18 O2 Saturation: 98 Temperature: 98.6 F Chaperoned By: sister Height Source: Actual Height Weight Source: Actual Weight Physical Exam In general, this is an alert, interactive, middle-aged female in no acute distress. HEENT: Sclerae are anicteric. Oral mucosa is pink and moist without visible lesions. Neck is supple without adenopathy or thyromegaly. No masses to palpation. Cardiac: Normal S1, S2 regular rate and rhythm without gallops, rubs, or murmurs. Respiratory: Breathing is unlabored at rest. Lung sounds are clear to auscultation bilaterally. Abdomen: Nondistended. Positive bowel sounds x4. Soft and nontender to palpation. Lower extremities: Warm and dry. No peripheral edema, cyanosis, or tenderness. Neuro: Cranial nerves II through XII are grossly intact. No gait disturbance or cognitive deficit noted on gross exam. Skin: No rashes or open wounds. Breast exam deferred. Patient is scheduled for a PET/CT scan in 2 weeks. Results/Data Selected Results 19Jun2013 11:04AM Oncology Metabolic Profile, Plasma Total Bilirubin: 0.7 MG/DL Reference Range 0.2-1.1 Total Protein: 7.5 G/DL Reference Range 6.2-8.2 Glucose, Plasma: 108 MG/DL Abnormal High Reference Range 70-100 Albumin: 4.3 G/DL Reference Range 3.5-5.0 Alk Phosphatase: 49 IU/L Reference Range 30-115 Creatinine, Blood: 0.7 MG/DL Reference Range 0.5-1.1 Anion Gap: 10 MMOL/L Reference Range 2-15 BUN: 9 MG/DL Reference Range 6-20 Calcium: 9.7 MG/DL Reference Range 8.4-10.4 Chloride: 102 MMOL/L Reference Range 98-110 Total CO2: 25 MMOL/L Reference Range 24-32 Sodium: 137 MMOL/L Reference Range 135-146 Potassium, Plasma: 4.3 MMOL/L Reference Range 3.4-5.2 Globulin: 3.2 G/DL Reference Range 2.0-4.0 AST (SGOT): 34 IU/L Reference Range 11-40 Magnesium: 1.8 MG/DL Reference Range 1.6-2.6 Phosphorus: 3.9 MG/DL Reference Range 2.4-4.4 Uric Acid: 5.2 MG/DL Reference Range 2.3-6.5 GFR -Amer: >60 ML/MIN Reference Range >60 GFR Non -Nigerian: >60 ML/MIN Reference Range >60 ALT (SGPT): 38 IU/L Abnormal High Reference Range 4-35 CBC and Granulocyte Count Hematocrit: 41.4 % Reference Range 37.0-47.0 Hemoglobin: 14.0 G/DL Reference Range 12.0-16.[address] (GRCT): 3.57 K/uL Reference Range 1.4-6.6 WBC: 5.49 K/uL Reference Range 4.4-11.3 RBC: 4.08 M/uL Abnormal Low Reference Range 4.20-5.50 RDW: 12.5 % Reference Range 11.5-13.4 MCV: 102 FL Abnormal High Reference Range 80-96 Platelet Count: 303 K/uL Reference Range 150-450 Polys And Bands: 65 % WBC for Granulocytes: 5.49 K/uL Reference Range 4.4-11.3 Assessment 1. Breast Cancer 174.9 2. Malignant Neoplasm Metastasis To Lymph Nodes 196.9 Stage IV breast cancer that is ER/NM positive with lymph node metastases presently on Lupron and tamoxifen with good tolerance. Scheduled for mastectomy next month. Plan Continue tamoxifen. Lupron today at current dose. Orders were placed in the electronic medical record. Return visit in one month for routine reevaluation and her next Lupron. The patient and her spouse are advised to contact this office with any additional questions, concerns, new or worsening symptoms in the interim. Signatures Electronically signed by : CONRAD HARRIS N.P.; Jun 19 2013 1:25PM Electronically signed by : CONRAD HARRIS N.P.; Jun 19 2013 1:35PM documented in this encounter Plan of Treatment Upcoming Encounters Date Type Department Care Team (Late st Contact Info) Description 09/20/2025 10:20 AM EST Lab Department of Hematology and Oncology [facility] Hematology Oncology [address] [place] [address] Sharon Lewis NP [address] [place] [address] In Person with Resource 09/20/2025 11:30 AM EST Office Visit Department of Hematology and Oncology [facility] Hematology Oncology [address] [place] [address] Jackelyn Lake MD [address] [place] [address] In Person with Physician 09/20/2025 12:30 PM EST Infusion [facility] Infusion Services [facility] Infusion Services [address] [place] [address] [address] [place] [address] Sharon Lewis NP [address] [place] [address] In Person with Resource documented as of this encounter Visit Diagnoses Not on filedocumented in this encounter Care Teams De Alcoholizer Relationship Specialty Start Date End Date Robert August [address] [place] [address] PCP - General 07/19/14 01/06/25 Robert August [address] [place] [address] PCP - Insurance Assigned PCP 02/27/22 01/06/25 Loli Lees MD [address] [place] [address] PCP - General Internal Medicine 01/07/25 Loli Lees MD [address] [place] [address] PCP - Insurance Assigned PCP 03/15/25 Jackelyn Lake MD [address] [place] [address] Consulting Provider Hematology/Oncology 04/23/16 Anabel Goldsmith NP [address] [place] [address] Nurse Practitioner Nurse Practitioner 07/16/16 Shayna Lennon NP [address] [place] [address] Nurse Practitioner Nurse Practitioner 01/14/20 Sharon Lewis, STU [address] [place] [address] Nurse Practitioner Nurse Practitioner 08/09/20 Jacqueline Dinero NP [address] [place] [address] Nurse Practitioner Nurse Practitioner 07/02/24 Nishi Tomlinson NP [address] [place] [address] [place] [address] Nurse Practitioner Hematology/Oncology 07/19/25 documented as of this encounter
--- OUTSIDE RECORDS SUMMARY | 2025-09-06 19:34 | XMS_ITS | Encounter Summary ---
Author Organization [facility] Address [address] [place] [address] Care Team Providers Care [employer] Industrial Arts Teacher Name Role Phone Robert August Primary Care Provider [phone] Jackelyn Lake MD Unavailable [phone] Anabel Goldsmith TELESALES REPRESENTATIVE Unavailable [phone] Shayna Lennon TELESALES REPRESENTATIVE Unavailable [phone] Sharon Lewis TELESALES REPRESENTATIVE Unavailable [phone] Robert August Unavailable Jacqueline Dinero TELESALES REPRESENTATIVE Unavailable [phone] Loli Lees MD Primary Care Provider [phone] Loli Lees MD Unavailable [phone] Nishi Tomlinson TELESALES REPRESENTATIVE Unavailable [phone] Reason for Referral * ADVANCED IMAGING (Routine) - Closed Specialty Diagnoses / Procedures Referred By Contac t Referred To Contact Radiology Diagnoses Malignant neoplasm of breast (female), unspecified site Procedures CT Chest W Contrast Jackelyn Lake MD [address] [place] [address] Phone: tel: fax: Referral ID Status Reason Start Date Expiration Date Visits Re quested Visits Authorized [id number] Closed 04/27/2015 06/26/2015 1 1 Encounter Details Date Type Department Care Team (Late st Contact Info) Description 10/22/2014 Orders Only Department of Hematology and Oncology [facility] Hematology Oncology [address] [place] [address] Jackelyn Lake MD [address] [place] [address] Social History Tobacco Use Types Packs/Day Years [...] EST Lab Department of Hematology and Oncology [facility] Hematology Oncology [address] [place] [address] Sharon Lewis TELESALES REPRESENTATIVE [address] [place] [address] In Person with Resource 09/20/2025 11:30 AM EST Office Visit Department of Hematology and Oncology [facility] Hematology Oncology [address] [place] [address] Jackelyn Lake MD [address] [place] [address] In Person with Physician 09/20/2025 12:30 PM EST Infusion [facility] Infusion Services [facility] Infusion Services [address] [place] [address] [address] [place] [address] Sharon Lewis NP [address] [place] [address] In Person with Resource documented as of this encounter Results * CT Chest W Contrast (05/05/2015 12:23 PM EDT) Anatomical Region Laterality Modality Chest Computed Tomogra phy 05/05/2015 1:23 PM EDT [...] on filedocumented in this encounter Care Teams [employer] Industrial Arts Teacher Relationship Specialty Start Date End Date Robert August [address] [place] [address] PCP - General 07/19/14 01/06/25 Robert August [address] [place] [address] PCP - Insurance Assigned PCP 02/27/22 01/06/25 Loli Lees MD [address] [place] [address] PCP - General Internal Medicine 01/07/25 Loli Lees MD [address] [place] [address] PCP - Insurance Assigned PCP 03/15/25 Jackelyn Lake MD [address] [place] [address] Consulting Provider Hematology/Oncology 04/23/16 Anabel Goldsmith NP [address] [place] [address] Nurse Practitioner Nurse Practitioner 07/16/16 Shayna Lennon NP [address] [place] [address] Nurse Practitioner Nurse Practitioner 01/14/20 Sharon Lewis NP [address] [place] [address] Nurse Practitioner Nurse Practitioner 08/09/20 Jacqueline Dinero NP [address] [address] Nurse Practitioner Nurse Practitioner 07/02/24 Nishi Tomlinson NP [address] [place] [address] Nurse Practitioner Hematology/Oncology 07/19/25 documented as of this encounter
--- OUTSIDE RECORDS SUMMARY | 2025-09-06 19:34 | XMS_ITS | Encounter Summary ---
Author Organization Damaris saul Address [address] [place] [address] Care Team Providers Care Hydroelectric Production Technician Name Role Phone Robert August Primary Care Provider Jackelyn Lake MD Unavailable [phone] Anabel Goldsmith SUPERVISOR [employer] Unavailable [phone] Shayna Lennon [employer]PER[employer] Unavailable [phone] Sharon Lewis SUPERVISOR [employer] Unavailable [phone] Robert August Unavailable Jacqueline Dinero SUPER[employer] Unavailable [phone] Loli Lees MD Primary Care Provider Loli Lees MD Unavailable [phone] Nishi Tomlinson SUPERVISOR [employer] Unavailable [phone] Encounter Details Date Type Department Care Team (Late st Contact Info) Description 06/19/2013 Clinical Conversion Encounter GENERAL CONVERSION Angelia Husain, RN [address] [place] [address] Social History Tobacco Use Types Packs/Day Years Used Date Smoking Tobacco: Never Assessed Comments Unknown Sex and Gender Information Value Date Recorded Sex Assigned at Female 01/05/2020 1:28 PM EDT Legal Sex Female 11:24 AM EST Gender Identity Female 01/05/2020 1:28 PM EDT Sexual Orientation Not on file documented as of this encounter Progress Notes * Angelia Husain RN - 10/26/2014 6:16 PM EST [id number] MCIHELLE [place], [place]. HEMATOLOGY and ONCOLOGY HENRY MICHELLE 06/19/2013 # [id number] : 1970 Second Visit ID: [id number] Visit ID: [id number] Subcutaneous/ Intramuscular Injection Type of Injection: Lupron 7.5mg (monthly) (x) Intramuscular ( ) Subcutaneous Injection site ( ) Left arm ( ) Right arm ( ) Bilateral arms (x) Right hip ( ) Left hip ( ) Right Deltoid ( ) Left Deltoid ( ) Right thigh ( ) Left thigh ( ) LUQ of abdomen ( ) LLQ of abdomen ( ) RUQ of abdomen ( ) RLQ of abdomen (x) comments: Pt presented to infusion room ambulatory in stable condition for treatment as noted above after meeting with Lorena Harris NP. Site benign - injection administered as ordered. Bandaid applied to site after injection. Pt discharged home ambulatory in stable condition. Per pt, she will be having a mastectomy and her ovaries removed next month. Pt knows to call with any questions or concerns. Angelia Husain RN [phone] CK: J: [id number] CC: THIS DOCUMENT WAS ELECTRONICALLY AUTHENTICATED BY Angelia Husain RN ON 06/19/2013 12:15:44 documented in this encounter Plan of Treatment Upcoming Encounters Date Type Department Care Team (Late st Contact Info) Description 09/20/2025 10:20 AM EST Lab Department of Hematology and Oncology [facility] Hematology Oncology [address] [place] [address] Sharon Lewis NP [address] [place] [address] In Person with Resource 09/20/2025 11:30 AM EST Office Visit Department of Hematology and Oncology [facility] Hematology Oncology [address] [place] [address] Jackelyn Lake MD [address] [place] [address] In Person with Physician 09/20/2025 12:30 PM EST Infusion [facility] Infusion Services [facility] Infusion Services [address] 3rd [place] [address] Sharon Lewis, STU [address] [place] [address] In Person with Resource documented as of this encounter Procedures Procedure Name Priority Date/Time Associated Diagnosis Comments CBC AND ABSOLUTE NEUTROPHIL COUNT(ANC) STAT 06/19/2013 11:04 AM EDT documented in this encounter Results * (ABNORMAL) CBC and Granulocyte Count (06/19/2013 11:04 AM EDT) WBC 5.49 4.4 - 11.3 K/uL [facility] RBC 4.08(L) 4.10 - 5.10 M/uL [facility] Hemoglobin 14.0 12.0 - 15.3 G/DL [facility] Hematocrit 41.4 36.0 - 45.0 % [facility] MCV 102(H) 80 - 96 FL [facility] Platelet Count 303 150 - 450 K/uL [facility] RDW 12.5 11.6 - 14.6 % [facility] WBC 5.49 4.4 - 11.3 K/uL [facility] Neutrophil 65 % [facility] Absolute Neutrophil Count 3.57 1.4 - 6.6 K/uL [facility] 06/19/2013 11:0 4 AM EDT 06/19/2013 11:06 AM EDT Jackelyn Lake MD LAB BLOOD ORDERABLES Final Res ult [facility] documented in this encounter Visit Diagnoses Not on filedocumented in this encounter Care Teams Hydroelectric Production Technician Relationship Specialty Start Date End Date Robert August [address] [place] [address] PCP - General 07/19/14 01/06/25 Robert August [address] [place] [address] PCP - Insurance Assigned PCP 02/27/22 01/06/25 Loli Lees MD [address] [place] [address] PCP - General Internal Medicine 01/07/25 Loli Lees MD [address] [place] [address] PCP - Insurance Assigned PCP 03/15/25 Jackelyn Lake MD [address] [place] [address] Consulting Provider Hematology/Oncology 04/23/16 Anabel Goldsmith [employer] [address] [place] [address] Nurse Practitioner Nurse Practitioner 07/16/16 Shayna Lennon NP [address] [place] [address] Nurse Practitioner Nurse Practitioner 01/14/20 Sharon Lewis, [employer] [address] [place] [address] Nurse Practitioner Nurse Practitioner 08/09/20 Jacqueline Dinero, STU [address] [place] [address] Nurse Practitioner Nurse Practitioner 07/02/24 Nishi Tomlinson [employer] [address] [place] [address] Nurse Practitioner Hematology/Oncology 07/19/25 documented as of this encounter
--- OUTSIDE RECORDS SUMMARY | 2025-09-06 19:34 | XMS_ITS | Encounter Summary ---
Author Organization Damaris Elvin David [facility] Address [address] [place] [address] Care Team Providers Care Recruit Instructor Name Role Phone Robert August Primary Care Provider [phone] Jackelyn Lake MD Unavailable [phone] Anabel Goldsmith MACHINE LEARNING INTERN Unavailable [phone] Shayna Lennon MACHINE LEARNING INTERN Unavailable Sharon Lewis MACHINE LEARNING INTERN Unavailable [phone] Robert August Unavailable Jacqueline Dinero MACHINE LEARNING INTERN Unavailable [phone] Loli Lees MD Primary Care Provider [phone] Loli Lees MD Unavailable [phone] Nishi Tomlinson MACHINE LEARNING INTERN Unavailable [phone] Encounter Details Date Type Department Care Team (Late st Contact Info) Description 11/10/2012 Clinical Conversion Encounter [facility] General Surgery [facility] General Surgery [address] [address] Sravan Mcnulty MD Social History Tobacco Use [...] Notes * Sravan Mcnulty MD - 10/25/2014 11:24 AM EST [id number],JENNIFER [facility] [place]. History of Present Illness This is a 41-year-old woman who is seen today continued management of her new diagnosis of left breast cancer. Since our last visit she is been found to have a documented metastasis to paratracheal lymph nodes. Despite several attempts at biopsy we have not been able to get a satisfactory specimen for HER-2/genesis as necessary for final recommendations regarding therapy. She has no new complaints Past Medical History Hyperlipidemia Current Meds Lisinopril 5 MG Oral Tablet; Take 1 tablet daily; Therapy: 01Oct2012 to Tamoxifen Citrate 20 MG Oral Tablet; Take 1 tab orally once a day; Therapy: 30Oct2012 to (Last Rx:30Oct2012) Requested for: 30Oct2012 Vitamin D (Ergocalciferol) 48301 UNIT Oral Capsule; TAKE 1 CAPSULE WEEKLY; Therapy: 07Nov2012 to (Last Rx:07Nov2012) Requested for: 07Nov2012 Allergies Erythromycin Derivatives Penicillins Benadryl CAPS Reproductive History Menarche at 11 zero. Last menses last week Family History Her mother had breast cancer at 63. There is no other family history of breast or ovarian cancer Social History Current Every Day Smoker 305.1 Current Smoker 305.1 Tobacco Use 305.1 Review of Systems Gen.: No fevers, chills, night sweats. No weight loss. No nausea or vomiting. Skin: No rashes, focal lesions, no hair loss. Head: No headache, trauma, change in hearing, no tinnitus or vertigo. Respiratory: No shortness of breath, no wheezing, no orthopnea, no cough Cardiac: No chest pain, palpitations, no PND, no orthopnea GI: No abdominal pain no GI bleeding. : No polyuria no frequency no dysuria MSK: No bony pain. Physical Exam Physical examination reveals a pleasant [...] nor axillary adenopathy noted. The right breast normal and no masses are palpable. The left breast there is approximately a 6 cm mass. There is obvious nipple retraction. There is some thickening of the skin. Assessment 1. Breast Cancer 174.9 Diagnosis left breast cancer, metastatic. We have scheduled her for this for a left breast incisional biopsy of this cancer for HER-2 testing. Risks and benefits of surgery were discussed with her for 30 minutes. Left breast biopsy scheduled for Signatures Electronically signed by : SRAVAN MCNULTY MD; Nov 10 2012 2:36PM documented in this encounter Plan of Treatment Upcoming Encounters Date Type Department Care Team (Late st Contact Info) Description 09/20/2025 10:20 AM EST Lab Department of Hematology and Oncology [facility] Hematology Oncology [address] [place] [address] Sharon Lewis NP [address] [place] [address] In Person with Resource 09/20/2025 11:30 AM EST Office Visit Department of Hematology and Oncology [facility] Hematology Oncology [address] [place] [address] Jackelyn Lake MD [address] [place] [address] In Person with Physician 09/20/2025 12:30 PM EST Infusion [facility] Infusion Services [facility] Infusion Services [address] [place] [address] [address] [place] [address] Sharon Lewis NP [address] [place] [address] In Person with Resource documented as of this encounter Visit Diagnoses Not on filedocumented in this encounter Care Teams Recruit Instructor Relationship Specialty Start Date End Date Robert August [address] [place] [address] [address] [place] [address] PCP - General 07/19/14 01/06/25 Robert August [address] [place] [address] PCP - Insurance Assigned PCP 02/27/22 01/06/25 Loli Lees MD [address] [place] [address] PCP - General Internal Medicine 01/07/25 Loli Lees MD [address] [place] [address] PCP - Insurance Assigned PCP 03/15/25 Jackelyn Lake MD [address] [place] [address] Consulting Provider Hematology/Oncology 04/23/16 Anabel Goldsmith NP [address] [place] [address] Nurse Practitioner Nurse Practitioner 07/16/16 Shayna Lennon NP [address] [place] [address] Nurse Practitioner Nurse Practitioner 01/14/20 Sharon Lewis, MACHINE LEARNING INTERN [address] [place] [address] Nurse Practitioner Nurse Practitioner 08/09/20 Jacqueline Dinero NP [address] [place] [address] Nurse Practitioner Nurse Practitioner 07/02/24 Nishi Tomlinson MACHINE LEARNING INTERN [address] [place] [address] [place] [address] Nurse Practitioner Hematology/Oncology 07/19/25 documented as of this encounter
--- OUTSIDE RECORDS SUMMARY | 2025-09-06 19:34 | XMS_ITS | Encounter Summary ---
Author Organization Damaris Elvin David [facility] Address [address] [place] [address] Care Team Providers Care Property Assessment Monitor Name Role Phone Robert August Primary Care Provider Jackelyn Fermin MD Unavailable [phone] Anabel Goldsmith MULTIPLE CUT OFF SAW OPERATOR Unavailable [phone] Shayna Lennon MULTIPLE CUT OFF SAW OPERATOR Unavailable [phone] Sharon Lewis MULTIPLE CUT OFF SAW OPERATOR Unavailable [phone] Robert August Unavailable Jacqueline Dinero MULTIPLE CUT OFF SAW OPERATOR Unavailable [phone] Loli Lees MD Primary Care Provider [phone] Loli Lees MD Unavailable [phone] Nishi Tomlinson MULTIPLE CUT OFF SAW OPERATOR Unavailable Encounter Details Date Type Department Care Team (Late st Contact Info) Description 12/31/2012 Clinical Conversion Encounter Department of Hematology and Oncology [facility] Hematology Oncology [address] [id number] Jackelyn Fermin MD [address] [place] [address] Social History Tobacco Use Types Packs/Day Years Used Date Smoking Tobacco: Never Assessed Comments Unknown Sex and Gender Information Value Date Recorded Sex Assigned at Female 01/05/2020 1:28 PM EDT Legal Sex Female 11:24 AM EST Gender Identity Female 01/05/2020 1:28 PM EDT Sexual Orientation Not on file documented as of this encounter Progress Notes * Jackelyn Fermin MD - 10/25/2014 3:17 PM EST [id number],JENNIFER [place]. Chief Complaint Followup of a metastatic breast cancer with mediastinal lymph node metastases and in situ breast mass. History of Present Illness ONCOLOGIC HISTORY: This is a 42-year-old premenopausal woman who noted changes in her left breast. She was scheduled for routine mammogram at [facility] on September 11, 2011. There is a [...] daily. She did not notice any side effects other than occasional calf cramping. She has had a few hot flashes. Her last menstrual period was November 16. She is not having any significant pain in her left breast. She has had occasional, mild left hip pain. It does not radiate. Otherwise she has no new issues or [...] to (Evaluate:20Nov2012); Last Rx:13Nov2012 Vitamin D (Ergocalciferol) 00166 UNIT Oral Capsule; TAKE 1 CAPSULE WEEKLY; Therapy: 07Nov2012 to (Last Rx:07Nov2012) Requested for: 07Nov2012 Vitamin D 1000 UNIT Oral Tablet; TAKE 1 TABLET DAILY; Therapy: 31Dec2012 to (Evaluate:01Jan2013) Allergies Erythromycin Derivatives Penicillins Benadryl CAPS Review [...] in detail. Performance Status ECoG zero Vitals [facility] Vitals Data Includes: Last 1 Instance 31Dec2012 10:12AM Systolic: 145 Diastolic: 98 Heart Rate: 84 BMI Calculated: 27.92 BSA Calculated: 1.89 Weight: 173 lb 11.2 oz Respiration: 16 O2 Saturation: 97 Temperature: 97.2 F Pain Score: 0 Allergy Status Reviewed: [...] infraclavicular, axillary, or inguinal lymphadenopathy bilaterally. Breasts: There is a large mass measuring up to 6 cm in diameter in the midportion of the breast. Assessment 1. Breast Cancer 174.9 2. Malignant Neoplasm Metastasis To Lymph Nodes 196.9 Stage IV breast cancer that is ER/NY positive with lymph node metastases. Plan 1. TraMADol HCl 50 MG Oral Tablet; TAKE 1 TABLET 4 TIMES DAILY NEEDED FOR PAIN; Therapy: 13Nov2012 to 31Dec2012; Last Rx:13Nov2012; Status: DISCONTINUED 2. Vitamin D (Ergocalciferol) 44627 UNIT Oral Capsule; TAKE 1 CAPSULE WEEKLY; Therapy: 07Nov2012 to 31Dec2012; Last Rx:07Nov2012; Status: DISCONTINUED Her breast exam is largely unchanged. She will continue her current treatment. She will receive Lupron today. I will see her back in 4 weeks. We will repeat her PET/CT scan on the day of that visit to assess response to treatment. She was given information to schedule an appointment for genetic counseling and consideration of testing. Signatures Electronically signed by : JACKELYN FERMIN MD; Dec 31 2012 10:45AM documented in this encounter Plan of Treatment Upcoming Encounters Date Type Department Care Team (Late st Contact Info) Description 09/20/2025 10:20 AM EST Lab Department of Hematology and Oncology [facility] Hematology Oncology [address] [place] [address] Sharon Lewis NP [address] [place] [address] In Person with Resource 09/20/2025 11:30 AM EST Office Visit Department of Hematology and Oncology [facility] Hematology Oncology [address] [place] [address] Jackelyn Fermin MD [address] [place] [address] In Person with Physician 09/20/2025 12:30 PM EST Infusion [facility] Infusion Services [facility] Infusion Services [address] [facility] 3rd [place] [address] Sharon Lewis, MULTIPLE CUT OFF SAW OPERATOR [address] [place] [address] In Person with Resource documented as of this encounter Visit Diagnoses Not on filedocumented in this encounter Care Teams Property Assessment Monitor Relationship Specialty Start Date End Date Robert August [address] [place] [address] PCP - General 07/19/14 01/06/25 Robert August [address] [place] [address] PCP - Insurance Assigned PCP 02/27/22 01/06/25 Loli Lees MD [address] [place] [address] PCP - General Internal Medicine 01/07/25 Loli Lees MD [address] [place] [address] PCP - Insurance Assigned PCP 03/15/25 Jackelyn Fermin MD [address] [place] [address] Consulting Provider Hematology/Oncology 04/23/16 Anabel Goldsmith NP [address] [place] [address] Nurse Practitioner Nurse Practitioner 07/16/16 Shayna Lennon NP [address] [place] [address] Nurse Practitioner Nurse Practitioner 01/14/20 Sharon Lewis NP [address] [place] [address] Nurse Practitioner Nurse Practitioner 08/09/20 Jacqueline Dinero NP [address] [address] Nurse Practitioner Nurse Practitioner 07/02/24 Nishi Tomlinson NP [address] [place] [address] Nurse Practitioner Hematology/Oncology 07/19/25 documented as of this encounter
--- OUTSIDE RECORDS SUMMARY | 2025-09-06 19:34 | XMS_ITS | Encounter Summary ---
Author Organization Damaris Elvin David [facility] Address [address] [place] [address] Care Team Providers Care Insurance Collector Name Role Phone Robert August Primary Care Provider [phone] Jackelyn Lake MD Unavailable [phone] Anabel Goldsmith DIRECTOR DIGITAL SALES Unavailable [phone] Shayna Lennon DIRECTOR DIGITAL SALES Unavailable Sharon Lewis DIRECTOR DIGITAL SALES Unavailable [phone] Robert August Unavailable Jacqueline Dinero DIRECTOR DIGITAL SALES Unavailable [phone] Loli Lees MD Primary Care Provider [phone] Loli Lees MD Unavailable [phone] Nishi Tomlinson DIRECTOR DIGITAL SALES Unavailable [phone] Encounter Details Date Type Department Care Team (Late st Contact Info) Description 11/13/2012 Clinical Conversion Encounter [facility] General Surgery [facility] General Surgery [address] [address] Sravan Mcnulty MD Social History Tobacco Use [...] Note - Sravan Mcnulty MD - 10/25/2014 11:24 AM EST [id number],JENNIFER [place], [place]. AMBULATORY OPERATIVE NOTE Name: VALENTINA MIHCELLE Date: 11/13/2012 #: [id number] : 1970 Visit ID: [id number] Second Visit ID: SURGEON: Sravan Mcnulty MD OPERATIONS CONTROLLER: George Jackman MD PREOPERATIVE DIAGNOSIS: Left breast cancer. POSTOPERATIVE DIAGNOSIS: Left breast cancer. PROCEDURE: Left breast incisional biopsy. ANESTHESIA: General. INDICATIONS: A 41-year-old woman who presented with a large cancer in the left breast and found to have actually hilar lymph nodes involved. Diagnosis had been proven, but ____ insufficient tissue was available for HER-2 testing despite 3 core needle biopsies. OPERATIVE FINDINGS: Frozen section revealed breast cancer. OPERATIVE PROCEDURE: Preop marking the site and side of surgery, preoperative injection of a single dose of intravenous antibiotic, the patient was brought to the operating room. General anesthesia was induced. Left breast prepped and draped in standard fashion. An incision was made at 3 o'clock in the left breast; and then using the knife, we took out a large wedge of tissue. Frozen section revealed metastatic cancer. Hemostasis with the cautery, wound irrigated, closed in 2 layers, dressing applied, anesthesia terminated, and the patient transferred to recovery room in good condition. Sravan Mcnulty MD [phone] SEK:argenis J: [id number] / [id number] CC: GUSTAVO REA, <Referring> Robert August MD, <Primary Care Physician> THIS DOCUMENT WAS ELECTRONICALLY AUTHENTICATED BY Sravan Mcnulty MD ON 11/21/2012 14:26:47 documented in this encounter Plan of Treatment Upcoming Encounters Date Type Department Care Team (Late st Contact Info) Description 09/20/2025 10:20 AM EST Lab Department of Hematology and Oncology [facility] Hematology Oncology [address] [address] Sharon Lewis, STU [address] [place] [address] In Person with Resource 09/20/2025 11:30 AM EST Office Visit Department of Hematology and Oncology [facility] Hematology Oncology [address] [place] [address] Jackelyn Lake MD [address] [place] [address] In Person with Physician 09/20/2025 12:30 PM EST Infusion [facility] Infusion Services [facility] [address] [place] [address] [address] [place] [address] Sharon Lewis NP [address] [place] [address] In Person with Resource documented as of this encounter Visit Diagnoses Not on filedocumented in this encounter Care Teams Insurance Collector Relationship Specialty Start Date End Date Robert August [address] [place] [address] PCP - General 07/19/14 01/06/25 Robert August [address] [place] [address] PCP - Insurance Assigned PCP 02/27/22 01/06/25 Loli Lees MD [address] [place] [address] PCP - General Internal Medicine 01/07/25 Loli Lees MD [address] [place] [address] PCP - Insurance Assigned PCP 03/15/25 Jackelyn Lake MD [address] [place] [address] Consulting Provider Hematology/Oncology 04/23/16 Anabel Goldsmith DIRECTOR DIGITAL SALES [address] [place] [address] Nurse Practitioner Nurse Practitioner 07/16/16 Shayna Lennon, STU [address] [place] [address] Nurse Practitioner Nurse Practitioner 01/14/20 Sharon Lewis NP [address] [place] [address] Nurse Practitioner Nurse Practitioner 08/09/20 Jacqueline Dinero NP [address] [place] [address] Nurse Practitioner Nurse Practitioner 07/02/24 Nishi Tomlinson NP [address] [place] [address] Nurse Practitioner Hematology/Oncology 07/19/25 documented as of this encounter
--- OUTSIDE RECORDS SUMMARY | 2025-09-06 19:34 | XMS_ITS | Encounter Summary ---
Author Organization [facility] Address [address] [place] [address] Care Team Providers Care Plating Operator Name Role Phone Robert August Primary Care Provider [phone] Jackelyn Lake MD Unavailable [phone] Anabel Goldsmith FAMILY LAW MEDIATOR Unavailable [phone] Shayna Lennon FAMILY LAW MEDIATOR Unavailable Sharon Lewis FAMILY LAW MEDIATOR Unavailable [phone] Robert August Unavailable Jacqueline Dinero FAMILY LAW MEDIATOR Unavailable [phone] Loli Lees MD Primary Care Provider [phone] Loli Lees MD Unavailable [phone] Nishi Tomlinson FAMILY LAW MEDIATOR Unavailable [phone] Encounter Details Date Type Department Care Team (Late st Contact Info) Description 05/22/2013 Clinical Conversion Encounter [facility] General Surgery [facility] General Surgery [address] [address] Sravan Mcnulty MD Social History Tobacco Use Types Packs/Day Years Used Date Smoking Tobacco: Never Assessed Comments Unknown Sex and Gender Information Value Date Recorded Sex Assigned at Female 01/05/2020 1:28 PM EDT Legal Sex Female 11:24 AM EST Gender Identity Female 01/05/2020 1:28 PM EDT Sexual Orientation Not on file documented as of this encounter Progress Notes * Sravan Mcnulty MD - 10/26/2014 1:31 PM EST [id number] [facility] [place] [place]. History of Present Illness This is a 42-year-old woman who is seen today continuing care management of her metastatic left breast cancer. Allergies Erythromycin Derivatives Penicillins Benadryl CAPS Vitals David Vitals Data Includes: Current Encounter 12Sta2937 12:59PM Pain Score 0 Allergy Status Reviewed Yes Safe at Home Yes Assessment 1. Breast Cancer 174.9 Note Body This is a 42-year-old woman seen today getting her metastatic breast cancer. She presented in September and was found to have a large mass in the left breast with axillary lymph node involvement. Also on PET scan found to have an, and biopsy-proven involvement of the mediastinal lymph node. She's been on tamoxifen since that time. She's had an excellent response to tamoxifen. PET scan shows t stable disease. As tolerated tamoxifen well with some modest hot flushes. I discussed her today but Dr Lake who feels that she should undergo mastectomy for the primary cancer Physical examination today still shows a large residual mass in the total left breast. There is no palpable adenopathy. Since our last visit she has decided with Dr Lake also to proceed with oopherectomy for hormonal control. She is consider having this simultaneously done as her modified radical mastectomy with a laparoscopically by Dr. Montemayor. I think this is a reasonable approach. She would like to delay his surgery until July after a [place] [employer] concert she is looking forward to seeing. We discussed plans to repeat a PET scan in the next month to rule out new progression of disease. I will see her back on June 19. I spent 40 minutes in conversation regarding these issues with her and her . Signatures Electronically signed by : SRAVAN MCNULTY MD; May 22 2013 1:34PM documented in this encounter Plan of Treatment Upcoming Encounters Date Type Department Care Team (Late st Contact Info) Description 09/20/2025 10:20 AM EST Lab Department of Hematology and Oncology [facility] Hematology Oncology [address] [place] [address] Sharon Lewis FAMILY LAW MEDIATOR [address] [place] [address] In Person with Resource 09/20/2025 11:30 AM EST Office Visit Department of Hematology and Oncology [facility] Hematology Oncology 41 [facility] [address] [place] [address] Jackelyn Lake MD [address] [place], [place] [id number] In Person with Physician 09/20/2025 12:30 PM EST Infusion [facility] [address] [place] [address] [address] [place] [address] Sharon Lewis NP [address] [place] [address] In Person with Resource documented as of this encounter Procedures Procedure Name Priority Date/Time Associated Diagnosis Comments CBC AND ABSOLUTE NEUTROPHIL COUNT(ANC) STAT 05/22/2013 12:34 PM EDT documented in this encounter Results * (ABNORMAL) CBC and Granulocyte Count (05/22/2013 12:34 PM EDT) WBC 5.97 4.4 - 11.3 K/uL SUNQUEST RBC 4.07(L) 4.10 - 5.10 M/uL SUNQUEST Hemoglobin 14.0 12.0 - 15.3 G/DL SUNQUEST Hematocrit 40.9 36.0 - 45.0 % SUNQUEST MCV 101(H) 80 - 96 FL SUNQUEST Platelet Count 310 150 - 450 K/uL SUNQUEST RDW 12.6 11.6 - 14.6 % SUNQUEST WBC 5.97 4.4 - 11.3 K/uL SUNQUEST Neutrophil 61 % SUNQUEST Absolute Neutrophil Count 3.64 1.4 - 6.6 K/uL SUNQUEST 05/22/2013 12:3 4 PM EDT 05/22/2013 12:36 PM EDT us Jackelyn Lake MD LAB BLOOD ORDERABLES Final Res ult SUNQUEST documented in this encounter Visit Diagnoses Not on filedocumented in this encounter Care Teams Plating Operator Relationship Specialty Start Date End Date Robert August [address] [place] [address] PCP - General 07/19/14 01/06/25 Robert August [address] [place] [address] PCP - Insurance Assigned PCP 02/27/22 01/06/25 Loli Lees MD [address] [place] [address] PCP - General Internal Medicine 01/07/25 Loli Lees MD [address] [place] [address] PCP - Insurance Assigned PCP 03/15/25 Jackelyn Lake MD [address] [place] [address] Consulting Provider Hematology/Oncology 04/23/16 Anabel Goldsmith, FAMILY LAW MEDIATOR [address] [place] [address] Nurse Practitioner Nurse Practitioner 07/16/16 Shayna Lennon NP [address] [place] [address] Nurse Practitioner Nurse Practitioner 01/14/20 Sharon Lewis NP [address] [place] [address] Nurse Practitioner Nurse Practitioner 08/09/20 Jacqueline Dinero NP [address] [facility] [employer] [address] [place] [address] Nurse Practitioner Nurse Practitioner 07/02/24 Nishi Tomlinson NP [address] [place] [address] Nurse Practitioner Hematology/Oncology 07/19/25 documented as of this encounter
--- OUTSIDE RECORDS SUMMARY | 2025-09-06 19:34 | XMS_ITS | Encounter Summary ---
Author Organization Damaris [facility] Address [address] [place] [address] Care Team Providers Care Middle School Counselor Name Role Phone Robert August Primary Care Provider Jackelyn Lake MD Unavailable [phone] Anabel Goldsmith TOOL SALVAGE WORKER Unavailable Shayna Lennon TOOL SALVAGE WORKER Unavailable Sharon Lewis TOOL SALVAGE WORKER Unavailable [phone] Robert August Unavailable Jacqueline Dinero TOOL SALVAGE WORKER Unavailable [phone] Loli Lees MD Primary Care Provider [phone] Loli Lees MD Unavailable [phone] Nishi Tomlinson TOOL SALVAGE WORKER Unavailable [phone] Encounter Details Date Type Department Care Team (Late st Contact Info) Description 01/20/2014 Clinical Conversion Encounter [facility] division of plastic and reconstructive surgery [facility] Plastic Surgery [address] [address] Raman Montalvo MD PhD [address] [place] [address] Social History Tobacco Use Types Packs/Day Years Used Date Smoking Tobacco: Never Assessed Comments Unknown Sex and Gender Information Value Date Recorded Sex Assigned at Female 01/05/2020 1:28 PM EDT Legal Sex Female 11:24 AM EST Gender Identity Female 01/05/2020 1:28 PM EDT Sexual Orientation Not on file documented as of this encounter Progress Notes * Raman Montalvo MD PhD - 11/04/2014 9:25 AM EST [id number],[facility] [place] [place]. Reason For Visit Breast reconstruction. History of Present Illness This is a 43 year-old breast cancer patient who is referred to me by Dr. Lake and [place] for delayed breast reconstruction. She had invasive breast cancer on the left for which she underwent total mastectomy and PMRT that finished in November of 2013. She would like to have reconstruction. Past Medical History History of Imaging Studies Nonspecific Abnormal Findings Lung Field 793.19 Surgical History Bx Breast Percutan Needle Core Use Imag Guide (Stereotactic) BX BREAST; PERQ W/O GUID -SEP PROC - 57284 CYTOPATHOLOGY,IMMED, TO DETERM ADEQ 4 DX,EA SEP ADDL EVAL EPISODE,SAME SITE - 35193 Flexible Bronchography With Endobrachial Ultrasound Rigid Bronchoscopy With Transbronch Needle Aspiration Biopsy History of Salpingo-oophorectomy Family History Maternal history of Breast Cancer V16.3 Social History Current Every Day Smoker 305.1 Current Smoker 305.1 Tobacco Use 305.1 Current Meds Lisinopril 20 MG Oral Tablet; TAKE 1 TABLET DAILY; Therapy: 01Oct2012 to (Evaluate:28Feb2014) Requested for: 30Nov2013; Last Rx:30Nov2013 Tamoxifen Citrate 20 MG Oral Tablet; Take 1 tab orally once a day; Therapy: 68Kol3273 to (Last Rx:30Nov2013) Requested for: 30Nov2013 Vitamin D 1000 UNIT Oral Tablet; TAKE 1 TABLET DAILY; Therapy: 31Dec2012 to (Evaluate:09Jul2013) Allergies Erythromycin Derivatives Penicillins Benadryl CAPS Review of Systems see intake form for details. Vitals David Vitals Data Includes: Current Encounter 20Jan2014 09:18AM BMI Calculated 29.32 BSA Calculated 1.87 Height 5 ft 5 in Weight 176 lb Height Source Stated Height Weight Source Actual Weight Pain Score 0 Allergy Status Reviewed Yes Safe at Home Yes Chaperoned During Appointment No Physical Exam Constitutional General appearance: Normal. Head and Face Head and face: Normal. Eyes Pupils and irises: Normal. Ears, Nose, Mouth, and Throat Hearing: Normal. Neck Neck: Normal. Pulmonary Respiratory effort: Normal. Chest Breasts: Abnormal. Absent left breast with notable radiation skin changes and tethered mastectomy skin flaps. Right breast normal appearing with good volume and moderate class 2 ptosis. No nipple discharges. Abdomen Abdomen: Normal. Moderate amount of periumbilical tissue bulk, with no hernia or significant scars. Musculoskeletal Stability: Normal. Skin Skin and subcutaneous tissue: Normal. Neurologic Coordination: Normal. Psychiatric Mood and affect: Normal. Assessment 1. Current Every Day Smoker 305.1 2. Breast Cancer 174.9 3. Encounter For Breast Reconstruction Following Mastectomy V51.0 Plan This is a patient with PMRT that resulted in very tight left breast skin, who presents for delayed left reconstruction. She no longer has prosthetic options; however, she could have latissimus flap over implant, which given the lack of skin, would give her a fairly small breast. Alternatively, the better option is with either FRANTZ or TRAM flaps. She doesn't have as much volume with a exact keli-flap as required in a TRAM. FRANTZ may capture some more tissue but also carried a risk of its own. The issues with TRAM have been discussed with the patient as well. The two types of flaps are contrasted and compared. Patient would need some time to make a decision. Since we have to wait out the radiation recovery time, we have some time flexibility. She will get back to my office soon. Signatures Electronically signed by : RAMAN MONTALVO MD; Jan 20 2014 3:22PM documented in this encounter Plan of Treatment Upcoming Encounters Date Type Department Care Team (Late st Contact Info) Description 09/20/2025 10:20 AM EST Lab Department of Hematology and Oncology [facility] Hematology Oncology [address] [place] [address] Sharon Lewis, STU [address] [place] [address] In Person with Resource 09/20/2025 11:30 AM EST Office Visit Department of Hematology and Oncology [facility] Hematology Oncology [address] [place] [address] Jackelyn Lake MD [address] [place] [address] In Person with Physician 09/20/2025 12:30 PM EST Infusion [facility] 41 [facility] 3rd [place] [address] Sharon Lewis, STU [address] [place] [address] In Person with Resource documented as of this encounter Procedures Procedure Name Priority Date/Time Associated Diagnosis Comments CBC AND ABSOLUTE NEUTROPHIL COUNT(ANC) STAT 01/20/2014 11:29 AM EDT documented in this encounter Results * (ABNORMAL) CBC and Granulocyte Count (01/20/2014 11:29 AM EDT) WBC 6.23 4.4 - 11.3 K/uL SUNQUEST RBC 3.64(L) 4.10 - 5.10 M/uL SUNQUEST Hemoglobin 12.6 12.0 - 15.3 G/DL SUNQUEST Hematocrit 36.5(L) 36.0 - 45.0 % SUNQUEST MCV 101(H) 80 - 96 FL SUNQUEST Platelet Count 330 150 - 450 K/uL SUNQUEST RDW 12.7 11.6 - 14.6 % SUNQUEST WBC 6.23 4.4 - 11.3 K/uL SUNQUEST Neutrophil 78 % SUNQUEST Absolute Neutrophil Count 4.86 1.4 - 6.6 K/uL SUNQUEST 01/20/2014 11:2 9 AM EDT 01/20/2014 11:47 AM EDT Jackelyn Lake MD LAB BLOOD ORDERABLES Final Res ult SUNQUEST documented in this encounter Visit Diagnoses Not on filedocumented in this encounter Care Teams Middle [employer] Counselor Relationship Specialty Start Date End Date Robert August [address] [place] [address] [address] [place] [address] PCP - General 07/19/14 01/06/25 Robert August [address] [place] [address] PCP - Insurance Assigned PCP 02/27/22 01/06/25 Loli Lees MD [address] [place] [address] PCP - General Internal Medicine 01/07/25 Loli Lees MD [address] [place] [address] PCP - Insurance Assigned PCP 03/15/25 Jackelyn Lake MD [address] [place] [address] Consulting Provider Hematology/Oncology 04/23/16 Anabel Goldsmith NP [address] [place] [address] Nurse Practitioner Nurse Practitioner 07/16/16 Shayna Lennon NP [address] [place] [address] Nurse Practitioner Nurse Practitioner 01/14/20 Sharon Lewis, TOOL SALVAGE WORKER [address] [place] [address] Nurse Practitioner Nurse Practitioner 08/09/20 Jacqueline Dinero NP [address] [place] [address] Nurse Practitioner Nurse Practitioner 07/02/24 Nishi Tomlinson TOOL SALVAGE WORKER [address] [place], [place] [address] [address] Nurse Practitioner Hematology/Oncology 07/19/25 documented as of this encounter
--- OUTSIDE RECORDS SUMMARY | 2025-09-06 19:34 | XMS_ITS | Encounter Summary ---
Author Organization Damaris [facility]vin [facility] Address [address] [place] [address] Care Team Providers Care Tobacco Sample Puller Name Role Phone Robert August Primary Care Provider [phone] Jackelyn Lake MD Unavailable [phone] Anabel Goldsmith BREAD DUMPER Unavailable [phone] Shayna Lennon BREAD DUMPER Unavailable Sharon Lewis BREAD DUMPER Unavailable [phone] Robert August Unavailable Jacqueline Dinero BREAD DUMPER Unavailable [phone] Loli Lees MD Primary Care Provider [phone] Loli Lees MD Unavailable [phone] Nishi Tomlinson BREAD DUMPER Unavailable [phone] Encounter Details Date Type Department Care Team (Late st Contact Info) Description 08/17/2013 Clinical Conversion Encounter [facility] General Surgery [facility] General Surgery [address] [address] Sravan Mcnulty MD Social History Tobacco Use [...] Mcnulty MD - 10/27/2014 9:42 AM EST [id number],[place]. She returns postop for continued management of stopped infection. Seen her last Saturday and we did pull her drains. She says since that time she feeling better. She's had no fever. Physical examination today shows continuing erythema but no worse than before. I marked out the limit of it with any pain. There is a small amount of ballotable fluid. I have changed her antibiotic from of Levaquin to clindamycin today. I will see her back in the week. Patient instructed to call and come in and should she developing increasing pain or fever or worsening of the erythema. She was also instructed to use watch out for diarrhea secondary to clindamycin Assessment 1. Breast Cancer 174.9 2. Current Smoker 305.1 Signatures Electronically signed by : SRAVAN MCNULTY MD; Aug 17 2013 12:03PM documented in this encounter Plan of Treatment Upcoming Encounters Date Type Department Care Team (Late st Contact Info) Description 09/20/2025 10:20 AM EST Lab Department of Hematology and Oncology [facility] Hematology Oncology [address] [place] [address] Sharon Lewis BREAD DUMPER [address] [place] [address] In Person with Resource 09/20/2025 11:30 AM EST Office Visit Department of Hematology and Oncology [facility] Hematology Oncology [address] [place] [address] Jackelyn Lake MD [address] [place] [address] In Person with Physician 09/20/2025 12:30 PM EST Infusion [facility] Infusion Services [facility] [address] [place] [address] [address] [place] [address] Sharon Lewis, BREAD DUMPER [address] [place] [address] In Person with Resource documented as of this encounter Visit Diagnoses Not on filedocumented in this encounter Care Teams Tobacco Sample Puller Relationship Specialty Start Date End Date ReillykbRobert [address] [place] [address] PCP - General 07/19/14 01/06/[address] [place] [address] PCP - Insurance Assigned PCP 02/27/22 01/06/25 Loli Lees MD [address] [place] [address] PCP - General Internal Medicine 01/07/25 Loli Lees MD [address] [place] [address] PCP - Insurance Assigned PCP 03/15/25 Jackelyn Lake MD [address] [place] [address] Consulting Provider Hematology/Oncology 04/23/16 Anabel Goldsmith NP [address] [place] [address] Nurse Practitioner Nurse Practitioner 07/16/16 Shayna Lennon NP [address] [place] [address] Nurse Practitioner Nurse Practitioner 01/14/20 Sharon Lewis, BREAD DUMPER [address] [place] [address] Nurse Practitioner Nurse Practitioner 08/09/20 Jacqueline Dinero NP [address] [place] [address] Nurse Practitioner Nurse Practitioner 07/02/24 Nishi Tomlinson NP [address] [place] [address] Nurse Practitioner Hematology/Oncology 07/19/25 documented as of this encounter
--- OUTSIDE RECORDS SUMMARY | 2025-09-06 19:34 | XMS_ITS | Encounter Summary ---
Author Organization [facility] Address [address] [place] [address] Care Team Providers Care Retort Forker Name Role Phone Robert August Primary Care Provider Jackelyn Fermin MD Unavailable [phone] Anabel Goldsmith WINDOWS SERVER ADMINISTRATOR Unavailable [phone] Shayna Lennon WINDOWS SERVER ADMINISTRATOR Unavailable Sharon Lewis WINDOWS SERVER ADMINISTRATOR Unavailable [phone] Robert August Unavailable Jacqueline Dinero WINDOWS SERVER ADMINISTRATOR Unavailable Loli Lees MD Primary Care Provider Loli Lees MD Unavailable [phone] Nishi Tomlinson WINDOWS SERVER ADMINISTRATOR Unavailable Encounter Details Date Type Department Care Team (Late st Contact Info) Description 03/27/2013 Clinical Conversion Encounter Department of Hematology and Oncology [facility] Hematology Oncology [address] [id number] Jackelyn Fermin MD [address] [place] [address] Social History Tobacco Use Types Packs/Day Years Used Date Smoking Tobacco: Never Assessed Comments Unknown Sex and Gender Information Value Date Recorded Sex Assigned at Female 01/05/2020 1:28 PM EDT Legal Sex Female 11:24 AM EST Gender Identity Female 01/05/2020 1:28 PM EDT Sexual Orientation Not on file documented as of this encounter Progress Notes * Jackelyn Fermin MD - 10/26/2014 6:39 AM EST [id number],[place]ENNIFER [place]. Chief Complaint Followup of a metastatic breast cancer with mediastinal lymph node metastases and in situ breast mass. History of Present Illness ONCOLOGIC HISTORY: This is a 42-year-old premenopausal woman who noted changes in her left breast. She was scheduled for routine mammogram at [facility] on September 11, 2011. There is [...] has had ongoing daily hot flashes. She is not having any significant pain in her left breast. Otherwise she has no new issues or concerns today. Current VitaPortal Blood Pressure Monitor KIT; USE DIRECTED; Therapy: 27Feb2013 to (Last Rx:27Feb2013) Lisinopril 10 MG Oral Tablet; TAKE 1 TABLET DAILY; Therapy: 01Oct2012 to (Last Rx:28Jan2013) Requested for: 28Jan2013 Lupron Depot 3.75 MG Intramuscular Kit; Therapy: (Recorded:27Mar2013) to Tamoxifen Citrate 20 MG Oral Tablet; Take 1 tab orally once a day; Therapy: 30Oct2012 to (Last Rx:30Oct2012) Requested for: 30Oct2012 Vitamin D 1000 UNIT Oral Tablet; TAKE 1 TABLET DAILY; Therapy: 31Dec2012 to (Evaluate:[id number]) Allergies Erythromycin Derivatives Penicillins Benadryl CAPS Review [...] in detail. Performance Status ECoG zero Vitals [facility] Vitals Data Includes: Last 1 Instance 27Mar2013 10:05AM Systolic: 144 Diastolic: 96 Heart Rate: 94 BMI Calculated: 27.66 BSA Calculated: 1.88 Weight: 172 lb 1.6 oz Respiration: 16 O2 Saturation: 98 Temperature: 99.2 F Pain Score: 0 Allergy Status Reviewed: Yes Safe at Home: Yes Height: 5 ft 6 in Height Source: Actual Height Weight Source: Actual Weight Chaperoned During Appointment: Yes Chaperoned By: JOY WISE Physical Exam In general, well appearing and [...] is a large mass measuring up to 5 cm in diameter in the midportion of the breast. The mass appears to be softer and has less distinct borders.There is nipple retraction on that side. Results/Data Selected Results [id number] 09:57AM Oncology Metabolic Profile, Plasma Anion Gap: 11 MMOL/L Reference Range 2-15 Total CO2: 26 MMOL/L Reference Range 24-32 Calcium: 10.1 MG/DL Reference Range 8.4-10.4 Chloride: 100 MMOL/L Reference Range 98-110 Alk Phosphatase: 51 IU/L Reference Range 30-115 BUN: 9 MG/DL Reference Range 6-20 GFR Non -[place]orese: >60 ML/MIN Reference Range >60 Uric Acid: 5.5 MG/DL Reference Range 2.3-6.5 Creatinine, Blood: 0.7 MG/DL Reference Range 0.5-1.1 GFR -Amer: >60 ML/MIN Reference Range >60 Magnesium: 1.9 MG/DL Reference Range 1.6-2.6 Phosphorus: 3.7 MG/DL Reference Range 2.4-4.4 Total Bilirubin: 0.7 MG/DL Reference Range 0.2-1.1 Total Protein: 8.1 G/DL Reference Range 6.2-8.2 AST (SGOT): 32 IU/L Reference Range 11-40 ALT (SGPT): 32 IU/L Reference Range 4-35 Globulin: 3.3 G/DL Reference Range 2.0-4.0 Sodium: 137 MMOL/L Reference Range 135-146 Potassium, Plasma: 4.5 MMOL/L Reference Range 3.4-5.2 Albumin: 4.8 G/DL Reference Range 3.5-5.0 Glucose, Plasma: 125 MG/DL Abnormal High Reference Range 70-100 CBC and Granulocyte Count WBC: 4.81 K/uL Reference Range 4.4-11.3 Polys And Bands: 63 % Absolute Gran Ct (GRCT): 3.03 K/uL Reference Range 1.4-6.6 RBC: 4.24 M/uL Reference Range 4.20-5.50 MCV: 100 FL Abnormal High Reference Range 80-96 RDW: 12.7 % Reference Range 11.5-13.4 WBC for Granulocytes: 4.81 K/uL Reference Range 4.4-11.3 Hemoglobin: 14.4 G/DL Reference Range 12.0-16.0 Hematocrit: 42.6 % Reference Range 37.0-47.0 Platelet Count: 284 K/uL Reference Range 150-450 Assessment 1. Breast Cancer 174.9 2. Hypertension 401.9 3. Malignant Neoplasm Metastasis To Lymph Nodes 196.9 4. Vitamin D Deficiency 268.9 Stage IV breast cancer that is ER/IA positive with lymph node metastases. She has been responding to endocrine therapy. Her last PET scan showed a response to treatment. Plan 1. Lisinopril 20 MG Oral Tablet; TAKE 1 TABLET DAILY; Therapy: 01Oct2012 to (Evaluate:25Jun2013) Requested for: [id number]; Last Rx:[id number] She will continue her current treatment. She will receive Lupron today. She is planning to undergo a left-sided mastectomy. This will be followed by radiation. I have also recommended that she consider ovarian ablation and she met with Dr. Montemayor today to discuss this. She should have been done in ovarian ablation given her metastatic disease. He is scheduling her for a pelvic ultrasound to evaluate the uterus and is discussing the possibility of a hysterectomy. She has an upcoming appointment for genetic counseling and will have testing for BRCA1 and 2 gene mutations. This will determine the need for a contralateral mastectomy. We discussed the possibility of needing with a plastic surgeon prior to surgery. She wishes to defer reconstruction at this time. Terms of her hypertension we will increase the lisinopril to 20 mg daily. I gave her a prescription for a blood pressure cuff and asked that she monitor this regularly at home and bring in a readings. She has a history of vitamin D deficiency. Repeat vitamin D level is pending today. She will continue daily vitamin D supplementation. I will see her back in 4 weeks. Signatures Electronically signed by : JACKELYN FERMIN MD; Mar 27 2013 11:30AM documented in this encounter Plan of Treatment Upcoming Encounters Date Type Department Care Team (Late st Contact Info) Description 09/20/2025 10:20 AM EST Lab Department of Hematology and Oncology [facility] Hematology Oncology [address] [place] [address] Sharon Lewis NP [address] [place] [address] In Person with Resource 09/20/2025 11:30 AM EST Office Visit Department of Hematology and Oncology [facility] [address] [place] [address] Jackelyn Fermin MD [address] [place] [address] In Person with Physician 09/20/2025 12:30 PM EST Infusion [facility] [address] [facility] 3rd [place] [address] Sharon Lewis NP [address] [place] [address] In Person with Resource documented as of this encounter Procedures Procedure Name Priority Date/Time Associated Diagnosis Comments CBC AND ABSOLUTE NEUTROPHIL COUNT(ANC) STAT 03/27/2013 9:57 AM EDT documented in this encounter Results * (ABNORMAL) CBC and Granulocyte Count (03/27/2013 9:57 AM EDT) WBC 4.81 4.4 - 11.3 K/uL SUNQUEST RBC 4.24 4.10 - 5.10 M/uL SUNQUEST Hemoglobin 14.4 12.0 - 15.3 G/DL SUNQUEST Hematocrit 42.6 36.0 - 45.0 % SUNQUEST MCV 100(H) 80 - 96 FL SUNQUEST Platelet Count 284 150 - 450 K/uL SUNQUEST RDW 12.7 11.6 - 14.6 % SUNQUEST WBC 4.81 4.4 - 11.3 K/uL SUNQUEST Neutrophil 63 % SUNQUEST Absolute Neutrophil Count 3.03 1.4 - 6.6 K/uL SUNQUEST 03/27/2013 9:57 AM EDT 03/27/2013 10:10 AM EDT Jackelyn Fermin MD LAB BLOOD ORDERABLES Final Res ult SUNQUEST documented in this encounter Visit Diagnoses Not on filedocumented in this encounter Care Teams Retort Forker Relationship Specialty Start Date End Date Robert August [address] [place] [id number] PCP - General 07/19/14 01/06/25 Robert August [address] [place] [id number] PCP - Insurance Assigned PCP 02/27/22 01/06/25 Loli Lees MD [address] [place] [address] PCP - General Internal Medicine 01/07/25 Loli Lees MD [address] [place] [address] PCP - Insurance Assigned PCP 03/15/25 Jackelyn Fermin MD [address] [place] [address] Consulting Provider Hematology/Oncology 04/23/16 Anabel Goldsmith NP [address] [place] [address] Nurse Practitioner Nurse Practitioner 07/16/16 Shayna Lennon NP [address] [place] [address] Nurse Practitioner Nurse Practitioner 01/14/20 Sharon Lewis NP [address] [place] [address] Nurse Practitioner Nurse Practitioner 08/09/20 Jacqueline Dinero, WINDOWS SERVER ADMINISTRATOR [address] [facility] [address] [place] [address] Nurse Practitioner Nurse Practitioner 07/02/24 Nishi Tomlinson WINDOWS SERVER ADMINISTRATOR [address] [place] [address] Nurse Practitioner Hematology/Oncology 07/19/25 documented as of this encounter
--- OUTSIDE RECORDS SUMMARY | 2025-09-06 19:34 | XMS_ITS | Encounter Summary ---
Author Organization [facility] Address [address] [place] [address] Care Team Providers Care Staff Therapist Name Role Phone Robert August Primary Care Provider [phone] Jackelyn Lake MD Unavailable [phone] Anabel Goldsmith CERTIFIED CODER Unavailable [phone] Shayna Lennon CERTIFIED CODER Unavailable Sharon Lewis CERTIFIED CODER Unavailable [phone] Robert August Unavailable Jacqueline Dinero CERTIFIED CODER Unavailable [phone] Loli Lees MD Primary Care Provider Loli Lees MD Unavailable [phone] Nishi Tomlinson CERTIFIED CODER Unavailable [phone] Encounter Details Date Type Department Care Team (Late st Contact Info) Description 12/01/2012 Clinical Conversion Encounter GENERAL CONVERSION Shilo Ramos, RN [address] [place] [id number] Social History Tobacco Use Types Packs/Day Years Used Date Smoking Tobacco: Never Assessed Comments Unknown Sex and Gender Information Value Date Recorded Sex Assigned at Female 01/05/2020 1:28 PM EDT Legal Sex Female 11:24 AM EST Gender Identity Female 01/05/2020 1:28 PM EDT Sexual Orientation Not on file documented as of this encounter Progress Notes * Shilo Ramos RN - 10/25/2014 11:24 AM EST [id number],JENNIFER [place], [place]. HEMATOLOGY and ONCOLOGY [facility] 12/01/2012 # [id number] : 1970 Second Visit ID: [id number] Visit ID: [id number] Subcutaneous/ Intramuscular Injection Type of Injection: Lupron 7.5mg (x ) Intramuscular ( ) Subcutaneous Injection site ( ) Left arm ( ) Right arm ( ) Bilateral arms (x ) Right buttock ( ) Left hip ( ) Right Deltoid ( ) Left Deltoid ( ) Right thigh ( ) Left thigh ( ) LUQ of abdomen ( ) LLQ of abdomen ( ) RUQ of abdomen ( ) RLQ of abdomen Medication dispensed from [facility] YES (x ) NO ( ) Medication was brought from home YES ( ) NO (x ) if yes see the following below [facility] visually inspected medication YES ( ) Visual inspection done by Nurse YES ( ) NO ( ) Care of the drug reviewed with Pt. YES ( ) NO ( ) Was medication refrigerated at home Pt States YES ( ) NO ( ) Medication arrived at [facility] chilled/on ice YES ( ) NO ( ) (x) Comments: Newly diagnosed left breast cancer (ER/SD positive; HER-2 negative), has started on Lupron monthly \T\ Tamoxifen daily since a month ago. Seen by Dr Lake, and proceeded to repeat injection. Tolerated well. Bilirubin 1.2 today, Dr Lake made aware, and no further order received at this time. Pending for genetic counseling prior to her next visit. RV in 1 month for MD appointment and Lupron. Ambulatory, accompanied by family. Discharged to home. Shilo Ramos RN [phone] TS: J: [id number] CC: THIS DOCUMENT WAS ELECTRONICALLY AUTHENTICATED BY Shilo Ramos RN ON 12/01/2012 15:04:27 documented in this encounter Plan of Treatment Upcoming Encounters Date Type Department Care Team (Late st Contact Info) Description 09/20/2025 10:20 AM EST Lab Department of Hematology and Oncology [facility] Hematology Oncology [address] [place] [address] Sharon Lewis, CERTIFIED CODER [address] [place] [address] In Person with Resource 09/20/2025 11:30 AM EST Office Visit Department of Hematology and Oncology [facility] Hematology Oncology [address] [place] [address] Jackelyn Lake MD [address] [place] [address] In Person with Physician 09/20/2025 12:30 PM EST [facility]fusion [facility] [address] [place] [address] [address] [place] [address] Sharon Lewis, CERTIFIED CODER [address] [place] [address] In Person with Resource documented as of this encounter Visit Diagnoses Not on filedocumented in this encounter Care Teams Staff Therapist Relationship Specialty Start Date End Date Robert August [address] [place] [id number] PCP - General 07/19/14 01/06/25 Robert August [address] [place] [address] PCP - Insurance Assigned PCP 02/27/22 01/06/25 Loli Lees MD [address] [place] [address] PCP - General Internal Medicine 01/07/25 Loli Lees MD [address] [place] [address] PCP - Insurance Assigned PCP 03/15/25 Jackelyn Lake MD [address] [place] [address] Consulting Provider Hematology/Oncology 04/23/16 Anabel Goldsmith, CERTIFIED CODER [address] [place] [address] Nurse Practitioner Nurse Practitioner 07/16/16 Shayna Lennon NP [address] [place] [address] Nurse Practitioner Nurse Practitioner 01/14/20 Sharon Lewis CERTIFIED CODER [address] [place] [address] Nurse Practitioner Nurse Practitioner 08/09/20 Jacqueline Dinero NP [facility] [address] [address] Nurse Practitioner Nurse Practitioner 07/02/24 Nishi Tomlinson CERTIFIED CODER [address] [place] [address] Nurse Practitioner Hematology/Oncology 07/19/25 documented as of this encounter
--- OUTSIDE RECORDS SUMMARY | 2025-09-06 19:35 | XMS_ITS | Encounter Summary ---
Author Organization [facility] Address [address] [place] [address] Care Team Providers Care Audio Tape Librarian Name Role Phone Robert August Primary Care Provider Jackelyn Lake MD Unavailable [phone] Anabel Goldsmith MENTAL HEALTH SPECIALIST Unavailable [phone] Shayna Lennon MENTAL HEALTH SPECIALIST Unavailable Sharon Lewis MENTAL HEALTH SPECIALIST Unavailable [phone] Robert August Unavailable Jacqueline Dinero NP Unavailable [phone] Loli Lees MD Primary Care Provider Loli Lees MD Unavailable [phone] Nishi Tomlinson MENTAL HEALTH SPECIALIST Unavailable [phone] Encounter Details Date Type Department Care Team (Late st Contact Info) Description 08/21/[address] SCAN [facility] PET CT [address] [address] Robert August [address] [place] [address] [address] [place] [address] Social History Tobacco Use Types Packs/Day Years [...] EST Lab Department of Hematology and Oncology [facility] Hematology Oncology [address] [place] [address] Sharon Lewis, MENTAL HEALTH SPECIALIST [address] [place] [address] In Person with Resource 09/20/2025 11:30 AM EST Office Visit Department of Hematology and Oncology [facility] Hematology Oncology [address] [place] [address] Jackelyn Lake MD [address] [place] [address] In Person with Physician 09/20/2025 12:30 PM EST Infusion [facility] Infusion Services [facility] [address] [place] [address] [address] [place] [address] Sharon Lewis, MENTAL HEALTH SPECIALIST [address] [place] [address] In Person with Resource documented as of this encounter Visit Diagnoses Not on filedocumented in this encounter Care Teams Audio Tape Librarian Relationship Specialty Start Date End Date Robert August [address] [place] [address] PCP - General 07/19/14 01/06/25 Robert August [address] [place] [address] PCP - Insurance Assigned PCP 02/27/22 01/06/25 Loli Lees MD [address] [place] [address] PCP - General Internal Medicine 01/07/25 Loli Lees MD [address] [place] [address] PCP - Insurance Assigned PCP 03/15/25 Jackelyn Lake MD [address] [place] [address] Consulting Provider Hematology/Oncology 04/23/16 Anabel Goldsmith NP [address] [place] [address] Nurse Practitioner Nurse Practitioner 07/16/16 Shayna Lennon NP [address] [place] [address] Nurse Practitioner Nurse Practitioner 01/14/20 Sharon Lewis NP [address] [place] [address] Nurse Practitioner Nurse Practitioner 08/09/20 Jacqueline Dinero NP [address] [address] Nurse Practitioner Nurse Practitioner 07/02/24 Nishi Tomlinson MENTAL HEALTH SPECIALIST [address] [place] [address] Nurse Practitioner Hematology/Oncology 07/19/25 documented as of this encounter
--- OUTSIDE RECORDS SUMMARY | 2025-09-06 19:35 | XMS_ITS | Encounter Summary ---
Author Organization [facility] Address [address] [place] [address] Care Team Providers Care Dietitian Chief Name Role Phone Robert August Primary Care Provider Kae Fermin MD Unavailable [phone] Anabel Goldsmith LIGHT BULB ASSEMBLER Unavailable Shayna Lennon LIGHT BULB ASSEMBLER Unavailable [phone] Sharon Lewis LIGHT BULB ASSEMBLER Unavailable [phone] Robert August Unavailable Jacqueline Dinero LIGHT BULB ASSEMBLER Unavailable [phone] Loli Lees MD Primary Care Provider Loli Lees MD Unavailable [phone] Nishi Tomlinson LIGHT BULB ASSEMBLER Unavailable [phone] Encounter Details Date Type Department Care Team (Late st Contact Info) Description 02/27/2013 Clinical Conversion Encounter Department of Hematology and Oncology [facility] Hematology Oncology [address] [address] Kae Fermin MD [address] [place] [phone] Social History Tobacco Use Types Packs/Day Years Used Date Smoking Tobacco: Never Assessed Comments Unknown Sex and Gender Information Value Date Recorded Sex Assigned at Female 01/05/2020 1:28 PM EDT Legal Sex Female 11:24 AM EST Gender Identity Female 01/05/2020 1:28 PM EDT Sexual Orientation Not on file documented as of this encounter Progress Notes * Kae Fermin MD - 10/25/2014 9:34 PM EST [id number],JENNIFER [place], [place]. Chief Complaint Followup of a metastatic breast cancer with mediastinal lymph node metastases and in situ breast mass. History of Present Illness ONCOLOGIC HISTORY: This is a 42-year-old premenopausal woman who noted changes in her left breast. She was scheduled for routine mammogram at [facility] on September 11, 2011. There is [...] did not notice any side effects. She has had hot flashes. Her last menstrual period was November 16. She is not having any significant pain in her left breast. Otherwise she has no new issues or concerns today. Current Meds Lisinopril 10 MG Oral Tablet; TAKE 1 TABLET DAILY; Therapy: 01Oct2012 to (Last Rx:28Jan2013) Requested for: 28Jan2013 Tamoxifen Citrate 20 MG Oral Tablet; Take 1 tab orally once a day; Therapy: 30Oct2012 to (Last Rx:30Oct2012) Requested for: 30Oct2012 Vitamin D 1000 UNIT Oral Tablet; TAKE 1 TABLET DAILY; Therapy: 31Dec2012 to (Evaluate:[id number]) Allergies Erythromycin Derivatives Penicillins Benadryl CAPS Review [...] in detail. Performance Status ECoG zero Vitals [facility] Vitals Data Includes: Last 1 Instance 27Feb2013 11:38AM Systolic: 142 Diastolic: 93 Heart Rate: 87 BMI Calculated: 27.92 BSA Calculated: 1.89 Height: 5 ft 6 in Weight: 173 lb 11.2 oz Respiration: 16 O2 Saturation: 99 Temperature: 98 F Pain Score: 0 Allergy Status Reviewed: Yes Safe at Home: Yes Height Source: Actual Height Weight Source: Actual Weight Chaperoned During Appointment: Yes Physical Exam In general, well appearing and [...] is nipple retraction on that side. Results/Data All Results Data Includes: Last 6 Weeks 06Feb2013 11:57AM PET CT Skull Base to Mid-Thigh PET CT Tumor-Skull Thigh Scan: ATTENDING/SUPERVISING PROVIDER: ARNIE JIMENEZ FDG PET/CT Body Scan History:Metastatic breast cancer. Restaging Procedures: PET/CT (from the base of the skull to the midthigh) was performed on 64 slices GE PET/CT scanner (DVCT). 60minutes after intravenous injection of 16.3 mCi of F-18 FDG,CT with IV and oral contrast was performed without breathholding to optimize anatomic fusion with PET. 2 D PET scan wasthen followed with 5 minutes for each bed position. The datawas reviewed and interpreted on FittingRoom workstation. Comparison: Prior scan 10/10/2012 Findings:Compared to prior scan, there is interval markedly reduced insize of left breast mass. Maximum SUV has decreased from 11.3to 2.4.There is also significant decreased in size andintensity of uptake in multiple left axillary lymph nodes.Complete resolution of multiple mediastinal lymph nodes. Thereis no significant focal new uptake seen. Right breast and rightaxilla are unremarkable. No suspicious pulmonary nodules seen. No abnormal uptake in liver or spleen. Stable left adrenalnodule, likely benign. No significant retroperitoneal or pelvicadenopathy seen. Uptake in head and neck region is unremarkable. No focal boneuptake seen. Impression: Interval markedly improvement of abnormal uptake since lastexamination. Good response to therapy. Coding: PS This document was electronically signed by ARNIE . MD TONY on 02/06/2013 14:22:00 28Jan2013 10:33AM CA 27.29 Ca 27.29: 14.6 U/ML Assessment 1. 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 Hypertension 401.9 3. Vitamin D Deficiency 268.9 Stage IV breast cancer that is ER/VT positive with lymph node metastases. Breast Cancer 174.9 Plan 1. Blood Pressure Monitor KIT; USE DIRECTED; Therapy: 27Feb2013 to (Last Rx:27Feb2013) She will continue her current treatment. She will receive Lupron today. She will meet with Dr. Mcnulty today to discuss scheduling a mastectomy. She has questions about reconstruction. She will likely be referred for a plastic surgery evaluation. I did recommend that she go ahead with genetic counseling and consider her BRCA gene mutation testing before planning any surgery. I also recommend that she be seen in gynecology to discuss bilateral oophorectomy. This would be to replace the Lupron injections. This would be more effective ovarian suppression and also more convenient for her going forward after surgery. She also understands that postmastectomy radiation therapy will be recommended. She should also have radiation to the mediastinal lymph node that was FDG avid and biopsy-proven metastatic disease. Terms of her hypertension she will continue on lisinopril 10 mg daily. I gave her a prescription for a blood pressure cuff and asked that she monitor this regularly at home and bring in a readings. She has a history of vitamin D deficiency. I will recheck her vitamin D level at her next visit. She will continue daily vitamin D supplementation. I will see her back in 4 weeks. Signatures Electronically signed by : KAE FERMIN MD; Feb 27 2013 3:55PM documented in this encounter Plan of Treatment Upcoming Encounters Date Type Department Care Team (Late st Contact Info) Description 09/20/2025 10:20 AM EST Lab Department of Hematology and Oncology [facility] Hematology Oncology [address] [place] [phone] Sharon Lewis NP [address] [place] [address] In Person with Resource 09/20/2025 11:30 AM EST Office Visit Department of Hematology and Oncology [facility] Hematology Oncology [address] [place] [address] Kae Fermin MD [address] [place] [phone] In Person with Physician 09/20/2025 12:30 PM EST Infusion [facility] [address] [place] [address] [address] [place] [address] Sharon Lewis NP [address] [place] [address] In Person with Resource documented as of this encounter Visit Diagnoses Not on filedocumented in this encounter Care Teams Dietitian Chief Relationship Specialty Start Date End Date Robert August [address] [place] [phone] PCP - General 07/19/14 01/06/25 Robert August [address] [place] [phone] PCP - Insurance Assigned PCP 02/27/22 01/06/25 Loli Lees MD [address] [place] [address] PCP - General Internal Medicine 01/07/25 Loli Lees MD [address] [place] [address] PCP - Insurance Assigned PCP 03/15/25 Kae Fermin MD [address] [place] [address] Consulting Provider Hematology/Oncology 04/23/16 Anabel Goldsmith NP [address] [place] [address] Nurse Practitioner Nurse Practitioner 07/16/16 Shayna Lennon NP [address] [place] [address] Nurse Practitioner Nurse Practitioner 01/14/20 Sharon Lewis, STU [address] [place] [address] Nurse Practitioner Nurse Practitioner 08/09/20 Jacqueline Dinero NP [address] [place] [phone] Nurse Practitioner Nurse Practitioner 07/02/24 Nishi Tomlinson NP [address] [place] [address] [place] [address] Nurse Practitioner Hematology/Oncology 07/19/25 documented as of this encounter
--- OUTSIDE RECORDS SUMMARY | 2025-09-06 19:35 | XMS_ITS | Encounter Summary ---
Author Organization Damaris saul Address [address] [place] [address] Care Team Providers Care Cranberry Bog Supervisor Name Role Phone Robert August Primary Care Provider Jackelyn Lake MD Unavailable [phone] Anabel Goldsmith EXECUTIVE STEWARD Unavailable [phone] Shayna Lennon EXECUTIVE STEWARD Unavailable [phone] Sharon Lewis EXECUTIVE STEWARD Unavailable [phone] Robert August Unavailable Jacqueline Dinero NP Unavailable [phone] Loli Lees MD Primary Care Provider [phone] Loli Lees MD Unavailable [phone] Nishi Tomlinson EXECUTIVE STEWARD Unavailable [phone] Encounter Details Date Type Department Care Team (Late st Contact Info) Description 04/24/[address] SCAN [facility] CT Scan [address] [address] Robert August [address] [place] [address] [address] [place] [address] Social History Tobacco Use Types Packs/Day Years [...] EST Lab Department of Hematology and Oncology [facility] Hematology Oncology [address] [place] [address] Sharon Lewis, EXECUTIVE STEWARD [address] [place] [address] In Person with Resource 09/20/2025 11:30 AM EST Office Visit Department of Hematology and Oncology [facility] Hematology Oncology [address] [place] [address] Jackelyn Lake MD [address] [place] [address] In Person with Physician 09/20/2025 12:30 PM EST Infusion [facility]fusion [facility] [address] [place] [address] [address] [place] [address] Sharon Lewis, EXECUTIVE STEWARD [address] [place] [address] In Person with Resource documented as of this encounter Visit Diagnoses Not on filedocumented in this encounter Care Teams Cranberry Bog Supervisor Relationship Specialty Start Date End Date Robert August [address] [place] [id number] PCP - General 07/19/14 01/06/25 Robert August [address] [place] [id number] PCP - Insurance Assigned PCP 02/27/22 01/06/25 Loli Lees MD [address] [place] [address] PCP - General Internal Medicine 01/07/25 Loli Lees MD [address] [place] [address] PCP - Insurance Assigned PCP 03/15/25 Jackelyn Lake MD [address] [place] [address] Consulting Provider Hematology/Oncology 04/23/16 Anabel Goldsmith NP [address] [place] [address] Nurse Practitioner Nurse Practitioner 07/16/16 Shayna Lennon NP [address] [place] [address] Nurse Practitioner Nurse Practitioner 01/14/20 Sharon Lewis NP [address] [place] [address] Nurse Practitioner Nurse Practitioner 08/09/20 Jacqueline Dinero NP [address] [address] Nurse Practitioner Nurse Practitioner 07/02/24 Nishi Tomlinson EXECUTIVE STEWARD [address] [place] [address] Nurse Practitioner Hematology/Oncology 07/19/25 documented as of this encounter
--- OUTSIDE RECORDS SUMMARY | 2025-09-06 19:35 | XMS_ITS | Clinical Summary ---
Author Organization [facility] Address [address] [place] [id number] Care Team Providers Care Laborer [employer] Name Role Phone Jackelyn Lake MD Unavailable [phone] Shayna Lennon DIKE SUPERVISOR Unavailable Sharon Lewis DIKE SUPERVISOR Unavailable [phone] Jacqueline Dinero DIKE SUPERVISOR Unavailable Loli Lees MD Primary Care Provider [phone] Loli Lees MD Unavailable Nishi Tomlinson DIKE SUPERVISOR Unavailable Allergies Active Allergy Reactions Criticality Noted Date Comments Macrolide Antibiotics Swelling 10/01/2012 Other Other (See Comments) Low 10/02/2012 Benadryl. Hives Penicillins Swelling 10/01/2012 Medications CHOLECALCIFEROL 1,000 unit tablet TAKE 1 TABLET DAILY. 07/08/20 13 Active calcium carbonate-vitam in D3 500 mg-5 mcg (200 unit) per tablet Take 1 tablet by mouth in the morning. 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 04/05/20 Active Additional Information Patient taking differently:10 mg Oral Daily,Morning, Reported on 07/15/2025 lisinopriL (ZESTRIL) 20 MG tablet Take 2 tablets (40 mg total) by mouth daily. 04/05/20 Active Additional Information Patient taking differently:40 mg Oral Daily,Morning, Reported on 07/15/2025 nitrofurantoin (MACROBID) 100 MG capsule Take 1 capsule (100 mg total) by mouth in the morning and 1 capsule (100 mg total) before bedtime. 07/08/20 Active cetirizine (ZyrTEC) 10 MG tabletIndicatio ns:Metastasis to bone (CMS-HCC) Take 1 tablet (10 mg total) by mouth in the morning. To prevent rash / skin reaction. 30 tablet 11 07/12/20 026 Active prochlorperazin e (COMPAZINE) 10 MG tabletIndicatio ns:Metastasis to bone (CMS-HCC) Take 1 tablet (10 mg total) by mouth every 6 hours as needed (nausea / vomiting). 30 tablet 3 07/12/20 25 Active ondansetron (ZOFRAN) 8 MG tabletIndicatio ns:Metastasis to bone (CMS-HCC) Take 1 tablet (8 mg total) by mouth every 8 hours as needed for nausea. 30 tablet 3 07/12/20 25 Active loperamide (Anti-DiarrheaL , loperamide,) 2 mg capsuleIndicati ons:Metastasis to bone (CMS-HCC) Take 2 capsules (4 mg) by mouth at the onset of diarrhea, then 1 capsule (2 mg) by mouth with every subsequent episode of diarrhea for a maximum of 16 mg/day. 30 capsule 07/12/20 25 Active capivasertib (Truqap) 200 mg tabletIndicatio ns:Metastasis to bone (CMS-HCC) Take 2 tablets by mouth twice daily for 4 days on followed by 3 days rest each week. Take with or without food, approximately every 12 hours on scheduled days. Swallow whole; do not chew, crush, or split tablets. Do not administer tablets that are broken, cracked, or otherwise not intact. 64 tablet 11 5 2:13 PM EST 07/12/20 25 Active fulvestrant (FASLODEX) 250 mg/5 mL Syrg Administer 2 Syringes (500mg) intramuscularly every 2 weeks for the first 3 doses and then every 4 weeks 30 mL 11 5 7:41 AM EST 07/12/20 25 Active Active Problems Problem Noted Date Diagnosed Date Metastasis to bone 05/20/2024 Colon cancer screening 03/05/2023 Overview (03/05/2023): Added automatically from request for surgery [id number] 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 Overview (11/08/2014): Malignant Neoplasm Metastasis To Lymph Nodes Hypertension 10/25/2014 Overview (11/08/2014): Hypertension Malignant neoplasm of left female breast 015 Cancer Staging:Pathologic stage from 09/11/2012:Stage IV(M1) - Signed by Jackelyn Lake MD on 11/12/2022 Overview (11/08/2014): Breast Cancer Vitamin D deficiency 03/27/2013 Overview (11/08/2014): Vitamin D Deficiency Tobacco use 10/21/2012 Overview (11/08/2014): Tobacco Use Encounters Date Type Department Care Team Description 09/06/2025 Telephone Department of Hematology and Oncology [facility] Hematology Oncology [address] [place] [address] Luis Enrique Jones, ground operations superintendent Nurse Triage 08/31/2025 Specialty Pharmacy [facility] [address] [place] [address] Carole Stephens CPHT Refill Coordination - capivasertib (Truqap) for Oncology Solid Tumor 08/20/2025 Telephone Department of Hematology and Oncology [facility] Hematology Oncology [address] [place] [phone] Graciela Curtis RN Oncology Treatment Follow Up 08/18/2025 Specialty Pharmacy [facility] [address] [place] [address] Janina Alcantar CPHT Refill Coordination - fulvestrant (FASLODEX) for Oncology Solid Tumor 08/17/2025 12:30 PM EST Infusion [facility] [address] [place] [address] Sharon Lewis NP Metastasis to bone (CMS-HCC) (Primary Dx) 08/17/2025 11:30 AM EST Office Visit Department of Hematology and Oncology [facility] Hematology Oncology [address] [place] [phone] Sharon Lewis NP Metastasis to bone (CMS-HCC) (Primary Dx); Encounter for therapeutic drug monitoring; Encounter for long-term (current) use of high-risk medication; Diarrhea, unspecified type; Rash 08/17/2025 Telephone Department of Hematology and Oncology [facility] Hematology Oncology [address] [place] [address] Samantha Casillas RT FASLODEX [place] 08/09/2025 Specialty Pharmacy [facility] [address] [place] [address] Rock Mariano, MilagroD Refill Coordination - capivasertib (Truqap), fulvestrant (FASLODEX) for Oncology Solid Tumor 08/03/2025 2:30 PM EST Infusion [facility] [address] [place] [address] Jackelyn Lake MD Metastasis to bone (CMS-HCC) (Primary Dx) 08/03/2025 1:30 PM EST Office Visit Department of Hematology and Oncology [facility] Hematology Oncology [address] [place] [phone] Sharon Lewis DIKE SUPERVISOR Encounter for therapeutic drug monitoring (Primary Dx); Metastasis to bone (CMS-HCC); Encounter for long-term (current) use of high-risk medication; Diarrhea, unspecified type; Hyponatremia 07/28/2025 Telephone Department of Hematology and Oncology [facility] Hematology Oncology [address] [place] [phone] Samantha Casillas, RT FASLODEX [place] 07/20/2025 2:00 PM EST Infusion [facility] [address] [place] [address] [address] [place] [address] Jackelyn Lake MD Metastasis to bone (CMS-HCC) (Primary Dx); Malignant neoplasm of overlapping sites of left breast in female, estrogen receptor positive (CMS-HCC) 07/19/2025 3:30 PM EST Telemedicine Department of Hematology and Oncology [facility] Hematology Oncology [address] [place] [phone] Nishi Tomlinson NP Metastasis to bone (CMS-HCC) 07/15/2025 Plan of Care Documentation [facility] [address] [place] [address] 07/15/2025 Telephone Department of Hematology and Oncology [facility] Hematology Oncology [address] [place] [phone] Samantha Casillas, RT FASLODEX [place] 07/15/2025 Specialty Pharmacy [facility] [address] [place] [address] Janina Alcantar CPHT Initial Clinical Assessment (90 day Reassessment) - capivasertib (Truqap), fulvestrant (FASLODEX) for Oncology Solid Tumor, First Fill Consult - capivasertib (Truqap), fulvestrant (FASLODEX) for Oncology Solid Tumor, Welcome Call - capivasertib (Truqap), fulvestrant (FASLODEX) for Oncology Solid Tumor 07/14/2025 Orders Only Department of Hematology and Oncology [facility] Hematology Oncology [address] [place] [phone] Jackelyn Lake MD Metastasis to bone (CMS-HCC) (Primary Dx) 07/14/2025 Specialty Pharmacy [facility] [address] [facility] [place] [address] Samantha Casillas RT Copay assistance - capivasertib (Truqap), fulvestrant (FASLODEX) for Oncology Solid Tumor, Prior Authorization - capivasertib (Truqap), fulvestrant (FASLODEX) for Oncology Solid Tumor, Benefits Investigation - capivasertib (Truqap), fulvestrant (FASLODEX) for Oncology Solid Tumor 07/12/2025 1:40 PM EST Office Visit Department of Hematology and Oncology [facility] Hematology Oncology [address] [place] [phone] Jackelyn Lake MD Malignant neoplasm of left breast in female, estrogen receptor positive, unspecified site of breast (CMS-HCC) (Primary Dx); Metastasis to bone (CMS-HCC); Encounter for therapeutic drug monitoring; Encounter for long-term (current) use of high-risk medication 07/12/2025 10:50 AM EST - 07/12/2025 11:59 PM EST Hospital Encounter BUR CT SCAN [facility] CT Scan [address] [place] [address] Jackelyn Lake MD Malignant neoplasm of left breast in female, estrogen receptor positive, unspecified site of breast (CMS-HCC) (Primary Dx); Metastasis to bone (CMS-HCC) Discharge Disposition: Home or Self Care 07/12/2025 Telephone Department of Hematology and Oncology [facility] Hematology Oncology [address] [place] [phone] Samantha Casillas RT TRUQAP AND FASLODEX PAS 07/08/[address] SCAN [facility] CT Scan [address] [place] [phone] Jackelyn Lake MD Laboratory test (Primary Dx) 07/06/2025 Telephone Department of Hematology and Oncology [facility] Hematology Oncology [address] [place] [phone] Samantha Casillas, RT XGEVA BI; XGEVA [place] from Last 3 Months Immunizations Immunization Administration Dates Next Due COVID-19 Vaccine (MODERNA) 01/04/2021,12/07/2020 Influenza Vaccine - HIGH DOSE (FLUZONE HD) 06/28 Influenza Vaccine - STANDARD - SDV (FLUZONE/FLUARIX/FLULAVAL/AFLURIA) 06/29/2020 Tdap Vaccine (BOOSTRIX/ADACEL) 06/29/2020 Family History Medical History Relation Comments Breast cancer Mother Breast Cancer Relation Status Comments Mother Social History Tobacco Use Types Packs/Day Years Used Date Smoking Tobacco: Every Day Cigarettes 0.5 20 Smokeless Tobacco: Never Tobacco Cessation:Ready to Q uit: Not Asked; Counseling Given: Not Answered Alcohol Use Standard Drinks/Week Comments Yes 2 (1 standard drink = 0.6 oz pur e alcohol) Comments No Sex and Gender Information Value Date Recorded Sex Assigned at Female 01/05/2020 1:28 PM EDT Legal Sex Female 11:24 AM EST Gender Identity Female 01/05/2020 1:28 PM EDT Sexual Orientation Not on file Last Filed Vital Signs Vital Sign Reading Time Taken Comments Blood Pressure 148/90 08/17/2025 12:16 PM EST Pulse 86 08/17/2025 12:16 PM EST Temperature 36.9 C (98.4 F) 08/17/2025 12:16 PM EST Respiratory Rate 16 08/17/2025 12:16 PM EST Oxygen Saturation 100% 08/17/2025 12:16 PM EST Inhaled Oxygen Concentration - - Weight 78.5 kg (173 lb) 08/17/2025 10:45 AM EST Height 165.1 cm (5' 5 ) 10/12/2024 1:25 PM EST Body Mass Index 28.79 10/12/2024 1:25 PM EST Plan of Treatment Upcoming Encounters Date Type Department Care Team (Late st Contact Info) Description 09/20/2025 10:20 AM EST Lab Department of Hematology and Oncology [facility] Hematology Oncology [address] [place] [phone] Sharon Lewis, DIKE SUPERVISOR [address] [place] [phone] In Person with Resource 09/20/2025 11:30 AM EST Office Visit Department of Hematology and Oncology [facility] Hematology Oncology [address] [place] [address] [place] [address] Jackelyn Lake MD [address] [place] [address] In Person with Physician 09/20/2025 12:30 PM EST Infusion [facility] [address] [place] [address] Sharon Lewis NP [address] [place] [address] In Person with Resource Health Maintenance Due Date Last Done Comments Depression Screening 1981 Hepatitis C Screening 12/20/1987 Pneumococcal Vaccine: 50+ Years (1 of 2 - PCV) 1988 CT Colonography 2014 Colonoscopy 2014 Colorectal Cancer Screening 2014 FIT 2014 FOBT 2014 Multitarget Stool DNA (Cologuard) 2014 Sigmoidoscopy 2014 Breast Cancer Screening 04/05/2017 04/05/2016, 02/25 Pap Smear 07/14/2017 07/14/2014, 06/09, 03/27/2013 Hemoglobin A1c 08/10/2017 08/10/2014, 07/08/2013 Cervical Cancer Screening 07/14/2019 HPV/Cotest 07/14/2019 07/14/2014, 06/19/2013 Zoster Vaccine (1 of 2) 12/20/2019 COVID-19 Vaccine (3 - Moderna risk series) 02/01/2021 01/04/2021, 12/07/2020 Influenza Vaccine (#1) 2025 06/29/2020, 2015 Lipid Panel 10/12/2025 10/12/2024, 08/09, 07/20/2024, Additional history exists Blood Pressure 08/17/2026 08/17/2025 DTaP,Tdap,and Td Vaccines (2 - Td or Tdap) 06/29/2030 06/29/2020 Meningococcal B Vaccines Aged Out No longer eligible based on patient's age to complete this topic Meningococcal Vaccines Aged Out No lo nger eligible based on patient's age to complete this topic Procedures Procedure Name Priority Date/Time Associated Diagnosis Comments CBC AND DIFFERENTIAL STAT 08/17/2025 10:54 AM EST Metastasis to bone (CMS-HCC) CBC AND DIFFERENTIAL STAT 08/17/2025 10:54 AM EST Metastasis to bone (CMS-HCC) ONCOLOGY METABOLIC PROFILE, PLASMA STAT 08/17/2025 10:54 AM EST Metastasis to bone (CMS-HCC) ONCOLOGY METABOLIC PROFILE, PLASMA STAT 08/03/2025 12:55 PM EST Metastasis to bone (CMS-HCC) CBC AND ABSOLUTE NEUTROPHIL COUNT(ANC) STAT 08/03/2025 12:55 PM EST Metastasis to bone (CMS-HCC) CT CHEST ABD PEL W CONTRAST Routine 07/12/2025 11:59 AM EST Malignant neoplasm of left breast in female, estrogen receptor positive, unspecified site of breast (CMS-HCC) Metastasis to bone (CMS-HCC) ONCOLOGY METABOLIC PROFILE, PLASMA STAT 07/12/2025 10:42 AM EST Malignant neoplasm of left breast in female, estrogen receptor positive, unspecified site of breast (CMS-HCC) CBC AND ABSOLUTE NEUTROPHIL COUNT(ANC) STAT 07/12/2025 10:42 AM EST Malignant neoplasm of left breast in female, estrogen receptor positive, unspecified site of breast (CMS-HCC) CANCER ANTIGEN 15-3 STAT 07/12/2025 1 0:42 AM EST Malignant neoplasm of left breast in female, estrogen receptor positive, unspecified site of breast (CMS-HCC) LIPID PANEL STAT 10/12/2024 1:12 PM EST Malignant neoplasm of left breast in female, estrogen receptor positive, unspecified site of breast (HCC) MAMMO SCREENING TOMOSYNTHESIS RIGHT STAT 04/05/2016 2:52 PM EDT Visit for screening mammogram HEMOGLOBIN A1C Routine 08/10/2014 3:00 PM EST LIQUID-BASED PAP, REFLEX HPV IF ASC-US Routine 07/14/2014 4:00 PM EST Routine gynecological examination Screening for malignant neoplasm of the cervix HIGH RISK HPV SCREEN (>30 YEARS) Routine 07/14/2014 3:47 PM EST from Last 3 Months or Most Recently Relevant to Health Maintenance Results * (ABNORMAL) CBC and Differential (08/17/2025 10:54 AM EST) WBC 8.58 4.00 - 11.00 K/uL 08/17/2025 11:02 AM [facility] RBC 4.20 4.10 - 5.10 M/uL 08/17/2025 11:02 AM [facility] Hemoglobin 12.8 12.0 - 15.3 g/dL 08/17/2025 11:02 AM [facility] Hematocrit 37.1 36.0 - 45.0 % 08/17/2025 11:02 AM [facility] MCV 88 80 - 96 fL 08/17/2025 11:02 AM [facility] RDW 14.6 11.6 - 14.6 % 08/17/2025 11:02 AM [facility] Platelet Count 466(H) 150 - 450 K/uL 08/17/2025 11:02 AM [facility] Neutrophil 78.1 % 08/17/2025 11:02 AM [facility] Lymphocyte 9.4 % 08/17/2025 11:02 AM [facility] Monocyte 8.2 % 08/17/2025 11:02 AM [facility] Eosinophil 3.4 % 08/17/2025 11:02 AM [facility] Basophil 0.6 % 08/17/2025 11:02 AM [facility] Immature Granulocyte (Bradley, Myelo, Promyelocyte) 0.3 % 08/17/2025 11:02 AM [facility] Absolute Neutrophil Count 6.70 1.50 - 7.70 K/uL 08/17/2025 11:02 AM [facility] Absolute Immature Granulocyte (Bradley, Myelo, Promyelocyte) 0.03 0.00 - 0.09 K/uL 08/17/2025 11:02 AM [facility] Absolute Lymphocyte Count 0.81(L) 1.20 - 3.50 K/uL 08/17/2025 11:02 AM [facility] Absolute Monocyte Count 0.70 0.00 - 1.00 K/uL 08/17/2025 11:02 AM [facility] Absolute Eosinophil Count 0.29 0.00 - 0.40 K/uL 08/17/2025 11:02 AM [facility] Absolute Basophil Count 0.05 0.00 - 0.20 K/uL 08/17/2025 11:02 AM [facility] Differential Performed Auto Diff Reported 08/17/2025 11:02 AM [facility] Blood PERIPHERAL BLOOD SPECIMEN / Unknown Venipuncture / Unknown 08/17/2025 10:54 AM EST 08/17/2025 10:59 AM EST us Sharon Lewis DIKE SUPERVISOR LAB BLOOD ORDERABLES [place] [address] * (ABNORMAL) Oncology Metabolic Profile, Plasma (08/17/2025 10:54 AM [facility]) Only the most recent of3 resultswithin the time period is included. Sodium 128(L) 135 - 146 mmol/L [address] 08/17/2025 11:21 AM [facility] Potassium 4.5 3.4 - 5.2 mmol/L [address] 08/17/2025 11:21 AM [facility] Comment:Plasma sample Chloride 94(L) 98 - 110 mmol/L [address] 08/17/2025 11:21 AM [facility] Total CO2/Bicarbonate 24 24 - 32 mmol/L [address] 08/17/2025 11:21 AM [facility] Anion Gap 10 2 - 15 mmol/L [address] 08/17/2025 11:21 AM [facility] BUN 7 7 - 24 mg/dL [address] 08/17/2025 11:21 AM [facility] Creatinine, Blood 0.78 0.50 - 1.10 mg/dL [address] 08/17/2025 11:21 AM [facility] Glucose, Blood 116 70 - 118 mg/dL [address] 08/17/2025 11:21 AM [facility] Calcium 9.8 8.5 - 10.5 mg/dL [address] 08/17/2025 11:21 AM [facility] Total Protein 8.3(H) 6.2 - 8.2 g/dL [address] 08/17/2025 11:21 AM [facility] Albumin, Blood 4.1 3.4 - 5.2 g/dL [address] 08/17/2025 11:21 AM [facility] Globulin Result 4.2(H) 2.0 - 4.0 g/dL [address] 08/17/2025 11:21 AM [facility] AST (SGOT) 29 11 - 40 U/L [address] 08/17/2025 11:21 AM [facility] ALT (SGPT) 34 4 - 35 U/L [address] 08/17/2025 11:21 AM [facility] Alkaline Phosphatase 91 30 - 115 U/L [address] 08/17/2025 11:21 AM [facility] Total Bilirubin 0.4 0.0 - 1.2 mg/dL [address] 08/17/2025 11:21 AM [facility] Uric Acid,Blood 4.0 2.3 - 7.5 mg/dL [address] 08/17/2025 11:21 AM [facility] Phosphorus 3.6 2.3 - 4.6 mg/dL [address] 08/17/2025 11:21 AM [facility] Magnesium, Blood 1.9 1.6 - 2.6 mg/dL [address] 08/17/2025 11:21 AM [facility] Estimated GFR(CKD-EPI) 90 >=60 mL/min/BS A [address] 08/17/2025 11:21 AM [facility] Comment:This Cr-based equati on underestimates GFR in patients with increased muscle mass. Order CYSTATIN C WITH GFR ESTIMATE, [id number], if additional evaluation of renal function is needed. Anion Gap [address] 08/17/2025 11:21 AM [facility] Blood PERIPHERAL BLOOD SPECIMEN / Unknown Venipuncture / Unknown 08/17/2025 10:54 AM EST 08/17/2025 10:59 AM EST us Sharon Lewis NP LAB BLOOD ORDERABLES Final Resu lt [place] [id number] * (ABNORMAL) CBC and Absolute Neutrophil Count (08/03/2025 12:55 PM EST) Only the most recent of2 resultswithin the time period is included. WBC 10.10 4.00 - 11.00 K/uL 08/03/2025 1:05 PM [facility] RBC 4.16 4.10 - 5.10 M/uL 08/03/2025 1:05 PM [facility] Hemoglobin 12.6 12.0 - 15.3 g/dL 08/03/2025 1:05 PM [facility] Hematocrit 38.0 36.0 - 45.0 % 08/03/2025 1:05 PM [facility] MCV 91 80 - 96 fL 08/03/2025 1:05 PM [facility] RDW 14.8(H) 11.6 - 14.6 % 08/03/2025 1:05 PM [facility] Platelet Count 470(H) 150 - 450 K/uL 08/03/2025 1:05 PM [facility] Absolute Neutrophil Count 8.24(H) 1.50 - 7.70 K/uL 08/03/2025 1:05 PM [facility] Neutrophil 81.6 % 08/03/2025 1:05 PM [facility] Differential Performed Auto Diff Reported 08/03/2025 1:05 PM [facility] Blood PERIPHERAL BLOOD SPECIMEN / Unknown Venipuncture / Unknown 08/03/2025 12:55 PM EST 08/03/2025 1:01 PM EST [facility] - 08/03/2025 1:05 PM EST The reported values represent a limited differential, and only address the neutrophil parameters. us Jackelyn Lake MD LAB BLOOD ORDERABLES Final Res ult [place] [id number] * CT Chest Abdomen Pelvis With Contrast (07/12/2025 11:59 AM EST) Anatomical Region Laterality Modality Chest, Abdomen, Pelvis Computed Tomography 07/12/2025 1:33 PM EST Impressions 07/12/2025 1:30 PM EST 1. Multiple new, ill-defined hypodense liver lesions, concerning for new metastatic disease. 2. Osseous metastatic disease burden appears increasing. 3. Additional findings in the body of the report. The presence of unexpected and/or significant findings was communicated per departmental protocol. RECOMMENDATION : Recommend follow-up MRI, or PET-CT to further characterize liver and additional sites of disease. Narrative 07/12/2025 1:30 PM EST EXAM DESCRIPTION: CT Chest, Abdomen, and Pelvis with enhancement TECHNIQUE: Non-ionic, low-osmolar IV contrast was injected intravenously, and axial helical CT images were obtained from the thoracic inlet through the pelvis. Multiplanar reformats were performed at the console and made available for review Contrast administered: Intravenous: 75 mL IOHEXOL 350 MG IODINE/ML INTRAVENOUS SOLUTION. COMPARISON: CT CHEST ABDOMEN PELVIS W CONTRAST, ACC: [id number], dated 2025-01-07 15:39:08; CT CHEST ABDOMEN PELVIS W CONTRAST, ACC: [id number], d 2024-09-16 11:37:23; NM BONE SCAN WHOLE BODY, ACC: [id number], dated 2025-04-05 14:11:26; NM BONE SCAN WHOLE BODY, ACC: [id number], 2025-01-07 13:27:02; CT CHEST ABDOMEN PELVIS W CONTRAST, ACC: [id number], dated 2024-05-05 16:59:37; CT CHEST W CONTRAST, ACC: [id number], dated 2021-06-07 12:10:49; NM BONE SCAN WHOLE BODY, ACC: [id number], dated 2020-11-15 14:19:31; PET CT SKULL TO MID THIGH W FDG, ACC: [id number], dated 2019-06-11 11:16:10 INDICATION: Stage IV breast cancer from primary left breast. Diagnosis in 2013, subsequent metastatic disease to the pleural space. Question of thoracic and rib lesions on prior imaging, (dedicated bone scans). FINDINGS: CHEST: LUNGS/PLEURA: Chronic changes of the left lung, with similar pleural thickening and tethering of the anterolateral left pleura. Thin-walled 3 cm subpleural cyst medial left lower lobe. No new, or growing pulmonary nodule. MEDIASTINUM/VASCULAR: Mild coronary artery calcifications. The heart is normal in size. No pericardial effusion. Thoracic aorta is normal in caliber. The right thyroid gland is unremarkable, left thyroid glandis not visualized. LYMPH NODES: Similar prevascular nodule up to 10 mm in short axis (02:46) presumed lymph node. No lymphadenopathy by size criteria. ABDOMEN/PELVIS: LIVER: Multiple new, ill-defined, hypodense liver lesions, includin. Segment 2: 1.5 cm x 1.4 cm (2:96) 2. Segment 4B/5: 1.8 cm x 1.7 cm (2:122) 3. Segment 6: 1.4 cm x 1.3 cm (2:138) Although findings are indeterminate, metastatic disease is a predominant concern. GALLBLADDER/BILIARY: The gallbladder is unremarkable. No calcified stones. No biliary ductal dilatation PANCREAS: Stable appearance of the pancreas. No main ductal dilatation. SPLEEN: Normal size and appearance. ADRENAL GLANDS: No adrenal nodule. KIDNEYS/URETERS: There is symmetric renal enhancement. No nephrolithiasis, or hydronephrosis. GI TRACT/PERITONEUM: Moderately sized hiatal hernia with partially intrathoracic gastric fundus. Non-opacified bowel loops are normal in caliber. Submucosal fat deposition of the terminal ileum (2:194) and of the left colon suggests sequela of prior inflammation. No acute inflammatory process. No ascites. No peritoneal nodularity. PELVIC ORGANS/BLADDER: Circumferential urinary bladder wall thickening, may reflect chronic cystitis. Similar lobulated appearance of the uterus may reflect fibroids. No adnexal mass. LYMPH NODES: No abdominopelvic lymphadenopathy. VASCULAR: Mild calcifications, normal caliber aorta. Visceral branches are patent. BONES/SOFT TISSUES: Increasing, ill-defined sclerotic foci of T5, T6, T7, T8, T9, and T10 vertebral bodies including the associated posterior elements at these levels, and separately L5, compatible with known osseous metastatic disease. Additional ill-defined sclerosis, anterior right 3rd rib, subtle findings anterolateral right 4th rib, lateral right 6th rib and anterolateral right 7th rib likely also sites of osseous metastatic disease. Additional sites of metastatic disease likely within the pelvis with increasing sclerosis of the right sacrum, and ileum (2:17 5) and (2:179) Status post TRAM flap and reconstruction, status post left mastectomy. Procedure Note Nolan Larkin MD - 07/12/2025 EXAM DESCRIPTION: CT Chest, Abdomen, and Pelvis with enhancement TECHNIQUE: Non-ionic, low-osmolar IV contrast was injected intravenously, and axialhelical CT images were obtained from the thoracic inlet through thepelvis. Multiplanar reformats were performed at the console and madeavailable for review Contrast administered: Intravenous: 75 mL IOHEXOL 350 MG IODINE/ML INTRAVENOUS SOLUTION. COMPARISON: CT CHEST ABDOMEN PELVIS W CONTRAST, ACC: [id number], dated :39:08; CT CHEST ABDOMEN PELVIS W CONTRAST, ACC: [id number], dated 1560-68-0569:37:23; NC BONE SCAN WHOLE BODY, ACC: [id number], dated 2025-04-05 14:11:26; NC BONE SCAN WHOLE BODY, ACC: [id number], dated 2025-01-07 13:27:02; CT CHEST ABDOMEN PELVIS W CONTRAST, ACC: [id number], dated :59:37; CT CHEST W CONTRAST, ACC: [id number], dated 2021-06-07 12:10:49; NC BONE SCAN WHOLE BODY, ACC: [id number], dated 2020-11-15 14:19:31; PET CT SKULL TO MID THIGH W FDG, ACC: [id number], dated :16:10 INDICATION: Stage IV breast cancer from primary left breast. Diagnosis in 2012,subsequent metastatic disease to the pleural space. Question of thoracicand rib lesions on prior imaging, (dedicated bone scans). FINDINGS: CHEST: LUNGS/PLEURA: Chronic changes of the left lung, with similar pleuralthickening and tethering of the anterolateral left pleura. Thin-walled 3cm subpleural cyst medial left lower lobe. No new, or growing pulmonarynodule. MEDIASTINUM/VASCULAR: Mild coronary artery calcifications. The heart isnormal in size. No pericardial effusion. Thoracic aorta is normal incaliber. The right thyroid gland is unremarkable, left thyroid glandis notvisualized. LYMPH NODES: Similar prevascular nodule up to 10 mm in short axis (02:46)presumed lymph node. No lymphadenopathy by size criteria. ABDOMEN/PELVIS: LIVER: Multiple new, ill-defined, hypodense liver lesions, includin. Segment 2: 1.5 cm x 1.4 cm (2:96) 2. Segment 4B/5: 1.8 cm x 1.7 cm (2:122) 3. Segment 6: 1.4 cm x 1.3 cm (2:138) Although findings are indeterminate, metastatic disease is a predominantconcern. GALLBLADDER/BILIARY: The gallbladder is unremarkable. No calcified stones.No biliary ductal dilatation PANCREAS: Stable appearance of the pancreas. No main ductal dilatation. SPLEEN: Normal size and appearance. ADRENAL GLANDS: No adrenal nodule. KIDNEYS/URETERS: There is symmetric renal enhancement. No nephrolithiasis,or hydronephrosis. GI TRACT/PERITONEUM: Moderately sized hiatal hernia with partiallyintrathoracic gastric fundus. Non-opacified bowel loops are normal incaliber. Submucosal fat deposition of the terminal ileum (2:194) and of the leftcolon suggests sequela of prior inflammation. No acute inflammatoryprocess. No ascites. No peritoneal nodularity. PELVIC ORGANS/BLADDER: Circumferential urinary bladder wall thickening,may reflect chronic cystitis. Similar lobulated appearance of the uterusmay reflect fibroids. No adnexal mass. LYMPH NODES: No abdominopelvic lymphadenopathy. VASCULAR: Mild calcifications, normal caliber aorta. Visceral branches arepatent. BONES/SOFT TISSUES: Increasing, ill-defined sclerotic foci of T5, T6, T7,T8, T9, and T10 vertebral bodies including the associated posteriorelements at these levels, and separately L5, compatible with known osseousmetastatic disease. Additional ill-defined sclerosis, anterior right 3rd rib, subtle findingsanterolateral right 4th rib, lateral right 6th rib and anterolateral [id number] rib likely also sites of osseous metastatic disease. Additional sites of metastatic disease likely within the pelvis withincreasing sclerosis of the right sacrum, and ileum (2:17 5) and (2:179) Status post TRAM flap and reconstruction, status post left mastectomy. IMPRESSION: 1. Multiple new, ill-defined hypodense liver lesions, concerning for newmetastatic disease. 2. Osseous metastatic disease burden appears increasing. 3. Additional findings in the body of the report. The presence of unexpected and/or significant findings was communicatedper departmental protocol. RECOMMENDATION : Recommend follow-up MRI, or PET-CT to further characterize liver andadditional sites of disease. Jackelyn Lake MD IMG CT ORDERABLES Final Result * (ABNORMAL) Cancer Antigen 15-3 (07/12/2025 10:42 AM EST) Pathologist [facility] [place] 15-3 36(H) <36 U/mL 07/12/2025 11:36 AM EST [facility] Comment:Method: Iframe Appsi tect CMIA Blood Venipuncture / Unknown 07/12/2025 10:42 AM EST 07/12/2025 10:44 AM EST Jackelyn Lake MD LAB BLOOD ORDERABLES Final Res ult Performing Organization Address City/State/[facility] [place] [address] * (ABNORMAL) Lipid Panel (10/12/2024 1:12 PM EST) Cholesterol 223(H) 125 - 200 mg/dL [place] [id number] 10/12/2024 1:53 PM EST [facility] Triglycerides 64 55 - 150 mg/dL [facility] [id number] 10/12/2024 1:53 PM EST [facility] HDL Cholesterol 101(H) 40 - 65 mg/dL [place] [address] 10/12/2024 1:53 PM EST [facility] LDL Cholesterol 109 <130 mg/dL [facility] [id number] 10/12/2024 1:53 PM EST [facility] Non-HDL Cholesterol 122 <190 mg/dL [address] 10/12/2024 1:53 PM EST [facility] Comment: Normal primary prevention <190 mg/dL High risk primary prevention <160 mg/dL Secondary prevention <130 mg/dL High risk secondary prevention <100 mg/dL VLDL Cholesterol 13 8 - 71 mg/dL [facility] [id number] 10/12/2024 1:53 PM EST [facility] Ratio Chol/HDL 2.2 2.0 - 5.0 [place] [id number] 10/12/2024 1:53 PM EST [facility] Patient Fasting No 1:53 PM EST [facility] Blood PERIPHERAL BLOOD SPECIMEN / Unknown Venipuncture / Unknown 10/12/2024 1:12 PM EST 10/12/2024 1:27 PM EST us Sharon Lewis NP LAB BLOOD ORDERABLES Final Resu lt Performing Organization Address City/State/[facility] Co de Phone Number [place] [phone] * Mammo Screening Tomosynthesis Right (04/05/2016 2:52 PM EDT) Anatomical Region Laterality Modality Breast Right Mammography 04/05/2016 3:23 PM EDT Narrative 04/05/2016 3:20 PM EDT EXAM DESCRIPTION: Screening Mammogram right breast. TECHNIQUE: This exam was acquired on a Full Field Digital Mammography unit. Both full field digital mammographic and tomosynthesis images were obtained and reviewed as part of the examination. The R2 CAD mammography reader was employed for this case. COMPARISON: Prior mammograms dating back to May 01, 2011 INDICATION: Screening. Left mastectomy. FINDINGS: Breast tissue density: There are scattered areas of fibroglandular density. Right Breast Findings: No significant masses, calcifications or other abnormalities are seen. No significant interval change is evident. Patient is status post left mastectomy. IMPRESSION: Right breast, BI-RADS category 1: Negative, no evidence of malignancy. Normal interval follow-up is recommended in 12 months. Overall assessment: Negative RECOMMENDATION: BIRADS CATEGORY: 1 - Negative Recommendation: Routine follow-up mammogram in 1 year Recall Interval: 12 months Procedure Note Bennett Ibarra MD - 04/05/2016 EXAM DESCRIPTION: Screening Mammogram right breast. TECHNIQUE: This exam was acquired on a Full Field Digital Mammography unit. Both fullfield digital mammographic and tomosynthesis images were obtained andreviewed as part of the examination. The R2 CAD mammography reader wasemployed for this case. COMPARISON: Prior mammograms dating back to May 01, 2011 INDICATION: Screening. Left mastectomy. FINDINGS: Breast tissue density: There are scattered areas of fibroglandulardensity. Right Breast Findings: No significant masses, calcifications or other abnormalities are seen. Nosignificant interval change is evident. Patient is status post left mastectomy. IMPRESSION: Right breast, BI-RADS category 1: Negative, no evidence of malignancy. Normal interval follow-up isrecommended in 12 months. Overall assessment: Negative RECOMMENDATION: BIRADS CATEGORY: 1 - Negative Recommendation: Routine follow-up mammogram in 1 year Recall Interval: 12 months Sravan Mcnulty MD IMG MAMMOGRAPHY ORDERABLES Final Result * Hemoglobin A1C (08/10/2014 3:00 PM EST) Hemoglobin A1C 5.2 4.6 - 5.6 % [facility] Comment: 4.6 to 5.6% Normal 5.7 to 6.4% Pre-diabetes, increased risk for diabetes >= 6.5% Diabetes mellitus 08/10/2014 3:00 PM EST 08/10/2014 3:05 PM EST Cary Ng MD PhD LAB BLOOD ORDERABLES Final Resu lt [facility] * Liquid Based PAP Smear, Screening (07/14/2014 4:00 PM EST) 07/14/2014 4:00 PM EST Narrative CONVERSION FROM [facility] - 07/21/2014 12:00 PM EST SOURCE CERVIX-THINPREP - SCREEN ADEQUACY SATISFACTORY FOR INTERPRETATION. AN ENDOCERVICAL/TRANSFORMATION ZONE COMPONENT IS PRESENT. THIS SPECIMEN WAS SUCCESSFULLY PRE-SCREENED USING THE [employer] AUTOMATED THINPREP IMAGING SYSTEM. DIAGNOSIS NEGATIVE FOR INTRAEPITHELIAL LESION / MALIGNANCY. (CFW [facility] ) SIGNATURE Ashlee LIN (ASCP), STEPHY (CASE SIGNED 07 21 2014) CASE CLINICAL INFORMATION [facility] EYAL ARBOLEDA/#[id number] CERVICOVAGINAL CYTOLOGY ( PAP SMEAR ) IS A SCREENING TEST INTENDED TO AID IN THE DETECTION OF CERVICAL SQUAMOUS CELL CARCINOMA AND ITS PRECURSORS. ALTHOUGH VERY EFFECTIVE, THE TEST IS IMPERFECT WITH A WELL RECOGNIZED FALSE POSITIVE AND FALSE NEGATIVE FRACTION. THE FALSE NEGATIVE FRACTION HAS BEEN REPORTED IN THE LITERATURE TO BE AT LEAST 5-10%. Eyal Arboleda MD PATHOLOGY/CYTOLOGY ORDERABLES Final Result Performing Organization Address City/[facility]/ZIP Co de Phone Number [facility]VERSION [facility] * High Risk HPV Screen (>30 years) (07/14/2014 3:47 PM EST) Specimen CERVIX [facility] Result DNA test for high-risk HPV types is NEGATIVE. Method: Hybrid Capture. [facility] Final FINAL 07/15/2014 [facility] 07/14/2014 3:47 PM EST 07/14/2014 3:47 PM EST Eyal Arboleda MD MICROBIOLOGY - GENERAL ORDERAB LES Final Result Performing Organization Address City/[facility] de Phone Number [facility] from Last 3 Months or Most Recently Relevant to Health Maintenance Insurance Care Teams Laborer [employer] Relationship Specialty Start Date End Date Loli Lees MD [address] [place] [address] PCP - General Internal Medicine 01/07/25 Loli Lees MD [address] [place] [address] PCP - Insurance Assigned PCP 03/15/25 Jackelyn Lake MD [address] [place] [address] Consulting Provider Hematology/Oncology 04/23/16 Shayna Lennon NP [address] [place] [address] Nurse Practitioner Nurse Practitioner 01/14/20 Sharon Lewis NP [address] [place] [address] Nurse Practitioner Nurse Practitioner 08/09/20 Jacqueline Dinero NP [address] [facility] [address] [place] [address] Nurse Practitioner Nurse Practitioner 07/02/24 Nishi Tomlinson NP [address] [facility] [place] [address] Nurse Practitioner Hematology/Oncology 07/19/25
--- OUTSIDE RECORDS SUMMARY | 2025-09-06 19:35 | XMS_ITS | Encounter Summary ---
Author Organization [facility] Address [address] [place] [address] Care Team Providers Care City Director Name Role Phone Jackelyn Lake MD Unavailable [phone] Shayna Lennon HYDRAULIC LIFT OPERATOR Unavailable Sharon Lewis HYDRAULIC LIFT OPERATOR Unavailable [phone] Jacqueline Dinero HYDRAULIC LIFT OPERATOR Unavailable Loli Lees MD Primary Care Provider [phone] Loli Lees MD Unavailable Nishi Tomlinson HYDRAULIC LIFT OPERATOR Unavailable [phone] Encounter Details Date Type Department Care Team (Latest Contact Info) Description 08/18/2025 Specialty Pharmacy [facility] [address] [place] [address] Janina Alcantar CPHT Refill Coordination - fulvestrant (FASLODEX) for Oncology Solid Tumor Social History Tobacco Use Types Packs/Day Years Used Date Smoking Tobacco: Every Day Cigarettes 0.5 20 Smokeless Tobacco: Never Alcohol Use Standard Drinks/Week Comments Yes 2 [...] EST Lab Department of Hematology and Oncology [facility] Hematology Oncology [address] [place] [address] Sharon Lewis, HYDRAULIC LIFT OPERATOR [address] [place] [address] In Person with Resource 09/20/2025 11:30 AM EST Office Visit Department of Hematology and Oncology [facility] Oncology [address] [place] [address] Jackelyn Lake MD [address] [place] [address] In Person with Physician 09/20/2025 12:30 PM EST Infusion [facility] [address] [place] [address] Sharon Lewis, HYDRAULIC LIFT OPERATOR [address] [place] [address] In Person with Resource documented as of this encounter Visit Diagnoses Not on filedocumented in this encounter Care Teams City Director Relationship Specialty Start Date End Date Loli Lees MD [address] [place] [address] PCP - General Internal Medicine 01/07/25 Loli Lees MD [address] [place] [address] PCP - Insurance Assigned PCP 03/15/25 Jackelyn Lake MD [address] [place] [address] Consulting Provider Hematology/Oncology 04/23/16 Shayna Lennon NP [address] [place] [address] Nurse Practitioner Nurse Practitioner 01/14/20 Sharon Lewis NP [address] [place] [address] Nurse Practitioner Nurse Practitioner 08/09/20 Jacqueilne Dinero NP [address] [place], [place] [address]hern[address] [address] [address] Nurse Practitioner Nurse Practitioner 07/02/24 Nishi Tomlinson NP [address] [place] [address] Nurse Practitioner Hematology/Oncology 07/19/25 documented as of this encounter
--- OUTSIDE RECORDS SUMMARY | 2025-09-06 19:35 | XMS_ITS | Encounter Summary ---
Author Organization [facility] Address [address] [place] [address] Care Team Providers Care Fire Prevention Specialist Name Role Phone Robert August Primary Care Provider Jackelyn Lake MD Unavailable [phone] Anabel Goldsmith PLUGGER MAN Unavailable [phone] Shayna Lennon PLUGGER MAN Unavailable Sharon Lewis PLUGGER MAN Unavailable [phone] Robert August Unavailable Jacqueline Dinero NP Unavailable Loli Lees MD Primary Care Provider [phone] Loli Lees MD Unavailable [phone] Nishi Tomlinson PLUGGER MAN Unavailable [phone] Reason for Visit * Reason Comments Medication Refill Encounter Details Date Type Department Care Team (Late st Contact Info) Description 03/28/2019 Refill Department of Hematology and Oncology [facility] [address] [address] Sharon Lewis, PLUGGER MAN [address] [place] [address] Social History Tobacco Use Types Packs/Day Years [...] EST Lab Department of Hematology and Oncology [facility] Hematology Oncology [address] [place] [address] Sharon Lewis, PLUGGER MAN [address] [place] [address] In Person with Resource 09/20/2025 11:30 AM EST Office Visit Department of Hematology and Oncology [facility] Hematology Oncology [address] [place] [address] Jackelyn Lake MD [address] [place] [address] In Person with Physician 09/20/2025 12:30 PM EST Infusion [facility] [place] [facility] [address] [place] [address] [address] [place] [address] Sharon Lewis, PLUGGER MAN [address] [place] [address] In Person with Resource documented as of this encounter Visit Diagnoses Not on filedocumented in this encounter Care Teams Fire Prevention Specialist Relationship Specialty Start Date End Date Robert August [address] [place] [address] PCP - General 07/19/14 01/06/25 Robert August [address] [place] [address] PCP - Insurance Assigned PCP 02/27/22 01/06/25 Loli Lees MD [address] [place] [address] PCP - General Internal Medicine 01/07/25 Loli Lees MD [address] [place] [address] PCP - Insurance Assigned PCP 03/15/25 Jackelyn Lake MD [address] [place] [address] Consulting Provider Hematology/Oncology 04/23/16 Anabel Goldsmith NP [address] [place] [address] Nurse Practitioner Nurse Practitioner 07/16/16 Shayna Lennon NP [address] [place] [address] Nurse Practitioner Nurse Practitioner 01/14/20 Sharon Lewis NP [address] [place] [address] Nurse Practitioner Nurse Practitioner 08/09/20 Jacqueline Dinero NP [address] [address] Nurse Practitioner Nurse Practitioner 07/02/24 Nishi Tomlinson NP [address] [place] [address] Nurse Practitioner Hematology/Oncology 07/19/25 documented as of this encounter
--- OUTSIDE RECORDS SUMMARY | 2025-09-06 19:35 | XMS_ITS | Encounter Summary ---
Author Organization [facility] Address [address] [place] [address] Care Team Providers Care District Medical Examiner Name Role Phone Robert August Primary Care Provider Jackelyn Lake MD Unavailable [phone] Anabel Goldsmith FURNITURE REPAIR TECHNICIAN Unavailable [phone] Shayna Lennon FURNITURE REPAIR TECHNICIAN Unavailable Sharon Lewis FURNITURE REPAIR TECHNICIAN Unavailable [phone] Robert August Unavailable Jacqueline Dinero NP Unavailable [phone] Loli Lees MD Primary Care Provider Loli Lees MD Unavailable [phone] Nishi Tomlinson FURNITURE REPAIR TECHNICIAN Unavailable [phone] Encounter Details Date Type Department Care Team (Late st Contact Info) Description 10/27/[address] SCAN [facility] PET CT [address] [address] Robert August [address] [place] [address] [address] [place] [address] Social History Tobacco Use Types Packs/Day Years [...] EST Lab Department of Hematology and Oncology [facility] Hematology Oncology [address] [place] [address] Sharon Lewis, FURNITURE REPAIR TECHNICIAN [address] [place] [address] In Person with Resource 09/20/2025 11:30 AM EST Office Visit Department of Hematology and Oncology [facility] Hematology Oncology [address] [place] [address] Jackelyn Lake MD [address] [place] [address] In Person with Physician 09/20/2025 12:30 PM EST Infusion [facility] Infusion Services [facility] [address] [place] [address] [address] [place] [address] Sharon Lewis, FURNITURE REPAIR TECHNICIAN [address] [place] [address] In Person with Resource documented as of this encounter Visit Diagnoses Not on filedocumented in this encounter Care Teams District Medical Examiner Relationship Specialty Start Date End Date Robert August [address] [place] [address] PCP - General 07/19/14 01/06/25 Robert Aguust [address] [place] [address] PCP - Insurance Assigned PCP 02/27/22 01/06/25 Loli Lees MD [address] [place] [address] PCP - General Internal Medicine 01/07/25 Loli Lees MD [address] [place] [address] PCP - Insurance Assigned PCP 03/15/25 Jackelyn Lake MD [address] [place] [address] Consulting Provider Hematology/Oncology 04/23/16 Anabel Goldsmith NP [address] [place] [address] Nurse Practitioner Nurse Practitioner 07/16/16 Shayna eLnnon NP [address] [place] [address] Nurse Practitioner Nurse Practitioner 01/14/20 Sharon Lewis NP [address] [place] [address] Nurse Practitioner Nurse Practitioner 08/09/20 Jacqueline Dinero NP [address] [address] Nurse Practitioner Nurse Practitioner 07/02/24 Nishi Tomlinson FURNITURE REPAIR TECHNICIAN [address] [place] [address] Nurse Practitioner Hematology/Oncology 07/19/25 documented as of this encounter
--- OUTSIDE RECORDS SUMMARY | 2025-09-06 19:35 | XMS_ITS | Encounter Summary ---
Author Organization [facility] Address [address] [place] [address] Care Team Providers Care Multicraft Operator Name Role Phone Robert August Primary Care Provider Jackelyn Lake MD Unavailable [phone] Anabel Goldsmith LEAD ELECTRICAL ENGINEER Unavailable [phone] Shayna Lennon LEAD ELECTRICAL ENGINEER Unavailable Sharon Lewis LEAD ELECTRICAL ENGINEER Unavailable [phone] Robert August Unavailable Jacqueline Dinero LEAD ELECTRICAL ENGINEER Unavailable Loli Lees MD Primary Care Provider [phone] Loli Lees MD Unavailable [phone] Nishi Tomlinson LEAD ELECTRICAL ENGINEER Unavailable [phone] Reason for Visit * Reason Comments Medication Refill Encounter Details Date Type Department Care Team (Late st Contact Info) Description 04/08/2021 Refill Department of Hematology and Oncology [facility] [address] [place] [address] Jackelyn Lake MD [address] [place] [address] Social History Tobacco Use Types Packs/Day Years [...] Lab Department of Hematology and Oncology [facility] Hematology Oncology [address] [place] [address] Sharon Lewis, LEAD ELECTRICAL ENGINEER [address] [place] [address] In Person with Resource 09/20/2025 11:30 AM EST Office Visit Department of Hematology and Oncology [facility] Hematology Oncology [address] [place] [address] Jackelyn Lake MD [address] [place] [address] In Person with Physician 09/20/2025 12:30 PM EST Infusion [facility] [address] [place] [address] [address] [place] [address] Sharon Lewis, LEAD ELECTRICAL ENGINEER [address] [place] [address] In Person with Resource documented as of this encounter Visit Diagnoses Not on filedocumented in this encounter Care Teams Multicraft Operator Relationship Specialty Start Date End Date Robert August [address] [place] [address] PCP - General 07/19/14 01/06/25 Robert August [address] [place] [address] PCP - Insurance Assigned PCP 02/27/22 01/06/25 Loli Lees MD [address] [place] [address] PCP - General Internal Medicine 01/07/25 Loli Lees MD [address] [place] [address] PCP - Insurance Assigned PCP 03/15/25 Jackelyn Lake MD [address] [place] [address] Consulting Provider Hematology/Oncology 04/23/16 Anabel Goldsmith NP [address] [place] [address] Nurse Practitioner Nurse Practitioner 07/16/16 Shayna Lennon NP [address] [place] [address] Nurse Practitioner Nurse Practitioner 01/14/20 Sharon Lewis NP [address] [place] [address] Nurse Practitioner Nurse Practitioner 08/09/20 Jacqueline Dinero, STU [address] [place] [address] Nurse Practitioner Nurse Practitioner 07/02/24 Nishi Tomlinson NP [address] [place] [address] Nurse Practitioner Hematology/Oncology 07/19/25 documented as of this encounter
--- OUTSIDE RECORDS SUMMARY | 2025-09-06 19:35 | XMS_ITS | Encounter Summary ---
Author Organization Damaris Hernandez [facility] Address [address] [place] [address] Care Team Providers Care Children'S Literature Professor Name Role Phone Jackelyn Lake MD Unavailable [phone] Shayna Lennon STOCK SELECTOR Unavailable Sharon Lewis STOCK SELECTOR Unavailable [phone] Jacqueline Dinero STOCK SELECTOR Unavailable Loli Lees MD Primary Care Provider Loli Lees MD Unavailable Nishi Tomlinson STOCK SELECTOR Unavailable Reason for Visit * Reason Onset Date Comments Oncology Nurse Triage 09/06/2025 Encounter Details Date Type Department Care Team (Late st Contact Info) Description 09/06/2025 Telephone Department of Hematology and Oncology [facility] [address] [place] [address] Luis Enrique Jones RN [address] [id number] Oncology Nurse Triage Social History Tobacco Use Types Packs/Day Years [...] encounter Miscellaneous Notes * Telephone Encounter - Luis Enrique Jones RN - 09/06/2025 10:47 AM EST Call received on the triage line regarding concerns for ascites. Valentina is being seen in the clinic secondary to a diagnosis of metastatic breast cancer. She is currently receiving Capivasertib andFaslodex; initial therapy received on 07/20/2025. She is also receiving Xgeva every 3 months; last dose 07/20/2025. Please see oncology REYNA note from 08/17/2025 for details regarding the patient's oncologic and treatment history. Valentina calls to triage line today voicing concerns for what she feels is a new and worsening ascites. She states that her symptoms presented on [facility] Allie and she has had an increase in abdominal swelling since that time. She is concerned about the length of time it would take her to get to her scheduled visit today and is asking if local emergency room evaluation would be appropriate. I didinform her that she would benefit from having labs and a physical exam with us today and we would make decisions from that information regarding further workup for ascites. She then verbalized that she is having significant anxiety regarding her present condition and I agreed with her that evaluation at a local emergency room would be appropriate. The patient will be taking a private vehicle to [facility] for evaluation. Valentina verbalized her understanding and agreement with the plan in place. The patient's oncology team is CCed here. Luis Enrique Jones RN, ONN-CG documented in this encounter Plan of Treatment Upcoming Encounters Date Type Department Care Team (Late st Contact Info) Description 09/20/2025 10:20 AM EST Lab Department of Hematology and Oncology [facility] [address] [place] [address] Sharon Lewis, STOCK SELECTOR [address] [place] [address] In Person with Resource 09/20/2025 11:30 AM EST Office Visit Department of Hematology and Oncology [facility] Oncology [address] [address] Jackelyn Lake MD 41 [place] [address] In Person with Physician 09/20/2025 12:30 PM EST Infusion [facility] Infusion Services [facility] Infusion Services 41 [facility] 3rd [place] [address] Sharon Lewis, STOCK SELECTOR 41 [place] [address] In Person with Resource documented as of this encounter Visit Diagnoses Not on filedocumented in this encounter Care Teams Children'S Literature Professor Relationship Specialty Start Date End Date Loli Lees MD 395 [place] [address] PCP - General Internal Medicine 01/07/25 Loli Lees MD 395 [place] [address] PCP - Insurance Assigned PCP 03/15/25 Jackelyn Lake MD [address] [place] [address] Consulting Provider Hematology/Oncology 04/23/16 Shayna Lennon NP [address] [place] [address] Nurse Practitioner Nurse Practitioner 01/14/20 Sharon Lewis, STOCK SELECTOR [address] [place] [address] Nurse Practitioner Nurse Practitioner 08/09/20 Jacqueline Dinero NP [facility] 7 [place] [address] Nurse Practitioner Nurse Practitioner 07/02/24 Nishi Tomlinson NP 41 [place] [address] Nurse Practitioner Hematology/Oncology 07/19/25 documented as of this encounter
--- OUTSIDE RECORDS SUMMARY | 2025-09-06 19:35 | XMS_ITS | Encounter Summary ---
Author Organization Damaris saul Address 41 [place] [address] Care Team Providers Care Landscaper Helper Name Role Phone Robert August Primary Care Provider [phone] Jackelyn Lake MD Unavailable [phone] Anabel Goldsmith FUNDRAISING DIRECTOR Unavailable [phone] Shayna Lennon FUNDRAISING DIRECTOR Unavailable [phone] Sharon Lweis FUNDRAISING DIRECTOR Unavailable [phone] Robert August Unavailable Jacqueline Dinero NP Unavailable [phone] Loli Lees MD Primary Care Provider [phone] Loli Lees MD Unavailable [phone] Nishi Tomlinson FUNDRAISING DIRECTOR Unavailable [phone] Reason for Visit * Reason Comments Medication Refill Encounter Details Date Type Department Care Team (Late st Contact Info) Description 10/09/2015 Refill Department of Hematology and Oncology [facility] Hematology Oncology [address] [address] Anabel Goldsmith, FUNDRAISING DIRECTOR [address] [place] [address] Social History Tobacco Use Types Packs/Day Years [...] [facility] Hematology Oncology [address] [place] [address] Sharon Lewis, FUNDRAISING DIRECTOR 41 [place] [address] In Person with Resource 09/20/2025 11:30 AM EST Office Visit Department of Hematology and Oncology [facility] Hematology Oncology [address] [place] [address] Jackelyn Lake MD [address] [place] [address] In Person with Physician 09/20/2025 12:30 PM EST Infusion [facility] Infusion Services [facility] Infusion Services [address] [place] [address] [address] [place] [address] Sharon Lewis, FUNDRAISING DIRECTOR 41 [place] [address] In Person with Resource documented as of this encounter Visit Diagnoses Not on filedocumented in this encounter Care Teams Landscaper Helper Relationship Specialty Start Date End Date Robert August [address] [place] [address] PCP - General 07/19/14 01/06/[address] [place] [address] PCP - Insurance Assigned PCP 02/27/22 01/06/25 Loli Lees MD 395 [place] [address] PCP - General Internal Medicine 01/07/25 Loli Lees MD 395 [place] [address] PCP - Insurance Assigned PCP 03/15/25 Jackelyn Lake MD 41 [place] [address] Consulting Provider Hematology/Oncology 04/23/16 Anabel Goldsmith NP [address] [place] [address] Nurse Practitioner Nurse Practitioner 07/16/16 Shayna Lennon NP 41 [place] [address] Nurse Practitioner Nurse Practitioner 01/14/20 Sharon Lewis NP 41 [place] [address] Nurse Practitioner Nurse Practitioner 08/09/20 Jacqueline Dinero NP [address] [address] Nurse Practitioner Nurse Practitioner 07/02/24 Nishi Tomlinson FUNDRAISING DIRECTOR 41 [place] [address] Nurse Practitioner Hematology/Oncology 07/19/25 documented as of this encounter
--- OUTSIDE RECORDS SUMMARY | 2025-09-06 19:35 | XMS_ITS ---
Author Organization Damaris Hernandez [facility] Address [address] [place] [address] Care Team Providers Care Wood Car Builder Name Role Phone Jackelyn Lake MD Unavailable [phone] Shayna Lennon PIPE INSULATOR HELPER Unavailable Sharon Lewis PIPE INSULATOR HELPER Unavailable [phone] Jacqueline Dinero PIPE INSULATOR HELPER Unavailable Loli Lees MD Primary Care Provider Loli Lees MD Unavailable [phone] Nishi Tomlinson PIPE INSULATOR HELPER Unavailable Active Problems Problem Noted Date Diagnosed Date Metastasis to bone 05/20/2024 Colon cancer screening 03/05/2023 Overview (03/05/2023): Added automatically from request for surgery [id number] 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 Overview (11/08/2014): Malignant Neoplasm Metastasis To Lymph Nodes Hypertension 10/25/2014 Overview (11/08/2014): Hypertension Malignant neoplasm of left female breast 015 Cancer Staging:Pathologic stage from 09/11/2012:Stage IV(M1) - Signed by Jackelyn Lake MD on 11/12/2022 Overview (11/08/2014): Breast Cancer Vitamin D deficiency 03/27/2013 Overview (11/08/2014): Vitamin D Deficiency Tobacco use 10/21/2012 Overview (11/08/2014): Tobacco Use Current Treatment and Therapy Plans [facility] Denosumab - Every 3 Months & [facility] Fulvestrant Injection - Induction Followed by Maintenance* Plan Start Date:01/07/2025 Plan Provider:Jackelyn Lake MD Linked Problems Metastasis to bone (CMS-HCC) Malignant neoplasm of overlapping sites of left breast in female, estrogen receptor positive (CMS-HCC) Treatment Medications 0.9% sodium chloride (NS)alb uteroldenosumab (XGEVA) 120 mg/1.7 mL (70 mg/mL)diphenhydrAMINE (BENADRYL)EPINEPHrine (ADRENALIN) 1 mg/mLfamotidine (PEPCID) injection (dispense components)methylPREDNISolone sodium succinate (PF) (SOLU-Medrol) [facility]IL[facility] OP Capivasertib + Fulvestrant - Every 28 Days* Plan Start Date:07/11/2025 Plan Provider:Jackelyn Lake MD Linked Problems Metastasis to bone (CMS-HCC) Treatment Medications Current Day (Day 1 , Cycle 3 - Planned for 09/14/2025) Next Day (Day 1, Cycle 4 - Planned for 10/12/2025) 0.9% sodium chloride (NS)albuterolcapivasertib (Truqap)cetirizine (ZyrTEC)diphenhydrAMINE (BENADRYL)fulvestrant (FASLODEX)fulvestrant (FASLODEX) 250 mg/5 mLloperamide (IMODIUM)methylPREDNISolon e sodium succinate (SOLU-Medrol)ondansetron (ZOFRAN)prochlorperazine (COMPAZINE) 0.9% sodium chloride (NS) BOLUS 1,000 mLalbuterol nebulizer solution 2.5 mgdiphenhydrAMINE (BENADRYL) injection 25 mgfulvestrant (FASLODEX) 250 mg/5 mL injection 500 mgmethylPREDNISolone sodium succinate (PF) (SOLU-Medrol) injection 40 mg 0.9% sodium chloride (NS) BOLUS 1,000 mLalbuterol nebulizer solution 2.5 mgdiphenhydrAMINE (BENADRYL) injection 25 mgfulvestrant (FASLODEX) 250 mg/5 mL injection 500 mgmethylPREDNISolone sodium succinate (PF) (SOLU-Medrol) injection 40 mg Past Treatment and Therapy Plans No past plan information found.
--- OUTSIDE RECORDS SUMMARY | 2025-09-06 19:35 | XMS_ITS | Encounter Summary ---
Author Organization Damaris saul Address 41 [place] [address] Care Team Providers Care Bicycle Inspector Name Role Phone Robert August Primary Care Provider Jackelyn Lake MD Unavailable [phone] Anabel Goldsmith RECOVERY ENGINEER Unavailable [phone] Shayna Lennon RECOVERY ENGINEER Unavailable Sharon Lewis RECOVERY ENGINEER Unavailable [phone] Robetr August Unavailable Jacqueline Dinero RECOVERY ENGINEER Unavailable Loli Lees MD Primary Care Provider Loli Lees MD Unavailable [phone] Nishi Tomlinson RECOVERY ENGINEER Unavailable Reason for Visit * Reason Comments Medication Refill Encounter Details Date Type Department Care Team (Late st Contact Info) Description 01/23/2020 Refill Department of Hematology and Oncology [facility] Oncology [address] [address] Jackelyn Lake MD [address] [place] [address] Social History Tobacco Use Types Packs/Day Years [...] EST Lab Department of Hematology and Oncology [facility] Hematology Oncology [address] [place] [address] Sharon Lewis, RECOVERY ENGINEER 41 [place] [address] In Person with Resource 09/20/2025 11:30 AM EST Office Visit Department of Hematology and Oncology [facility] Hematology Oncology [address] [place] [address] Jackelyn Lake MD 41 [place] [address] In Person with Physician 09/20/2025 12:30 PM EST Infusion [facility] Infusion Services [facility] Infusion Services [address] [place] [address] [address] [place] [address] Sharon Lewis, RECOVERY ENGINEER 41 [place] [address] In Person with Resource documented as of this encounter Visit Diagnoses Not on filedocumented in this encounter Care Teams Bicycle Inspector Relationship Specialty Start Date End Date Robert August [address] [place] [address] PCP - General 07/19/14 01/06/25 Robert August [address] [place] [address] PCP - Insurance Assigned PCP 02/27/22 01/06/25 Loli Lees MD 395 [place] [address] PCP - General Internal Medicine 01/07/25 Loli Lees MD [address] [place] [address] PCP - Insurance Assigned PCP 03/15/25 Jackelyn Lake MD 41 [place] [address] Consulting Provider Hematology/Oncology 04/23/16 Anabel Goldsmith NP [address] [place] [address] Nurse Practitioner Nurse Practitioner 07/16/16 Shayna Lennon NP 41 [place] [address] Nurse Practitioner Nurse Practitioner 01/14/20 Sharon Lewis NP 41 [place] [address] Nurse Practitioner Nurse Practitioner 08/09/20 Jacqueline Dinero, STU [address] [address] Nurse Practitioner Nurse Practitioner 07/02/24 Nishi Tomlinson NP 41 [place] [address] Nurse Practitioner Hematology/Oncology 07/19/25 documented as of this encounter
--- OUTSIDE RECORDS SUMMARY | 2025-09-06 19:35 | XMS_ITS | Encounter Summary ---
Author Organization Damaris Elvin David [facility] Address 41 [place] [address] Care Team Providers Care Stem Teacher Name Role Phone Robert August Primary Care Provider Kae Fermin MD Unavailable [phone] Anabel Goldsmith BOBJ DEVELOPER Unavailable [phone] Shayna Lennon BOBJ DEVELOPER Unavailable [phone] Sharon Lewis BOBJ DEVELOPER Unavailable [phone] Robert August Unavailable Jacqueline Dinero BOBJ DEVELOPER Unavailable Loli Lees MD Primary Care Provider Loli Lees MD Unavailable [phone] Nishi Tomlinson BOBJ DEVELOPER Unavailable Encounter Details Date Type Department Care Team (Late st Contact Info) Description 01/28/2013 Clinical Conversion Encounter Department of Hematology and Oncology [facility] Hematology Oncology [address] [phone] Kae Fermin MD [address] [place] [address] Social History Tobacco Use Types Packs/Day Years Used Date Smoking Tobacco: Never Assessed Comments Unknown Sex and Gender Information Value Date Recorded Sex Assigned at Female 01/05/2020 1:28 PM EDT Legal Sex Female 11:24 AM EST Gender Identity Female 01/05/2020 1:28 PM EDT Sexual Orientation Not on file documented as of this encounter Progress Notes * Kae Fermin MD - 10/25/2014 6:27 PM EST [id number] [facility] [place] [place]. Chief Complaint Followup of a metastatic breast cancer with mediastinal lymph node metastases and in situ breast mass. History of Present Illness ONCOLOGIC HISTORY: This is a 42-year-old premenopausal woman who noted changes in her left breast. She was scheduled for routine mammogram at [facility] on September 11, 2011. There is [...] notice any side effects. She has had a few hot flashes. Her last menstrual period was November 16. She is not having any significant pain in her left breast, although sometimes she has some unusual sensations in that area. Otherwise she has no new issues or [...] in detail. Performance Status ECoG zero Vitals [facility] Vitals Data Includes: Last 1 Instance 28Jan2013 10:39AM Systolic: 148 Diastolic: 94 Heart Rate: 87 BMI Calculated: 27.8 BSA Calculated: 1.88 Weight: 173 lb Respiration: 16 O2 Saturation: 99 Temperature: 98.2 F Pain Score: 0 Allergy [...] to be softer and has less distinct borders. Assessment 1. Breast Cancer 174.9 2. Malignant Neoplasm Metastasis To Lymph Nodes 196.9 3. Hypertension 401.9 Stage IV breast cancer that is ER/KS positive with lymph node metastases. Plan 1. Lisinopril 10 MG Oral Tablet; TAKE 1 TABLET DAILY; Therapy: 01Oct2012 to (Last Rx:28Jan2013) Requested for: [id number]; Edited Her breast exam is possibly improved. She will continue her current treatment. She will receive Lupron today. I will see her back in 4 weeks. We will repeat her PET/CT scan prior to her next visit. This is already scheduled. This could not be coordinated with her visit and the patient prefers to go over the results by telephone. She will call me after the scan is complete. Her blood pressure has been persistently elevated. I increased the lisinopril from 5-10 mg daily. She will also followup with her primary care provider regarding this. Signatures Electronically signed by : KAE FERMIN MD; Jan 28 2013 3:22PM Electronically signed by : KAE FERMIN MD; Jan 28 2013 3:57PM documented in this encounter Plan of Treatment Upcoming Encounters Date Type Department Care Team (Late st Contact Info) Description 09/20/2025 10:20 AM EST Lab Department of Hematology and Oncology [facility] Hematology Oncology [address] [place] [address] Sharon Lewis NP [address] [place] [address] In Person with Resource 09/20/2025 11:30 AM EST Office Visit Department of Hematology and Oncology [facility] Hematology Oncology [address] [place] [address] Kae Fermin MD [address] [place] [address] In Person with Physician 09/20/2025 12:30 PM EST Infusion [facility] Infusion Services [facility] Infusion Services [address] [place] [address] 3rd [place] [address] Sharon Lewis NP 41 [place] [address] In Person with Resource documented as of this encounter Visit Diagnoses Not on filedocumented in this encounter Care Teams Stem Teacher Relationship Specialty Start Date End Date Reillykb Robert Snyder [address] [place] [address] PCP - General 07/19/14 01/06/25 Robert August [address] [address] PCP - Insurance Assigned PCP 02/27/22 01/06/25 Loli Lees MD 395 [place] [address] PCP - General Internal Medicine 01/07/25 Loli Lees MD [address] [place] [address] PCP - Insurance Assigned PCP 03/15/25 Kae Fermin MD [address] [place] [address] Consulting Provider Hematology/Oncology 04/23/16 Anabel Goldsmith NP [address] [place] [address] Nurse Practitioner Nurse Practitioner 07/16/16 Shayna Lennon NP [address] [place] [address] Nurse Practitioner Nurse Practitioner 01/14/20 Sharon Lewis BOBJ DEVELOPER [address] [place] [address] Nurse Practitioner Nurse Practitioner 08/09/20 Jacqueline Dinero NP [address] [facility] 7 [place] [address] Nurse Practitioner Nurse Practitioner 07/02/24 Nishi Tomlinson NP 41 [place] [address] Nurse Practitioner Hematology/Oncology 07/19/25 documented as of this encounter
--- OUTSIDE RECORDS SUMMARY | 2025-09-06 19:35 | XMS_ITS | Encounter Summary ---
Author Organization Damaris saul Address [address] [place] [address] Care Team Providers Care Brake Linings Coater Name Role Phone Robert August Primary Care Provider [phone] Jackelyn Lake MD Unavailable [phone] Anabel Goldsmith CUSTOMER SOLUTIONS COORDINATOR Unavailable [phone] Shayna Lennon CUSTOMER SOLUTIONS COORDINATOR Unavailable [phone] Sharon Lewis CUSTOMER SOLUTIONS COORDINATOR Unavailable [phone] Robert August Unavailable Jacqueline Dinero CUSTOMER SOLUTIONS COORDINATOR Unavailable Loli Lees MD Primary Care Provider Loli Lees MD Unavailable [phone] Nishi Tomlinson CUSTOMER SOLUTIONS COORDINATOR Unavailable Reason for Visit * Reason Comments Medication Refill Encounter Details Date Type Department Care Team (Late st Contact Info) Description 12/25/2018 Refill Department of Hematology and Oncology [facility] Oncology [address] [address] Jackelyn Lake MD [address] [place] [address] Social History Tobacco Use Types Packs/Day Years [...] encounter Miscellaneous Notes * Telephone Encounter - Sharon Lewis NP - 12/26/2018 8:04 AM EDT Your last note said to f/u with PCP re hypertension, not sure if this is something you manage documented in this encounter Plan of Treatment Upcoming Encounters Date Type Department Care Team (Late st Contact Info) Description 09/20/2025 10:20 AM EST Lab Department of Hematology and Oncology [facility] Hematology Oncology [address] [place] [address] Sharon Lewis NP 41 [place] [address] In Person with Resource 09/20/2025 11:30 AM EST Office Visit Department of Hematology and Oncology [facility] Hematology Oncology [address] [place] [address] Jackelyn Lake MD [address] [place] [address] In Person with Physician 09/20/2025 12:30 PM EST Infusion [facility] Infusion Services [facility] Infusion Services [address] [place] [address] 3rd [place] [address] Sharon Lewis NP 41 [place] [address] In Person with Resource documented as of this encounter Visit Diagnoses Not on filedocumented in this encounter Care Teams Brake Linings Coater Relationship Specialty Start Date End Date Robert August [address] [place] [address] PCP - General 07/19/14 01/06/25 Robert August [address] [place] [address] PCP - Insurance Assigned PCP 02/27/22 01/06/25 Loli Lees MD [address] [place] [address] PCP - General Internal Medicine 01/07/25 Loli Lees MD [address] [place] [address] PCP - Insurance Assigned PCP 03/15/25 Jackelyn Lake MD [address] [place] [address] Consulting Provider Hematology/Oncology 04/23/16 Anabel Goldsmith NP [address] [place] [address] Nurse Practitioner Nurse Practitioner 07/16/16 Shayna Lennon NP [address] [place] [address] Nurse Practitioner Nurse Practitioner 01/14/20 Sharon Lewis CUSTOMER SOLUTIONS COORDINATOR 41 [place] [address] Nurse Practitioner Nurse Practitioner 08/09/20 Jacqueline Dinero NP [address] [place] [address] Nurse Practitioner Nurse Practitioner 07/02/24 Nishi Tomlinson CUSTOMER SOLUTIONS COORDINATOR [address] [place] [address] Nurse Practitioner Hematology/Oncology 07/19/25 documented as of this encounter
--- OUTSIDE RECORDS SUMMARY | 2025-09-06 19:35 | XMS_ITS | Encounter Summary ---
Author Organization Damaris saul Address [address] [place] [address] Care Team Providers Care Model And Mold Maker Plaster Name Role Phone Robert August Primary Care Provider [phone] Jackelyn Lake MD Unavailable [phone] Anabel Goldsmith EARLY CHILDHOOD COORDINATOR Unavailable [phone] Shayna Lennon EARLY CHILDHOOD COORDINATOR Unavailable [phone] Sharon Lewis EARLY CHILDHOOD COORDINATOR Unavailable [phone] Robert August Unavailable Jacqueline Dinero NP Unavailable [phone] Loli Lees MD Primary Care Provider Loli Lees MD Unavailable [phone] Nishi Tomlinson EARLY CHILDHOOD COORDINATOR Unavailable [phone] Encounter Details Date Type Department Care Team (Late st Contact Info) Description 11/11/[address] SCAN [facility] CT Scan [address] [address] Robret August [address] [place] [address] [address] [place] [address] Social History Tobacco Use Types Packs/Day Years [...] of Hematology and Oncology [facility] Hematology Oncology [address] [place] [address] Sharon Lewis, EARLY CHILDHOOD COORDINATOR [address] [place] [address] In Person with Resource 09/20/2025 11:30 AM EST Office Visit Department of Hematology and Oncology [facility] Hematology Oncology [address] [place] [address] Jackelyn Lake MD [address] [place] [address] In Person with Physician 09/20/2025 12:30 PM EST Infusion [facility] Infusion Services [facility] Infusion Services [address] [place] [address] 3rd [place] [address] Sharon Lewis, EARLY CHILDHOOD COORDINATOR [address] [place] [address] In Person with Resource documented as of this encounter Visit Diagnoses Not on filedocumented in this encounter Care Teams Model And Mold Maker Plaster Relationship Specialty Start Date End Date Robert August [address] [place] [address] PCP - General 07/19/14 01/06/25 Robert August [address] [facility] [address] [place] [address] PCP - Insurance Assigned PCP 02/27/22 01/06/25 Loli Lees MD [address] [place] [address] PCP - General Internal Medicine 01/07/25 Loli Lees MD [address] [place] [address] PCP - Insurance Assigned PCP 03/15/25 Jackelyn Lake MD [address] [place] [address] Consulting Provider Hematology/Oncology 04/23/16 Anabel Goldsmith NP [address] [place] [address] Nurse Practitioner Nurse Practitioner 07/16/16 Shayna Lennon NP [address] [place] [address] Nurse Practitioner Nurse Practitioner 01/14/20 Sharon Lewis NP [address] [place] [address] Nurse Practitioner Nurse Practitioner 08/09/20 Jacqueline Dinero NP [address] [address] Nurse Practitioner Nurse Practitioner 07/02/24 Nishi Tomlinson EARLY CHILDHOOD COORDINATOR [address] [place] [address] Nurse Practitioner Hematology/Oncology 07/19/25 documented as of this encounter
--- OUTSIDE RECORDS SUMMARY | 2025-09-06 19:35 | XMS_ITS | Encounter Summary ---
Author Organization Damaris saul Address [address] [place] [address] Care Team Providers Care Concrete Pump Operator Helper Name Role Phone Robert August Primary Care Provider Jackelyn Lake MD Unavailable [phone] Anabel Goldsmith CONSOLIDATOR Unavailable [phone] Shayna Lennon CONSOLIDATOR Unavailable Sharon Lewis CONSOLIDATOR Unavailable Robert August Unavailable Jacqueline Dinero CONSOLIDATOR Unavailable [phone] Loli Lees MD Primary Care Provider Loli Lees MD Unavailable [phone] Nishi Tomlinson CONSOLIDATOR Unavailable [phone] Encounter Details Date Type Department Care Team (Late st Contact Info) Description 05/14/2019 Orders Only [facility] NUCLEAR MED [facility] Nuclear Medicine [address] [address] Della Ramos MD [address] [place] [address] Social History Tobacco Use Types Packs/Day Years [...] EST Lab Department of Hematology and Oncology [facility] Hematology Oncology [address] [place] [address] Sharon Lewis, CONSOLIDATOR [address] [place] [address] In Person with Resource 09/20/2025 11:30 AM EST Office Visit Department of Hematology and Oncology [facility] Hematology Oncology [address] [place] [address] Jackelyn Lake MD [address] [place] [address] In Person with Physician 09/20/2025 12:30 PM EST Infusion [facility] Infusion Services [facility] Infusion Services [address] [place] [address] Sharon Lewis, CONSOLIDATOR [address] [place] [address] In Person with Resource documented as of this encounter Visit Diagnoses Not on filedocumented in this encounter Care Teams Concrete Pump Operator Helper Relationship Specialty Start Date End Date Robert August [address] [place] [address] PCP - General 07/19/14 01/06/25 Robert August [address] [place] [address] PCP - Insurance Assigned PCP 02/27/22 01/06/25 Loli Lees MD [address] [place] [address] PCP - General Internal Medicine 01/07/25 Loli Lees MD [address] [place] [address] PCP - Insurance Assigned PCP 03/15/25 Jackelyn Lake MD [address] [place] [address] Consulting Provider Hematology/Oncology 04/23/16 Anabel Goldsmith NP [address] [place] [address] Nurse Practitioner Nurse Practitioner 07/16/16 Shayna Lennon NP [address] [place] [address] Nurse Practitioner Nurse Practitioner 01/14/20 Sharon Lewis NP [address] [place] [address] Nurse Practitioner Nurse Practitioner 08/09/20 Jacqueline Dinero NP 330 Raquel Florence [address] [address] Nurse Practitioner Nurse Practitioner 07/02/24 Nishi Tomlinson NP [address] [place] [address] Nurse Practitioner Hematology/Oncology 07/19/25 documented as of this encounter
--- OUTSIDE RECORDS SUMMARY | 2025-09-06 19:35 | XMS_ITS | Encounter Summary ---
Author Organization Damaris saul Address [address] [place] [address] Care Team Providers Care Full Stack Developer Name Role Phone Robert August Primary Care Provider Jackelyn Lake MD Unavailable [phone] Anabel Goldsmith LAND DEVELOPMENT MANAGER Unavailable [phone] Shayna Lennon LAND DEVELOPMENT MANAGER Unavailable [phone] Sharon Lewis LAND DEVELOPMENT MANAGER Unavailable [phone] Robert August Unavailable Jacqueline Dinero NP Unavailable [phone] Loli Lees MD Primary Care Provider Loli Lees MD Unavailable [phone] Nishi Tomlinson LAND DEVELOPMENT MANAGER Unavailable [phone] Encounter Details Date Type Department Care Team (Late st Contact Info) Description 11/28/[address] SCAN [facility] PET CT [address] [address] Robert August [address] [place] [address] [address] [place] [address] Social History Tobacco Use Types Packs/Day Years [...] [facility] Hematology Oncology [address] [place] [address] Sharon Lewis, LAND DEVELOPMENT MANAGER [address] [place] [address] In Person with Resource 09/20/2025 11:30 AM EST Office Visit Department of Hematology and Oncology [facility] Hematology Oncology [address] [place] [address] Jackelyn Lake MD [address] [place] [address] In Person with Physician 09/20/2025 12:30 PM EST Infusion [facility] Infusion Services [facility] Infusion Services [address] [place] [address] 3[address] [place] [address] Sharon Lewis, LAND DEVELOPMENT MANAGER [address] [place] [address] In Person with Resource documented as of this encounter Visit Diagnoses Not on filedocumented in this encounter Care Teams Full Stack Developer Relationship Specialty Start Date End Date Robert August [address] [place] [address] PCP - General 07/19/14 01/06/25 Robert August [address] [place] [address] PCP - Insurance Assigned PCP 02/27/22 01/06/25 Loli Lees MD [address] [place] [address] PCP - General Internal Medicine 01/07/25 Loli Lees MD [address] [place] [address] PCP - Insurance Assigned PCP 03/15/25 Jackelyn Lake MD [address] [place] [address] Consulting Provider Hematology/Oncology 04/23/16 Anabel Goldsmith NP [address] [place] [address] Nurse Practitioner Nurse Practitioner 07/16/16 Shayna Lennon NP [address] [place] [address] Nurse Practitioner Nurse Practitioner 01/14/20 Sharon Lewis NP [address] [place] [address] Nurse Practitioner Nurse Practitioner 08/09/20 Jacqueline Dinero NP [address] [address] Nurse Practitioner Nurse Practitioner 07/02/24 Nishi Tomlinson LAND DEVELOPMENT MANAGER [address] [place] [address] Nurse Practitioner Hematology/Oncology 07/19/25 documented as of this encounter
--- OUTSIDE RECORDS SUMMARY | 2025-09-06 19:35 | XMS_ITS | Encounter Summary ---
Author Organization Damaris saul Address [address] [place] [address] Care Team Providers Care Ict Analyst Name Role Phone Robert August Primary Care Provider Jackelyn Lake MD Unavailable [phone] Anabel Goldsmith ONLINE MARKETING STRATEGIST Unavailable [phone] Shayna Lennon NP Unavailable Sharon Lewis NP Unavailable [phone] Robert August Unavailable Jacqueline Dinero NP Unavailable Loli Lees MD Primary Care Provider [phone] Loli Lees MD Unavailable [phone] Nishi Tomlinson ONLINE MARKETING STRATEGIST Unavailable [phone] Encounter Details Date Type Department Care Team (Late st Contact Info) Description 06/06/[address] [facility] NUCLEAR [facility] Nuclear Medicine [address] [phone] Sharon Lewis, ONLINE MARKETING STRATEGIST [address] [place], [place] [phone] Social History Tobacco Use Types Packs/Day Years [...] EST Lab Department of Hematology and Oncology [facility] Hematology Oncology [address] [place] [address] Sharon Lewis, ONLINE MARKETING STRATEGIST [address] [place] [address] In Person with Resource 09/20/2025 11:30 AM EST Office Visit Department of Hematology and Oncology [facility] Hematology Oncology [address] [place] [address] Jackelyn Lake MD [address] [place] [address] In Person with Physician 09/20/2025 12:30 PM EST Infusion [facility] Infusion Services [facility] Infusion Services [address] [place] [address] Sharon Lewis, ONLINE MARKETING STRATEGIST [address] [place] [address] In Person with Resource documented as of this encounter Visit Diagnoses Not on filedocumented in this encounter Care Teams Ict Analyst Relationship Specialty Start Date End Date Robert August [address] [place] [address] PCP - General 07/19/14 01/06/25 Robert August [address] [place] [address] PCP - Insurance Assigned PCP 02/27/22 01/06/25 Loli Lees MD [address] [place] [address] PCP - General Internal Medicine 01/07/25 Loli Lees MD [address] [place] [address] PCP - Insurance Assigned PCP 03/15/25 Jackelyn Lake MD [address] [place] [address] Consulting Provider Hematology/Oncology 04/23/16 Anabel Goldsmith NP [address] [place] [address] Nurse Practitioner Nurse Practitioner 07/16/16 Shayna Lennon NP [address] [place] [address] Nurse Practitioner Nurse Practitioner 01/14/20 Sharon Lewis NP [address] [place] [address] Nurse Practitioner Nurse Practitioner 08/09/20 Jacqueline Dinero NP 330 Raquel Florence [address] [address] Nurse Practitioner Nurse Practitioner 07/02/24 Nishi Tomlinson NP [address] [place] [address] Nurse Practitioner Hematology/Oncology 07/19/25 documented as of this encounter
--- OUTSIDE RECORDS SUMMARY | 2025-09-06 19:35 | XMS_ITS | Encounter Summary ---
Author Organization Damaris Hernandez [facility] Address [address] [place] [address] Care Team Providers Care Home Care Manager Name Role Phone Robert August Primary Care Provider [phone] Jackelyn Lake MD Unavailable [phone] Shayna Lennon HORSE TRADER Unavailable Sharon Lewis HORSE TRADER Unavailable [phone] Robert August Unavailable Jacqueline Dinero HORSE TRADER Unavailable Loli Lees MD Primary Care Provider [phone] Loli Lees MD Unavailable [phone] Nishi Tomlinson HORSE TRADER Unavailable [phone] Reason for Visit * Reason Onset Date Comments Medication Refill 08/15/2023 Encounter Details Date Type Department Care Team (Late st Contact Info) Description 08/15/2023 Refill Department of Hematology and Oncology [facility] Oncology [address] [phone] Rebeca San [place] [address] [place] [address] Social History Tobacco Use Types Packs/Day Years [...] Lab Department of Hematology and Oncology [facility] Hematology Oncology [address] [place] [address] Sharon Lewis, HORSE TRADER [address] [place] [address] In Person with Resource 09/20/2025 11:30 AM EST Office Visit Department of Hematology and Oncology [facility] Hematology Oncology [address] [place] [address] Jackelyn Lake MD [address] [place] [address] In Person with Physician 09/20/2025 12:30 PM EST Infusion [facility] Infusion Services [facility] Infusion Services [address] [place] [address] 3rd [place] [address] Sharon Lewis, HORSE TRADER [address] [place] [address] In Person with Resource documented as of this encounter Visit Diagnoses Not on filedocumented in this encounter Care Teams Home Care Manager Relationship Specialty Start Date End Date Robert August [address] [place] [address] PCP - General 07/19/14 01/06/25 Robert August [address] [place] [address] PCP - Insurance Assigned PCP 02/27/22 01/06/25 Loli Lees MD [address] [place] [address] PCP - General Internal Medicine 01/07/25 Loli Lees MD [address] [place] [address] PCP - Insurance Assigned PCP 03/15/25 Jackelyn Lake MD [address] [place] [address] Consulting Provider Hematology/Oncology 04/23/16 Shayna Lennon NP [address] [place] [address] Nurse Practitioner Nurse Practitioner 01/14/20 Sharon Lewis NP [address] [place] [address] Nurse Practitioner Nurse Practitioner 08/09/20 Jacqueline Dinero, STU 330 Raquel Florence [facility] [address] [place] [address] Nurse Practitioner Nurse Practitioner 07/02/24 Nishi Tomlinson NP [address] [place] [address] Nurse Practitioner Hematology/Oncology 07/19/25 documented as of this encounter
--- OUTSIDE RECORDS SUMMARY | 2025-09-06 19:35 | XMS_ITS | Encounter Summary ---
Author Organization Damaris Elvin [facility] Address [address] [place] [address] Care Team Providers Care Head Butler Name Role Phone Robert August Primary Care Provider [phone] Kae Fermin MD Unavailable [phone] Anabel Goldsmith APPLICATION COUNSELOR Unavailable [phone] Shayna Lennon APPLICATION COUNSELOR Unavailable Sharon Lewis APPLICATION COUNSELOR Unavailable [phone] Robert August Unavailable Jacqueline Dinero APPLICATION COUNSELOR Unavailable [phone] Loli Lees MD Primary Care Provider Loli Lees MD Unavailable [phone] Nishi Tomlinson APPLICATION COUNSELOR Unavailable Encounter Details Date Type Department Care Team (Late st Contact Info) Description 02/09/2013 Clinical Conversion Encounter Department of Hematology and Oncology [facility] Hematology Oncology [address] [phone] Kae Fermin MD [address] [place] [address] Social History Tobacco Use Types Packs/Day Years Used Date Smoking Tobacco: Never Assessed Comments Unknown Sex and Gender Information Value Date Recorded Sex Assigned at Female 01/05/2020 1:28 PM EDT Legal Sex Female 11:24 AM EST Gender Identity Female 01/05/2020 1:28 PM EDT Sexual Orientation Not on file documented as of this encounter Miscellaneous Notes * Telephone Encounter - Kae Fermin MD - 10/25/2014 9:34 PM EST [id number],VALENTINA LAREDO, [place]. Message Recorded as Task Date: 02/09/2013 12:45 PM, Created By: Sonia Walter Task Name: Patient-Call Back Assigned To: KAE FERMIN Regarding Patient: VALENTINA MICHELLE, Status: Active Comment: Sonia Walter - 09 Feb 2013 12:45 PM TASK CREATED Caller: Self; Please call pt today ([phone]) with scan results. KAE FERMIN - 09 Feb 2013 2:53 PM TASK EDITED reviewed PET scan- good response to therapy. Will f/u as scheduled. Will arrange f/u with Dr. Mcnulty on same day. Signatures Electronically signed by : KAE FERMIN MD; Feb 09 2013 2:53PM documented in this encounter Plan of Treatment Upcoming Encounters Date Type Department Care Team (Late st Contact Info) Description 09/20/2025 10:20 AM EST Lab Department of Hematology and Oncology [facility] Hematology Oncology [address] [place] [address] Sharon Lewis NP [address] [place] [address] In Person with Resource 09/20/2025 11:30 AM EST Office Visit Department of Hematology and Oncology [facility] Hematology Oncology [address] [place] [address] Kae Fermin MD [address] [place] [address] In Person with Physician 09/20/2025 12:30 PM EST Infusion [facility] Infusion Services [facility] Infusion Services 41 [facility] 3rd [place] [address] Sharon Lewsi, STU [address] [place] [address] In Person with Resource documented as of this encounter Visit Diagnoses Not on filedocumented in this encounter Care Teams Head Butler Relationship Specialty Start Date End Date Robert August [address] [facility] [facility] [address] [place] [address] PCP - General 07/19/14 01/06/25 Robert August [address] [address] PCP - Insurance Assigned PCP 02/27/22 01/06/25 Loli Lees MD [address] [place] [address] PCP - General Internal Medicine 01/07/25 Loli Lees MD [address] [place] [address] PCP - Insurance Assigned PCP 03/15/25 Kae Fermin MD [address] [place] [address] Consulting Provider Hematology/Oncology 04/23/16 Anabel Goldsmith NP [address] [place] [address] Nurse Practitioner Nurse Practitioner 07/16/16 Shayna Lennon NP [address] [place] [address] Nurse Practitioner Nurse Practitioner 01/14/20 Sharon Lewis, APPLICATION COUNSELOR [address] [place] [address] Nurse Practitioner Nurse Practitioner 08/09/20 Jacqueline Dinero NP [address] [facility] 7 [place] [address] Nurse Practitioner Nurse Practitioner 07/02/24 Nishi Tomlinson NP [address] [place] [address] Nurse Practitioner Hematology/Oncology 07/19/25 documented as of this encounter
--- OUTSIDE RECORDS SUMMARY | 2025-09-06 19:35 | XMS_ITS | Encounter Summary ---
Author Organization Damaris Hernandez kg Address [address] [place] [address] Care Team Providers Care Offshoring Manager Name Role Phone Robert August Primary Care Provider [phone] Jackelyn Lake MD Unavailable [phone] Anabel Goldsmith BALLPOINT PEN ASSEMBLY MACHINE OPERATOR Unavailable [phone] Shayna Lennon BALLPOINT PEN ASSEMBLY MACHINE OPERATOR Unavailable Sharon Lewis BALLPOINT PEN ASSEMBLY MACHINE OPERATOR Unavailable [phone] Robert August Unavailable Jacqueline Dinero BALLPOINT PEN ASSEMBLY MACHINE OPERATOR Unavailable [phone] Loli Lees MD Primary Care Provider [phone] Loli Lees MD Unavailable [phone] Nishi Tomlinson BALLPOINT PEN ASSEMBLY MACHINE OPERATOR Unavailable Reason for Visit * Reason Comments Medication Refill Encounter Details Date Type Department Care Team (Late st Contact Info) Description 11/13/2015 Refill Department of Hematology and Oncology [facility] Oncology [address] [address] Jackelyn Lake MD [address] [place] [address] Social History Tobacco Use Types Packs/Day Years [...] EST Lab Department of Hematology and Oncology [facility] Hematology Oncology [address] [place] [address] Sharon Lewis, BALLPOINT PEN ASSEMBLY MACHINE OPERATOR [address] [place] [address] In Person with Resource 09/20/2025 11:30 AM EST Office Visit Department of Hematology and Oncology [facility] Hematology Oncology [address] [place] [address] Jackelyn Lake MD [address] [place] [address] In Person with Physician 09/20/2025 12:30 PM EST Infusion [facility] Infusion Services [facility] Infusion Services [address] [place] [address] Sharon Lewis, BALLPOINT PEN ASSEMBLY MACHINE OPERATOR [address] [place] [address] In Person with Resource documented as of this encounter Visit Diagnoses Not on filedocumented in this encounter Care Teams Offshoring Manager Relationship Specialty Start Date End Date Robert August [address] [place] [address] PCP - General 07/19/14 01/06/25 Robert August [address] [place] [address] PCP - Insurance Assigned PCP 02/27/22 01/06/25 Loli Lees MD [address] [place] [address] PCP - General Internal Medicine 01/07/25 Loli Lees MD [address] [place] [address] PCP - Insurance Assigned PCP 03/15/25 Jackelyn Lake MD [address] [place] [address] Consulting Provider Hematology/Oncology 04/23/16 Anabel Goldsmith NP [address] [place] [address] Nurse Practitioner Nurse Practitioner 07/16/16 Shayna Lennon NP [address] [place] [address] Nurse Practitioner Nurse Practitioner 01/14/20 Sharon Lewis NP [address] [place] [address] Nurse Practitioner Nurse Practitioner 08/09/20 Jacqueline Dinero NP [address] [place] [address] Nurse Practitioner Nurse Practitioner 07/02/24 Nishi Tomlinson NP [address] [place] [address] Nurse Practitioner Hematology/Oncology 07/19/25 documented as of this encounter
--- OUTSIDE RECORDS SUMMARY | 2025-09-06 19:35 | XMS_ITS | Encounter Summary ---
Author Organization [facility] Address [address] [place] [address] Care Team Providers Care Fiber Picker Name Role Phone Robert August Primary Care Provider Jackelyn Lake MD Unavailable [phone] Anabel Goldsmith AUDIO VISUAL COLLECTIONS COORDINATOR Unavailable [phone] Shayna Lennon AUDIO VISUAL COLLECTIONS COORDINATOR Unavailable Sharon Lewis AUDIO VISUAL COLLECTIONS COORDINATOR Unavailable [phone] Robert August Unavailable Jacqueline Dinero AUDIO VISUAL COLLECTIONS COORDINATOR Unavailable Loli Lees MD Primary Care Provider [phone] Loli Lees MD Unavailable [phone] Nishi Tomlinson AUDIO VISUAL COLLECTIONS COORDINATOR Unavailable Reason for Visit * Reason Comments Medication Refill Encounter Details Date Type Department Care Team (Late st Contact Info) Description 03/17/2017 Refill Department of Hematology and Oncology [facility] [address] [address] Jackelyn Lake MD [address] [place] [id number] Social History Tobacco Use Types Packs/Day Years [...] Oncology [facility] Hemat[facility] Oncology [address] [place] [phone] Sharon Lewis, AUDIO VISUAL COLLECTIONS COORDINATOR [address] [place] [address] In Person with Resource 09/20/2025 11:30 AM EST Office Visit Department of Hematology and Oncology [facility] Hematology Oncology [address] [place] [phone] Jackelyn Lake MD [address] [place] [address] In Person with Physician 09/20/2025 12:30 PM EST Infusion [facility] [address] [place] [phone] Sharon Lewis, AUDIO VISUAL COLLECTIONS COORDINATOR [address] [place] [address] In Person with Resource documented as of this encounter Visit Diagnoses Not on filedocumented in this encounter Care Teams Fiber Picker Relationship Specialty Start Date End Date Robert August [address] [place] [phone] PCP - General 07/19/14 01/06/25 Robert August [address] [place] [id number] PCP - Insurance Assigned PCP 02/27/22 01/06/25 Loli Lees MD [address] [place] [address] PCP - General Internal Medicine 01/07/25 Loli Lees MD [address] [place] [address] PCP - Insurance Assigned PCP 03/15/25 Jackelyn Lake MD [address] [place] [address] Consulting Provider Hematology/Oncology 04/23/16 Anabel Goldsmith NP [address] [place] [address] Nurse Practitioner Nurse Practitioner 07/16/16 Shayna Lennon NP [address] [place] [address] Nurse Practitioner Nurse Practitioner 01/14/20 Sharon Lewis NP [address] [place] [address] Nurse Practitioner Nurse Practitioner 08/09/20 Jacqueline Dinero NP [address] [place] [address] Nurse Practitioner Nurse Practitioner 07/02/24 Nishi Tomlinson NP [address] [place] [address] Nurse Practitioner Hematology/Oncology 07/19/25 documented as of this encounter
[2025-09-06] MEDS: iohexoL 350 MG/ML 100 ML INFUS..BTL IV (20:00)
[2025-09-06 21:59] VITALS: BP 128/81; PULSE 80; RESP 18; TEMP 36.7; O2SAT 97
[2025-09-06 22:00] VITALS: BP 128/81; PULSE 80; RESP 18; TEMP 36.7; O2SAT 97
== END 2025-09-06 22:00 | disposition home or self-care (01) ==
PROVIDERS: Physician Assistant Medical; Emergency Provider Emergency Medicine; PCP Internal Medicine
DX: R10.23 Pelvic and perineal pain bilateral (principal); C50.919 Malignant neoplasm of unspecified site of unspecified female breast; F17.210 Nicotine dependence, cigarettes, uncomplicated; Z79.899 Other long term (current) drug therapy
CPT/HCPCS: 36415; 74177; 80053; 83735; 85025; 99283; Q9967

== ENCOUNTER → 2025-09-06 19:30 | Outpatient (BNV) | payer OTHER, SELFPAY | PROVIDERS: Emergency Provider Emergency Medicine; PCP Internal Medicine; Visit Provider Radiology Diagnostic Radiology | DX: N32.89 Other specified disorders of bladder (principal); Z85.9 Personal history of malignant neoplasm, unspecified | CPT/HCPCS: 74177 ==